=== PATIENT | male | born 1950 | race Caucasian/White ===

== ENCOUNTER 2019-09-24 21:35 | Inpatient (IN) | payer MEDICARE, MEDICAID, SELFPAY | END 2019-09-27 17:32 | disposition home or self-care (01) | DRG 309 | PROVIDERS: Admitting Provider Internal Medicine; Family Provider Family Medicine; Visit Provider Family Medicine | DX: I48.91 Unspecified atrial fibrillation (principal); J44.1 Chronic obstructive pulmonary disease with (acute) exacerbation; G89.29 Other chronic pain; M25.552 Pain in left hip; Z86.711 Personal history of pulmonary embolism; Z79.01 Long term (current) use of anticoagulants; Z99.81 Dependence on supplemental oxygen; N40.0 Benign prostatic hyperplasia without lower urinary tract symptoms; Z91.81 History of falling; Z87.820 Personal history of traumatic brain injury; F17.210 Nicotine dependence, cigarettes, uncomplicated ==

== ENCOUNTER 2019-10-05 02:23 | Inpatient (IN) | payer MEDICARE, MEDICAID, SELFPAY ==
[2019-10-05] VITALS (9 sets, daily range): BP systolic 108–121; BP diastolic 72–79; PULSE 59–96; RESP 15–20; TEMP 36.3–36.4; O2SAT 95–98; BMI 25.5
--- NOTE | 2019-10-05 02:46 | W.ED.NAVMDI ---
HPI - Nausea/Vomiting/Diarrhea General: Chief complaint: Nausea/Vomiting/Diarrhea Stated complaint: Diarrhea Time Seen by Provider: 10/05/19 02:31 Source: patient Mode of arrival: ambulatory Limitations: no limitations History of Present Illness: HPI Narrative: 69-year-old male who was recently diagnosed with C. difficile and just discharged this morning after a 2-day stay. He states his beats being home he has had increased diarrhea and weakness and states that he is not able to care for himself. He denies any pain. He denies any fever. Has had no vomiting. Patient has been on vancomycin at home. MD elicited complaint: diarrhea and abdominal pain Onset (ago): day(s) Description of diarrhea: watery and lose Associated nausea: No Associated abdominal pain: No Location of pain: None Associated symtoms: Denies change in vision, chest pain, headache(s) or nausea Review of Systems Const: Denies: fever or chills Eyes: Denies: change in vision ENMT: Denies: throat pain or mouth pain Card: Denies: chest pain Resp: Denies: shortness of breath GI: Reports: diarrhea; Denies: abdominal pain, nausea or vomiting : Denies: difficulty urinating Musc: Denies: back pain or joint pain Skin/Breast: Denies: rash Neuro: Denies: headache or behavioral changes Psych: Denies: depression Endo: Denies: excessive urination Cachorro/Lymph: Denies: easy bruising All/Imm: Denies: hives PFSH ED PFSH: Statuses (acute, chronic, etc) shown below reflect problem list status as previously entered and may not be historically accurate Social History Smoking and tobacco status: current every day smoker Physical Exam Const: COMMON NORMALS: no apparent distress, oriented x3 and healthy appearing HENMT: COMMON NORMALS: normocephalic and external nose normal HEAD & SCALP: normocephalic NOSE: external nose normal Eye: COMMON NORMALS: PERRL PUPIL: Yes PERRL Neck/C-Spine: COMMON NORMALS: full ROM and no lymphadenopathy Chest: COMMONS NORMALS: inspection of chest normal Resp: COMMON NORMALS: normal respiratory effort, no use of accessory muscles and clear to auscultation bilaterally AUSCULTATION: clear to auscultation bilaterally Cardio: COMMON NORMALS: regular rate and regular rhythm RATE: regular rate RHYTHM: regular rhythm GI: COMMON NORMALS: normal to inspection, nondistended, normoactive bowel sounds, soft to palpation, non-tender and no masses PALPATION: Yes soft Back/Pelvis: THORACIC SPINE/UPPER BACK: Yes normal to inspection Extremity: COMMON NORMALS: normal to inspection, full ROM and normal capillary refill Neuro: COMMON NORMALS: oriented x3 Psych: COMMON NORMALS: mental status grossly normal and cooperative Skin: COMMON NORMALS: no rashes or lesions noted GENERAL SKIN EXAM: no rashes or lesions noted Course Vital Signs: Vital signs: Vital Signs Temperature 97.6 F 10/05/19 02:34 Pulse Rate 78 10/05/19 02:34 Respiratory Rate 16 10/05/19 02:34 Blood Pressure 117/72 10/05/19 02:34 Pulse Oximetry 97 10/05/19 02:34 MDM - Nausea/Vomiting/Diarrhea MDM Narrative: Medical decision making narrative: Patient presents here with diarrhea and has history of C. difficile recently been admitted and treated. Patient has had weakness spoke to hospitalist who saw patient will admit for observation. Lab Data: Labs: Lab Results 10/05/19 10/05/19 Range/Units 02:48 02:48 WBC 10.5 H (4.0-10.0) 10^3/ uL RBC 5.36 H (4.1-5.3) 10^6/u L Hgb 16.5 (11.7-16.6) g/dL Hct 50.3 (42.0-52.0) % MCV 93.8 (80-94) fL MCH 30.8 (28.0-34.0) pg MCHC 32.8 (30.0-36.0) g/dL RDW 12.4 (12.1-15.1) % Plt Count 240 (130-400) 10^3/c mm MPV 10.3 (7.4-10.4) fL Neut % (Auto) 74.5 % Lymph % (Auto) 16.5 % [place] % (Auto) 7.8 % Eos % (Auto) 0.0 % Baso % (Auto) 0.3 % Neut # (Auto) 7.8 H (1.8-7.7) 10^3/u L Lymph # (Auto) 1.7 (0.8-4.8) 10^3/u L [place] # (Auto) 0.8 (0.2-0.9) 10^3/u L Eos # (Auto) 0.1 (0.0-0.8) 10^3/u L Baso # (Auto) 0.0 (0.0-0.1) 10^3/u L Nucleated RBC % (a uto) 0 % Nucleated RBCs # 0.0 /100WBC Sodium 137 (136-145) mmol/L Potassium 3.9 (3.5-5.1) mmol/L Chloride 102 (98-107) mmol/L Carbon Dioxide 22 (22-29) mmol/L Anion Gap 16.9 (5-19) BUN 12 (8-23) mg/dL Creatinine 1.2 (0.7-1.2) mg/dL GFR Calculation 60.4 L (90-130) mL/min Glucose 93 (74-106) mg/dL Calcium 9.0 (8.8-10.2) mg/Dl Total Bilirubin 0.8 (0.15-1.2) mg/dL AST 34 (0-40) U/L ALT 72 H (0-41) U/L Alkaline Phosphata se 105 (40-130) IU/L Total Protein 6.2 L (6.6-8.7) g/dL Albumin 4.1 (3.5-5.2) g/dL Globulin 2.1 (1.3-4.6) g/dL Discharge Plan Discharge Patient Disposition: Admitted As Inpatient Clinical Impression: Clostridium difficile colitis Condition: Stable Referrals: Kristi Singh DO [Primary Care Provider] - Coding Level of Care Code 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
[2019-10-05 02:51] LABS: Add RBC Morph No
[2019-10-05 03:07] LABS: Alanine Aminotransferase 72 U/L (0-41); Albumin Level 4.1 g/dL (3.5-5.2); Alkaline Phosphatase 105 IU/L (40-130); Anion Gap 16.9 (5-19); Aspartate Amino Transferase 34 U/L (0-40); Blood Urea Nitrogen 12 mg/dL (8-23); Carbon Dioxide 22 mmol/L (22-29); Chloride 102 mmol/L (98-107); Globulin 2.1 g/dL (1.3-4.6); Glomerular Filtration Rate 60.4 mL/min (90-130); Glucose 93 mg/dL (74-106); Potassium 3.9 mmol/L (3.5-5.1); Sodium 137 mmol/L (136-145); Total Bilirubin 0.8 mg/dL (0.15-1.2); Total Protein 6.2 g/dL (6.6-8.7)
[2019-10-05 03:19] LABS: Basophils % 0.3 %; Eosinophils # 0.1 10^3/uL (0.0-0.8); Hematocrit 50.3 % (42.0-52.0); Hemoglobin 16.5 g/dL (11.7-16.6); Lymphocytes # 1.7 10^3/uL (0.8-4.8); Lymphocytes % 16.5 %; Mean Corpuscular HGB Conc 32.8 g/dL (30.0-36.0); Mean Corpuscular Hemoglobin 30.8 pg (28.0-34.0); Mean Corpuscular Volume 93.8 fL (80-94); Mean Platelet Volume 10.3 fL (7.4-10.4); Monocytes # 0.8 10^3/uL (0.2-0.9); Monocytes % 7.8 %; Neutrophils # 7.8 10^3/uL (1.8-7.7); Neutrophils % 74.5 %; Nucleated Red Blood Cells % 0 %; Platelet Count 240 10^3/cmm (130-400); Red Blood Count 5.36 10^6/uL (4.1-5.3); Red Cell Distribution Width 12.4 % (12.1-15.1); White Blood Count 10.5 10^3/uL (4.0-10.0)
[2019-10-05] MEDS: sodium chloride 0.9% 1,000 ML 999 ML IV (03:21)
--- NOTE | 2019-10-05 04:05 | PC.NURSE ---
pt asked for blanket because he was cold
--- NOTE | 2019-10-05 05:13 | P.HP_ITS ---
Providers/Chief Complaint Primary Care Provider: Kristi Singh Chief Complaint: diareah History of Present Illness Cornelio Puckett is a 69 year old male who was recently discharged from the hospital for management of C. difficile diarrhea came back because he was very weak and was not able to take care of himself. Patient is stating that he does not have optimal home conditions to stay there and because of his diarrhea he is not been able to take care of himself at all. He could not sleep well because of this diarrhea, he has not noticed any fever, chills, nausea or vomiting he has been compliant with his medications. Denies melena hematemesis, hemoptysis. Diagnostics in ER showed mildly high white count, normal creatinine, normal hemodynamics, patient was asymptomatic when I saw him, blood pressure 110/70. Patient recently had a cardioversion secondary to A. fib RVR few days back. He has been on digoxin, amiodarone, long-term anticoagulation with Eliquis, I would check digoxin level Review of Systems Narrative: Patient was sitting at the bedside without any active distress Card: Denies: chest pain or palpitations Resp: Denies: shortness of breath GI: Reports: abdominal pain, diarrhea and change in bowel habits; Denies: nausea, vomiting or vomiting blood Musc: Denies: neck pain or back pain Neuro: Denies: headache or numbness in extremities Psych: Reports: depression; Denies: anxiety or mood swings Endo: Denies: excessive urination Cachorro/Lymph: Denies: easy bruising All/Imm: Denies: hives Medications/Allergies Allergies Allergy/AdvReac Type Severity Reaction Status Date / Time No Known Allergies Allergy Verified 10/05/19 02:30 PFSH Acute PFSH: Statuses (acute, chronic, etc) shown below reflect problem list status as previously entered and may not be historically accurate Medical History (Updated 10/05/19 @ 05:24 by Lelo Jameson MD) Afib (Acute) BPH (benign prostatic hyperplasia) (Acute) COPD (chronic obstructive pulmonary disease) (Acute) History of cardioversion (Acute) Pulmonary embolism (Acute) Smoker (Acute) Traumatic brain injury (Acute) Surgical History (Updated 10/05/19 @ 05:24 by Lelo Jameson MD) History of hip replacement (Acute) History of knee replacement (Acute) History of laparoscopic appendectomy (Acute) Hx of tonsillectomy (Acute) Family History (Updated 10/05/19 @ 05:25 by Lelo Jameson MD) Other Diabetes Hypertension Denies family history of CAD (coronary artery disease) Chronic kidney disease (CKD) Social History (Updated 10/05/19 @ 05:25 by Lelo Jameson MD) Smoking and tobacco status: current every day smoker Alcohol intake: never Substance/Drug Use: never Adopted: No Marital status: Single Vitals/I&O/Wt Last Vital Signs Temp 97.6 F 10/05/19 02:34 Pulse 78 10/05/19 02:34 Resp 16 10/05/19 02:34 BP 117/72 10/05/19 02:34 Pulse Ox 97 10/05/19 02:34 Weight last 48 hrs Weight 90.265 kg Physical Exam HENMT: COMMON NORMALS: normocephalic and head/scalp atraumatic Eye: COMMON NORMALS: PERRL and EOMs intact bilaterally Chest: COMMONS NORMALS: inspection of chest normal CHEST: Yes symmetrical chest wall rise Resp: COMMON NORMALS: normal respiratory effort and no retractions Cardio: COMMON NORMALS: no JVD, regular rate, regular rhythm, S1 normal heart sound and S2 normal heart sound GI: COMMON NORMALS: normal to inspection, nondistended, normoactive bowel sounds, soft to palpation, non-tender and no masses Extremity: COMMON NORMALS: normal to inspection, full ROM and normal capillary refill Psych: COMMON NORMALS: mental status grossly normal SPEECH: Yes normal speech and No incoherent Data Labs: Other Labs: All Labs last 24 hrs except CBC/BMP 10/05/19 10/05/19 02:48 02:48 RBC 5.36 H MCV 93.8 MCH 30.8 MCHC 32.8 RDW 12.4 MPV 10.3 Neut % (Auto) 74.5 Lymph % (Auto) 16.5 [place] % (Auto) 7.8 Eos % (Auto) 0.0 Baso % (Auto) 0.3 Neut # (Auto) 7.8 H Lymph # (Auto) 1.7 [place] # (Auto) 0.8 Eos # (Auto) 0.1 Baso # (Auto) 0.0 Nucleated RBC % (a uto) 0 Nucleated RBCs # 0.0 GFR Calculation 60.4 L Calcium 9.0 Total Bilirubin 0.8 AST 34 ALT 72 H Alkaline Phosphata se 105 Total Protein 6.2 L Albumin 4.1 Globulin 2.1 A&P Assessment and plan (1) Clostridium difficile colitis: Status: Acute Code(s): A04.72 - Enterocolitis due to Clostridium difficile, not specified as recurrent C. difficile diarrhea Patient was discharged yesterday came in because he was feeling weak and was not able to take care of himself, Hemodynamically stable, leukocytosis improving, creatinine is normal I will resume his home regimen without any change will check digoxin level For his low blood sugar I will give him 1 amp of D50 Does not look dehydrated, would not use IV fluids for now Continue anticoagulation for his atrial fibrillation: Currently heart rate is in 70s COPD no active exacerbation: We will use DuoNeb 4 PRN basis BPH: Continue tamsulosin Anticipating discharge in less than 48 hours Attestations Medical Necessity Statement*: Anticipating discharge in less than 48 hours, patient is not able to take care of himself because he lives alone and has recurrent loose stools because of C. difficile diarrhea Time Spent in Patient Care: Greater than 35 minutes 40 Coding Level of Care Code Acute Pharmacognosy Teacher for Daina Hoskins Diagnoses Clostridium difficile colitis A04.72
[2019-10-05 05:45] LABS: Digoxin 0.3 ng/mL (0.6-1.2)
[2019-10-05] MEDS: HYDROcodone-acetaminophen 5-325 mg Tablet 1 TAB PO ×2 (06:16→13:24)
[2019-10-05] MEDS: atorvastatin 40 mg Tablet PO (09:32)
[2019-10-05] MEDS: digoxin 250 mcg Tablet PO (09:32)
[2019-10-05] MEDS: aspirin 81 mg EC Tablet PO (09:33)
[2019-10-05] MEDS: apixaban 5 mg Tablet PO ×2 (09:33→18:04)
[2019-10-05] MEDS: tamsulosin 0.4 mg Capsule PO (09:33)
[2019-10-05] MEDS: amiodarone 200 mg Tablet PO ×2 (09:33→18:04)
--- NOTE | 2019-10-05 13:35 | PC.CHAP ---
Pastoral Care Encounter/Spiritual Assessment Type of Contact [] Declined metals sales representative visit [] Patient/Family/Request visit [] Outpatient visit [] Follow-up visit [] Physician referral [] Code/Alert [x] Routine visit [] Staff referral [] Actively dying [] Patient sleeping [] Family support [] [] Out of room [] Palliative care [] [] Receiving care in room [] Pre-surgical visit [] Trauma [] Long length of stay [] ICU visit [] Other:isolation Relational/Emotional Strength [] Patient feels connected with others/family/visitors/staff [] Distress [] Loneliness/isolation [] Abandonment Spirituality of Patient [] Person of Meg [] Attends Denominational of their Meg [] Believes in Prayer [] Reads Bible or Hoahaoism materials [] There are Spiritual issues to be addressed 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[employer] Interventions [] Prayer [] Active listening [] Non-anxious presence [] Spiritual/emotional support [] Crisis/trauma care [] Spiritual counseling [] Bereavement support [] Provided bereavement packet [] Provided Bible/devotional materials [] Provided toy/stuffed animal, coloring book to patient or family member [] Completed spiritual assessment [] Provided Communion [] Anointing/[place] [] Salvation [] Other: Impact on Illness or Injury [] Angry [] Fearful [] Anxious [] Often cries [] Exhaustion [] Unable to work [] Unable to attend yazdanism [] Unable to walk/stand [] Unable to read [] Unable to drive [] Unable to eat/drink [] Unable to sleep [] Unable to be with family [] Other: Summary isolation Time spent with patient
--- NOTE | 2019-10-05 19:47 | PM.PN ---
Subjective Subjective: Interval history: Still continues to have 7-8 episodes of diarrhea per day. Which are large-volume. No complaints of abdominal pain. Was able to get out of bed however he continues to feel weak. Vitals/I&O/Wt Last Vital Signs Temp 97.4 F L 10/05/19 15:34 Pulse 59 L 10/05/19 15:34 Resp 20 H 10/05/19 15:34 BP 121/76 10/05/19 15:34 Pulse Ox 97 10/05/19 15:34 10/05/19 10/05/19 10/05/19 06:59 14:59 22:59 Intake Total 240 / 240 240 / 480 Output Total 300 / 300 Balance -60 / -60 240 / 180 Weight last 48 hrs Weight 90.265 kg Physical Exam Narrative: EXAM NARRATIVE: General awake alert oriented x3 no acute distress CVS S1-S2 normal Respiratory system clear to auscultation bilaterally Abdomen is soft nondistended nontender bowel sounds are positive Neuro no acute deficits. Data Labs: Other Labs: All Labs last 24 hrs except CBC/BMP 10/05/19 10/05/19 10/05/19 02:48 02:48 02:48 RBC 5.36 H MCV 93.8 MCH 30.8 MCHC 32.8 RDW 12.4 MPV 10.3 Neut % (Auto) 74.5 Lymph % (Auto) 16.5 [place] % (Auto) 7.8 Eos % (Auto) 0.0 Baso % (Auto) 0.3 Neut # (Auto) 7.8 H Lymph # (Auto) 1.7 [place] # (Auto) 0.8 Eos # (Auto) 0.1 Baso # (Auto) 0.0 Nucleated RBC % (a uto) 0 Nucleated RBCs # 0.0 GFR Calculation 60.4 L Calcium 9.0 Total Bilirubin 0.8 AST 34 ALT 72 H Alkaline Phosphata se 105 Total Protein 6.2 L Albumin 4.1 Globulin 2.1 Digoxin 0.3 L A&P Assessment and plan (1) Clostridium difficile colitis: Status: Acute Code(s): A04.72 - Enterocolitis due to Clostridium difficile, not specified as recurrent C. difficile diarrhea with multiple bowel movements per day making patient dehydration and feel weak and unsteady. Diarrhea frequency is improving today however continues to have large-volume 6-7 stools per day. Continue p.o. vancomycin 125 mg every 6 hours. Continue anticoagulation for his atrial fibrillation: Also continue digoxin. Currently heart rate is in 70s COPD no active exacerbation: We will use DuoNeb 4 PRN basis BPH: Continue tamsulosin Attestations Medical Necessity Statement*: Admitted for management of C. difficile colitis resulting diarrhea and dehydration and weakness. 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
[2019-10-06] VITALS (8 sets, daily range): BP systolic 102–125; BP diastolic 66–77; PULSE 60–85; RESP 16–22; TEMP 36.3–37.2; O2SAT 93–95
[2019-10-06 07:04] LABS: Basophils % 0.3 %; Eosinophils # 0.1 10^3/uL (0.0-0.8); Eosinophils % 1.3 %; Hematocrit 47.7 % (42.0-52.0); Hemoglobin 15.2 g/dL (11.7-16.6); Lymphocytes # 1.4 10^3/uL (0.8-4.8); Lymphocytes % 15.5 %; Mean Corpuscular HGB Conc 31.9 g/dL (30.0-36.0); Mean Corpuscular Hemoglobin 31.3 pg (28.0-34.0); Mean Corpuscular Volume 98.4 fL (80-94); Monocytes # 0.6 10^3/uL (0.2-0.9); Monocytes % 6.7 %; Neutrophils # 6.9 10^3/uL (1.8-7.7); Nucleated Red Blood Cells % 0 %; Platelet Count 239 10^3/cmm (130-400); Red Blood Count 4.85 10^6/uL (4.1-5.3); Red Cell Distribution Width 12.6 % (12.1-15.1)
[2019-10-06 07:14] LABS: Add RBC Morph No; Blood Urea Nitrogen 11 mg/dL (8-23); Calcium 8.8 mg/Dl (8.8-10.2); Carbon Dioxide 23 mmol/L (22-29); Glomerular Filtration Rate 74.5 mL/min (90-130); Glucose 101 mg/dL (74-106)
[2019-10-06 07:38] LABS: Sodium 139 mmol/L (136-145)
[2019-10-06 07:39] LABS: Chloride 104 mmol/L (98-107)
[2019-10-06] MEDS: amiodarone 200 mg Tablet PO ×2 (08:46→18:12)
[2019-10-06] MEDS: apixaban 5 mg Tablet PO ×2 (08:46→18:12)
[2019-10-06] MEDS: aspirin 81 mg EC Tablet PO (08:46)
[2019-10-06] MEDS: HYDROcodone-acetaminophen 5-325 mg Tablet 1 TAB PO ×2 (08:50→18:14)
--- NOTE | 2019-10-06 13:52 | PC.NURSE ---
Patient complaining of stomach pain and requesting tums. Patient did not eat or drink anything for lunch because he stated he had a stomach ache. Nurse notified.
--- NOTE | 2019-10-06 17:17 | P.PN_ITS ---
Subjective Subjective: Interval history: Diarrhea frequency is improving. He still continues to have 6-7 episodes of explosive diarrhea however amount of stool is now less. He feels a little bit stronger today. He is able to ambulate within the room. No leukocytosis. No dizziness no falls. Vitals/I&O/Wt Last Vital Signs Temp 97.4 F L 10/06/19 15:46 Pulse 60 10/06/19 15:46 Resp 16 10/06/19 15:46 BP 125/74 10/06/19 15:46 Pulse Ox 94 10/06/19 15:46 Weight last 48 hrs Weight 84.776 kg Weight 84.822 kg Weight 90.265 kg Physical Exam Const: COMMON NORMALS: no apparent distress, oriented x3 and alert GENERAL APPEARANCE: cooperative Neck/C-Spine: COMMON NORMALS: no JVD Resp: COMMON NORMALS: normal respiratory effort, no retractions, no use of accessory muscles, clear to auscultation bilaterally and percussion normal AUSCULTATION: clear to auscultation bilaterally PERCUSSION: percussion normal Cardio: COMMON NORMALS: no JVD, regular rate, regular rhythm, S1 normal heart sound, S2 normal heart sound, no gallops, no clicks, no murmurs, no rub and peripheral pulses 2+ throughout RATE: regular rate RHYTHM: regular rhythm HEART SOUNDS: S1 normal and S2 normal PERIPHERAL PULSES: pulses 2+ throughout GI: COMMON NORMALS: normal to inspection, nondistended, normoactive bowel sounds, soft to palpation, non-tender, no hepatosplenomegaly, no masses and no bruits PALPATION: Yes soft and Yes no hepatosplenomegaly Neuro: COMMON NORMALS: oriented x3, CN's II-XII intact bilaterally, moves all extremities, no focal motor deficits, no sensory deficits noted, deep tendon reflexes 2+ bilaterally and gait normal SENSORIUM/ORIENTATION: Yes alert A&P Assessment and plan (1) Clostridium difficile colitis: Status: Acute Code(s): A04.72 - Enterocolitis due to Clostridium difficile, not specified as recurrent C. difficile diarrhea with multiple bowel movements per day now appears to be improving. Patient was able to get out of bed ambulate within the room. Hydration is much improved. Diarrhea frequency is improving today with reduced volume for stool Continue p.o. vancomycin 125 mg every 6 hours. Continue anticoagulation for his atrial fibrillation: Also continue digoxin. Currently heart rate is in 70s COPD no active exacerbation: We will use DuoNeb 4 PRN basis BPH: Continue tamsulosin Attestations Medical Necessity Statement*: Admitted for the management of C. difficile diarrhea. Hydration much improved today. Likely discharge in the upcoming day. 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
[2019-10-07] VITALS (7 sets, daily range): BP systolic 110–126; BP diastolic 68–77; PULSE 61–83; RESP 17–18; TEMP 36.5–36.7; O2SAT 93–96; BMI 23.8
[2019-10-07] MEDS: tamsulosin 0.4 mg Capsule PO (09:19)
[2019-10-07] MEDS: digoxin 250 mcg Tablet PO (09:19)
[2019-10-07] MEDS: amiodarone 200 mg Tablet PO (09:19)
[2019-10-07] MEDS: aspirin 81 mg EC Tablet PO (09:19)
[2019-10-07] MEDS: apixaban 5 mg Tablet PO (09:19)
--- NOTE | 2019-10-07 11:04 | PC.NURSE ---
PAOLO SINGH PATIENT CARE NURSE WENT TO GIVE PATIENT HIS DISCHARGE INSTRUCTIONS, PATIENT WAS NOT IN ROOM. NURSE HAD ALREADY DISCONTINUED PATIENTS IV. THIS NURSE CALLED PATIENT WHO STATED HE HAD TO LEAVE AND THAT HE WOULD BE BACK IN 20 MINUTES TO GET HIS DISCHARGE PAPERS
--- NOTE | 2019-10-07 11:08 | PC.NURSE ---
PT WAS IN THE [facility] WAITING TO LEAVE INSTEAD OF ROOM, WEIGHT WAS NOT TAKEN BY THIS NURSE TO PT NOT BEING IN ROOM FOR THIS NURSE TO DO SO.
--- NOTE | 2019-10-09 22:43 | P.DS_ITS ---
Discharge Providers Date of Admission: 10/06/19 16:10 Date of Discharge: 10/07/19 Attending Provider at Admission: Lelo Jameson MD Attending Provider at Discharge: Roro Pelaez MD Primary Care Provider: Kristi Singh Diagnoses at Discharge Discharge Diagnosis (1) Clostridium difficile colitis: Status: Acute Reason for Visit Reason for Visit: Reason For Visit: clostridioldes, difficile diarrhea Hospital Course Discharge Summary: 69 year old male with recent cardioversion secondary to A fib with RVR who developed C.diff prior to discharge. He returned because he was very weak and was not able to take care of himself. He was having multiple episodes of large volume diarrhea with incontinence, which was dehydrating him. He was admitted for the same, continued on PO vancomycin and receievd IV hydration. By the time of discharge his diarrhea had imrproved, low volume. Physical Exam Narrative: EXAM NARRATIVE: Gen; Awake, alert CVS: s1s2N RS: clear to auscultation B/L Abd: soft, NT/ND, BS+ Discharge Data Vitals: Last Vital Signs Temp 98.1 F 10/07/19 10:28 Pulse 83 10/07/19 10:28 Resp 17 10/07/19 10:28 BP 110/68 10/07/19 08:00 Pulse Ox 96 10/07/19 10:28 Discharge Plan Discharge Patient Disposition: Home, Self-Care Condition: Stable Prescriptions: New ipratropium-albuterol 0.5 mg-3 mg(2.5 mg base)/3 mL Solution For Nebulization 3 ml inhalation Q6H PRN (Reason: Shortness Of Breath) 30 Days RF: 0 amiodarone 200 mg Tablet 200 mg PO BID 30 Days RF: 0 hydrocodone-acetaminophen 5-325 mg Tablet 1 tab PO Q6H PRN (Reason: pain) 10 Days RF: 0 digoxin 250 mcg (0.25 mg) Tablet 250 mcg PO DAILY 30 Days RF: 0 aspirin 81 mg Tablet,Delayed Release (Dr/Ec) 81 mg PO DAILY 30 Days RF: 0 tamsulosin 0.4 mg Capsule 0.4 mg PO DAILY 30 Days RF: 0 calcium carbonate 200 mg calcium (500 mg) Tablet,Chewable 500 mg PO Q4H PRN (Reason: Indigestion) 30 Days RF: 0 Eliquis 5 mg Tablet 5 mg PO BID 30 Days RF: 0 vancomycin 125 mg capsule 125 mg PO Q6H Qty: 60 RF: 0 Discharge Orders: Discharge Order (Routine); Ordered 10/07/19 Ordered By: Roro Pelaez Referrals: Kristi Singh DO [Primary Care Provider] - (Dr. Singh is out on medical leave and your appointment will be with Nona DICKEY on October 12 at 2:00 PM) Discharge Diet: Usual diet Discharge Activity: Resume usual activity Patient Instructions: Clostridium Difficile, Digoxin (By mouth), Amiodarone (By mouth), Vancomycin (By mouth), How to Stop Smoking (GEN) Discharge Date/Time: 10/07/19 11:51 Discharge Attestations Time Spent in Discharge Care*: less than 30 min Quality Metrics Clinical Quality Measures During this hospital stay, did patient experience: None Coding Level of Care Code Acute Greeting Card Editor for Daina Hoskins Diagnoses Clostridium difficile colitis A04.72
== END 2019-10-07 11:51 | disposition home or self-care (01) | DRG 373 ==
LOC: ER 04:56 → MEDSURG 05:38
PROVIDERS: Admitting Provider Student in an Organized Health Care Education/Training Program; Emergency Provider Emergency Medicine; Family Provider Family Medicine; PCP Family Medicine; Visit Provider Internal Medicine
DX: A04.72 Enterocolitis due to Clostridium difficile, not specified as recurrent (principal); I48.91 Unspecified atrial fibrillation; N40.0 Benign prostatic hyperplasia without lower urinary tract symptoms; J44.9 Chronic obstructive pulmonary disease, unspecified; Z86.711 Personal history of pulmonary embolism; F17.210 Nicotine dependence, cigarettes, uncomplicated; Z87.820 Personal history of traumatic brain injury; Z96.649 Presence of unspecified artificial hip joint
CPT/HCPCS: 36415; 71045; 80048; 80053; 80162; 81003; 83605; 83735; 84484; 85025; 87493; 93005; 96361; 96365; 99221; 99281; 99285; G0378; J3370; J7030; S0030

== ENCOUNTER 2019-11-01 11:53 | Emergency (ER) | payer MEDICARE, MEDICAID, SELFPAY ==
[2019-11-01 11:58] VITALS: BP 105/63; PULSE 76; RESP 16; TEMP 36.3; O2SAT 98; BMI 25.2
--- NOTE | 2019-11-01 12:04 | XR_ITS ---
WS: [id number] Left hip, AP and frog leg views, AP pelvis, 11/01/2019 Clinical Data: fall Comparison: AP pelvis, AP and frog leg views left hip, 09/22/2019. Findings: There is a left hip nail reducing an old left intertrochanteric hip fracture. No new left hip fractur es are seen. The right hip is intact. The pubic symphysis and SI joints are normal. There is a vena c aval filter overlying the L4 vertebral body. No pelvic fractures are seen. XR/XR hip LT 2-3V wo/w pel* [id number] Impression: 1. No change in left hip nail and no new left hip fracture. 2. Negative for pelvic or right hip fracture.
--- NOTE | 2019-11-01 12:04 | XR_ITS ---
WS: [id number] Sacrum and coccyx, 3 views, 11/01/2019 Clinical Data: fall Comparison: None. Findings: The sacrum and coccyx are intact. The SI joints and pubic symphysis are normal. There is a left hip n ail reducing an old left intertrochanteric fracture. There is aneurysmal dilatation of 3.94 cm of the distal abdominal aorta. XR/XR coccyx 2V [id number] Impression: Negative sacrum and coccyx. 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
--- NOTE | 2019-11-01 12:15 | W.ED.FALL ---
HPI - Fall General: Chief Complaint: Fall Stated Complaint: Fall, Tailbone pain Time Seen by Provider: 11/01/19 12:12 Source: patient Mode of arrival: ambulatory Limitations: no limitations History of Present Illness: HPI Narrative: Patient comes in today for complaints of left hip pain and coccyx pain after falling. Patient has a history of a left hip replacement. Patient does take routine hydrocodone twice a day for his hip pain. Patient appears well. No obvious deformities noted. complaint: fall Review of Systems General: Reports: 10 or more systems reviewed and unremarkable except in HPI and below Musc: Reports: joint pain (left hip and tailbone) PFSH ED PFSH: Statuses (acute, chronic, etc) shown below reflect problem list status as previously entered and may not be historically accurate Medical History (Updated 11/01/19 @ 13:12 by KELI Arguello) Afib (Acute) BPH (benign prostatic hyperplasia) (Acute) COPD (chronic obstructive pulmonary disease) (Acute) History of cardioversion (Acute) Hypertension (Acute) Smoker (Acute) Traumatic brain injury (Acute) Surgical History History of hip replacement (Acute) History of knee replacement (Acute) History of laparoscopic appendectomy (Acute) Hx of tonsillectomy (Acute) Social History Smoking and tobacco status: never smoked Quit status (tobacco): considering quitting Second hand smoke exposure: No Smoking risk assessment/counseling performed?: No Alcohol intake: never Adopted: No Caregiver/support person: Yes Lives independently: Yes Housing: Apartment Marital status: Single Number of children: 0 Highest education level completed: Bachelor's Degree service: Yes Current occupational status: retired Pets and animals: No History of recent travel: No Sexually active: No Current gender identity: Male Special reece needs: No Agree to transfusion: Yes Physical Exam Const: COMMON NORMALS: no apparent distress and oriented x3 GENERAL APPEARANCE: cooperative HENMT: COMMON NORMALS: normocephalic, external ears normal, EAC's normal, TM's normal bilaterally and external nose normal HEAD & SCALP: normal to inspection and normocephalic FACE & SINUS: normal facial exam NOSE: external nose normal GENERAL EAR: hearing not grossly impaired EXTERNAL EAR: Yes external ears normal EXTERNAL AUDITORY CANAL: EAC's normal TYMPANIC MEMBRANE: TM's normal bilaterally MOUTH: oral and palatal mucosa normal THROAT: posterior oropharynx normal Eye: COMMON NORMALS: PERRL and EOMs intact bilaterally PUPIL: Yes PERRL Neck/C-Spine: COMMON NORMALS: full ROM and no lymphadenopathy Lymph: LYMPHATIC: no lymphedema noted Chest: COMMONS NORMALS: inspection of chest normal and palpation of chest normal Resp: COMMON NORMALS: normal respiratory effort and clear to auscultation bilaterally AUSCULTATION: clear to auscultation bilaterally Cardio: COMMON NORMALS: regular rate and regular rhythm RATE: regular rate RHYTHM: regular rhythm GI: COMMON NORMALS: normal to inspection, nondistended, normoactive bowel sounds and non-tender : COMMON NORMALS: Yes no CVA tenderness BLADDER/KIDNEY EXAM: Yes no CVA tenderness Back/Pelvis: COMMON NORMALS: no CVA tenderness and thoracic and lumbar spine normal to inspection Extremity: COMMON NORMALS: normal to inspection GENERAL: No edema Neuro: COMMON NORMALS: oriented x3, moves all extremities and no focal motor deficits Psych: COMMON NORMALS: mental status grossly normal and cooperative Skin: COMMON NORMALS: no rashes or lesions noted GENERAL SKIN EXAM: no rashes or lesions noted Course Vital Signs: Vital signs: Vital Signs Temperature 97.4 F L 11/01/19 11:58 Pulse Rate 76 11/01/19 13:28 Respiratory Rate 18 11/01/19 13:28 Blood Pressure 142/74 11/01/19 13:28 Pulse Oximetry 96 11/01/19 13:28 MDM - Fall MDM Narrative: Medical decision making narrative: Patient comes in today for complaints of injury sustained during a fall on Thursday. Patient reports lifting a trash can out of his pickup truck losing his balance and falling backwards onto his buttocks. Patient reports tailbone pain. Exam notes some tenderness in the coccygeal area without any signs of abrasion or ecchymosis. Patient is weightbearing without difficulty. Respirations are even lungs are clear to auscultation. Skin is warm and dry color is pink. Differential diagnosis includes fracture, contusion, sprain. X-ray of the coccyx and hip and pelvis noted no new fractures. Reviewed exam with patient with recommendations for treatment including ice or heat and medication for pain. Patient reports understanding and agreed to plan. Discharge Plan Discharge Patient Disposition: Home, Self-Care Clinical Impression: Left hip pain Fall Qualifiers: Encounter type: initial encounter Qualified Code(s): W19.XXXA - Unspecified fall, initial encounter Condition: Stable Prescriptions: No Action amiodarone 200 mg tablet 200 mg PO DAILY 90 Days Qty: 90 RF: 0 Eliquis 5 mg tablet 5 mg PO BID 90 Days Qty: 180 RF: 0 aspirin 81 mg tablet,delayed release (DR/EC) 81 mg PO DAILY 90 Days Qty: 90 RF: 0 digoxin 250 mcg (0.25 mg) tablet 250 mcg PO DAILY 90 Days Qty: 90 RF: 0 hydrocodone-acetaminophen [[place]] 7.5-325 mg tablet 1 tab PO Q12H PRN (Reason: pain) 30 Days Qty: 60 RF: 0 ipratropium-albuterol 0.5 mg-3 mg(2.5 mg base)/3 mL Solution For Nebulization 3 ml inhalation Q6H PRN (Reason: Shortness Of Breath) 30 Days RF: 0 tamsulosin 0.4 mg Capsule 0.4 mg PO DAILY 30 Days RF: 0 calcium carbonate 200 mg calcium (500 mg) Tablet,Chewable 500 mg PO Q4H PRN (Reason: Indigestion) 30 Days RF: 0 Discharge Orders: Discharge Order (Routine); Ordered 11/01/19 Ordered By: Jose A Bond Referrals: Kristi Singh DO [Primary Care Provider] - Discharge Diet: Usual diet Discharge Activity: Increase activity as tolerated Activity Restrictions/Additional Instructions: Home and rest Activity as tolerated Follow-up with primary care in one week Discharge Date/Time: 11/01/19 13:29 Coding Level of Care Code ED Geography Teacher for Daina Fwd Exam Problem Focused
[2019-11-01 13:28] VITALS: BP 142/74; PULSE 76; RESP 18; O2SAT 96
== END 2019-11-01 13:29 | disposition home or self-care (01) ==
PROVIDERS: Emergency Provider Nurse Practitioner Family; Family Provider Family Medicine; PCP Family Medicine
DX: M25.552 Pain in left hip (principal); Z79.01 Long term (current) use of anticoagulants; Z79.82 Long term (current) use of aspirin; I48.91 Unspecified atrial fibrillation; J44.9 Chronic obstructive pulmonary disease, unspecified; I10 Essential (primary) hypertension; Z96.649 Presence of unspecified artificial hip joint; Z96.659 Presence of unspecified artificial knee joint
CPT/HCPCS: 72220; 73502; 99281; 99282

== ENCOUNTER 2020-02-23 04:00 | Emergency (ER) | payer MEDICARE, MEDICAID, SELFPAY ==
[2020-02-23 04:01] VITALS: BP 87/69; PULSE 96; RESP 18; TEMP 36.6; O2SAT 94; BMI 25.7
--- NOTE | 2020-02-23 04:04 | CTR_ITS ---
PROCEDURE INFORMATION: Exam: CT Head Without Contrast Exam date and time: 02/23/2020 4:06 AM Age: 70 years old Clinical indication: Injury or trauma; Fall; Initial encounter; Blunt trauma (contusions or hematomas); Without loss of consciousness; Dizziness; Prior surgery; Surgery date: 6+ months; Patient HX: HX prior brain injury; Additional info: Dizzy TECHNIQUE: Imaging protocol: Computed tomography of the head without contrast. Radiation optimization: All CT scans at this facility use at least one of these dose optimization techniques: automated exposure control; mA and/or kV adjustment per patient size (includes targeted exams where dose is matched to clinical indication); or iterative reconstruction. COMPARISON: CT head wo con* [id number] 09/08/2019 5:37 PM RADIATION DOSE METRICS: Total DLP: 970.38 mGy-cm FINDINGS: Brain: There is moderate hypodensity of the periventricular white matter. This is nonspecific, but a likely cause is small vessel ischemic disease. No abnormal intra-axial or extra-axial fluid collections are identified. There is no midline shift. No intracranial hemorrhage identified. Ventricles: The ventricles and sulci are moderately and diffusely prominent, compatible with global brain volume loss. Bones/joints: Status post right parietotemporal craniotomy. Sinuses: Visualized sinuses are unremarkable. No fluid levels. Mastoid air cells: The left mastoid air cells and left middle ear cavity are filled with fluid. These findings are similar to prior study. Soft tissues: Unremarkable. CT/CT head wo con* [id number] IMPRESSION: 1. No acute intracranial process identified. Chronic findings as above. Radiation Dose CTDIVOL = (mGy): DLP = 970.38 (mGy-cm)
--- NOTE | 2020-02-23 04:04 | XR_ITS ---
WS: [id number] CHEST XRAY TECHNIQUE: Portable chest. CLINICAL INFORMATION: dizzy COMPARISON: October 02, 2019 FINDINGS: Heart: Normal cardiac silhouette. Lungs: Moderate chronic emphysematous changes. No acute pulmonary infiltrates. Tiny right pleural eff usion. No focal pneumonia. Bones: Normal visualized bony structures. XR/XR chest 1V portable [id number] IMPRESSION: 1. Chronic emphysematous changes. No focal pneumonia. 2. Trace right pleural fluid.
--- NOTE | 2020-02-23 04:06 | W.ED.DIZZY ---
HPI - Dizziness General: Chief Complaint: Fall Stated Complaint: FALL Time Seen by Provider: 02/23/20 04:04 Source: patient and EMS Mode of arrival: EMS Limitations: no limitations History of Present Illness: HPI Narrative: 70-year-old male states he got up this morning and was very dizzy and had difficulty walking. Patient states that he fell onto his buttocks and has slight left hip pain. He denies hitting his head. Patient states he feels like he is unable to walk she feels very unsteady. He denies any chest pain. MD elicited complaint: dizziness Onset (ago): hour(s) Timing: sudden onset Description: sense of movement, room spinning and difficulty walking Exacerbating factors: movement/ambulation Relieving factors: remaining still Associated symptoms: Denies chest pain, chills, nausea or vomiting Review of Systems Const: Denies: fever(s), chills, body aches or change in appetite Eyes: Denies: blurry vision or eye discomfort ENMT: Denies: throat pain or dental pain Card: Denies: chest pain Resp: Denies: dyspnea GI: Denies: abdominal pain, nausea, vomiting or diarrhea : Denies: dysuria Musc: Denies: neck pain or back pain Skin/Breast: Denies: rash Neuro: Reports: difficulty walking and dizziness Psych: Denies: depression [place]/Lymph: Denies: easy bruising All/Imm: Denies: urticaria PFSH ED PFSH: Medical History Afib BPH (benign prostatic hyperplasia) COPD (chronic obstructive pulmonary disease) History of cardioversion Hypertension Smoker Traumatic brain injury Surgical History History of hip replacement History of knee replacement History of laparoscopic appendectomy Hx of tonsillectomy Family History Other CAD (coronary artery disease) Cancer Diabetes Hypertension Lung disease Stroke Denies family history of Clotting disorder Dementia Hyperlipidemia Psychiatric illness Chronic kidney disease (CKD) Suicide Anesthesia complication Bleeding disorder Family history of premature coronary artery disease Social History Smoking and tobacco status: current every day smoker cigarettes Years cigarettes smoked: 56 Quit status (tobacco): considering quitting Second hand smoke exposure: No Smoking risk assessment/counseling performed?: No Alcohol intake: never Adopted: No Caregiver/support person: Yes Lives independently: Yes Housing: Apartment Marital status: Single Number of children: 0 Highest education level completed: Bachelor's Degree service: Yes Current occupational status: retired Pets and animals: No History of recent travel: No Sexually active: No Current gender identity: Male Special reece needs: No Agree to transfusion: Yes Physical Exam Const: COMMON NORMALS: no acute distress, patient oriented x3 and healthy appearing HENMT: COMMON NORMALS: normocephalic and atraumatic HEAD & SCALP: normocephalic and atraumatic Eye: COMMON NORMALS: Equal, round and reactive pupils present and EOMs intact bilaterally PUPIL: Yes Equal, round and reactive pupils present Neck/C-Spine: COMMON NORMALS: full ROM and supple Chest: COMMONS NORMALS: normal inspection of the chest and normal palpation of entire chest wall Resp: COMMON NORMALS: normal respiratory effort, No retractions, No use of accessory muscles and clear to auscultation bilaterally AUSCULTATION: clear to auscultation bilaterally Cardio: COMMON NORMALS: regular rate, regular rhythm and No murmurs present (Cardio) RATE: regular rate RHYTHM: regular rhythm GI: COMMON NORMALS: Normal to inspection, nondistended, normoactive bowel sounds present, Soft to palpation, non-tender and no masses PALPATION: Yes Soft to palpation Extremity: COMMON NORMALS: normal to inspection and full ROM Neuro: COMMON NORMALS: patient oriented x3 and moves all extremities GAIT: Yes Ataxic gait present and Yes Staggering gait present Psych: COMMON NORMALS: mental status grossly normal, Normal thought process present and cooperative THOUGHT PROCESS: Normal thought process present Skin: COMMON NORMALS: no rashes or lesions noted and no wounds GENERAL SKIN EXAM: no rashes or lesions noted Course Vital Signs: Vital signs: Vital Signs Temperature 97.9 F 02/23/20 04:01 Pulse Rate 71 02/23/20 05:28 Respiratory Rate 26 H 02/23/20 05:28 Blood Pressure 102/79 02/23/20 05:28 Pulse Oximetry 95 02/23/20 05:28 MDM - Dizziness MDM Narrative: Medical decision making narrative: Patient presents here with a fall along with left hip pain from his fall. Patient does have slight ataxia but from further talking to him he walks with a wide gait from his previous stroke. He typically uses a cane and states we got a bed to date and did not use his cane. Patient feels improved here he has no more weakness in his blood pressure is improved after IV fluids. He has no signs of infection and blood count and lactate are normal. Head CT shows old stroke with no signs of new CVA. I do not believe he has had his posterior CVA. Patient was able to ambulate in his room I did discuss fall prevention with him that he needs to keep his cane at his bedside and use it at all times. He is to follow-up with his primary care doctor in 3 to 5 days and return if worsening. Lab Data: Labs: Lab Results 02/23/20 02/23/20 02/23/20 Range/Units 04:25 04:25 04:25 WBC 7.2 (4.0-10.0) 10^3/ uL RBC 5.71 H (4.1-5.3) 10^6/u L Hgb 17.7 H (11.7-16.6) g/dL Hct 53.5 H (42.0-52.0) % MCV 93.7 (80-94) fL MCH 31.0 (28.0-34.0) pg MCHC 33.1 (30.0-36.0) g/dL RDW 13.0 (12.1-15.1) % Plt Count 241 (130-400) 10^3/c mm MPV 10.1 (7.4-10.4) fL Neut % (Auto) 65.3 % Lymph % (Auto) 24.8 % [place] % (Auto) 7.1 % Eos % (Auto) 2.0 % Baso % (Auto) 0.7 % Neut # (Auto) 4.7 (1.8-7.7) 10^3/u L Lymph # (Auto) 1.8 (0.8-4.8) 10^3/u L [place] # (Auto) 0.5 (0.2-0.9) 10^3/u L Eos # (Auto) 0.1 (0.0-0.8) 10^3/u L Baso # (Auto) 0.1 (0.0-0.1) 10^3/u L Nucleated RBC % (a uto) 0 % Nucleated RBCs # 0.0 /100WBC PT 15.60 H (10.5-13.3) SECO NDS INR 1.20 (0.8-1.2) Sodium 137 (136-145) mmol/L Potassium 4.0 (3.5-5.1) mmol/L Chloride 99 (98-107) mmol/L Carbon Dioxide 27 (22-29) mmol/L Anion Gap 15.0 (5-19) BUN 13 (8-23) mg/dL Creatinine 1.0 (0.7-1.2) mg/dL GFR Calculation 74.3 L (90-130) mL/min Glucose 100 (65-115) mg/dL Calculated Osmolal ity 280 L (285-295) mOsm/k g Lactic Acid (Sepsi s) (0.5-2.2) mmol/L Calcium 9.3 (8.5-10.5) mg/dL Total Bilirubin 0.9 (0.15-1.2) mg/dL AST 28 (0-40) U/L ALT 34 (0-41) U/L Alkaline Phosphata se 114 (40-130) IU/L Total Protein 7.2 (6.6-8.7) g/dL Albumin 4.3 (3.5-5.2) g/dL Globulin 2.9 (1.3-4.6) g/dL Urine Color (Yellow) Urine Appearance (CLEAR) Urine pH (5-7) Ur Specific Gravit y (1.005-1.030) Urine Protein (Negative) Urine Glucose (UA) (Normal) Urine Ketones (Negative) Urine Blood (Negative) Urine Nitrate (Negative) Urine Bilirubin (NEGATIVE) Urine Urobilinogen (Negative) mg/dL Ur Leukocyte [place] (Negative) 02/23/20 02/23/20 Range/Units 04:51 05:10 WBC (4.0-10.0) 10^3/ uL RBC (4.1-5.3) 10^6/u L Hgb (11.7-16.6) g/dL Hct (42.0-52.0) % MCV (80-94) fL MCH (28.0-34.0) pg MCHC (30.0-36.0) g/dL RDW (12.1-15.1) % Plt Count (130-400) 10^3/c mm MPV (7.4-10.4) fL Neut % (Auto) % Lymph % (Auto) % [place] % (Auto) % Eos % (Auto) % Baso % (Auto) % Neut # (Auto) (1.8-7.7) 10^3/u L Lymph # (Auto) (0.8-4.8) 10^3/u L [place] # (Auto) (0.2-0.9) 10^3/u L Eos # (Auto) (0.0-0.8) 10^3/u L Baso # (Auto) (0.0-0.1) 10^3/u L Nucleated RBC % (a uto) % Nucleated RBCs # /100WBC PT (10.5-13.3) SECO NDS INR (0.8-1.2) Sodium (136-145) mmol/L Potassium (3.5-5.1) mmol/L Chloride (98-107) mmol/L Carbon Dioxide (22-29) mmol/L Anion Gap (5-19) BUN (8-23) mg/dL Creatinine (0.7-1.2) mg/dL GFR Calculation (90-130) mL/min Glucose (65-115) mg/dL Calculated Osmolal ity (285-295) mOsm/k g Lactic Acid (Sepsi s) 1.4 (0.5-2.2) mmol/L Calcium (8.5-10.5) mg/dL Total Bilirubin (0.15-1.2) mg/dL AST (0-40) U/L ALT (0-41) U/L Alkaline Phosphata se (40-130) IU/L Total Protein (6.6-8.7) g/dL Albumin (3.5-5.2) g/dL Globulin (1.3-4.6) g/dL Urine Color Yellow (Yellow) Urine Appearance Clear (CLEAR) Urine pH 5 (5-7) Ur Specific Gravit y 1.015 (1.005-1.030) Urine Protein Neg (Negative) Urine Glucose (UA) Norm (Normal) Urine Ketones Negative (Negative) Urine Blood Neg (Negative) Urine Nitrate Negative (Negative) Urine Bilirubin 1+ H (NEGATIVE) Urine Urobilinogen 1 H (Negative) mg/dL Ur Leukocyte [place] Negative (Negative) Imaging Data^: CXR: Attestation: I personally reviewed and interpreted this imaging study as follows: My impression: no acute abnormality CT Head: Attestation: I personally reviewed and interpreted this imaging study as follows: Radiologist's impression: [address] [address] [address] Scan Report Signed Patient: Cornelio Puckett Unit #: [id number] : 1950 Age/Sex: 70 / M ADM Date: 02/23/20 Loc: ER Room/Bed: Attending Dr: Ordering Provider/Ordering MD: Rl Arcos MD Date of Service: 02/23/20 Procedure(s): CT head wo con* [id number] Accession Number(s): [id number] Report Number: [id number] PROCEDURE INFORMATION: Exam: CT Head Without Contrast Exam date and time: 02/23/2020 4:06 AM Age: 70 years old Clinical indication: Injury or trauma; Fall; Initial encounter; Blunt trauma (contusions or hematomas); Without loss of consciousness; Dizziness; Prior surgery; Surgery date: 6+ months; Patient HX: HX prior brain injury; Additional info: Dizzy TECHNIQUE: Imaging protocol: Computed tomography of the head without contrast. Radiation optimization: All CT scans at this facility use at least one of these dose optimization techniques: automated exposure control; mA and/or kV adjustment per patient size (includes targeted exams where dose is matched to clinical indication); or iterative reconstruction. COMPARISON: CT head wo con* [id number] 09/08/2019 5:37 PM RADIATION DOSE METRICS: Total DLP: 970.38 mGy-cm FINDINGS: Brain: There is moderate hypodensity of the periventricular white matter. This is nonspecific, but a likely cause is small vessel ischemic disease. No abnormal intra-axial or extra-axial fluid collections are identified. There is no midline shift. No intracranial hemorrhage identified. Ventricles: The ventricles and sulci are moderately and diffusely prominent, compatible with global brain volume loss. Bones/joints: Status post right parietotemporal craniotomy. Sinuses: Visualized sinuses are unremarkable. No fluid levels. Mastoid air cells: The left mastoid air cells and left middle ear cavity are filled with fluid. These findings are similar to prior study. EKG Data^: EKG 1: Attestation: I personally reviewed and interpreted this EKG as follows: EKG interpretation date: 02/23/20 EKG interpretation time: 05:09 Interpretation: nsr hr [address] or t wave abnormalities qrs 89 qtc 392 Discharge Plan Discharge Patient Disposition: Home, Self-Care Clinical Impression: Left hip pain Fall Qualifiers: Encounter type: initial encounter Qualified Code(s): W19.XXXA - Unspecified fall, initial encounter Condition: Stable Prescriptions: No Action amiodarone 200 mg tablet 200 mg PO DAILY 90 Days Qty: 90 RF: 0 Eliquis 5 mg tablet 5 mg PO BID 90 Days Qty: 180 RF: 0 aspirin 81 mg tablet,delayed release (DR/EC) 81 mg PO DAILY 90 Days Qty: 90 RF: 0 digoxin 250 mcg (0.25 mg) tablet 250 mcg PO DAILY 90 Days Qty: 90 RF: 0 Discharge Orders: Discharge Order (Routine); Ordered 02/23/20 Ordered By: Rl Arcos Referrals: Kristi Singh DO [Primary Care Provider] - 1-3 days Discharge Diet: Advance as tolerated Discharge Activity: Resume usual activity Patient Instructions: Fall Prevention (ED) Coding Level of Care Code ED Home Health Administrator for Chg Fwd Exam Comprehensive
--- NOTE | 2020-02-23 04:07 | XR_ITS ---
WS: [id number] HIP WITH PELVIS LEFT TECHNIQUE: 3 views of the left hip with pelvis CLINICAL INFORMATION: injury COMPARISON: None. FINDINGS: Postoperative changes intramedullary jose and screw fixation left hip. Hardware appears in good positi on. Osteopenia. XR/XR hip LT 2-3V wo/w pel* [id number] IMPRESSION: Stable appearing intramedullary jose and screw fixation left hip. No acute fract ures
[2020-02-23] MEDS: sodium chloride 0.9% 1,000 ML 999 ML IV ×2 (04:13→04:54)
[2020-02-23] MEDS: meclizine 25 mg tablet PO (04:13)
[2020-02-23 04:41] LABS: Basophils # 0.1 10^3/uL (0.0-0.1); Basophils % 0.7 %; Eosinophils # 0.1 10^3/uL (0.0-0.8); Hematocrit 53.5 % (42.0-52.0); Hemoglobin 17.7 g/dL (11.7-16.6); Lymphocytes # 1.8 10^3/uL (0.8-4.8); Lymphocytes % 24.8 %; Mean Corpuscular HGB Conc 33.1 g/dL (30.0-36.0); Mean Corpuscular Volume 93.7 fL (80-94); Mean Platelet Volume 10.1 fL (7.4-10.4); Monocytes # 0.5 10^3/uL (0.2-0.9); Monocytes % 7.1 %; Neutrophils # 4.7 10^3/uL (1.8-7.7); Neutrophils % 65.3 %; Nucleated Red Blood Cells % 0 %; Platelet Count 241 10^3/cmm (130-400); Red Blood Count 5.71 10^6/uL (4.1-5.3); White Blood Count 7.2 10^3/uL (4.0-10.0)
[2020-02-23 04:55] LABS: Alanine Aminotransferase 34 U/L (0-41); Albumin Level 4.3 g/dL (3.5-5.2); Alkaline Phosphatase 114 IU/L (40-130); Aspartate Amino Transferase 28 U/L (0-40); Blood Urea Nitrogen 13 mg/dL (8-23); Calcium 9.3 mg/dL (8.5-10.5); Carbon Dioxide 27 mmol/L (22-29); Chloride 99 mmol/L (98-107); Globulin 2.9 g/dL (1.3-4.6); Glomerular Filtration Rate 74.3 mL/min (90-130); Glucose 100 mg/dL (65-115); Osmolality Calculated 280 mOsm/kg (285-295); Sodium 137 mmol/L (136-145); Total Bilirubin 0.9 mg/dL (0.15-1.2); Total Protein 7.2 g/dL (6.6-8.7)
[2020-02-23 05:15] VITALS: PULSE 90; RESP 23; O2SAT 96
[2020-02-23 05:17] LABS: Lactic Acid level (Lactate) 1.4 mmol/L (0.5-2.2)
[2020-02-23 05:23] LABS: Add Urine Microscopic? NO
[2020-02-23 05:28] VITALS: BP 102/79; PULSE 71; RESP 26; O2SAT 95
[2020-02-23 05:31] LABS: Bilirubin Urine 1+ (NEGATIVE); Blood Urine Neg (Negative); Glucose Urine UA Norm (Normal); Ketones Urine Negative (Negative); Leukocyte Esterase Urine Negative (Negative); Nitrate Urine Negative (Negative); Protein Urine Neg (Negative); Specific Gravity, Urine 1.015 (1.005-1.030); Urine Appearance Clear (CLEAR); Urine Color Yellow (Yellow); Urobilinogen Urine 1 mg/dL (Negative); pH Urine 5 (5-7)
[2020-02-23 05:35] VITALS: BP 102/79; PULSE 93; RESP 29; O2SAT 96
== END 2020-02-23 07:09 | disposition home or self-care (01) ==
PROVIDERS: Emergency Provider Emergency Medicine; PCP Family Medicine
DX: M25.552 Pain in left hip (principal); Z79.01 Long term (current) use of anticoagulants; Z79.82 Long term (current) use of aspirin; I48.91 Unspecified atrial fibrillation; J44.9 Chronic obstructive pulmonary disease, unspecified; I10 Essential (primary) hypertension; Z96.649 Presence of unspecified artificial hip joint; F17.210 Nicotine dependence, cigarettes, uncomplicated
CPT/HCPCS: 12345; 70450; 71045; 73502; 80053; 81003; 83605; 85025; 85610; 96360; 96361; 99281; 99283; 99284; J7030; J8597

== ENCOUNTER 2020-02-26 20:00 | Emergency (ER) | payer MEDICARE, MEDICAID, SELFPAY ==
[2020-02-26 20:19] VITALS: BP 114/66; PULSE 85; RESP 18; TEMP 36.9; O2SAT 96; BMI 25.7
--- NOTE | 2020-02-26 20:21 | XR_ITS ---
WS: [id number] PORTABLE CHEST HISTORY: syncope COMPARISON: 02/23/2020 Moderate pulmonary hyperinflation with changes of emphysema. No pneumonia. Slight blunting of the RIG HT costophrenic angle. Cardiac size: Normal. Mediastinum/Aorta: Normal mediastinum. Deformity of the ribs along the lateral LEFT thorax probably from old trauma and fracture healing. XR/XR chest 1V portable [id number] IMPRESSION: Chronic emphysema and chronic pleural thickening at the RIGHT lung base. No pne umonia.
--- NOTE | 2020-02-26 20:22 | CTR_ITS ---
PROCEDURE INFORMATION: Exam: CT Head Without Contrast Exam date and time: 02/26/2020 8:26 PM Age: 70 years old Clinical indication: Syncope and collapse; Prior surgery; Surgery date: 6+ months; Surgery type: Craniotomy for blood clot; Patient HX: Syncope episode; Additional info: Symptoms of acute stroke TECHNIQUE: Imaging protocol: Computed tomography of the head without contrast. Radiation optimization: All CT scans at this facility use at least one of these dose optimization techniques: automated exposure control; mA and/or kV adjustment per patient size (includes targeted exams where dose is matched to clinical indication); or iterative reconstruction. COMPARISON: CT head wo con* [id number] 02/23/2020 4:34 AM RADIATION DOSE METRICS: Total DLP: 920.14 mGy-cm FINDINGS: Brain: Stable right frontotemporal craniectomy with encephalomalacia in the right frontal and temporal lobes. Ventricles: Normal. No ventriculomegaly. Bones/joints: Unremarkable. No acute fracture. Sinuses: Visualized sinuses are unremarkable. No fluid levels. Mastoid air cells: Visualized mastoid air cells are well aerated. Soft tissues: Unremarkable. Vasculature: Severe calcified intracranial atherosclerotic vessel disease. CT/CT head wo con* [id number] IMPRESSION: No acute intracranial findings. Radiation Dose CTDIVOL = (mGy): DLP = 920.14 (mGy-cm)
--- NOTE | 2020-02-26 20:23 | ECG_ITS ---
Measurements Intervals Reading Rate: 66 P: 79 TN: 156 QRS: -64 QRSD: 90 T: 77 QT: 382 QTc: 400 SINUS RHYTHM LEFT AXIS DEVIATION [QRS AXIS < -30] Compared to ECG 10/03/2019 04:44:08 Left-axis deviation now present Left anterior fascicular block no longer present T-wave abnormality no longer present Possible ischemia no longer present Electronically Signed On 02-27-2020 10:31:26 CDT by Tony Wakefield MD [email or web address]
[2020-02-26 20:33] VITALS: BP 100/56; PULSE 74; RESP 16; O2SAT 96
--- NOTE | 2020-02-26 20:37 | PC.NURSE ---
XRAY IN ROOM
--- NOTE | 2020-02-26 20:38 | PC.NURSE ---
PATIENT TO CT
--- NOTE | 2020-02-26 20:48 | PC.NURSE ---
PATIENT BACK FROM CT
[2020-02-26 21:07] LABS: Basophils # 0.1 10^3/uL (0.0-0.1); Basophils % 0.5 %; Eosinophils # 0.2 10^3/uL (0.0-0.8); Eosinophils % 1.9 %; Hemoglobin 15.9 g/dL (11.7-16.6); Lymphocytes # 1.3 10^3/uL (0.8-4.8); Mean Corpuscular HGB Conc 32.4 g/dL (30.0-36.0); Mean Corpuscular Hemoglobin 31.7 pg (28.0-34.0); Mean Corpuscular Volume 97.6 fL (80-94); Monocytes # 0.7 10^3/uL (0.2-0.9); Neutrophils # 7.3 10^3/uL (1.8-7.7); Neutrophils % 76.3 %; Nucleated Red Blood Cells % 0 %; Platelet Count 248 10^3/cmm (130-400); Red Blood Count 5.02 10^6/uL (4.1-5.3); Red Cell Distribution Width 13.2 % (12.1-15.1); White Blood Count 9.6 10^3/uL (4.0-10.0)
[2020-02-26 21:17] LABS: INR 0.97 (0.8-1.2)
[2020-02-26 21:19] LABS: Partial Thromboplastin Time 29.3 SECONDS (23.9-36.7)
[2020-02-26 21:32] LABS: Alanine Aminotransferase 24 U/L (0-41); Albumin Level 4.1 g/dL (3.5-5.2); Alkaline Phosphatase 110 IU/L (40-130); Anion Gap 13.3 (5-19); Aspartate Amino Transferase 24 U/L (0-40); Blood Urea Nitrogen 17 mg/dL (8-23); Calcium 8.8 mg/dL (8.5-10.5); Carbon Dioxide 31 mmol/L (22-29); Chloride 100 mmol/L (98-107); Globulin 2.7 g/dL (1.3-4.6); Glomerular Filtration Rate 50.4 mL/min (90-130); Glucose 117 mg/dL (65-115); Magnesium 2.3 mg/dL (1.7-2.3); Osmolality Calculated 287 mOsm/kg (285-295); Phosphorus 4.5 mg/dL (2.5-4.5); Potassium 4.3 mmol/L (3.5-5.1); Sodium 140 mmol/L (136-145); Total Bilirubin 0.5 mg/dL (0.15-1.2); Total Protein 6.8 g/dL (6.6-8.7)
[2020-02-26 21:33] LABS: Troponin(5th) Baseline 12 ng/mL (0-15)
[2020-02-26 21:35] LABS: Alcohol Level < 10 mg/dL (0-10)
[2020-02-26 22:05] VITALS: BP 98/78; PULSE 75; RESP 16; O2SAT 97
[2020-02-26 22:24] LABS: Amphetamines Screen Urine Negative (Negative); Barbiturates Screen Urine Negative (Negative); Benzodiazepines Screen Urine Negative (Negative); Cocaine Screen Urine Negative (Negative); Opiate Screen Urine Positive (Negative); PCP Screen Urine Negative (Negative); THC Screen Urine Negative (Negative)
[2020-02-26 22:27] LABS: Specific Gravity, Urine 1.025 (1.005-1.030); Urine Appearance SL Hazy (CLEAR); Urine Color Dark Yellow (Yellow); pH Urine 5 (5-7)
[2020-02-26 22:28] LABS: Add Urine Microscopic? YES; Bilirubin Urine 1+ (NEGATIVE); Blood Urine Neg (Negative); Glucose Urine UA Norm (Normal); Ketones Urine 1+ (Negative); Leukocyte Esterase Urine Negative (Negative); Nitrate Urine Negative (Negative); Protein Urine Neg (Negative); Urobilinogen Urine 4 mg/dL (Negative)
[2020-02-26 22:29] LABS: Bacteria Urine TRACE; Calcium Oxalate Crystals Urine 15-25 /hpf; Mucus Urine 2+; RBC Urine RARE /hpf (0-2); Squamous Epithelial Cell Urine 0-4 (0-5); WBC Urine 0-4 /hpf (0-5)
[2020-02-26 22:30] LABS: Add Urine Culture? No; Hyaline Casts Urine 0-4
--- NOTE | 2020-02-27 00:23 | ED_ITS ---
HPI - Syncope General: Chief Complaint: Syncope Stated Complaint: syncope Time Seen by Provider: 02/26/20 20:19 History of Present Illness: MD complaint: loss of consciousness Onset (ago): minute(s) Description of event: post-event confusion Prodromal symptoms: none Witnessed: No Context: at rest Associated symptoms: Reports no associated symptoms; Deny abdominal pain, chest pain, fever(s), headache(s) or nausea History: previous syncopal episode and other (Atrial fibrillation, head injury) Treatments prior to arrival: none Review of Systems Const: Denies: fever(s) or chills Eyes: Denies: change in vision or blurry vision ENMT: Denies: odynophagia, swelling of lips/tongue, bleeding gums, dental pain, change in hearing, epistaxis, post nasal drip or sinus pain Card: Reports: edema; Denies: chest pain, palpitations or irregular heart rhythm Resp: Reports: dyspnea; Denies: productive cough, non-productive cough or wheezing GI: Denies: abdominal pain, nausea, vomiting or melena : Denies: difficulty urinating or hematuria Musc: Denies: neck pain, back pain, joint redness or joint warmth Skin/Breast: Denies: rash, pruritus or erythema Neuro: Reports: dizziness and confusion; Denies: headache(s) or seizure-like activity Psych: Denies: anxiety PFSH ED PFSH: Medical History (Updated 02/26/20 @ 22:38 by Jed Cotto DO) Afib BPH (benign prostatic hyperplasia) COPD (chronic obstructive pulmonary disease) History of cardioversion Hypertension Smoker Traumatic brain injury Surgical History History of hip replacement History of knee replacement History of laparoscopic appendectomy Hx of tonsillectomy Family History Other CAD (coronary artery disease) Cancer Diabetes Hypertension Lung disease Stroke Denies family history of Clotting disorder Dementia Hyperlipidemia Psychiatric illness Chronic kidney disease (CKD) Suicide Anesthesia complication Bleeding disorder Family history of premature coronary artery disease Social History Smoking and tobacco status: current every day smoker cigarettes Years cigarettes smoked: 56 Quit status (tobacco): considering quitting Second hand smoke exposure: No Smoking risk assessment/counseling performed?: No Alcohol intake: never Adopted: No Caregiver/support person: Yes Lives independently: Yes Housing: Apartment Marital status: Single Number of children: 0 Highest education level completed: Bachelor's Degree service: Yes Current occupational status: retired Pets and animals: No History of recent travel: No Sexually active: No Current gender identity: Male Special reece needs: No Agree to transfusion: Yes Physical Exam Const: GENERAL APPEARANCE: well developed ORIENTATION/CONSCIOUSNESS: Yes oriented to person; not oriented to place and not oriented to time HENMT: COMMON NORMALS: normocephalic, external ears normal and Normal external nose present HEAD & SCALP: normocephalic; no scalp tenderness NOSE: Normal external nose present and No nasal discharge present EXTERNAL EAR: Yes external ears normal MOUTH: tongue normal THROAT: posterior oropharynx normal; no peritonsillar mass Eye: COMMON NORMALS: Equal, round and reactive pupils present, EOMs intact bilaterally and conjunctivae normal EYELID: eyelids normal CONJUNCTIVA: Yes conjunctivae normal PUPIL: Yes Equal, round and reactive pupils present Neck/C-Spine: GENERAL: No tracheal deviation CERVICAL SPINE: Yes normal cervical lordosis and No Cervical spine tenderness Chest: COMMONS NORMALS: normal inspection of the chest CHEST: No tenderness Resp: COMMON NORMALS: clear to auscultation bilaterally EFFORT & INSPECTION: No tachypneic, No respiratory distress, No retractions, No uses accessory muscles and No tracheal deviation AUSCULTATION: clear to auscultation bilaterally, no rhonchi, no wheezes and lung sounds not diminished Cardio: COMMON NORMALS: regular rate and regular rhythm RATE: regular rate RHYTHM: regular rhythm HEART SOUNDS: no murmurs PERIPHERAL PULSES: radial pulses present GI: INSPECTION: No abdominal distension AUSCULTATION: No Hyperactive bowel sounds present and No Hypoactive bowel sounds present PALPATION: No Guarding due to palpation present (GI) and No Rigid due to palpation PERCUSSION: no dullness to percussion and no tympanic to percussion Neuro: SENSORIUM/ORIENTATION: Yes oriented to person, No oriented to place and No oriented to time SPEECH: speech normal GAIT: Yes Ataxic gait present (mildly) SENSORY EXAM: Yes extremities (equal movement) MOTOR EXAM: Pronator motor function not present Psych: COMMON NORMALS: speech normal, activity/motor behavior normal and denies hallucinations APPEARANCE: Yes grossly normal ATTITUDE: Yes calm ACTIVITY/MOTOR BEHAVIOR: Yes appropriate eye contact SPEECH: Yes normal speech THOUGHT CONTENT: No Suicidality present and Yes delusions JUDGEMENT: Fair judgement present (Psych) Skin: COMMON NORMALS: no rashes or lesions noted GENERAL SKIN EXAM: no rashes or lesions noted Course Vital Signs: Vital signs: Vital Signs Temperature 98.5 F 02/26/20 20:19 Pulse Rate 75 02/26/20 22:05 Respiratory Rate 16 02/26/20 22:05 Blood Pressure 98/78 02/26/20 22:05 Pulse Oximetry 97 02/26/20 22:05 MDM - Syncope MDM Narrative: Medical decision making narrative: 70-year-old gentleman with a history of craniectomy for head injury. He also has a history of atrial fibrillation. He presents after a short period of unresponsiveness, evidently he to arouse, and awoke combative and confused. He still somewhat confused in the ER, and ask some questions repeatedly including how I got here. He slowly became a bit more orientated. He became agitated, and asked to go home. His CT was negative for any acute change. His laboratory was not terribly remarkable. His urine drug screen was positive for opiates, which is interesting as we do not see that he is prescribed them. He is not intoxicated on alcohol. His EKG shows a sinus rhythm without any acute ST changes, and his first troponin was negative. The staff spoke with his son, who agreed to come get him as he was agitated and wanting to go home. He signed an AGAINST MEDICAL ADVICE paper as he did not wait for a second troponin prior to discharge. Lab Data: Labs: Lab Results 02/26/20 02/26/20 02/26/20 Range/Units 20:40 20:40 20:40 WBC 9.6 (4.0-10.0) 10^3/ uL RBC 5.02 (4.1-5.3) 10^6/u L Hgb 15.9 (11.7-16.6) g/dL Hct 49.0 (42.0-52.0) % MCV 97.6 H (80-94) fL MCH 31.7 (28.0-34.0) pg MCHC 32.4 (30.0-36.0) g/dL RDW 13.2 (12.1-15.1) % Plt Count 248 (130-400) 10^3/c mm MPV 10.0 (7.4-10.4) fL Neut % (Auto) 76.3 % Lymph % (Auto) 14.0 % Harvey % (Auto) 7.0 % Eos % (Auto) 1.9 % Baso % (Auto) 0.5 % Neut # (Auto) 7.3 (1.8-7.7) 10^3/u L Lymph # (Auto) 1.3 (0.8-4.8) 10^3/u L Harvey # (Auto) 0.7 (0.2-0.9) 10^3/u L Eos # (Auto) 0.2 (0.0-0.8) 10^3/u L Baso # (Auto) 0.1 (0.0-0.1) 10^3/u L Nucleated RBC % (a uto) 0 % Nucleated RBCs # 0.0 /100WBC PT 13.20 (10.5-13.3) SECO NDS INR 0.97 (0.8-1.2) APTT 29.3 (23.9-36.7) SECO NDS Sodium 140 (136-145) mmol/L Potassium 4.3 (3.5-5.1) mmol/L Chloride 100 (98-107) mmol/L Carbon Dioxide 31 H (22-29) mmol/L Anion Gap 13.3 (5-19) BUN 17 (8-23) mg/dL Creatinine 1.4 H (0.7-1.2) mg/dL GFR Calculation 50.4 L (90-130) mL/min Glucose 117 H (65-115) mg/dL Calculated Osmolal ity 287 (285-295) mOsm/k g Calcium 8.8 (8.5-10.5) mg/dL Phosphorus 4.5 (2.5-4.5) mg/dL Magnesium 2.3 (1.7-2.3) mg/dL Total Bilirubin 0.5 (0.15-1.2) mg/dL AST 24 (0-40) U/L ALT 24 (0-41) U/L Alkaline Phosphata se 110 (40-130) IU/L Troponin T Baselin e (0-15) ng/mL Total Protein 6.8 (6.6-8.7) g/dL Albumin 4.1 (3.5-5.2) g/dL Globulin 2.7 (1.3-4.6) g/dL Urine Color (Yellow) Urine Appearance (CLEAR) Urine pH (5-7) Ur Specific Gravit y (1.005-1.030) Urine Protein (Negative) Urine Glucose (UA) (Normal) Urine Ketones (Negative) Urine Blood (Negative) Urine Nitrate (Negative) Urine Bilirubin (NEGATIVE) Urine Urobilinogen (Negative) mg/dL Ur Leukocyte [place] (Negative) Urine RBC (0-2) /hpf Urine WBC (0-5) /hpf Ur Squamous Epith Cells (0-5) Calcium Oxalate Cr ystal /hpf Urine Bacteria (NONE) Hyaline Casts Urine Mucus Urine Opiates Scre en (Negative) ng/mL Ur Barbiturates Sc reen (Negative) ng/mL Ur Phencyclidine S crn (Negative) ng/mL Ur Amphetamines Sc reen (Negative) ng/mL U Benzodiazepines Scrn (Negative) ng/mL Urine Cocaine Scre en (Negative) ng/mL U Marijuana (THC) Screen (Negative) ng/mL Ethyl Alcohol < 10 (0-10) mg/dL 02/26/20 02/26/20 02/26/20 Range/Units 20:40 22:05 22:05 WBC (4.0-10.0) 10^3/ uL RBC (4.1-5.3) 10^6/u L Hgb (11.7-16.6) g/dL Hct (42.0-52.0) % MCV (80-94) fL MCH (28.0-34.0) pg MCHC (30.0-36.0) g/dL RDW (12.1-15.1) % Plt Count (130-400) 10^3/c mm MPV (7.4-10.4) fL Neut % (Auto) % Lymph % (Auto) % Harvey % (Auto) % Eos % (Auto) % Baso % (Auto) % Neut # (Auto) (1.8-7.7) 10^3/u L Lymph # (Auto) (0.8-4.8) 10^3/u L Harvey # (Auto) (0.2-0.9) 10^3/u L Eos # (Auto) (0.0-0.8) 10^3/u L Baso # (Auto) (0.0-0.1) 10^3/u L Nucleated RBC % (a uto) % Nucleated RBCs # /100WBC PT (10.5-13.3) SECO NDS INR (0.8-1.2) APTT (23.9-36.7) SECO NDS Sodium (136-145) mmol/L Potassium (3.5-5.1) mmol/L Chloride (98-107) mmol/L Carbon Dioxide (22-29) mmol/L Anion Gap (5-19) BUN (8-23) mg/dL Creatinine (0.7-1.2) mg/dL GFR Calculation (90-130) mL/min Glucose (65-115) mg/dL Calculated Osmolal ity (285-295) mOsm/k g Calcium (8.5-10.5) mg/dL Phosphorus (2.5-4.5) mg/dL Magnesium (1.7-2.3) mg/dL Total Bilirubin (0.15-1.2) mg/dL AST (0-40) U/L ALT (0-41) U/L Alkaline Phosphata se (40-130) IU/L Troponin T Baselin e 12 (0-15) ng/mL Total Protein (6.6-8.7) g/dL Albumin (3.5-5.2) g/dL Globulin (1.3-4.6) g/dL Urine Color Dark yellow (Yellow) Urine Appearance Sl hazy (CLEAR) Urine pH 5 (5-7) Ur Specific Gravit y 1.025 (1.005-1.030) Urine Protein Neg (Negative) Urine Glucose (UA) Norm (Normal) Urine Ketones 1+ H (Negative) Urine Blood Neg (Negative) Urine Nitrate Negative (Negative) Urine Bilirubin 1+ H (NEGATIVE) Urine Urobilinogen 4 H (Negative) mg/dL Ur Leukocyte [place] Negative (Negative) Urine RBC Rare (0-2) /hpf Urine WBC 0-4 H (0-5) /hpf Ur Squamous Epith Cells 0-4 H (0-5) Calcium Oxalate Cr ystal 15-25 H /hpf Urine Bacteria Trace (NONE) Hyaline Casts 0-4 H Urine Mucus 2+ Urine Opiates Scre en Positive H (Negative) ng/mL Ur Barbiturates Sc reen Negative (Negative) ng/mL Ur Phencyclidine S crn Negative (Negative) ng/mL Ur Amphetamines Sc reen Negative (Negative) ng/mL U Benzodiazepines Scrn Negative (Negative) ng/mL Urine Cocaine Scre en Negative (Negative) ng/mL U Marijuana (THC) Screen Negative (Negative) ng/mL Ethyl Alcohol (0-10) mg/dL Discharge Plan Discharge Patient Disposition: Left Against Medical Advice Clinical Impression: Acute confusion Syncope Qualifiers: Syncope type: unspecified Qualified Code(s): R55 - Syncope and collapse Condition: Stable Prescriptions: No Action amiodarone 200 mg tablet 200 mg PO DAILY 90 Days Qty: 90 RF: 0 Eliquis 5 mg tablet 5 mg PO BID 90 Days Qty: 180 RF: 0 aspirin 81 mg tablet,delayed release (DR/EC) 81 mg PO DAILY 90 Days Qty: 90 RF: 0 digoxin 250 mcg (0.25 mg) tablet 250 mcg PO DAILY 90 Days Qty: 90 RF: 0 Referrals: Kristi Singh DO [Primary Care Provider] - 4-7 days Discharge Diet: Usual diet Discharge Activity: Increase activity as tolerated Patient Instructions: Syncope (ED) Activity Restrictions/Additional Instructions: Return for worsening mental status, repeated episodes of syncope or passing out, worsening weakness, other concerning symptoms. 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
== END 2020-02-26 22:51 | disposition left against medical advice (07) ==
PROVIDERS: Emergency Provider Emergency Medicine; PCP Family Medicine
DX: R55 Syncope and collapse (principal); R41.0 Disorientation, unspecified; Z53.21 Procedure and treatment not carried out due to patient leaving prior to being seen by health care provider; Z79.01 Long term (current) use of anticoagulants; Z79.82 Long term (current) use of aspirin; I48.91 Unspecified atrial fibrillation; J44.9 Chronic obstructive pulmonary disease, unspecified; I10 Essential (primary) hypertension; F17.210 Nicotine dependence, cigarettes, uncomplicated
CPT/HCPCS: 12345; 70450; 71045; 80053; 80306; 80307; 81001; 83735; 84100; 84484; 85025; 85610; 85730; 93005; 93010; 99283; 99284

== ENCOUNTER 2020-03-15 12:01 | Emergency (ER) | payer MEDICARE, MEDICAID, SELFPAY | END 2020-03-15 13:16 | disposition left against medical advice (07) | LOC: ER 04-15 05:25 | PROVIDERS: Emergency Provider Physician Assistant; PCP Family Medicine | DX: Z53.21 Procedure and treatment not carried out due to patient leaving prior to being seen by health care provider (principal) | CPT/HCPCS: 99281 ==

== ENCOUNTER 2020-05-04 06:58 | Outpatient (CLI) | payer MEDICARE, MEDICAID, SELFPAY ==
--- NOTE | 2020-05-04 07:13 | USCV_ITS ---
Cornelio Puckett Age: 70 Gender: M : 1950 Exam Date: 05/04/2020 07:40 Ordering Phys: Braulio Mckeon MD Technologist: Larry Robledo [place] [facility] [place]: CVA Risk Factors: Smoker Previous Vascular Surgery: Right Brachial BP: / Left Brachial BP: / Right Left Velocity (cm/s) Spectral Plaque Velocity (cm/s) Spectral Plaque Syst/Diast Broadening Syst/Diast Broadening 50.60/ 10.50 Prox CCA 77.70 / 13.30 46.70/ 11.80 Mid CCA 62.80 / 14.90 47.30/ 9.90 Distal CCA 62.00 / 18.00 33.70/ 11.70 Prox ICA 44.10 / 10.60 44.90/ 18.00 Mid ICA 45.70 / 14.50 52.90/ 13.50 Distal ICA 52.40 / 15.10 82.80 ECA 78.40 1.05 ICA/CCA 0.68 Antegrade Vertebral Antegrade 37.50/ 7.40 cm/s 47.40/ 9.50 cm/s Tri Subclavian Tri 33.20 63.00 FINDINGS Minimal plaques at the bifurcations bilaterally. Intimal thickening in the common carotid and internal carotid arteries bilaterally. Antegrade flow in the vertebral arteries bilaterally. Normal Doppler flow velocities. CONCLUSIONS Minimal plaques at the bifurcations bilaterally. No significant stenosis, based on the above findings Dr Tomas Jack MD [facility] (Electronically Signed) Final Date: 05 May 2020 09:22 S
--- NOTE | 2020-05-04 08:00 | USCV_ITS ---
Cornelio Puckett Age: 70 Gender: M : 1950 Exam Date: 05/04/2020 07:24 Ordering Phys: Braulio Mckeon MD Technologist: Tresa Barlow [place]am Location[place] [facility] [place]ication: CVA BP: 130 / 82 HR: 54 Rhythm: Sinus Technical Quality: Fair MEASUREMENTS (Male / Female) Normal Values 2D ECHO LV Diastolic Diameter PLAX 4.2 cm 4.2 - 5.9 / 3.9 - 5.3 cm LV Systolic Diameter PLAX 2.7 cm IVS Diastolic Thickness 1.1 cm 0.6 - 1.0 / 0.6 - 0.9 cm IVS Systolic Thickness 1.4 cm LVPW Diastolic Thickness 1.2 cm 0.6 - 1.0 / 0.6 - 0.9 cm LVPW Systolic Thickness 1.4 cm LVOT Diameter 2.1 cm LV Ejection Fraction 2D Teich 64.8 % LV Ejection Fraction MOD 2C 71.2 % LV Ejection Fraction 2C AL 72.3 % LA Diameter 3.6 cm LA Width 3.6 cm LA Height 5.2 cm RA Width 3.7 cm RA Height 4.8 cm Aorta at Sinotubular Diameter 1.1 cm M-MODE LV Diastolic Diameter MM 4.4 cm 4.2 - 5.9 / 3.9 - 5.3 cm LV Systolic Diameter MM 3.2 cm LV Ejection Fraction MM Teich 53.9 % IVS Diastolic Thickness MM 1.1 cm 0.6 - 1.0 / 0.6 - 0.9 cm IVS Systolic Thickness MM 1.4 cm LVPW Diastolic Thickness MM 0.9 cm 0.6 - 1.0 / 0.6 - 0.9 cm LVPW Systolic Thickness MM 1.4 cm RV Diastolic Diameter MM 1.4 cm Aortic Annulus Diameter 4.3 cm LA Ao Ratio MM 0.8 MV E Point Septal Separation 1.5 cm DOPPLER AV Peak Velocity 104.0 cm/s LVOT Peak Velocity 87.0 cm/s AV Area Cont Eq vti 3.1 cm squared AV Area Cont Eq pk 3.0 cm squared MV Area PHT 3.9 cm squared Mitral E to A Ratio 1.1 MV E' Velocity 7.0 cm/s Mitral E to MV E' Ratio 7.2 Mitral E to LV E' Lateral Ratio 8.3 Mitral E to LV E' Septal Ratio 6.4 TR Peak Velocity 243.0 cm/s TR Peak Gradient 23.7 mmHg TV Peak E Velocity 63.0 cm/s Right Atrial Pressure 3.0 mmHg Pulmonary Artery Systolic Pressu 26.6 mmHg PV Peak Velocity 104.0 cm/s FINDINGS Left Ventricle Normal left ventricular size and systolic function, EF 71 %. Mild left ventricular hypertrophy. Right Ventricle Normal right ventricular size and systolic function. Multiple transverse trabeculations at the RV apex Right Atrium The right atrium is normal in size. Left Atrium The left atrium is normal in size. Mitral Valve No gross abnormalities noted Aortic Valve Thickened aortic valve. Tricuspid Valve Trace tricuspid valve regurgitation. Estimated pulmonary artery peak systolic pressure 24 mmHg Pulmonic Valve Pulmonic valve not well visualized. Pericardium Normal pericardium without effusion. Aorta Normal ascending aorta dimension. CONCLUSIONS Normal left ventricular size and systolic function, EF 71 %. Mild left ventricular hypertrophy. Normal right ventricular size and systolic function. Trabeculations at the RV apex, suggestive of moderator band Thickened aortic valve. Normal PA pressure There is no pericardial effusion. There are no intracardiac masses. Compared to the previous study from 09/26/2019, there may not be significant change Dr Tomas Jack MD [facility] (Electronically Signed) Final Date: 04 May 2020 19:09 S
== END 2020-05-04 06:59 | disposition home or self-care (01) ==
PROVIDERS: PCP Family Medicine; Visit Provider Family Medicine
DX: R41.82 Altered mental status, unspecified (principal); I63.9 Cerebral infarction, unspecified; I35.8 Other nonrheumatic aortic valve disorders; W19.XXXA Unspecified fall, initial encounter; I48.91 Unspecified atrial fibrillation
CPT/HCPCS: 93306; 93880

== ENCOUNTER 2020-05-08 16:52 | Emergency (ER) | payer MEDICARE, MEDICAID, SELFPAY ==
[2020-05-08 16:54] VITALS: BP 127/81; PULSE 76; RESP 18; TEMP 36.7; O2SAT 91; BMI 25.2
[2020-05-08 17:14] VITALS: PULSE 71
--- NOTE | 2020-05-08 17:17 | ED_ITS ---
HPI - Extremity Problem General: Chief complaint: Extremity Injury, Lower Stated complaint: FALL, L HIP PAIN Time Seen by Provider: 05/08/20 17:17 History of Present Illness: HPI Narrative: Patient is a 70-year-old male that comes to the ED via ambulance after having a fall. Past medical history COPD, A. fib and hypertension. Past surgical history of a left hip replacement. He is complaining of left hip pain. Fall occurred just prior to arrival and states he was walking down some concrete stairs and slipped and then left side of hip hit the corner of concrete stairs. Patient is reporting 10 out of 10 pain in the left hip. Denies any head trauma or loss of consciousness. Patient is currently on a blood thinner apixaban. Associated symptoms: Deny chest pain, fever(s) or rash Review of Systems Const: Denies: fever(s), chills or fatigue Eyes: Denies: change in vision or eye discomfort ENMT: Denies: throat pain, odynophagia, nasal discharge or nasal congestion Card: Denies: chest pain, palpitations, edema, swelling of feet/ankles, dyspnea on exertion or orthopnea Resp: Denies: dyspnea, productive cough or non-productive cough GI: Denies: abdominal pain, nausea, vomiting, diarrhea, constipation or hematochezia : Denies: flank pain, difficulty urinating, dysuria or hematuria Musc: Reports: joint pain (left hip pain); Denies: neck pain, back pain or extremity swelling Skin/Breast: Denies: rash or new lesions Neuro: Denies: headache(s), numbness in extremities or weakness in extremities PFS ED PFSH: Medical History Afib BPH (benign prostatic hyperplasia) COPD (chronic obstructive pulmonary disease) History of cardioversion Hypertension Smoker Traumatic brain injury Surgical History History of hip replacement History of knee replacement History of laparoscopic appendectomy Hx of tonsillectomy S/P IVC filter Family History Other CAD (coronary artery disease) Cancer Diabetes Hypertension Lung disease Stroke Denies family history of Clotting disorder Dementia Hyperlipidemia Psychiatric illness Chronic kidney disease (CKD) Suicide Anesthesia complication Bleeding disorder Family history of premature coronary artery disease Social History Smoking and tobacco status: current every day smoker cigarettes Years cigarettes smoked: 56 Quit status (tobacco): considering quitting Second hand smoke exposure: No Smoking risk assessment/counseling performed?: No Alcohol intake: never Adopted: No Caregiver/support person: Yes Lives independently: Yes Housing: Apartment Marital status: Single Number of children: 0 Highest education level completed: Bachelor's Degree service: Yes Current occupational status: retired Pets and animals: No History of recent travel: No Sexually active: No Current gender identity: Male Special reece needs: No Agree to transfusion: Yes Physical Exam Const: COMMON NORMALS: no acute distress, patient oriented x3, healthy appearing and alert GENERAL APPEARANCE: cooperative HENMT: COMMON NORMALS: normocephalic HEAD & SCALP: normocephalic MOUTH: Normal oral and palatal mucosa present THROAT: posterior oropharynx normal and uvula midline Eye: COMMON NORMALS: Equal, round and reactive pupils present PUPIL: Yes Equal, round and reactive pupils present Neck/C-Spine: COMMON NORMALS: supple GENERAL: Yes normal visual inspection Resp: COMMON NORMALS: normal respiratory effort, No retractions, No use of accessory muscles and clear to auscultation bilaterally AUSCULTATION: clear to auscultation bilaterally Cardio: COMMON NORMALS: regular rate, regular rhythm, S1 normal heart sound present, S2 normal heart sound present, No gallops present (Cardio), No clicks present (Cardio), No murmurs present (Cardio) and Peripheral pulses 2+ throughout RATE: regular rate RHYTHM: regular rhythm HEART SOUNDS: S1 normal heart sound present and S2 normal heart sound present PERIPHERAL PULSES: Peripheral pulses 2+ throughout GI: COMMON NORMALS: Normal to inspection, nondistended, normoactive bowel sounds present, Soft to palpation, non-tender and no masses PALPATION: Yes Soft to palpation : COMMON NORMALS: Yes no CVA tenderness BLADDER/KIDNEY EXAM: Yes no CVA tenderness Back/Pelvis: COMMON NORMALS: no CVA tenderness Extremity: COMMON NORMALS: normal to inspection and no pedal edema NARRATIVE EXTREMITY EXAM: Patient has some localized tenderness upon palpation of the left hip. Left foot pedal pulse 2+ and sensation intact. No visible deformity seen and the leg does not appear to be shortened and externally rotated. Neuro: COMMON NORMALS: patient oriented x3 and moves all extremities SENSORIUM/ORIENTATION: Yes alert Skin: COMMON NORMALS: no rashes or lesions noted GENERAL SKIN EXAM: no rashes or lesions noted and dry skin Course Vital Signs: Vital signs: Vital Signs Temperature 98.0 F 05/08/20 16:54 Pulse Rate 71 05/08/20 18:08 Respiratory Rate 18 05/08/20 17:59 Blood Pressure 108/73 05/08/20 18:08 Pulse Oximetry 90 05/08/20 18:08 MDM - Extremity (Nontraumatic) MDM Narrative: Medical decision making narrative: Patient is a 62-year-old male who comes to the ED with left hip pain after having a fall. Past surgical history of left hip replacement. Physical exam shows some tenderness on the lateral aspect of the left hip but no visible deformity seen in left leg is not shortened and externally rotated. Pedal pulses to left foot is 2+ and sensation intact to left foot. X-ray left hip showed no acute fractures or findings and hardware intact and not damaged. Patient was discharged and told to follow-up with PCP in 7 days for reevaluation. Rest ice and take Tylenol or ibuprofen for pain. Patient understood and agreed with plan. Return to ED precautions given Imaging Data^: Xray Ortho: Attestation: I personally reviewed and interpreted this imaging study as follows: Radiologist's impression: [address] [address] XRay Report Signed Patient: Cornelio Puckett Unit #: [id number] : 1950 Age/Sex: 70 / M ADM Date: 05/08/20 Loc: ER Room/Bed: Attending Dr: Ordering Provider/Ordering MD: Yunior Magallon Date of Service: 05/08/20 Procedure(s): XR hip LT 2-3V wo/w pel* [id number] Accession Number(s): [id number] Report Number: [id number] PROCEDURE INFORMATION: Exam: XR Left Hip with Pelvis when Performed Exam date and time: 05/08/2020 5:54 PM Age: 70 years old Clinical indication: Injury or trauma; Fall; Initial encounter; Blunt trauma (contusions or hematomas); Bilateral; Hip; Additional info: Fall with pain TECHNIQUE: Imaging protocol: XR Left hip with pelvis when performed. Views: 2 or 3 views. COMPARISON: CR XR hip LT 2-3V wo/w pel* [id number] 02/23/2020 4:24 AM FINDINGS: Bones/joints: There is generalized osteopenia. No acute fracture. Metallic orthopedic hardware seen in the left hip with metallic plate and dynamic screw in place. The bones show anatomic alignment. Comparison to prior examination similar findings is seen. Soft tissues: Unremarkable. Vena cava filter is in place in good position. XR/XR hip LT 2-3V wo/w pel* [id number] IMPRESSION: 1. No acute findings. 2. Generalized osteopenia 3. ORIF left hip 4. Vena cava filter is in good position Dictated By: Elie Don Signed By: Elie Don Signed Date/Time: 05/08/201829 DD/ 29 Discharge Plan Discharge Patient Disposition: Home Clinical Impression: Hip pain, left Contusion Qualifiers: Encounter type: initial encounter Contusion area: hip Laterality: left Qualified Code(s): S70.02XA - Contusion of left hip, initial encounter Condition: Stable Prescriptions: No Action hydrocodone-acetaminophen 7.5-325 mg tablet 1 tab PO DAILY PRN (Reason: Pain) RF: 0 digoxin 125 mcg (0.125 mg) tablet 125 mcg PO DAILY RF: 0 tamsulosin [Flomax] 0.4 mg capsule 0.4 mg PO DAILY RF: 0 metoprolol tartrate 50 mg tablet 50 mg PO BID RF: 0 Eliquis 5 mg tablet 5 mg PO BID RF: 0 aspirin 81 mg Tablet,Chewable 81 mg PO DAILY RF: 0 amiodarone 100 mg Tablet 200 mg PO DAILY RF: 0 Discharge Orders: Discharge Order (Routine); Ordered 05/08/20 Ordered By: Yunior Magallon Referrals: Braulio Mckeon MD [Primary Care Provider] - Discharge Diet: Regular Discharge Activity: Increase activity as tolerated Patient Instructions: Contusion in Adults (ED) Activity Restrictions/Additional Instructions: Follow-up with medical provider as directed in 7 days. Take [id number] ibuprofen or Tylenol for pain. Rest and apply cold pack on left hip to help with symptoms. Return to the ER or your medical provider if condition worsens. Please read and understand discharge instructions. If any questions, please ask. Coding Level of Care Code ED Global Coordinator for Chg Fwd Exam Comprehensive
[2020-05-08] MEDS: ondansetron 2 mg/ML SDV 2 mL 4 MG IVP (17:24)
[2020-05-08] MEDS: morphine 4 mg/mL SDV 1 mL IVP (17:24)
[2020-05-08 17:29] VITALS: O2SAT 91
[2020-05-08 17:59] VITALS: RESP 18
[2020-05-08] MEDS: HYDROmorphone 1 mg/mL INJ 1 mL 0.5 MG IVP (17:59)
[2020-05-08 18:08] VITALS: BP 108/73; PULSE 71; O2SAT 90
[2020-05-08] MEDS: HYDROcodone-acetaminophen 7.5-325 mg Tablet 1 TAB PO (19:08)
== END 2020-05-08 19:10 | disposition home or self-care (01) ==
PROVIDERS: Emergency Provider Physician Assistant; PCP Family Medicine
DX: S70.02XA Contusion of left hip, initial encounter (principal); M25.552 Pain in left hip; Z79.01 Long term (current) use of anticoagulants; Z79.82 Long term (current) use of aspirin; J44.9 Chronic obstructive pulmonary disease, unspecified; I10 Essential (primary) hypertension; F17.210 Nicotine dependence, cigarettes, uncomplicated; Z96.642 Presence of left artificial hip joint; W01.0XXA Fall on same level from slipping, tripping and stumbling without subsequent striking against object, initial encounter
CPT/HCPCS: 12345; 73502; 96374; 96375; 99283; J1170; J2270; J2405

== ENCOUNTER 2020-11-30 16:37 | Emergency (ER) | payer MEDICARE, MEDICAID, SELFPAY ==
[2020-11-30 16:47] VITALS: BP 121/83; PULSE 115; RESP 13; TEMP 36.8; O2SAT 92; BMI 25.0
[2020-11-30 17:03] VITALS: BP 106/75; PULSE 111; RESP 23; O2SAT 94
--- NOTE | 2020-11-30 17:10 | PC.PHAR ---
pt states he takes care of his own medications-pt states he is no longer taking amiodarone,digoxin,eliquis or metoprolol tartrate-pt states he has prozac but isnt going to take due to reading what the side affects were-pt states he has narcan but hasnt had to use
--- NOTE | 2020-11-30 17:29 | ECG_ITS ---
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 Measurements Intervals Jackson Rate: 101 P: 87 MD: 151 QRS: -73 QRSD: 90 T: 84 QT: 323 QTc: 420 Interpretive Statements SINUS TACHYCARDIA LEFT AXIS DEVIATION [QRS AXIS < -30] POSSIBLE RIGHT VENTRICULAR CONDUCTION DELAY [RSR (QR) IN V1/V2] MODERATE ST DEPRESSION [0.05+ mV ST DEPRESSION] Compared to ECG 02/26/2020 20:36:46 ST (T wave) deviation now present Sinus rhythm no longer present Electronically Signed On 12-01-2020 11:05:19 ECOMMERCE PROJECT MANAGER by Gunjan Phoenix M.D. [id number] lisa
--- NOTE | 2020-11-30 17:29 | XRR_ITS ---
PROCEDURE INFORMATION: Exam: XR Chest Exam date and time: 11/30/2020 5:42 PM Age: 70 years old Clinical indication: Cough and shortness of breath; Additional info: Dyspnea/cough TECHNIQUE: Imaging protocol: XR of the chest Views: 1 view. COMPARISON: CR XR chest 1V portable [id number] 02/26/2020 8:31 PM FINDINGS: Lungs: Unchanged severe hyperinflation compatible with COPD with left basilar fibrosis/scarring. No consolidation. Pulmonary vascularity is within normal limits. Pleural spaces: Unremarkable. No pleural effusion. No pneumothorax. Heart/Mediastinum: Unremarkable. No cardiomegaly. Bones/joints: No acute abnormality. Old rib fracture deformities are noted . XR/XR chest 1V portable [id number] IMPRESSION: No acute findings.
[2020-11-30 17:31] VITALS: BP 115/68; PULSE 102; RESP 17; O2SAT 94
--- NOTE | 2020-11-30 17:36 | W.ED.URI ---
HPI - URI/Sore Throat General: Chief Complaint: Upper Respiratory Infection Stated Complaint: RESPIRATORY DISTRESS Time Seen by Provider: 11/30/20 16:41 History of Present Illness: HPI Narrative: 70-year-old male presents emergency room complaining of brief episode of shortness of breath earlier today. He had gotten his Covid shot earlier a second vaccine in a few hours later began having more shortness of breath he has severe COPD and is O2 dependent. He denies fever sweats chills shortness of breath or cough. Pertinent past history: COPD Onset (ago): minute(s) Consistency: intermittent Severity: mild Able to tolerate fluids by mouth: Yes Exacerbating factors: nothing Relieving factors: nothing Associated symptoms: Reports short of breath; Deny abdominal pain, change in voice, chills, chest pain, congestion, cough, diarrhea, epistaxis, ear or mastoid pain, fever(s), headache(s), myalgias, nasal congestion, nausea, rash, rhinorrhea, sinus pain, stiffness, sore throat or vomiting Treatments prior to arrival: none Review of Systems Const: Denies: fever(s) or chills ENMT: Denies: ear or mastoid pain, nasal congestion, epistaxis or sinus pain Card: Denies: chest pain Resp: Denies: dyspnea, productive cough or non-productive cough GI: Denies: abdominal pain, nausea, vomiting or diarrhea : Denies: flank pain, dysuria, urinary frequency or urinary urgency Skin/Breast: Denies: rash or pruritus Neuro: Denies: headache(s) [facility] [place] ED PFSH: Medical History Afib BPH (benign prostatic hyperplasia) COPD (chronic obstructive pulmonary disease) History of cardioversion Hypertension Smoker Traumatic brain injury Surgical History History of hip replacement History of knee replacement History of laparoscopic appendectomy Hx of tonsillectomy S/P IVC filter Family History Other CAD (coronary artery disease) Cancer Diabetes Hypertension Lung disease Stroke Denies family history of Clotting disorder Dementia Hyperlipidemia Psychiatric illness Chronic kidney disease (CKD) Suicide Anesthesia complication Bleeding disorder Family history of premature coronary artery disease Social History Smoking and tobacco status: current every day smoker cigarettes Years cigarettes smoked: 56 Quit status (tobacco): considering quitting Second hand smoke exposure: No Smoking risk assessment/counseling performed?: No Alcohol intake: never Adopted: No Caregiver/support person: Yes Lives independently: Yes Housing: Apartment Marital status: Single Number of children: 0 Highest education level completed: Bachelor's Degree service: Yes Current occupational status: retired Pets and animals: No History of recent travel: No Sexually active: No Current gender identity: Male Special reece needs: No Agree to transfusion: Yes Physical Exam Const: COMMON NORMALS: no acute distress GENERAL APPEARANCE: cooperative and comfortable ORIENTATION/CONSCIOUSNESS: Yes awake, Yes oriented to person, Yes oriented to place and Yes oriented to time HENMT: COMMON NORMALS: normocephalic, atraumatic, hearing grossly normal bilaterally, external ears normal, EAC's normal, TM's normal bilaterally, Normal nasal mucous membranes and turbinates present, moist oral mucous membranes and oropharynx normal HEAD & SCALP: normocephalic and atraumatic NOSE: Normal nasal mucous membranes and turbinates present EXTERNAL EAR: Yes external ears normal EXTERNAL AUDITORY CANAL: EAC's normal TYMPANIC MEMBRANE: TM's normal bilaterally Eye: COMMON NORMALS: Equal, round and reactive pupils present, EOMs intact bilaterally, conjunctivae normal and no scleral icterus CONJUNCTIVA: Yes conjunctivae normal PUPIL: Yes Equal, round and reactive pupils present Neck/C-Spine: COMMON NORMALS: full ROM, no lymphadenopathy, supple and no JVD Lymph: LYMPHATIC: no lymphadenopathy noted and no lymphedema noted Resp: COMMON NORMALS: normal respiratory effort, No retractions, No use of accessory muscles and clear to auscultation bilaterally AUSCULTATION: clear to auscultation bilaterally Cardio: COMMON NORMALS: no JVD, regular rate, regular rhythm and No murmurs present (Cardio) RATE: regular rate RHYTHM: regular rhythm GI: COMMON NORMALS: Soft to palpation and No hepatosplenomegaly present AUSCULTATION: Yes normoactive bowel sounds PALPATION: Yes Soft to palpation, No Tenderness to palpation present (GI), No Guarding due to palpation present (GI) and Yes No hepatosplenomegaly present Extremity: COMMON NORMALS: normal to inspection, capillary refill normal, no clubbing, cyanosis or edema, no calf tenderness and no pedal edema Neuro: SENSORIUM/ORIENTATION: Yes oriented to person, Yes oriented to place and Yes oriented to time Skin: COMMON NORMALS: no rashes or lesions noted GENERAL SKIN EXAM: no rashes or lesions noted Course Vital Signs: Vital signs: Vital Signs Temperature 98.3 F 11/30/20 16:47 Pulse Rate 92 11/30/20 18:18 Respiratory Rate 31 H 11/30/20 18:18 Blood Pressure 107/64 11/30/20 18:18 Pulse Oximetry 93 11/30/20 18:18 MDM - URI/Sore Throat MDM Narrative: Medical decision making narrative: Patient symptoms improved he no longer is requiring oxygen he wishes to go home discharge home encouraged him to follow-up with his primary care doctor I have albuterol as needed. Return if has problems. I do not believe this is directly related to his receiving a Covid vaccination. Lab Data: Labs: Lab Results 11/30/20 11/30/20 11/30/20 Range/Units 17:00 17:00 17:00 WBC 7.2 (4.0-10.0) 10^3/ uL RBC 5.53 H (4.1-5.3) 10^6/u L Hgb 16.6 (11.7-16.6) g/dL Hct 52.3 H (42.0-52.0) % MCV 94.6 H (80-94) fL MCH 30.0 (28.0-34.0) pg MCHC 31.7 (30.0-36.0) g/dL RDW 12.8 (12.1-15.1) % Plt Count 202 (130-400) 10^3/c mm MPV 10.6 H (7.4-10.4) fL Neut % (Auto) 58.8 % Lymph % (Auto) 30.3 % [place] % (Auto) 7.7 % Eos % (Auto) 2.7 % Baso % (Auto) 0.4 % Neut # (Auto) 4.20 (1.8-7.7) 10^3/u L Lymph # (Auto) 2.2 (0.8-4.8) 10^3/u L [place] # (Auto) 0.6 (0.2-0.9) 10^3/u L Eos # (Auto) 0.2 (0.0-0.8) 10^3/u L Baso # (Auto) 0.0 (0.0-0.1) 10^3/u L Nucleated RBC % (a uto) 0 % Nucleated RBCs # 0.0 /100WBC Sodium 138 (136-145) mmol/L Potassium 3.8 (3.5-5.1) mmol/L Chloride 99 (98-107) mmol/L Carbon Dioxide 30 H (22-29) mmol/L Anion Gap 12.8 (5-19) BUN 14 (8-23) mg/dL Creatinine 0.8 (0.7-1.2) mg/dL GFR Calculation 96.1 (90-130) mL/min Glucose 110 (65-115) mg/dL Calculated Osmolal ity 287 (285-295) mOsm/k g Calcium 9.4 (8.5-10.5) mg/dL Total Bilirubin 0.7 (0.15-1.2) mg/dL AST 36 (0-40) U/L ALT 46 H (0-41) U/L Alkaline Phosphata se 117 (40-130) IU/L Troponin T Baselin e 9 (0-15) ng/L Total Protein 6.9 (6.6-8.7) g/dL Albumin 3.9 (3.5-5.2) g/dL Globulin 3.0 (1.3-4.6) g/dL Discharge Plan Discharge Patient Disposition: Home Clinical Impression: COPD (chronic obstructive pulmonary disease) Condition: Stable Prescriptions: No Action hydrocodone-acetaminophen 7.5-325 mg tablet 1 tab PO BID@ RF: 0 tamsulosin [Flomax] 0.4 mg capsule 0.4 mg PO DAILY@18 RF: 0 aspirin 81 mg Tablet,Chewable 81 mg PO PRN RF: 0 Prozac 10 mg Capsule See Rx Instructions .ROUTE .COMPLEX RF: 0 Narcan 4 mg/actuation spray,non-aerosol See Rx Instructions .ROUTE .COMPLEX RF: 0 Discharge Orders: Discharge ED (Routine); Ordered 11/30/20 Ordered By: Raj Fish Referrals: Braulio Mckeon MD [Primary Care Provider] - Discharge Diet: Usual diet Discharge Activity: Resume usual activity Patient Instructions: Opioid Safety Coding Level of Care Code ED Erecting Engineer for Daian Hoskins
[2020-11-30 17:37] LABS: Basophils % 0.4 %; Eosinophils # 0.2 10^3/uL (0.0-0.8); Eosinophils % 2.7 %; Hematocrit 52.3 % (42.0-52.0); Hemoglobin 16.6 g/dL (11.7-16.6); Lymphocytes # 2.2 10^3/uL (0.8-4.8); Lymphocytes % 30.3 %; Mean Corpuscular HGB Conc 31.7 g/dL (30.0-36.0); Mean Corpuscular Volume 94.6 fL (80-94); Mean Platelet Volume 10.6 fL (7.4-10.4); Monocytes # 0.6 10^3/uL (0.2-0.9); Monocytes % 7.7 %; Neutrophils % 58.8 %; Nucleated Red Blood Cells % 0 %; Platelet Count 202 10^3/cmm (130-400); Red Blood Count 5.53 10^6/uL (4.1-5.3); Red Cell Distribution Width 12.8 % (12.1-15.1); White Blood Count 7.2 10^3/uL (4.0-10.0)
[2020-11-30 17:49] VITALS: BP 115/68; PULSE 105; RESP 16; O2SAT 93
[2020-11-30 18:08] LABS: Alanine Aminotransferase 46 U/L (0-41); Albumin Level 3.9 g/dL (3.5-5.2); Alkaline Phosphatase 117 IU/L (40-130); Anion Gap 12.8 (5-19); Aspartate Amino Transferase 36 U/L (0-40); Blood Urea Nitrogen 14 mg/dL (8-23); Calcium 9.4 mg/dL (8.5-10.5); Carbon Dioxide 30 mmol/L (22-29); Chloride 99 mmol/L (98-107); Glomerular Filtration Rate 96.1 mL/min (90-130); Glucose 110 mg/dL (65-115); Osmolality Calculated 287 mOsm/kg (285-295); Potassium 3.8 mmol/L (3.5-5.1); Sodium 138 mmol/L (136-145); Total Bilirubin 0.7 mg/dL (0.15-1.2); Total Protein 6.9 g/dL (6.6-8.7)
[2020-11-30 18:09] LABS: Troponin(5th) Baseline 9 ng/L (0-15)
[2020-11-30 18:18] VITALS: BP 107/64; PULSE 92; RESP 31; O2SAT 93
== END 2020-11-30 18:21 | disposition home or self-care (01) ==
PROVIDERS: Emergency Provider Family Medicine; PCP Family Medicine
DX: J44.9 Chronic obstructive pulmonary disease, unspecified (principal); Z79.82 Long term (current) use of aspirin; I48.91 Unspecified atrial fibrillation; I10 Essential (primary) hypertension; F17.210 Nicotine dependence, cigarettes, uncomplicated
CPT/HCPCS: 71045; 80053; 84484; 85025; 93005; 99283

== ENCOUNTER → 2021-01-15 09:32 | Outpatient (BNVA) | payer MEDICARE, MEDICAID, SELFPAY | PROVIDERS: PCP Family Medicine; Referring Provider Family Medicine; Visit Provider Internal Medicine | DX: E04.2 Nontoxic multinodular goiter (principal); F17.210 Nicotine dependence, cigarettes, uncomplicated | CPT/HCPCS: 99204 ==

== ENCOUNTER 2021-06-27 10:28 | Emergency (ER) | payer MEDICARE, MEDICAID, SELFPAY ==
[2021-06-27 10:55] VITALS: BP 107/73; PULSE 101; RESP 16; TEMP 36.1; O2SAT 95; BMI 24.3
--- NOTE | 2021-06-27 11:40 | ED_ITS ---
HPI - General Adult General: Chief complaint: Anxiety Stated complaint: Anxiety Time Seen by Provider: 06/27/21 11:26 History of Present Illness: HPI narrative: HPI: [71]yo patient w/ hx of depression and prior psych issues presenting to the ED requesting 1 week supply of xanax. Patient was seen earlier today at outpatient psych facility and one of the practitioner received a threat from the patient that he would go kill someone. He was told to go the the ER. On arrival, patient denies any suicidal ideation and homocidal ideation. He does not remember what happened at the outpatient psych facility. On arrival, the patient is AAOx3 and cooperative with my evaluation. He tells me his ex has cancer and is refusing chemo and radiation and he haven't be able to sleep for 3 days in a row. No focal complaints of chest pain, shortness of breath, palpitations, N/V, focal GI/ complaints. Currently denies SI/HI. No complaints of hallucinations. Onset: chronic Duration: ongoing Location: home Severity: severe Review of Systems Narrative: Constitutional: No fever, no chills. HEENT: No vision changes CV: No chest pain, no palpitations PULM: No productive cough, no dyspnea. GI: No abdominal pain, no N/V/D. : No dysuria MSKEL: No muscle pain SKIN: No new rashes, no lesions. NEURO: No headache, no focal weakness. HEME: No visible bruises PSYCH: Normal mood PENDING SALE TO [facility] ED PFSH: Medical History (Updated 06/27/21 @ 12:38 by Thomas White MD) Afib BPH (benign prostatic hyperplasia) COPD (chronic obstructive pulmonary disease) History of cardioversion Hypertension Smoker Traumatic brain injury Surgical History History of hip replacement History of knee replacement History of laparoscopic appendectomy Hx of tonsillectomy S/P IVC filter Family History Other CAD (coronary artery disease) Cancer Diabetes Hypertension Lung disease Stroke Denies family history of Clotting disorder Dementia Hyperlipidemia Psychiatric illness Chronic kidney disease (CKD) Suicide Anesthesia complication Bleeding disorder Family history of premature coronary artery disease Social History Smoking and tobacco status: current every day smoker cigarettes Years cigarettes smoked: 56 Quit status (tobacco): considering quitting Second hand smoke exposure: No Smoking risk assessment/counseling performed?: No Alcohol intake: never Adopted: No Caregiver/support person: Yes Lives independently: Yes Housing: Apartment Marital status: Single Number of children: 0 Highest education level completed: Bachelor's Degree service: Yes Current occupational status: retired Pets and animals: No History of recent travel: No Sexually active: No Current gender identity: Male Special reece needs: No Agree to transfusion: Yes Physical Exam Narrative: EXAM NARRATIVE: Head: Atraumatic Eyes: PERRL, conjunctiva without injection, eyes tracking ENT: Mucous membrane moist NECK: Supple without lymphadenopathy LUNGS: LCTAB CV: RRR ABDOMEN: Soft, nontender EXTREMITY: Normal ROM SKIN: No rash or erythema NEURO: Awake and alert. No focal weakness PSYCH: Cooperative mood and affect. Course Vital Signs: Vital signs: Vital Signs Temperature 97.0 F L 06/27/21 10:55 Pulse Rate 76 06/27/21 15:25 Respiratory Rate 18 06/27/21 15:25 Blood Pressure 133/93 06/27/21 15:25 Pulse Oximetry 96 06/27/21 15:25 MDM - General Adult MDM Narrative: Medical decision making narrative: [71]yo patient w/ hx of psych issues presenting for homocidal ideation and insomnia. HDS, exam within normal limit Thoughts are linear and organized, and the patient has no AH/VH, SI/HI currently. Clinically the patient displays no overt toxidrome; they are well appearing, with low suspicion for toxic ingestion given history and exam. Symptoms unlikely 2/2 anemia, hypothyroidism, infection, or ICH. Workup: CBC, CMP, Lipase, salicylate/tylenol Lab findings: wnl [1:37] On reassessment, labs and workup wnl. Patient is hemodynamically stable with no acute medical complaints. Case discussed with psychiatric provider Dr. Garcia at [facility] psych inpatient who evaluated patient at bedside. After extensive discussion with patient's son Kendall Puckett who tells me the patient has a history of TBI is currently on disability. And this is normal for him to throw fit and clean that he is homicidal when he is not getting the care he needs. Son does not believe that patient has active homicidal ideation despite claims. Patient on reassessment continues to further reiterate that he does not have any homicidal ideation. I have discussed the case with Dr. Garcia who evaluated patient at bedside and recommend sooner outpatient follow-up at this time. In addition, the son has confirmed this for the patient is currently taking care of his ex- and feeling anxious. Rx ativan 1mg x 3 tablets PRN insomnia Disposition: Discharge. I have given patient follow up with our vocational case manager to be seen by our outpatient psychiatry sooner. Patient aware of a call from our vocational case manager to schedule for appointment(s) and verbalizes understanding of the importance of following up. Patient is given strict return precaution for any signs of suicidal ideation, homicidal ideation, any acute psychosis, inability to care for himself or any new or concerning complaints. Discharge Plan Discharge Patient Disposition: Home Clinical Impression: Insomnia Condition: Stable Prescriptions: New Ativan 0.5 mg tablet 0.5 mg PO DAILY PRN (Reason: anxiety) 3 Days Qty: 3 RF: 0 melatonin 10 mg tablet 10 mg PO DAILY PRN (Reason: sleep) 10 Days Qty: 10 RF: 0 No Action hydrocodone-acetaminophen 7.5-325 mg tablet 1 tab PO Q8H PRN (Reason: Pain) RF: 0 tamsulosin [Flomax] 0.4 mg capsule 0.4 mg PO DAILY@18 RF: 0 Narcan 4 mg/actuation spray,non-aerosol See Rx Instructions .ROUTE .COMPLEX RF: 0 Discharge Orders: Discharge ED (Routine); Ordered 06/27/21 Ordered By: Thomas White Referrals: Braulio Mckeon MD [Primary Care Provider] - Discharge Diet: Advance as tolerated Discharge Activity: Resume usual activity Patient Instructions: Insomnia (ED), Opioid Safety Activity Restrictions/Additional Instructions: Come back to the emergency room you have any thoughts of hurting yourself, other people, or if you have any new or concerning complaints. 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
[2021-06-27] MEDS: LORazepam 1 mg Tablet PO (14:49)
[2021-06-27 15:25] VITALS: BP 133/93; PULSE 76; RESP 18; O2SAT 96
== END 2021-06-27 15:25 | disposition home or self-care (01) ==
PROVIDERS: Emergency Provider Emergency Medicine; PCP Family Medicine
DX: G47.00 Insomnia, unspecified (principal); J44.9 Chronic obstructive pulmonary disease, unspecified; I10 Essential (primary) hypertension; F17.210 Nicotine dependence, cigarettes, uncomplicated
CPT/HCPCS: 99283; 99291

== ENCOUNTER 2022-03-14 09:15 | Emergency (ER) | payer MEDICARE, MEDICAID, SELFPAY ==
--- NOTE | 2022-03-14 09:24 | XRR_ITS ---
PROCEDURE INFORMATION: Exam: XR Left Hip Exam date and time: 03/14/2022 9:37 AM Age: 72 years old Clinical indication: Injury or trauma; Fall; Blunt trauma (contusions or hematomas); Left; Hip; Injury date: 03/14/22; Prior surgery TECHNIQUE: Imaging protocol: XR Left hip. Views: 2 or 3 views hip with pelvis when performed. COMPARISON: CR (PELVIS, ) 05/08/2020 5:32 PM FINDINGS: Bones/joints: Left proximal femoral fixation hardware appears intact. The left hip joint maintains normal alignment. No significant change from prior exam. Dystrophic calcifications along the posterior margin of the acetabulum again noted. Soft tissues: Unremarkable. Vasculature: Partially visualized IVC filter again noted. XR/XR hip LT 2-3V wo/w pel* [id number] IMPRESSION: No significant change from prior exam.
[2022-03-14 09:25] VITALS: BP 104/70; PULSE 80; RESP 16; TEMP 36.7; O2SAT 96; BMI 19.2
--- NOTE | 2022-03-14 09:32 | ED_ITS ---
HPI - General Adult General: Chief complaint: Fall Stated complaint: fall with hip pain Time Seen by Provider: 03/14/22 09:16 History of Present Illness: Patient comes in by ambulance after a fall. States he was walking outside when his cane slipped and he fell landing on his left hip. States he did not hit his head. States he does not have any other injuries just some left hip pain. Associated symptoms: Deny chest pain, dyspnea, headache(s), nausea, rash, palpitations or vomiting Review of Systems Const: Denies: fever(s) or body aches Eyes: Denies: change in vision or blurry vision ENMT: Denies: throat pain or odynophagia Card: Denies: chest pain or palpitations Resp: Denies: dyspnea or productive cough GI: Denies: abdominal pain, nausea or vomiting : Denies: flank pain or dysuria Musc: Denies: neck pain or back pain Skin/Breast: Denies: rash or pruritus Neuro: Denies: headache(s) or numbness in extremities Psych: Denies: anxiety or change in appetite Endo: Denies: polyuria or excessive sweating PFSH ED PFSH: Medical History (Updated 03/14/22 @ 10:37 by Zach Espinosa MD) Afib BPH (benign prostatic hyperplasia) COPD (chronic obstructive pulmonary disease) History of cardioversion Hypertension Smoker Traumatic brain injury Surgical History History of hip replacement History of knee replacement History of laparoscopic appendectomy Hx of tonsillectomy S/P IVC filter Family History Other CAD (coronary artery disease) Cancer Diabetes Hypertension Lung disease Stroke Denies family history of Clotting disorder Dementia Hyperlipidemia Psychiatric illness Chronic kidney disease (CKD) Suicide Anesthesia complication Bleeding disorder Family history of premature coronary artery disease Social History Smoking and tobacco status: current every day smoker cigarettes Years cigarettes smoked: 56 Quit status (tobacco): considering quitting Second hand smoke exposure: No Smoking risk assessment/counseling performed?: No Alcohol intake: never Adopted: No Caregiver/support person: Yes Lives independently: Yes Housing: Apartment Marital status: Single Number of children: 0 Highest education level completed: Bachelor's Degree service: Yes Current occupational status: retired Pets and animals: No History of recent travel: No Sexually active: No Current gender identity: Male Special reece needs: No Agree to transfusion: Yes Physical Exam Const: COMMON NORMALS: no acute distress, patient oriented x3, healthy appearing and alert HENMT: COMMON NORMALS: normocephalic and atraumatic HEAD & SCALP: normocephalic and atraumatic Eye: COMMON NORMALS: Equal, round and reactive pupils present and EOMs intact bilaterally PUPIL: Yes Equal, round and reactive pupils present Neck/C-Spine: COMMON NORMALS: full ROM and supple Resp: COMMON NORMALS: normal respiratory effort, No retractions and No use of accessory muscles Cardio: COMMON NORMALS: regular rate and regular rhythm RATE: regular rate RHYTHM: regular rhythm GI: COMMON NORMALS: Normal to inspection, nondistended, normoactive bowel sounds present, Soft to palpation and non-tender PALPATION: Yes Soft to palpation Back/Pelvis: COMMON NORMALS: thoracic and lumbar spine normal to inspection and no thoracic nor lumbar tenderness Extremity: OTHER: Tenderness to palpation of the left hip, left leg is neurovascularly intact Neuro: COMMON NORMALS: patient oriented x3 SENSORIUM/ORIENTATION: Yes alert Psych: COMMON NORMALS: mental status grossly normal and cooperative Skin: COMMON NORMALS: no rashes or lesions noted and no wounds GENERAL SKIN EXAM: no rashes or lesions noted Course Vital Signs: Vital signs: Vital Signs Temperature 98.1 F 03/14/22 09:25 Pulse Rate 80 03/14/22 09:25 Respiratory Rate 16 03/14/22 09:25 Blood Pressure 104/70 03/14/22 09:25 Pulse Oximetry 96 03/14/22 09:[address] [facility] - General Adult Medical Decision Making Patient comes in by ambulance after a fall. States he was walking outside when his cane slipped and he fell landing on his left hip. States he did not hit his head. States he does not have any other injuries just some left hip pain. On physical exam he can move his left leg with some pain. Will check x-ray, and reassess. On reassessment I talked to the patient about the test results. Will discharge home at this time with precautions to return for worsening or changing symptoms. Lab Data Radiology Impressions Hip/Pelvis X-Ray 03/14/22 09:24 IMPRESSION: No significant change from prior exam. Discharge Plan Discharge Patient Disposition: Home Clinical Impression: Contusion of hip Condition: Stable Prescriptions: No Action hydrocodone-acetaminophen 7.5-325 mg tablet 1 tab PO Q8H PRN (Reason: Pain) 0RF tamsulosin [Flomax] 0.4 mg capsule 0.4 mg PO DAILY@18 0RF Narcan 4 mg/actuation spray,non-aerosol See Rx Instructions .ROUTE .COMPLEX 0RF Rx Instructions: as directed intranasally prn Discharge Orders: Discharge ED (Routine); Ordered 03/14/22 Ordered By: Zach Espinosa Referrals: Braulio Mckeon MD [Hospitalist] - Coding Level of Care Code ED Nca Certified Concierge for Chg Fwd Exam Comprehensive
== END 2022-03-14 11:45 | disposition home or self-care (01) ==
PROVIDERS: Emergency Provider Emergency Medicine; PCP Family Medicine
DX: S70.02XA Contusion of left hip, initial encounter (principal); W01.0XXA Fall on same level from slipping, tripping and stumbling without subsequent striking against object, initial encounter
CPT/HCPCS: 73502; 99283

== ENCOUNTER 2022-06-24 15:59 | Inpatient (IN) | payer MEDICARE, MEDICAID, SELFPAY ==
[2022-06-24] VITALS (27 sets, daily range): BP systolic 114–161; BP diastolic 73–96; PULSE 53–112; RESP 12–28; TEMP 36.3; O2SAT 92–97; BMI 23.5
--- NOTE | 2022-06-24 16:00 | CTR_ITS ---
PROCEDURE INFORMATION: Exam: CT Head Without Contrast Exam date and time: 06/24/2022 4:03 PM Age: 72 years old Clinical indication: Weakness, extremity; Left; Prior surgery; Surgery date: 6+ months; Surgery type: Brain; Additional info: Possible cva/tia TECHNIQUE: Imaging protocol: Computed tomography of the head without contrast. Radiation optimization: All CT scans at this facility use at least one of these dose optimization techniques: automated exposure control; mA and/or kV adjustment per patient size (includes targeted exams where dose is matched to clinical indication); or iterative reconstruction. 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 Moderate diffuse white matter disease likely reflecting chronic microvascular ischemic changes. Small to moderate left temporal chronic infarct. Cerebral ventricles: No ventriculomegaly. Paranasal sinuses: Visualized sinuses are unremarkable. No fluid levels. Mastoid air cells: Visualized mastoid air cells are well aerated. Bones/joints: Right craniotomy changes. Soft tissues: Unremarkable. CT/CT head wo con* [id number] IMPRESSION: 1. Negative for intracranial hemorrhage or mass effect. 2. 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 Small to moderate left temporal chronic infarct. 3. Moderate diffuse white matter disease likely reflecting chronic microvascular ischemic changes. 4. Right craniotomy changes.
--- NOTE | 2022-06-24 16:06 | ECG_ITS ---
[facility] Test Date: 2022-06-24 Pat Name: Cornelio Puckett Department: Room: Gender: Male Bearing Inspector: : 1950 Requested By: Raj Perea Order Number: [id number] Feliberto MD: Tomas Jack M.D. Measurements Intervals Brandt Rate: 64 P: 82 RI: 162 QRS: -61 QRSD: 95 T: 80 QT: 392 QTc: 405 Interpretive Statements SINUS RHYTHM LEFT AXIS DEVIATION [QRS AXIS < -30] POSSIBLE RIGHT VENTRICULAR CONDUCTION DELAY [RSR (QR) IN V1/V2] POSSIBLE SEPTAL MYOCARDIAL INFARCTION , OF INDETERMINATE AGE [30 ms Q WAVE IN V1/V2] Compared to ECG 11/30/2020 17:24:08 Myocardial infarct finding now present Sinus tachycardia no longer present ST (T wave) deviation no longer present Electronically Signed On 06-24-2022 20:45:44 CDT by Tomas Jack M.D. [email or web address]
--- NOTE | 2022-06-24 16:07 | W.ED.NEUROSD ---
HPI - Neuro Symptoms/Deficit General: Chief Complaint: Neuro Symptoms/Deficit Stated Complaint: STROKE ALERT Time Seen by Provider: 06/24/22 16:03 Source: patient and EMS Mode of arrival: ambulatory Limitations: no limitations History of Present Illness: 72-year-old male with a history of previous traumatic brain injury and the right side presents emergency room 15 minutes after onset of left-sided weakness that precipitated a fall. Patient is awake and answers questions. Initial brief NIH score in the CT suite came to 12 was not adequate to endorse tPA. Acute neurodeficit orders were placed CT reviewed and is negative. Patient is unable to move his left arm or left leg has decreased sensation in the left side as well as left-sided facial droop some mild dysarthria. He denies any chest pain or shortness of breath. Onset (ago): minute(s) Time: 15:57 Last Observed Normal: 16:12 Location: speech, left face, left arm and left leg History of same: No Severity: severe Quality: weak and tingling Relieving factors: none Exacerbating factors: none Context: sudden onset Associated symptoms: Reports weakness; Deny chest pain, cough, diaphoresis, fevers/chills, headache(s), anorexia, malaise, nausea, seizures, short of breath, syncope, tingling, vertigo or vomiting Treatments Prior to Arrival: none Review of Systems Const: Denies: fever(s), chills, malaise or diaphoresis Eyes: Denies: change in vision or blurry vision ENMT: Denies: throat pain, ear or mastoid pain, nasal discharge or nasal congestion Card: Denies: chest pain, palpitations, irregular heart rhythm or syncope Resp: Denies: dyspnea, productive cough or non-productive cough GI: Denies: abdominal pain, nausea or vomiting : Denies: flank pain, difficulty urinating, dysuria, urinary frequency or urinary urgency Musc: Denies: neck pain or back pain Skin/Breast: Denies: rash or pruritus Neuro: Denies: headache(s) or vertigo PFSH ED PFSH: Medical History Acute right arterial ischemic stroke, middle cerebral artery (MCA) Afib BPH (benign prostatic hyperplasia) Cerebrovascular accident COPD (chronic obstructive pulmonary disease) CVA (cerebral vascular accident) Falls Goiter History of cardioversion Hypertension Smoker Thyroid nodule Traumatic brain injury Surgical History History of hip replacement History of knee replacement History of laparoscopic appendectomy Hx of tonsillectomy S/P IVC filter Family History Other CAD (coronary artery disease) Cancer Diabetes Hypertension Lung disease Stroke Denies family history of Clotting disorder Dementia Hyperlipidemia Psychiatric illness Chronic kidney disease (CKD) Suicide Anesthesia complication Bleeding disorder Family history of premature coronary artery disease Social History Smoking and tobacco status: current every day smoker cigarettes Years cigarettes smoked: 56 Quit status (tobacco): considering quitting Second hand smoke exposure: No Smoking risk assessment/counseling performed?: No Alcohol intake: never Adopted: No Caregiver/support person: Yes Lives independently: Yes Housing: Apartment Marital status: Single Number of children: 0 Highest education level completed: Bachelor's Degree service: Yes Current occupational status: retired Pets and animals: No History of recent travel: No Sexually active: No Current gender identity: Male Special reece needs: No Agree to transfusion: Yes NIH stroke score NIHSS: Level Of Consciousness - 1a: 0 Level Of Consciousness Questions - 1b: Both Correct Level Of Consciousness Commands - 1c: Both Correct Best Gaze - 2: Normal Visual Wallace - 3: No Visual Loss Facial Palsy - 4: Minor Paralysis Motor Arm Right - 5: No Drift Motor Arm Left - 5: No Effort Against [place] Motor Leg Right - 6: No Drift Motor Leg Left - 6: No Effort Against [place] Limb Ataxia - 7: Present In Two Limbs Sensory - 8: Mild To Moderate Loss Best Language - 9: No Aphasia Dysarthia - 10: Normal Extinction And Inattention - 11: 0 Score: Total Score: 10 Physical Exam Const: GENERAL APPEARANCE: cooperative and comfortable ORIENTATION/CONSCIOUSNESS: Yes awake, Yes oriented to person, Yes oriented to place and Yes oriented to time HENMT: COMMON NORMALS: normocephalic, atraumatic and hearing grossly normal bilaterally HEAD & SCALP: normocephalic and atraumatic Eye: COMMON NORMALS: Equal, round and reactive pupils present, EOMs intact bilaterally, conjunctivae normal and no scleral icterus CONJUNCTIVA: Yes conjunctivae normal PUPIL: Yes Equal, round and reactive pupils present Neck/C-Spine: COMMON NORMALS: full ROM, no lymphadenopathy, supple and no JVD Lymph: LYMPHATIC: no lymphadenopathy noted and no lymphedema noted Resp: COMMON NORMALS: normal respiratory effort, No retractions, No use of accessory muscles and clear to auscultation bilaterally AUSCULTATION: clear to auscultation bilaterally Cardio: COMMON NORMALS: no JVD, regular rate, regular rhythm and No murmurs present (Cardio) RATE: regular rate RHYTHM: regular rhythm GI: COMMON NORMALS: Soft to palpation and No hepatosplenomegaly present AUSCULTATION: Yes normoactive bowel sounds PALPATION: Yes Soft to palpation, No Tenderness to palpation present (GI), No Guarding due to palpation present (GI) and Yes No hepatosplenomegaly present Extremity: COMMON NORMALS: normal to inspection, capillary refill normal, no clubbing, cyanosis or edema, no calf tenderness and no pedal edema Neuro: SENSORIUM/ORIENTATION: Yes oriented to person, Yes oriented to place and Yes oriented to time OTHER: See NIH score Skin: COMMON NORMALS: no rashes or lesions noted GENERAL SKIN EXAM: no rashes or lesions noted Course Vital Signs: Vital signs: Vital Signs Temperature 98.2 F 06/26/22 00:00 Pulse Rate 56 L 06/26/22 15:28 Respiratory Rate 23 H 06/26/22 15:28 Blood Pressure 124/77 06/26/22 15:28 Pulse Oximetry 98 06/26/22 15:28 Oxygen Delivery Me thod 06/26/22 14:00 MDM - Neuro Symptoms/Deficit Medical Decision Making Patient has acute CVA and after discussion with him he wishes to proceed with tPA. tPA was started Dr. Braden was also at the bedside and concurs. Patient to go back for CTA of the head and neck. Medical Records I reviewed the patient's medical records. Lab Data I reviewed the patient's lab results. : 06/26/22 03:38 06/26/22 03:38 Radiology Impressions Head/Neck CTA 06/24/22 16:40 IMPRESSION: 1. No large artery occlusion or stenosis. 2. No acute intracranial abnormality. IMPRESSION: 1. No large artery occlusion or stenosis. COMMENTS: Consistent with the [employer]'s Incidental Findings Committee white paper (J Am Estella Radiol 2015): In patients aged 35 years and older with an incidental thyroid nodule equal to or greater than 1.[address], MRI or extrathyroidal US, further evaluation with dedicated thyroid US is recommended for patients with normal life expectancy and without comorbidities. For smaller nodules without suspicious features, no further evaluation or follow up is recommended. REFERENCES: NASCET CRITERIA. The degree of stenosis in the cervical segment of the internal carotid artery is based on NASCET criteria. Normal is no stenosis. Mild is less than 50% stenosis. Moderate is 50-69% stenosis. Severe is 70% to 99% stenosis. Total occlusion is no detectable patent lumen. Head CT 06/25/22 06:00 IMPRESSION: 1. No evidence of intracranial hemorrhage or mass effect. 2. Moderate small vessel changes. Moderate parenchymal volume loss. 3. Chronic encephalomalacia in the RIGHT frontal lobe, RIGHT inferior frontal, and RIGHT anterior temporal lobes with prior RIGHT craniotomy. Encephalomalacia lateral LEFT temporal lobe. 4. Opacification LEFT mastoid air cells and LEFT middle ear unchanged from previous. 5. No significant interval changes. Laboratory Results WBC 5.9 10^3/uL (4.0-10.0) 06/24/22 16:15 RBC 5.02 10^6/uL (4.1-5.3) 06/24/22 16:15 Hgb 15.8 g/dL (11.7-16.6) 06/24/22 16:15 Hct 48.0 % (42.0-52.0) 06/24/22 16:15 MCV 95.6 fl (80-94) H 06/24/22 16:15 MCH 31.5 pg (28.0-34.0) 06/24/22 16:15 MCHC 32.9 g/dL (30.0-36.0) 06/24/22 16:15 RDW 13.1 % (12.1-15.1) 06/24/22 16:15 Plt Count 184 10^3/cmm (130-400) 06/24/22 16:15 MPV 9.8 fL (7.4-10.4) 06/24/22 16:15 Neut % (Auto) 61.6 % 06/24/22 16:15 Lymph % (Auto) 24.9 % 06/24/22 16:15 Dickens % (Auto) 10.4 % 06/24/22 16:15 Eos % (Auto) 2.2 % 06/24/22 16:15 Baso % (Auto) 0.7 % 06/24/22 16:15 Neut # (Auto) 3.66 10^3/uL (1.8-7.7) 06/24/22 16:15 Lymph # (Auto) 1.5 10^3/uL (0.8-4.8) 06/24/22 16:15 Dickens # (Auto) 0.6 10^3/uL (0.2-0.9) 06/24/22 16:15 Eos # (Auto) 0.1 10^3/uL (0.0-0.8) 06/24/22 16:15 Baso # (Auto) 0.0 10^3/uL (0.0-0.1) 06/24/22 16:15 Nucleated RBC % (auto) 0 % 06/24/22 16:15 Nucleated RBCs # 0.0 /100WBC 06/24/22 16:15 PT 13.90 SECONDS (12.1-14.9) 06/24/22 16:15 INR 1.03 (0.8-1.2) 06/24/22 16:15 APTT 28.8 SECONDS (23.9-36.7) 06/24/22 16:15 Sodium 140 mmol/L (136-145) 06/24/22 16:15 Potassium 3.7 mmol/L (3.5-5.1) 06/24/22 16:15 Chloride 102 mmol/L (98-107) 06/24/22 16:15 Carbon Dioxide 31 mmol/L (22-29) H 06/24/22 16:15 Anion Gap 10.7 (5-19) 06/24/22 16:15 BUN 16 mg/dL (8-23) 06/24/22 16:15 Creatinine 1.0 mg/dL (0.7-1.2) 06/24/22 16:15 GFR Calculation 73.9 mL/min (90-130) L 06/24/22 16:15 Glucose 124 mg/dL (65-115) H 06/24/22 16:15 POC Glucose 129 mg/dL (70-110) H 06/24/22 16:12 Estimat Average Glucose 100 06/24/22 16:15 Hemoglobin A1c 5.1 % (4.0-6.0) 06/24/22 16:15 Calculated Osmolality 293 mOsm/kg (285-295) 06/24/22 16:15 Calcium 8.9 mg/dL (8.5-10.5) 06/24/22 16:15 Total Bilirubin 0.4 mg/dL (0.15-1.2) 06/24/22 16:15 AST 29 U/L (0-40) 06/24/22 16:15 ALT 32 U/L (0-41) 06/24/22 16:15 Alkaline Phosphatase 110 U/L (40-130) 06/24/22 16:15 Total Protein 6.5 g/dL (6.6-8.7) L 06/24/22 16:15 Albumin 3.6 g/dL (3.5-5.2) 06/24/22 16:15 Globulin 2.9 g/dL (1.3-4.6) 06/24/22 16:15 Discharge Plan Discharge Patient Disposition: Admitted As Inpatient Admit Provider: Lelo Jameson Clinical Impression: Cerebrovascular accident Condition: Stable Discharge Diet: Low Salt Discharge Activity: As per PT/OT instructions Coding Level of Care Code ED Precision Lens Grinder Apprentice for Chg Fwd Exam Comprehensive
--- NOTE | 2022-06-24 16:15 | PC.NURSE ---
pt placed on continuous nibp ,spo2, and cm
[2022-06-24 16:24] LABS: Basophils % 0.7 %; Eosinophils # 0.1 10^3/uL (0.0-0.8); Eosinophils % 2.2 %; Hemoglobin 15.8 g/dL (11.7-16.6); Lymphocytes # 1.5 10^3/uL (0.8-4.8); Lymphocytes % 24.9 %; Mean Corpuscular HGB Conc 32.9 g/dL (30.0-36.0); Mean Corpuscular Hemoglobin 31.5 pg (28.0-34.0); Mean Corpuscular Volume 95.6 fl (80-94); Mean Platelet Volume 9.8 fL (7.4-10.4); Monocytes # 0.6 10^3/uL (0.2-0.9); Monocytes % 10.4 %; Neutrophils # 3.66 10^3/uL (1.8-7.7); Neutrophils % 61.6 %; Nucleated Red Blood Cells % 0 %; Platelet Count 184 10^3/cmm (130-400); Red Blood Count 5.02 10^6/uL (4.1-5.3); Red Cell Distribution Width 13.1 % (12.1-15.1); White Blood Count 5.9 10^3/uL (4.0-10.0)
[2022-06-24 16:38] LABS: INR 1.03 (0.8-1.2)
[2022-06-24 16:39] LABS: Partial Thromboplastin Time 28.8 SECONDS (23.9-36.7)
--- NOTE | 2022-06-24 16:40 | CTR_ITS ---
PROCEDURE INFORMATION: Exam: CTA Head With Contrast, Arteriography Exam date and time: 06/24/2022 4:45 PM Age: 72 years old Clinical indication: Other: CVA noted on prior CT without; Additional info: Acute CVA TECHNIQUE: Imaging protocol: Computed tomographic angiography of the head with contrast. Exam focused on the arteries. 3D rendering (Not supervised by radiologist): MIP and/or 3D reconstructed images were created by the technologist. Radiation optimization: All CT scans at this facility use at least one of these dose optimization techniques: automated exposure control; mA and/or kV adjustment per patient size (includes targeted exams where dose is matched to clinical indication); or iterative reconstruction. Contrast material: OMNIPAQUE 350; Contrast volume: 95 ml; Contrast route: INTRAVENOUS (IV); COMPARISON: CT angio headneck* [id number] 09/08/2019 5:41 PM RADIATION DOSE METRICS: Total DLP (mGy-cm): 1155.01 FINDINGS: ANTERIOR CIRCULATION: Right internal carotid artery: Calcified plaque in the cavernous right internal carotid artery without significant stenosis. Right middle cerebral artery: No occlusion or significant stenosis. No aneurysm. Right anterior cerebral artery: No occlusion or significant stenosis. No aneurysm. Left internal carotid artery: Calcified plaque in the cavernous left internal carotid artery without significant stenosis. Left middle cerebral artery: No occlusion or significant stenosis. No aneurysm. Left anterior cerebral artery: Congenitally small A1 segment of the left anterior cerebral artery with a patent anterior communicating branch. No stenosis. POSTERIOR CIRCULATION: Right vertebral artery: No occlusion or significant stenosis. No aneurysm. Left vertebral artery: No occlusion or significant stenosis. No aneurysm. Basilar artery: Congenitally small basilar artery. No stenosis. Right posterior cerebral artery: Congenitally small P1 segment of the right posterior cerebral artery with a patent posterior communicating branch. No stenosis. Left posterior cerebral artery: Congenitally absent P1 segment of the left posterior cerebral artery with a patent posterior communicating branch. No stenosis. Brain: Stable encephalomalacia in the right MCA territory. Moderate hypodensities in supratentorial periventricular and subcortical white matter, consistent with microangiopathy. No intracranial hemorrhage. Cerebral ventricles: No ventriculomegaly. Bones/joints: Old right craniotomy defect. Soft tissues: Unremarkable. PROCEDURE INFORMATION: Exam: CTA Neck With Contrast Exam date and time: 06/24/2022 4:45 PM Age: 72 years old Clinical indication: Other: CVA noted on prior CT without; Additional info: Acute CVA TECHNIQUE: Imaging protocol: Computed tomographic angiography of the neck with contrast. 3D rendering (Not supervised by radiologist): MIP and/or 3D reconstructed images were created by the technologist. Radiation optimization: All CT scans at this facility use at least one of these dose optimization techniques: automated exposure control; mA and/or kV adjustment per patient size (includes targeted exams where dose is matched to clinical indication); or iterative reconstruction. Contrast material: OMNIPAQUE 350; Contrast volume: 95 ml; Contrast route: INTRAVENOUS (IV); COMPARISON: CT angio headneck* [id number] 09/08/2019 5:41 PM RADIATION DOSE METRICS: Total DLP (mGy-cm): 1155.01 FINDINGS: Right common carotid artery: No stenosis. No dissection or occlusion. Right internal carotid artery: Mild calcified plaque in the proximal right internal carotid artery with 0% stenosis. Right external carotid artery: No occlusion or stenosis of the origin. Left common carotid artery: No stenosis. No dissection or occlusion. Left internal carotid artery: Mild calcified plaque in the proximal left internal carotid artery with 0% stenosis. Left external carotid artery: No occlusion or stenosis of the origin. Right vertebral artery: No stenosis. No dissection or occlusion. Left vertebral artery: No stenosis. No dissection or occlusion. Thyroid: Subcentimeter thyroid nodules. No ultrasound follow-up is recommended. Soft tissues: Normal. No significant soft tissue swelling. Bones/joints: Degenerative changes of the cervical spine. No fracture. Other findings: Emphysema. CT/CT angio headne* [id number] IMPRESSION: 1. No large artery occlusion or stenosis. 2. No acute intracranial abnormality. IMPRESSION: 1. No large artery occlusion or stenosis. COMMENTS: Consistent with the [employer]'s Incidental Findings Committee white paper (J Am Estella Radiol 2015): In patients aged 35 years and older with an incidental thyroid nodule equal to or greater than 1.[address], MRI or extrathyroidal US, further evaluation with dedicated thyroid US is recommended for patients with normal life expectancy and without comorbidities. For smaller nodules without suspicious features, no further evaluation or follow up is recommended. REFERENCES: NASCET CRITERIA. The degree of stenosis in the cervical segment of the internal carotid artery is based on NASCET criteria. Normal is no stenosis. Mild is less than 50% stenosis. Moderate is 50-69% stenosis. Severe is 70% to 99% stenosis. Total occlusion is no detectable patent lumen.
[2022-06-24 16:47] LABS: Alanine Aminotransferase 32 U/L (0-41); Albumin Level 3.6 g/dL (3.5-5.2); Alkaline Phosphatase 110 U/L (40-130); Anion Gap 10.7 (5-19); Aspartate Amino Transferase 29 U/L (0-40); Blood Urea Nitrogen 16 mg/dL (8-23); Calcium 8.9 mg/dL (8.5-10.5); Carbon Dioxide 31 mmol/L (22-29); Chloride 102 mmol/L (98-107); Globulin 2.9 g/dL (1.3-4.6); Glomerular Filtration Rate 73.9 mL/min (90-130); Glucose 124 mg/dL (65-115); Osmolality Calculated 293 mOsm/kg (285-295); Potassium 3.7 mmol/L (3.5-5.1); Sodium 140 mmol/L (136-145); Total Bilirubin 0.4 mg/dL (0.15-1.2); Total Protein 6.5 g/dL (6.6-8.7)
--- NOTE | 2022-06-24 16:59 | P.PNCC_ITS ---
Stroke Alert Activation ED Arrival Date: 06/24/22 ED Arrival Time: 16:12 ED Physican at Bedside: 16:12 Last Known Normal/at Baseline: < 1 hour ago Other Last Known Well Infomation: Stroke alert was activated by EMS for this 72-year-old man who had witnessed onset of sudden left hemiparesis. I called the emergency department and was told that he was 2 minutes out. I quickly attended to matters in my office and freed myself to go to the emergency department where the patient had been taken directly to CAT scan. I reviewed images of his CAT scan with Dr. Fish and completed a brief stroke exam that revealed aprosodia and dense left hemiparesis. His Tracer blood sugar was unremarkable and his blood pressure was not elevated. The patient was conscious and alert and gave informed consent for tPA. The bolus of tPA was given 22 minutes from his arrival by ambulance. This patient is well-known to me as he had a severe right hemisphere brain injury years ago. I saw him in 2014 and confirmed that he still had left-sided weakness as a result of his previous brain injury with slight flattening of the left nasolabial fold but no actual weakness. He could not do tandem gait but his gait was otherwise normal. The patient says that he suddenly developed left-sided weakness less than an hour ago, maybe 15 or 20 minutes prior to arrival. He denies headache. Stroke Alert Activated by: EMS Stroke Alert Activation Time: 15:44 Stroke MD @ Bedside Date: 06/24/22 Stroke MD @ Bedside Time: 15:55 NIH Stroke Scale Time: 16:20 NIH stroke score NIHSS: Level Of Consciousness - 1a: 0 Level Of Consciousness Questions - 1b: Both Correct Level Of Consciousness Commands - 1c: Both Correct Best Gaze - 2: Normal Visual Wallace - 3: No Visual Loss Facial Palsy - 4: Partial Paralysis Motor Arm Right - 5: No Drift Motor Arm Left - 5: Effort Against [place] Motor Leg Right - 6: No Drift Motor Leg Left - 6: Effort Against [place] Limb Ataxia - 7: Absent Sensory - 8: Mild To Moderate Loss Best Language - 9: No Aphasia Dysarthia - 10: Mild/Moderate Dysarthia Extinction And Inattention - 11: 0 Score: Total Score: 8 Stroke Alert Data/Treatment Time to CT of Head: 16:02 CT Results Time: 16:20 CT Impression: old right brain injury nothing acute. Stroke Risk Factors: smoker and substance abuse tPA Started Time: tPA Started - Time: 16:21 tPA Admin Prior to Arrival: No Standardized Stroke Orders Used: Yes Critical Care Time Critical Care Time: 30 - 74 mins A&P Assessment and plan (1) Acute right arterial ischemic stroke, middle cerebral artery (MCA): 72-year-old man with previous brain injury now presents with dense left hemiparesis. Presumably this is an ischemic stroke in the right middle cerebral artery distribution. Less likely he experienced an occult seizure with postictal paralysis. Status: Acute Plan CT angiogram was reviewed. The study does not show acute occlusion of the right middle cerebral artery based upon my review pending radiologist report Coding Level of Care Code Acute Airplane Pilot Crop Dusting for Daina Hoskins Diagnoses Acute right arterial ischemic stroke, middle cerebral artery (MCA) I63.511
--- NOTE | 2022-06-24 17:17 | PM.HP ---
Providers/Chief Complaint Primary Care Provider: Yordan Murphy Chief Complaint: STROKE ALERT History of Present Illness Cornelio Puckett is a 72 year old male who present to the hospital with chief complaint of left-sided weakness. Patient is stating that around 3 PM he went outside to collect mail and when he stepped inside his home he started experiencing extreme weakness he could not stand properly because his balance was off, he did not experience any fall or syncopal event, he experienced significant weakness of his left arm and leg with left-sided facial droop. EMS was called right away, CT head unremarkable blood pressure was at goal, NIH 12 on arrival, he received tPA within 30 minutes. After tPA administration he is able to raise left arm about 1 foot above the bed, he is able to lift left leg about 3 to 4 inches above the bed level he does have intact sensations, left-sided facial droop slightly improved as per the nursing staff. Patient has history of traumatic brain injury about 20 to 25 years ago and his medical history there is diagnosis of A. fib but patient is not able to recall if he was put on any anticoagulating agent in the past. As per the daughter he was diagnosed with a mini stroke remotely. Review of Systems Const: Denies: body aches Eyes: Denies: change in vision ENMT: Denies: throat pain Card: Denies: chest pain Resp: Denies: dyspnea GI: Denies: abdominal pain : Denies: flank pain Musc: Denies: neck pain Skin/Breast: Denies: rash Neuro: Reports: headache(s), weakness in extremities, lack of coordination and difficulty walking Psych: Denies: anxiety Endo: Denies: polyuria [place]/Lymph: Denies: easy bruising All/Imm: Denies: urticaria Medications/Allergies Home Medications Medication Instructions Recorded Confirmed Last Taken Type hydrocodone 7.5 mg-acetaminophen 1 tab PO Q8H PRN Pain 04/20/20 06/27/21 06/27/21 06:00 History 325 mg tablet tamsulosin 0.4 mg capsule (Flomax) 0.4 mg PO DAILY@18 04/20/20 06/27/21 06/26/21 History naloxone 4 mg/actuation nasal See Rx Instructions .Route .COMPLEX 11/30/20 06/27/21 Unknown History spray (Narcan) Allergies Allergy/AdvReac Type Severity Reaction Status Date / Time No Known Allergies Allergy Verified 06/27/21 11:29 PFSH Acute PFSH: Medical History (Updated 06/24/22 @ 20:27 by Lelo Jameson MD) Afib BPH (benign prostatic hyperplasia) COPD (chronic obstructive pulmonary disease) History of cardioversion Hypertension Smoker Traumatic brain injury Surgical History History of hip replacement History of knee replacement History of laparoscopic appendectomy Hx of tonsillectomy S/P IVC filter Family History Other CAD (coronary artery disease) Cancer Diabetes Hypertension Lung disease Stroke Denies family history of Clotting disorder Dementia Hyperlipidemia Psychiatric illness Chronic kidney disease (CKD) Suicide Anesthesia complication Bleeding disorder Family history of premature coronary artery disease Social History Smoking and tobacco status: current every day smoker cigarettes Years cigarettes smoked: 56 Quit status (tobacco): considering quitting Second hand smoke exposure: No Smoking risk assessment/counseling performed?: No Alcohol intake: never Adopted: No Caregiver/support person: Yes Lives independently: Yes Housing: Apartment Marital status: Single Number of children: 0 Highest education level completed: Bachelor's Degree service: Yes Current occupational status: retired Pets and animals: No History of recent travel: No Sexually active: No Current gender identity: Male Special reece needs: No Agree to transfusion: Yes Vitals/I&O/Wt Last Vital Signs Pulse 69 06/24/22 16:12 Resp 18 06/24/22 16:12 BP 126/80 06/24/22 16:12 Pulse Ox 96 06/24/22 16:12 Weight last 48 hrs Weight 83.007 kg Physical Exam Narrative: Patient has mild left-sided facial droop Is able to lift his left arm half feet above the bed level Sensation is intact in all extremities She is able to raise his left leg for about 3 to 4 inches above the bed Pupils are reactive to light No slurring of speech No cerebellar signs Patient is in good spirits S1, S2 Abdomen soft Looks euvolemic Saturating well on room air aprosodia Data : 06/24/22 16:15 06/24/22 16:15 A&P Assessment and plan (1) CVA (cerebral vascular accident): Status: Acute Plan Right MCA stroke Status post tPA Some improvement noted after getting tPA in his left-sided weakness We will repeat CT head scan tomorrow Target blood pressure less than 180/105 mmHg, keep him euthermic, will avoid blood draws, will start aspirin 24 hours after tPA Check A1c level, keep glucose between 140s to 180 g/dL in the hospital There is A. fib listed under his medical history but patient cannot recall if he was ever diagnosed he does not take any anticoagulating agent Check echo with bubble study Check JERALD cardiac diet Full code Admit to ICU DVT prophylaxis SCDs Requested nurse to prescribe pannus right arm where IV was placed there is mild hematoma Patient lives alone, will request OT/PT, I do not think he will need speech therapy, he most likely will need short-term rehab Attestations Medical Necessity Statement*: More than 2 midnights anticipated for management of stroke he might need fdc placement Time Spent in Patient Care: 45 Coding Level of Care Code Acute Dining Chair Seat Cushion Trimmer for Daina Hoskins Diagnoses CVA (cerebral vascular accident) I63.9
[2022-06-24 19:00] LABS: Glucose Point of Care 129 mg/dL (70-110)
--- NOTE | 2022-06-24 19:36 | USCV_ITS ---
Cornelio Puckett Age: 72 Gender: M : 1950 Exam Date: 06/24/2022 21:23 Ordering Phys: Lelo Jameson MD Technologist: ALEJANDRO Exam Location: [facility] [place] Indication: CVA BP: 118 / 77 HR: 59 Rhythm: Sinus Technical Quality: Adequate MEASUREMENTS (Male / Female) Normal Values 2D ECHO LV Diastolic Diameter PLAX 3.9 cm 4.2 - 5.9 / 3.9 - 5.3 cm LV Systolic Diameter PLAX 2.8 cm IVS Diastolic Thickness 1.2 cm 0.6 - 1.0 / 0.6 - 0.9 cm IVS Systolic Thickness 1.6 cm LVPW Diastolic Thickness 1.2 cm 0.6 - 1.0 / 0.6 - 0.9 cm LVPW Systolic Thickness 1.4 cm LVOT Diameter 2.0 cm LV Ejection Fraction 2D Teich 55.2 % LV Ejection Fraction MOD 2C 67.2 % LV Ejection Fraction 2C AL 68.6 % LA Diameter 2.7 cm LA Width 2.5 cm LA Height 4.4 cm RA Width 3.0 cm RA Height 4.0 cm Aorta at Sinotubular Diameter 3.9 cm IVC Diameter 2.0 cm M-MODE Aortic Annulus Diameter 2.9 cm LA Ao Ratio MM 0.9 MV E Point Septal Separation 0.5 cm DOPPLER AV Peak Velocity 90.0 cm/s LVOT Peak Velocity 91.0 cm/s AV Area Cont Eq vti 3.2 cm squared AV Area Cont Eq pk 3.1 cm squared MV Area PHT 3.1 cm squared Mitral E to A Ratio 1.1 MV E' Velocity 42.0 cm/s Mitral E to MV E' Ratio 7.8 Mitral E to LV E' Lateral Ratio 7.3 Mitral E to LV E' Septal Ratio 8.5 TR Peak Velocity 270.3 cm/s TR Peak Gradient 29.2 mmHg TV Peak E Velocity 41.0 cm/s Right Atrial Pressure 5.0 mmHg Pulmonary Artery Systolic Pressu 34.2 mmHg PV Peak Velocity 82.0 cm/s FINDINGS Left Ventricle Normal left ventricular size, systolic function and upper normal wall thickness, with no regional wall motion abnormalities. Left ventricular ejection fraction is estimated at 60 %. Normal diastolic function. Right Ventricle Normal right ventricular size and systolic function. Right ventricular systolic pressure 32 mmHg. Right Atrium Normal right atrial size. No evidence of intracardiac shunt by bubble study. Left Atrium Normal left atrial size. Mitral Valve Structurally normal mitral valve. No mitral valve stenosis. No mitral valve regurgitation. Aortic Valve Mildly thickened probably trileaflet aortic valve. No aortic valve stenosis. No aortic valve regurgitation. Tricuspid Valve Structurally normal tricuspid valve. No tricuspid valve stenosis. Trace tricuspid valve regurgitation. Pulmonic Valve Pulmonic valve not well visualized. No pulmonary valve stenosis. Trace pulmonary valve regurgitation. Pericardium No pericardial effusion. Aorta Normal-sized aortic root. IVC Normal IVC dimension with >50% respiratory change of the inferior vena cava. CONCLUSIONS 1. Normal left ventricular size, systolic function and wall thickness, with no regional wall motion abnormalities. Left ventricular ejection fraction is estimated at 60 %. Normal diastolic function. 2. Normal right ventricular size and systolic function. 3. Pulmonary artery pressure estimated at 32 mmHg. 4. No evidence of intracardiac shunt by bubble study. 5. No significant change when compared to prior study dated 05/04/2020. Gunjan Phoenix MD (Electronically Signed) Final Date: 25 June 2022 10:26 S
[2022-06-24 19:41] LABS: Vitamin B12 457 pg/mL (232-1245)
[2022-06-24 21:08] LABS: Glucose Point of Care 90 mg/dL (70-110)
[2022-06-24 21:29] LABS: Protein Urine Neg (Negative); Specific Gravity, Urine 1.015 (1.005-1.030); Urine Appearance Clear (CLEAR); Urine Color Yellow (Yellow); pH Urine 5 (5-7)
[2022-06-24 21:30] LABS: Add Urine Microscopic? YES; Bilirubin Urine 1+ (Negative); Blood Urine Neg (Negative); Glucose Urine UA Norm (Normal); Ketones Urine Negative (Negative); Leukocyte Esterase Urine Trace (Negative); Nitrate Urine Negative (Negative); Squamous Epithelial Cell Urine 0-4 /hpf (0-5); Urobilinogen Urine 1 mg/dL (Negative); WBC Urine 0-4 /hpf (0-5)
[2022-06-24 21:31] LABS: Add Urine Culture? No
[2022-06-24 21:33] LABS: Amphetamines Screen Urine Negative (Negative); Barbiturates Screen Urine Negative (Negative); Benzodiazepines Screen Urine Negative (Negative); Cocaine Screen Urine Negative (Negative); Opiate Screen Urine Positive (Negative); PCP Screen Urine Negative (Negative); THC Screen Urine Negative (Negative)
[2022-06-24] MEDS: atorvastatin 40 mg Tablet 80 MG PO (21:46)
[2022-06-25] VITALS (42 sets, daily range): BP systolic 107–143; BP diastolic 64–88; PULSE 46–86; RESP 12–27; TEMP 36.1–36.9; O2SAT 85–99
[2022-06-25 01:43] LABS: Estmated Average Glucose 100; Hemoglobin A1C 5.1 % (4.0-6.0)
[2022-06-25 04:10] LABS: Magnesium 1.1 mg/dL (1.7-2.3)
--- NOTE | 2022-06-25 06:00 | CT_ITS ---
WS: [id number] CT HEAD TECHNIQUE: Noncontrast CT of the head obtained from the skullbase to the vertex. CLINICAL INFORMATION: post tpa COMPARISON: June 24, 2022 DLP: 1222.[address] scans at [facility] use at least one of these dose optimization techniques: automated e xposure control; mA and/or kV adjustment per patient size (includes targeted exams where dose is matc hed to clinical indication); or iterative reconstruction. FINDINGS: No evidence of intracranial hemorrhage or mass effect. Ventricular system and basal cisterns are nunes nt. Moderate small vessel changes with moderate parenchymal volume loss. No extra-axial fluid collect ions. 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 Chronic encephalomalacia LEFT lateral temporal lobe. Opacification LEFT mastoid air cells and LEFT middle ear compatible with mastoiditis and otitis media . RIGHT mastoid air cells are well aerated. Paranasal sinuses are well aerated. CT/CT head wo con* [id number] IMPRESSION: 1. No evidence of intracranial hemorrhage or mass effect. 2. Moderate small vessel changes. Moderate parenchymal volume loss. 3. Chronic encephalomalacia in the RIGHT frontal lobe, RIGHT inferior frontal, and RIGHT anterior temporal lobes with prior RIGHT craniotomy. Encephalomalaci a lateral LEFT temporal lobe. 4. Opacification LEFT mastoid air cells and LEFT middle ear unchanged from pre vious. 5. No significant interval changes.
--- NOTE | 2022-06-25 07:43 | PC.OT ---
OT EVALUATION ORDERS RECEIVED. HOLD OT EVAL UNTIL AFTER 1730 DUE TO TPA ADMINISTRATION
[2022-06-25 07:44] LABS: Glucose Point of Care 106 mg/dL (70-110)
--- NOTE | 2022-06-25 08:13 | ECG_ITS ---
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 Measurements Intervals Capron Rate: 62 P: 81 ID: [id number] QRS: -64 QRSD: 88 T: 75 QT: 410 QTc: 416 Interpretive Statements SINUS RHYTHM WITH OCCASIONAL SUPRAVENTRICULAR PREMATURE COMPLEXES LEFT AXIS DEVIATION [QRS AXIS < -30] Compared to ECG 06/24/2022 16:20:28 Myocardial infarct finding no longer present Electronically Signed On 06-25-2022 20:41:47 CDT by Gunjan Phoenix M.D. [id number]
[2022-06-25] MEDS: sennosides-docusate Tablet 1 TAB PO (08:16)
[2022-06-25] MEDS: HYDROcodone-acetaminophen 7.5-325 mg Tablet 1 TAB PO (10:27)
[2022-06-25 11:45] LABS: Glucose Point of Care 112 mg/dL (70-110)
--- NOTE | 2022-06-25 11:56 | PM.PN ---
Subjective Subjective: This morning patient is feeling better His left arm strength is pretty much like yesterday however the slightest bit of improvement in left leg strength No overnight events Patient is in good spirits Hemodynamic stable Afebrile Blood sugar within range PT/OT evaluation Patient tolerating his diet very well no signs of aspiration Hypokalemia, hypomagnesemia noted Likely will go to SNF Vitals/I&O/Wt Last Vital Signs Temp 97.3 F L 06/25/22 08:00 Pulse 67 06/25/22 08:00 Resp 18 06/25/22 08:00 BP 134/78 06/25/22 08:00 Pulse Ox 95 06/25/22 08:00 O2 Del Method 06/25/22 08:00 06/24/22 06/25/22 06/25/22 22:59 06:59 14:59 Intake Total 250 / 250 200 / 450 Output Total 300 / 300 425 / 725 200 / 200 Balance -50 / -50 -225 / -275 -200 / -200 Weight last 48 hrs Weight 83.007 kg Physical Exam Narrative: Patient is awake and alert No significant improvement since yesterday however I did notice that he is able to lift his left leg slightly more as compared to yesterday Sensations intact In good spirits EOMI, PERRLA S1, S2 Hemodynamically stable Abdomen soft Was tolerating his diet very well without signs of aspiration No signs of edema of legs Data : 06/24/22 16:15 06/24/22 16:15 A&P Assessment and plan (1) CVA (cerebral vascular accident): Status: Acute (2) Acute right arterial ischemic stroke, middle cerebral artery (MCA): Status: Acute (3) Thyroid nodule: Status: Acute (4) Goiter: Status: Acute (5) Falls: Status: Acute (6) Traumatic brain injury: Status: Acute (7) COPD (chronic obstructive pulmonary disease): Status: Acute (8) Smoker: Status: Acute Plan Acute right MCA stroke CTA head and neck unremarkable Repeat CT head unremarkable Echo with bubble study unremarkable JERALD results are pending DRug screen positive for opiates Patient is in good spirits He is motivated to work with PT Willing to go to SNF short-term rehab Family is also in agreement We will repeat his blood work tomorrow Patient has remained in sinus rhythm I do not see A. 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
--- NOTE | 2022-06-25 17:22 | PC.PT ---
PT EVALUATION ORDERS RECEIVED. HOLD PT EVAL UNTIL AFTER 1730 DUE TO TPA ADMINISTRATION
[2022-06-25 17:26] LABS: Glucose Point of Care 110 mg/dL (70-110)
--- NOTE | 2022-06-25 18:42 | PC.NURSE ---
Shift Summary: Uneventful shift. patient rested in bed throughout the day. Left sided deficits are still present, but improved compared to this morning.
[2022-06-25] MEDS: nicotine 14 mg Patch 1 PATCH TRANSDERMA (19:18)
[2022-06-25] MEDS: enoxaparin 40 mg/0.4 mL Syringe SUBCUT (21:00)
[2022-06-25] MEDS: atorvastatin 40 mg Tablet 80 MG PO (21:00)
[2022-06-26] VITALS (13 sets, daily range): BP systolic 101–145; BP diastolic 71–90; PULSE 40–101; RESP 10–26; TEMP 36.8; O2SAT 97–98
[2022-06-26 04:11] LABS: Basophils % 0.7 %; Eosinophils # 0.2 10^3/uL (0.0-0.8); Hematocrit 49.8 % (42.0-52.0); Hemoglobin 16.2 g/dL (11.7-16.6); Lymphocytes # 1.6 10^3/uL (0.8-4.8); Lymphocytes % 28.2 %; Mean Corpuscular HGB Conc 32.5 g/dL (30.0-36.0); Mean Corpuscular Hemoglobin 31.1 pg (28.0-34.0); Mean Corpuscular Volume 95.6 fl (80-94); Mean Platelet Volume 10.5 fL (7.4-10.4); Monocytes # 0.5 10^3/uL (0.2-0.9); Monocytes % 7.8 %; Neutrophils # 3.46 10^3/uL (1.8-7.7); Neutrophils % 60.1 %; Nucleated Red Blood Cells % 0 %; Platelet Count 191 10^3/cmm (130-400); Red Blood Count 5.21 10^6/uL (4.1-5.3); Red Cell Distribution Width 13.1 % (12.1-15.1); White Blood Count 5.8 10^3/uL (4.0-10.0)
[2022-06-26 04:43] LABS: Blood Urea Nitrogen 12 mg/dL (8-23); Carbon Dioxide 31 mmol/L (22-29); Chloride 100 mmol/L (98-107); Glomerular Filtration Rate 83.4 mL/min (90-130); Glucose 106 mg/dL (65-115); Osmolality Calculated 286 mOsm/kg (285-295); Sodium 138 mmol/L (136-145)
[2022-06-26 04:52] LABS: Anion Gap 11.3 (5-19); Potassium 4.3 mmol/L (3.5-5.1)
[2022-06-26 07:35] LABS: Glucose Point of Care 77 mg/dL (70-110)
[2022-06-26] MEDS: aspirin 81 mg EC Tablet PO (08:47)
[2022-06-26] MEDS: sennosides-docusate Tablet 1 TAB PO (08:47)
[2022-06-26] MEDS: HYDROcodone-acetaminophen 7.5-325 mg Tablet 1 TAB PO (08:53)
--- NOTE | 2022-06-26 11:29 | P.PN_ITS ---
Subjective Subjective: Patient came in on 06/24 received tPA within 30 minutes, after getting tPA with started noticing improvement of his left-sided weakness, on 06/26 he is able to hold his left arm and leg for about more than 5 seconds in the ER and breathe is improving did very well with physical therapy initially was plan to send him to SNF for short-term rehab however with significant improvement home health services has been requested and family is in agreement. 24 hours after tPA he has been started on aspirin, statin, he is afebrile blood pressure remains well controlled. CTA head and neck unremarkable. Awake and alert Significant improvement of left-sided weakness S1, S2 Afebrile Awake and alert Patient in good spirits Working with PT able To tolerate diet Abdomen soft Doing well on room air Vitals/I&O/Wt Last Vital Signs Temp 98.2 F 06/26/22 00:00 Pulse 58 L 06/26/22 09:00 Resp 19 H 06/26/22 09:00 BP 113/82 06/26/22 09:00 Pulse Ox 97 06/26/22 09:00 O2 Del Method 06/26/22 09:00 06/25/22 06/26/22 06/26/22 22:59 06:59 14:59 Intake Total 260 / 260 200 / 460 340 / 340 Output Total 250 / 450 850 / 1300 Balance 10 / -190 -650 / -840 340 / 340 Weight last 48 hrs Weight 83.007 kg Physical Exam Narrative: Awake and alert Significant improvement of left-sided weakness S1, S2 Afebrile Awake and alert Patient in good spirits Working with PT able To tolerate diet Abdomen soft Doing well on room air Data : 06/26/22 03:38 06/26/22 03:38 A&P Assessment and plan (1) CVA (cerebral vascular accident): Status: Acute (2) Acute right arterial ischemic stroke, middle cerebral artery (MCA): Status: Acute Plan Acute CVA status post tPA Significant provement Home health services to be arranged Continue aspirin and statin Blood pressure has remained below 130s, he does not need antihypertensive regimen for now DVT prophylaxis on board Attestations Medical Necessity Statement*: Plan to discharge today versus tomorrow Time Spent in Patient Care: 40 Coding Level of Care Code Acute Dramatic Critic for Daina Hoskins Diagnoses CVA (cerebral vascular accident) I63.9 Acute right arterial ischemic stroke, middle cerebral artery (MCA) I63.511
--- NOTE | 2022-06-26 11:35 | PM.DCS ---
Discharge Providers Date of Admission: 06/24/22 19:36 Date of Discharge: June 26, 2022 Attending Provider at Admission: Lelo Jameson MD Attending Provider at Discharge: Lelo Jameson MD Primary Care Provider: Yordan Murphy Diagnoses at Discharge Discharge Diagnosis (1) CVA (cerebral vascular accident): Status: Acute (2) Acute right arterial ischemic stroke, middle cerebral artery (MCA): Status: Acute Reason for Visit Reason for Visit: STROKE ALERT Hospital Course Hospital Course Patient came in on 06/24 received tPA within 30 minutes, after getting tPA with started noticing improvement of his left-sided weakness, on 06/26 he is able to hold his left arm and leg for about more than 5 seconds in the ER and breathe is improving did very well with physical therapy initially was plan to send him to SNF for short-term rehab however with significant improvement home health services has been requested and family is in agreement. 24 hours after tPA he has been started on aspirin, statin, he is afebrile blood pressure remains well controlled. CTA head and neck unremarkable. Echo with bubble study unremarkable, I have requested JERALD profile. EKG showed sinus rhythm telemetry did not show any signs of A. fib. Physical Exam Narrative: Awake and alert Significant improvement of left-sided weakness S1, S2 Afebrile Awake and alert Patient in good spirits Working with PT able To tolerate diet Abdomen soft Doing well on room air Discharge Data Studies Completed and Pending Completed Studies During Hospitalization Category Date Time Status CT head wo con* [id number] Routine Cat Scan 06/25/22 06:[address] head wo con* [id number] Stat Cat Scan 06/24/22 16:00 Completed CTA head neck [CT angio headneck* [id number]/13317] Stat Cat Scan 06/24/22 16:40 Completed CV. echo w/w bubble cont [id number] Routine Ultrasound 06/24/22 19:36 Completed Pending at discharge Category Date Time Status [facility] JERALD Profile Routine Lab 06/24/22 20:45 Received Radiology Impressions Head/Neck CTA 06/24/22 16:40 IMPRESSION: 1. No large artery occlusion or stenosis. 2. No acute intracranial abnormality. IMPRESSION: 1. No large artery occlusion or stenosis. COMMENTS: Consistent with the [place] [employer]'s Incidental Findings Committee white paper (J Am Estella Radiol 2015): In patients aged 35 years and older with an incidental thyroid nodule equal to or greater than 1.[address], MRI or extrathyroidal US, further evaluation with dedicated thyroid US is recommended for patients with normal life expectancy and without comorbidities. For smaller nodules without suspicious features, no further evaluation or follow up is recommended. REFERENCES: NASCET CRITERIA. The degree of stenosis in the cervical segment of the internal carotid artery is based on NASCET criteria. Normal is no stenosis. Mild is less than 50% stenosis. Moderate is 50-69% stenosis. Severe is 70% to 99% stenosis. Total occlusion is no detectable patent lumen. Head CT 06/25/22 06:00 IMPRESSION: 1. No evidence of intracranial hemorrhage or mass effect. 2. Moderate small vessel changes. Moderate parenchymal volume loss. 3. Chronic encephalomalacia in the RIGHT frontal lobe, RIGHT inferior frontal, and RIGHT anterior temporal lobes with prior RIGHT craniotomy. Encephalomalacia lateral LEFT temporal lobe. 4. Opacification LEFT mastoid air cells and LEFT middle ear unchanged from previous. 5. No significant interval changes. Laboratory Results WBC 5.8 10^3/uL (4.0-10.0) 06/26/22 03:38 RBC 5.21 10^6/uL (4.1-5.3) 06/26/22 03:38 Hgb 16.2 g/dL (11.7-16.6) 06/26/22 03:38 Hct 49.8 % (42.0-52.0) 06/26/22 03:38 MCV 95.6 fl (80-94) H 06/26/22 03:38 MCH 31.1 pg (28.0-34.0) 06/26/22 03:38 MCHC 32.5 g/dL (30.0-36.0) 06/26/22 03:38 RDW 13.1 % (12.1-15.1) 06/26/22 03:38 Plt Count 191 10^3/cmm (130-400) 06/26/22 03:38 MPV 10.5 fL (7.4-10.4) H 06/26/22 03:38 Neut % (Auto) 60.1 % 06/26/22 03:38 Lymph % (Auto) 28.2 % 06/26/22 03:38 Parker % (Auto) 7.8 % 06/26/22 03:38 Eos % (Auto) 3.0 % 06/26/22 03:38 Baso % (Auto) 0.7 % 06/26/22 03:38 Neut # (Auto) 3.46 10^3/uL (1.8-7.7) 06/26/22 03:38 Lymph # (Auto) 1.6 10^3/uL (0.8-4.8) 06/26/22 03:38 Parker # (Auto) 0.5 10^3/uL (0.2-0.9) 06/26/22 03:38 Eos # (Auto) 0.2 10^3/uL (0.0-0.8) 06/26/22 03:38 Baso # (Auto) 0.0 10^3/uL (0.0-0.1) 06/26/22 03:38 Nucleated RBC % (auto) 0 % 06/26/22 03:38 Nucleated RBCs # 0.0 /100WBC 06/26/22 03:38 PT 13.90 SECONDS (12.1-14.9) 06/24/22 16:15 INR 1.03 (0.8-1.2) 06/24/22 16:15 APTT 28.8 SECONDS (23.9-36.7) 06/24/22 16:15 Sodium 138 mmol/L (136-145) 06/26/22 03:38 Potassium 4.3 mmol/L (3.5-5.1) 06/26/22 03:38 Chloride 100 mmol/L (98-107) 06/26/22 03:38 Carbon Dioxide 31 mmol/L (22-29) H 06/26/22 03:38 Anion Gap 11.3 (5-19) 06/26/22 03:38 BUN 12 mg/dL (8-23) 06/26/22 03:38 Creatinine 0.9 mg/dL (0.7-1.2) 06/26/22 03:38 GFR Calculation 83.4 mL/min (90-130) L 06/26/22 03:38 Glucose 106 mg/dL (65-115) 06/26/22 03:38 POC Glucose 77 mg/dL (70-110) 06/26/22 07:28 Estimat Average Glucose 100 06/24/22 16:15 Hemoglobin A1c 5.1 % (4.0-6.0) 06/24/22 16:15 Calculated Osmolality 286 mOsm/kg (285-295) 06/26/22 03:38 Calcium 9.0 mg/dL (8.5-10.5) 06/26/22 03:38 Magnesium 1.1 mg/dL (1.7-2.3) L 06/25/22 03:24 Total Bilirubin 0.4 mg/dL (0.15-1.2) 06/24/22 16:15 AST 29 U/L (0-40) 06/24/22 16:15 ALT 32 U/L (0-41) 06/24/22 16:15 Alkaline Phosphatase 110 U/L (40-130) 06/24/22 16:15 C-Reactive Protein 3.0 mg/L (0.0-4.9) 06/25/22 03:24 Total Protein 6.5 g/dL (6.6-8.7) L 06/24/22 16:15 Albumin 3.6 g/dL (3.5-5.2) 06/24/22 16:15 Globulin 2.9 g/dL (1.3-4.6) 06/24/22 16:15 Vitamin B12 457 pg/mL (232-1245) 06/24/22 Unknown TSH 0.60 uIU/mL (0.27-4.20) 06/24/22 Unknown Urine Color Yellow (Yellow) 06/24/22 21:17 Urine Appearance Clear (CLEAR) 06/24/22 21:17 Urine pH 5 (5-7) 06/24/22 21:17 Ur Specific Upson 1.015 (1.005-1.030) 06/24/22 21:17 Urine Protein Neg (Negative) 06/24/22 21:17 Urine Glucose (UA) Norm (Normal) 06/24/22 21:17 Urine Ketones Negative (Negative) 06/24/22 21:17 Urine Blood Neg (Negative) 06/24/22 21:17 Urine Nitrate Negative (Negative) 06/24/22 21:17 Urine Bilirubin 1+ (Negative) H 09/20/22 21:17 Urine Urobilinogen 1 mg/dL (Negative) H 06/24/22 21:17 Ur Leukocyte Esterase Trace (Negative) H 06/24/22 21:17 Urine RBC None /hpf (0-2) 06/24/22 21:17 Urine WBC 0-4 /hpf (0-5) H 06/24/22 21:17 Ur Squamous Epith Cells 0-4 /hpf (0-5) H 06/24/22 21:17 Amorphous Sediment Not Reportable 06/24/22 21:17 Urine Bacteria None /hpf (NONE) 06/24/22 21:17 Urine Opiates Screen Positive ng/mL (Negative) H 06/24/22 21:17 Ur Barbiturates Screen Negative ng/mL (Negative) 06/24/22 21:17 Ur Phencyclidine Scrn Negative ng/mL (Negative) 06/24/22 21:17 Ur Amphetamines Screen Negative ng/mL (Negative) 06/24/22 21:17 U Benzodiazepines Scrn Negative ng/mL (Negative) 06/24/22 21:17 Urine Cocaine Screen Negative ng/mL (Negative) 06/24/22 21:17 U Marijuana (THC) Screen Negative ng/mL (Negative) 06/24/22 21:17 Vitals Last Vital Signs Temp 98.2 F 06/26/22 00:00 Pulse 58 L 06/26/22 09:00 Resp 19 H 06/26/22 09:00 BP 113/82 06/26/22 09:00 Pulse Ox 97 06/26/22 09:00 O2 Del Method 06/26/22 09:00 Discharge Plan Discharge Patient Disposition: Home Condition: Stable Prescriptions: New atorvastatin 40 mg Tablet 80 mg PO BEDTIME Qty: 60 2RF aspirin 81 mg Tablet,Delayed Release (Dr/Ec) 81 mg PO DAILY Qty: 60 3RF Continued hydrocodone-acetaminophen 7.5-325 mg tablet 1 tab PO Q8H PRN (Reason: Pain) tamsulosin [Flomax] 0.4 mg capsule 0.4 mg PO DAILY@18 naloxone [Narcan] 4 mg/actuation spray,non-aerosol See Rx Instructions .ROUTE .COMPLEX Rx Instructions: as directed intranasally prn Other Ambulatory Orders: DME: [facility] (Order) Location: None Selected Ordered By: Lelo Jameson Referrals: Yordan Murphy [Primary Care Provider] - Discharge Diet: Low Salt Discharge Activity: As per PT/OT instructions Patient Instructions: Ischemic Stroke (DC), Opioid Safety Discharge Attestations Time Spent in Discharge Care*: less than 30 min Quality Metrics Clinical Quality Measures [ No reported AMI, CVA or VTE this stay] Coding Level of Care Code Acute Chg FW DC note Diagnoses CVA (cerebral vascular accident) I63.9 Acute right arterial ischemic stroke, middle cerebral artery (MCA) I63.511
[2022-06-26 12:18] LABS: Glucose Point of Care 146 mg/dL (70-110)
[2022-06-26] MEDS: insulin lispro 100 unit/1 mL SUBCUT (12:35)
[2022-06-26 12:53] LABS: Anti-Double Strand DNA AB 212 IU/mL; Jo-1 Antibody <1.0 NEG AI (<1.0 NEG); SM/RNP Antibodies <1.0 NEG AI (<1.0 NEG); SS-B/LA IGG <1.0 NEG AI (<1.0 NEG); Scleroderma Ab(Scl-70) Ab <1.0 NEG AI (<1.0 NEG); Ss-A/Ro Igg <1.0 NEG AI (<1.0 NEG)
--- NOTE | 2022-06-26 15:58 | PC.NURSE ---
Discharge instructions given to patient and son, IVs removed. prescriptions sent to [facility]. Patient and belongings wheeled to private vehicle by this nurse, accompanied by son.
== END 2022-06-26 15:45 | disposition home health service (06) | DRG 62 ==
LOC: ER 16:50 → ICU 19:36
PROVIDERS: Admitting Provider Internal Medicine; Emergency Provider Family Medicine; PCP Family Medicine; Visit Provider Internal Medicine
DX: I63.511 Cerebral infarction due to unspecified occlusion or stenosis of right middle cerebral artery (principal); G81.94 Hemiplegia, unspecified affecting left nondominant side; R29.810 Facial weakness; R29.712 NIHSS score 12; Z87.820 Personal history of traumatic brain injury; I48.91 Unspecified atrial fibrillation; Z86.73 Personal history of transient ischemic attack (TIA), and cerebral infarction without residual deficits; N40.0 Benign prostatic hyperplasia without lower urinary tract symptoms; J44.9 Chronic obstructive pulmonary disease, unspecified; I10 Essential (primary) hypertension; F17.210 Nicotine dependence, cigarettes, uncomplicated; Z96.649 Presence of unspecified artificial hip joint; Z96.659 Presence of unspecified artificial knee joint; Z95.828 Presence of other vascular implants and grafts; G93.89 Other specified disorders of brain; E87.6 Hypokalemia; E83.42 Hypomagnesemia; Z79.891 Long term (current) use of opiate analgesic; R29.6 Repeated falls; E04.9 Nontoxic goiter, unspecified
CPT/HCPCS: 36415; 36416; 70450; 70496; 70498; 80048; 80053; 80306; 81001; 82607; 82962; 83036; 83735; 84443; 85025; 85610; 85730; 86140; 86225; 86235; 93005; 93306; 96372; 96374; 97161; 97165; 97530; 99291; C8929; J1650; J1815; J2997; Q9967

== ENCOUNTER 2022-08-26 23:57 | Emergency (ER) | payer MEDICARE, MEDICAID, SELFPAY ==
[2022-08-26 23:59] VITALS: BP 98/81; PULSE 98; RESP 17; TEMP 36.8; O2SAT 97; BMI 23.7
--- NOTE | 2022-08-27 00:04 | XRR_ITS ---
PROCEDURE INFORMATION: Exam: XR Chest Exam date and time: 08/27/2022 1:07 AM Age: 72 years old Clinical indication: Shortness of breath; Patient HX: C/O SOB. Hypotensive on monitor. History of copd. TECHNIQUE: Imaging protocol: Radiologic exam of the chest. Views: 1 view. COMPARISON: CR XR chest 1V portable [id number] 11/30/2020 5:38 PM FINDINGS: Lungs: Emphysematous changes. Pleural spaces: Right costophrenic angle probable scarring. Heart/Mediastinum: Unremarkable. No cardiomegaly. Bones/joints: Unremarkable. XR/XR chest 1V portable [id number] IMPRESSION: 1. Emphysematous changes, negative for infiltrate. 2. Right costophrenic angle probable scarring.
--- NOTE | 2022-08-27 00:06 | ECG_ITS ---
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 Measurements Intervals Elton Rate: 101 P: 90 NV: 152 QRS: -86 QRSD: 82 T: 86 QT: 325 QTc: 422 Interpretive Statements SINUS TACHYCARDIA PATTERN CONSISTENT WITH PULMONARY DISEASE LEFT ANTERIOR FASCICULAR BLOCK [QRS AXIS <= -45, QR IN I, RS IN II] Compared to ECG 06/25/2022 08:13:18 Left anterior fascicular block now present ST (T wave) deviation now present Sinus rhythm no longer present Left-axis deviation no longer present Heavy Baseline artifact. Need to repeat the study Electronically Signed On 08-28-2022 12:30:31 FRONT COUNTER CLERK by Tomas Jack M.D. [email or web address]
--- NOTE | 2022-08-27 00:06 | ED_ITS ---
HPI - SOB/Dyspnea General: Chief Complaint: Shortness of Breath/Dyspnea Stated Complaint: SOB Time Seen by Provider: 08/26/22 23:59 Source: patient and EMS Mode of arrival: EMS Limitations: no limitations History of Present Illness: HPI Narrative: 72-year-old male who has a history of COPD along with a stroke in the past. He states he been having shortness of breath tonight along with a slight cough. He is currently on 2 L he is on 2 L at baseline his pulse ox is 96%. He received a breathing treatment in route states he does feel improved he states he had some left-sided weakness throughout the day. He states that he had a stroke a few months ago and has weakness from the stroke but states that his left leg and left arm feels weaker than typical no slurred speech no vision changes. Associated symptoms: Deny abdominal pain, chest pain, fever(s), nausea or vomiting Review of Systems 2 Const: Denies: fever(s), chills, body aches or change in appetite Eyes: Denies: blurry vision or eye discomfort ENMT: Denies: throat pain or dental pain Card: Denies: chest pain Resp: Reports: dyspnea and non-productive cough GI: Denies: abdominal pain, nausea, vomiting or diarrhea : Denies: dysuria Musc: Denies: neck pain or back pain Skin/Breast: Denies: rash Neuro: Reports: weakness in extremities; Denies: headache(s) Psych: Denies: depression Cachorro/Lymph: Denies: easy bruising All/Imm: Denies: urticaria PFSH ED PFSH: Medical History (Updated 08/27/22 @ 03:00 by Rl Arcos MD) Acute right arterial ischemic stroke, middle cerebral artery (MCA) Afib BPH (benign prostatic hyperplasia) Cerebrovascular accident COPD (chronic obstructive pulmonary disease) CVA (cerebral vascular accident) Falls Goiter History of cardioversion Hypertension Smoker Thyroid nodule Traumatic brain injury Surgical History History of hip replacement History of knee replacement History of laparoscopic appendectomy Hx of tonsillectomy S/P IVC filter Family History Other CAD (coronary artery disease) Cancer Diabetes Hypertension Lung disease Stroke Denies family history of Clotting disorder Dementia Hyperlipidemia Psychiatric illness Chronic kidney disease (CKD) Suicide Anesthesia complication Bleeding disorder Family history of premature coronary artery disease Social History Smoking and tobacco status: current every day smoker cigarettes Years cigarettes smoked: 56 Quit status (tobacco): considering quitting Second hand smoke exposure: No Smoking risk assessment/counseling performed?: No Alcohol intake: never Adopted: No Caregiver/support person: Yes Lives independently: Yes Housing: Apartment Marital status: Single Number of children: 0 Highest education level completed: Bachelor's Degree service: Yes Current occupational status: retired Pets and animals: No History of recent travel: No Sexually active: No Current gender identity: Male Special reece needs: No Agree to transfusion: Yes Physical Exam Const: COMMON NORMALS: patient oriented x3 HENMT: COMMON NORMALS: normocephalic and atraumatic HEAD & SCALP: normocephalic and atraumatic Eye: COMMON NORMALS: Equal, round and reactive pupils present and EOMs intact bilaterally PUPIL: Yes Equal, round and reactive pupils present Neck/C-Spine: COMMON NORMALS: full ROM and supple Chest: COMMONS NORMALS: normal inspection of the chest and normal palpation of entire chest wall Resp: COMMON NORMALS: No retractions and No use of accessory muscles Cardio: COMMON NORMALS: regular rhythm and No murmurs present (Cardio) RATE: tachycardic RHYTHM: regular rhythm GI: COMMON NORMALS: Normal to inspection, nondistended, normoactive bowel sounds present, Soft to palpation, non-tender and no masses PALPATION: Yes Soft to palpation Extremity: COMMON NORMALS: normal to inspection and full ROM Neuro: COMMON NORMALS: patient oriented x3 OTHER: L sided weakness Psych: COMMON NORMALS: mental status grossly normal, Normal thought process present and cooperative THOUGHT PROCESS: Normal thought process present Skin: COMMON NORMALS: no rashes or lesions noted and no wounds GENERAL SKIN EXAM: no rashes or lesions noted Course Vital Signs: Vital signs: Vital Signs Temperature 98.2 F 08/26/22 23:59 Pulse Rate 92 08/27/22 03:14 Respiratory Rate 15 08/27/22 03:14 Blood Pressure 130/85 08/27/22 03:14 Pulse Oximetry 98 08/27/22 03:14 Oxygen Delivery Or thod 08/27/22 03:00 Oxygen Flow Rate 2 08/27/22 03:00 MDM - SOB/Dyspnea Medical Decision Making Patient presents with shortness of breath likely from his COPD he is well- appearing here on his baseline oxygen CT chest shows no acute abnormalities had some slight left weakness likely from his previous stroke CT shows no acute abnormalities he feels much improved here he is at his baseline he is stable for discharge and return if worsening. Lab Data 08/27/22 00:22 08/27/22 00:22 Labs/Radiology: Radiology Impressions Chest X-Ray 08/27/22 00:04 IMPRESSION: 1. Emphysematous changes, negative for infiltrate. 2. Right costophrenic angle probable scarring. Chest CTA 08/27/22 01:34 IMPRESSION: 1. Stable severe COPD . 2. Stable left discoid atelectasis and/or scarring. 3. Stable moderate calcified coronary artery disease. 4. Solitary gallstone within the gallbladder. 5. No pulmonary embolus or aortic dissection. Head CT 08/27/22 01:34 IMPRESSION: 1. Stable right temporal craniectomy with prominent right temporal lobe encephalomalacia. 2. No acute intracranial findings. Laboratory Results WBC 6.0 10^3/uL (4.0-10.0) 08/27/22 00:22 RBC 5.51 10^6/uL (4.1-5.3) H 08/27/22 00:22 Hgb 16.6 g/dL (11.7-16.6) 08/27/22 00:22 Hct 52.3 % (42.0-52.0) H 08/27/22 00:22 MCV 94.9 fl (80-94) H 08/27/22 00:22 MCH 30.1 pg (28.0-34.0) 08/27/22 00:22 MCHC 31.7 g/dL (30.0-36.0) 08/27/22 00:22 RDW 13.1 % (12.1-15.1) 08/27/22 00:22 Plt Count 200 10^3/cmm (130-400) 08/27/22 00:22 MPV 10.3 fL (7.4-10.4) 08/27/22 00:22 Neut % (Auto) 63.4 % 08/27/22 00:22 Lymph % (Auto) 23.6 % 08/27/22 00:22 Forrest % (Auto) 9.0 % 08/27/22 00:22 Eos % (Auto) 3.5 % 08/27/22 00:22 Baso % (Auto) 0.3 % 08/27/22 00:22 Neut # (Auto) 3.82 10^3/uL (1.8-7.7) 08/27/22 00:22 Lymph # (Auto) 1.4 10^3/uL (0.8-4.8) 08/27/22 00:22 Forrest # (Auto) 0.5 10^3/uL (0.2-0.9) 08/27/22 00:22 Eos # (Auto) 0.2 10^3/uL (0.0-0.8) 08/27/22 00:22 Baso # (Auto) 0.0 10^3/uL (0.0-0.1) 08/27/22 00: Nucleated RBC % (auto) 0 % 08/27/22 00: Nucleated RBCs # 0.0 /100WBC 08/27/22 00: PT 13.30 SECONDS (12.1-14.9) 08/27/22 00:22 INR 0.98 (0.8-1.2) 08/27/22 00:22 D-Dimer 2.25 ug/mIFEU (0-0.59) H 08/27/22 00:22 Sodium 139 mmol/L (136-145) 08/27/22 00:22 Potassium 3.9 mmol/L (3.5-5.1) 08/27/22 00: Chloride 103 mmol/L (98-107) 08/27/22 00:22 Carbon Dioxide 26 mmol/L (22-29) 08/27/22 00:22 Anion Gap 13.9 (5-19) 08/27/22 00:22 BUN 16 mg/dL (8-23) 08/27/22 00:22 Creatinine 0.8 mg/dL (0.7-1.2) 08/27/22 00:22 GFR Calculation 95.6 mL/min (90-130) 08/27/22 00:22 Glucose 97 mg/dL (65-115) 08/27/22 00:22 POC Glucose 107 mg/dL (70-110) 08/27/22 00:22 Calculated Osmolality 289 mOsm/kg (285-295) 08/27/22 00:22 Calcium 9.2 mg/dL (8.5-10.5) 08/27/22 00:22 Total Bilirubin 0.6 mg/dL (0.15-1.2) 08/27/22 00:22 AST 42 U/L (0-40) H 08/27/22 00:22 ALT 48 U/L (0-41) H 08/27/22 00:22 Alkaline Phosphatase 117 U/L (40-130) 08/27/22 00:22 Troponin T Baseline 10 ng/L (0-15) 08/27/22 00:22 Troponin T 120 Minute 10.86 ng/L (0-15) 08/27/22 02:16 Delta Troponin T 0.86 ABS# (0-10) 08/27/22 02:16 NT-Pro-B Natriuret Pep 93 pg/mL (0-125) 08/27/22 00:22 Total Protein 6.8 g/dL (6.6-8.7) 08/27/22 00:22 Albumin 3.7 g/dL (3.5-5.2) 08/27/22 00:22 Globulin 3.1 g/dL (1.3-4.6) 08/27/22 00:22 Influenza Type A Ag negative (Negative) 08/27/22 00:38 Influenza Type B Ag negative (Negative) 08/27/22 00:38 Discharge Plan Discharge Patient Disposition: Home Clinical Impression: Acute exacerbation of chronic obstructive airways disease, Weakness Condition: Stable Prescriptions: No Action hydrocodone-acetaminophen 7.5-325 mg tablet 1 tab PO Q8H PRN (Reason: Pain) tamsulosin [Flomax] 0.4 mg capsule 0.4 mg PO DAILY@18 naloxone [Narcan] 4 mg/actuation spray,non-aerosol See Rx Instructions .ROUTE .COMPLEX Rx Instructions: as directed intranasally prn atorvastatin 40 mg Tablet 80 mg PO BEDTIME Qty: 60 2RF aspirin 81 mg Tablet,Delayed Release (Dr/Ec) 81 mg PO DAILY Qty: 60 3RF Discharge Orders: Discharge ED (Routine); Ordered 08/27/22 Ordered By: Korby Josselyn Referrals: Yordan Murphy [Primary Care Provider] - 1-3 days Discharge Diet: Advance as tolerated Discharge Activity: Resume usual activity Patient Instructions: COPD (Chronic Obstructive Pulmonary Disease) (ED) Coding Level of Care Code ED Pantograph Transferrer for Chg Fwd Exam Comprehensive
[2022-08-27 00:28] LABS: Basophils % 0.3 %; Eosinophils # 0.2 10^3/uL (0.0-0.8); Eosinophils % 3.5 %; Hematocrit 52.3 % (42.0-52.0); Hemoglobin 16.6 g/dL (11.7-16.6); Lymphocytes # 1.4 10^3/uL (0.8-4.8); Lymphocytes % 23.6 %; Mean Corpuscular HGB Conc 31.7 g/dL (30.0-36.0); Mean Corpuscular Hemoglobin 30.1 pg (28.0-34.0); Mean Corpuscular Volume 94.9 fl (80-94); Mean Platelet Volume 10.3 fL (7.4-10.4); Monocytes # 0.5 10^3/uL (0.2-0.9); Neutrophils # 3.82 10^3/uL (1.8-7.7); Neutrophils % 63.4 %; Nucleated Red Blood Cells % 0 %; Platelet Count 200 10^3/cmm (130-400); Red Blood Count 5.51 10^6/uL (4.1-5.3); Red Cell Distribution Width 13.1 % (12.1-15.1)
[2022-08-27 00:35] VITALS: BP 105/66; PULSE 103; RESP 25; O2SAT 96
[2022-08-27] MEDS: sodium chloride 0.9% 1,000 ML 999 ML IV (00:36)
[2022-08-27 00:39] LABS: INR 0.98 (0.8-1.2)
[2022-08-27 00:49] LABS: Glucose Point of Care 107 mg/dL (70-110)
[2022-08-27 00:52] LABS: Troponin(5th) Baseline 10 ng/L (0-15)
[2022-08-27 00:56] LABS: Alanine Aminotransferase 48 U/L (0-41); Albumin Level 3.7 g/dL (3.5-5.2); Alkaline Phosphatase 117 U/L (40-130); Anion Gap 13.9 (5-19); Aspartate Amino Transferase 42 U/L (0-40); Blood Urea Nitrogen 16 mg/dL (8-23); Calcium 9.2 mg/dL (8.5-10.5); Carbon Dioxide 26 mmol/L (22-29); Chloride 103 mmol/L (98-107); Globulin 3.1 g/dL (1.3-4.6); Glomerular Filtration Rate 95.6 mL/min (90-130); Glucose 97 mg/dL (65-115); NT Pro B Type Natriuretic Pept 93 pg/mL (0-125); Osmolality Calculated 289 mOsm/kg (285-295); Potassium 3.9 mmol/L (3.5-5.1); Sodium 139 mmol/L (136-145); Total Bilirubin 0.6 mg/dL (0.15-1.2); Total Protein 6.8 g/dL (6.6-8.7)
[2022-08-27 00:57] LABS: Influenza A by IFA negative (Negative); Influenza B by IFA negative (Negative)
--- NOTE | 2022-08-27 01:34 | CTR_ITS ---
PROCEDURE INFORMATION: Exam: CT Head Without Contrast Exam date and time: 08/27/2022 1:50 AM Age: 72 years old Clinical indication: Weakness, extremity; Patient HX: C/O worsening left side weakness. History of prior RT side CVA. ; Additional info: AMS TECHNIQUE: Imaging protocol: Computed tomography of the head without contrast. Radiation optimization: All CT scans at this facility use at least one of these dose optimization techniques: automated exposure control; mA and/or kV adjustment per patient size (includes targeted exams where dose is matched to clinical indication); or iterative reconstruction. COMPARISON: CT head wo con* [id number] 06/25/2022 9:55 AM RADIATION DOSE METRICS: Total DLP (mGy-cm): 1179.68 FINDINGS: Brain: Severe calcified intracranial atherosclerotic vessel disease. Mild cerebral atrophy and ischemic leukoencephalopathy. Stable right temporal craniectomy with prominent right temporal lobe encephalomalacia. Cerebral ventricles: No ventriculomegaly. Paranasal sinuses: Visualized sinuses are unremarkable. No fluid levels. Mastoid air cells: Visualized mastoid air cells are well aerated. Bones/joints: See Brain finding. Soft tissues: Unremarkable. CT/CT head wo con* [id number] IMPRESSION: 1. Stable right temporal craniectomy with prominent right temporal lobe encephalomalacia. 2. No acute intracranial findings.
--- NOTE | 2022-08-27 01:34 | CTR_ITS ---
PROCEDURE INFORMATION: Exam: CTA Chest With Contrast Exam date and time: 08/27/2022 1:54 AM Age: 72 years old Clinical indication: Abnormal findings; Abnormal diagnostic tests; Elevated d-dimer; Cough and shortness of breath; Patient HX: C/O cough with SOB. Elevated d dimer. History of copd. TECHNIQUE: Imaging protocol: Computed tomographic angiography of the chest with contrast. 3D rendering (Not supervised by radiologist): MIP and/or 3D reconstructed images were created by the technologist. Radiation optimization: All CT scans at this facility use at least one of these dose optimization techniques: automated exposure control; mA and/or kV adjustment per patient size (includes targeted exams where dose is matched to clinical indication); or iterative reconstruction. Contrast material: OMNI 350; Contrast volume: 100 ml; Contrast route: INTRAVENOUS (IV); COMPARISON: CT angio chest PE prot [id number] 02/06/2019 9:28 AM RADIATION DOSE METRICS: Total DLP (mGy-cm): 542.89 FINDINGS: Pulmonary arteries: Normal. No pulmonary emboli. Aorta: 3.9 cm ascending aorta. Lungs: Stable severe COPD . Stable left discoid atelectasis and/or scarring. Pleural spaces: Unremarkable. No pneumothorax. No pleural effusion. Heart: Stable moderate calcified coronary artery disease. Lymph nodes: Shotty mediastinal adenopathy which is upper limits of normal. Gallbladder and bile ducts: Solitary gallstone within the gallbladder. Spleen: Stable calcified splenic granulomas. Bones/joints: Levoscoliosis. Soft tissues: Unremarkable. CT/CT angio chest PE prot [id number] IMPRESSION: 1. Stable severe COPD . 2. Stable left discoid atelectasis and/or scarring. 3. Stable moderate calcified coronary artery disease. 4. Solitary gallstone within the gallbladder. 5. No pulmonary embolus or aortic dissection.
[2022-08-27 01:35] VITALS: BP 109/68; PULSE 82; O2SAT 99
[2022-08-27 01:47] LABS: D Dimer 2.25 ug/mIFEU (0-0.59)
[2022-08-27] MEDS: iohexol 350 mg/mL 500 mL Btl (per mL) IV (02:10)
--- NOTE | 2022-08-27 02:10 | ECG_ITS ---
Test Date: 2022-08-27 Pat Name: Cornelio Puckett Department: Room: Gender: Male Lath Tier: : 1950 Requested By: Rl Arcos Order Number: [id number] Feliberto MD: Tomas Jack M.D. Measurements Intervals [place] Rate: 94 P: 91 IN: 175 QRS: -79 QRSD: 85 T: 91 QT: 343 QTc: 431 Interpretive Statements SINUS RHYTHM LEFT ANTERIOR FASCICULAR BLOCK [QRS AXIS <= -45, QR IN I, RS IN II] ABNORMAL QRS-T ANGLE [QRS-T AXIS DIFFERENCE > 60] Compared to ECG 06/25/2022 08:13:18 Left anterior fascicular block now present Left-axis deviation no longer present Electronically Signed On 08-28-2022 12:43:58 HOG TENDER by Tomas Jack M.D. [id number]
[2022-08-27 02:15] VITALS: BP 130/91; PULSE 91; RESP 21; O2SAT 99
[2022-08-27 02:42] LABS: Troponin 5 2HR 10.86 ng/L (0-15)
[2022-08-27 02:44] LABS: Troponin 5 2HR Delta 0.86 ABS# (0-10)
[2022-08-27 03:00] VITALS: BP 130/85; PULSE 92; RESP 15; O2SAT 98
[2022-08-27 03:14] VITALS: BP 130/85; PULSE 92; RESP 15; O2SAT 98
== END 2022-08-27 03:15 | disposition home or self-care (01) ==
PROVIDERS: Emergency Provider Emergency Medicine; PCP Family Medicine
DX: J44.1 Chronic obstructive pulmonary disease with (acute) exacerbation (principal); R53.1 Weakness; Z79.82 Long term (current) use of aspirin; Z86.73 Personal history of transient ischemic attack (TIA), and cerebral infarction without residual deficits; I10 Essential (primary) hypertension; F17.210 Nicotine dependence, cigarettes, uncomplicated
CPT/HCPCS: 36416; 70450; 71045; 71275; 80053; 82962; 83880; 84484; 85025; 85378; 85610; 87804; 93005; 96361; 96374; 99285; J2930; J7030; Q9967

== ENCOUNTER 2023-04-20 03:11 | Emergency (ER) | payer MEDICARE, MEDICAID, SELFPAY ==
[2023-04-20 03:19] VITALS: BP 110/72; PULSE 74; RESP 18; TEMP 36.8; O2SAT 94; BMI 26.3
[2023-04-20 04:52] VITALS: PULSE 63; RESP 18; O2SAT 97
[2023-04-20] MEDS: oxyCODONE-APAP 5-325 mg Tablet 2 TAB PO (04:52)
--- NOTE | 2023-04-21 01:23 | ED_ITS ---
HPI - Back Pain/Injury General: Chief Complaint: Back Pain/Injury Stated Complaint: Tailbone Pain Time Seen by Provider: 04/20/23 04:10 Source: patient Mode of arrival: EMS History of Present Illness: 73 year old gentleman presents by ambulance around 4:00 in the morning complaining of tailbone pain. This pain has been happening for over a year as a minimum. He notes that there is some drainage into his underwear. He is keshawn rned that he has cancer. He would like blood work and a full workup for this. There is no fever, no vomiting, no change in his symptoms, he only noticed that he couldn't sleep due to the pain this morning. Onset (ago): year(s) Timing: intermittent Severity: moderate Radiation: none Exacerbating factors: none Associated symptoms: Deny arthralgias, chills, fever(s), hematuria, nausea, vomiting or weakness Treatments prior to arrival: other (none) Review of Systems Const: Denies: fever(s) or chills GI: Denies: nausea or vomiting : Denies: hematuria PFSH ED PFSH: Medical History Acute right arterial ischemic stroke, middle cerebral artery (MCA) Afib BPH (benign prostatic hyperplasia) Cerebrovascular accident COPD (chronic obstructive pulmonary disease) CVA (cerebral vascular accident) Falls Goiter History of cardioversion Hypertension Smoker Thyroid nodule Traumatic brain injury Surgical History History of hip replacement History of knee replacement History of laparoscopic appendectomy Hx of tonsillectomy S/P IVC filter Family History Other CAD (coronary artery disease) Cancer Diabetes Hypertension Lung disease Stroke Denies family history of Clotting disorder Dementia Hyperlipidemia Psychiatric illness Chronic kidney disease (CKD) Suicide Anesthesia complication Bleeding disorder Family history of premature coronary artery disease Social History Smoking and tobacco status: current every day smoker cigarettes Years cigarettes smoked: 56 Quit status (tobacco): considering quitting Second hand smoke exposure: No Smoking risk assessment/counseling performed?: No Alcohol intake: never Substance/Drug Use: never Adopted: No Caregiver/support person: Yes Lives independently: Yes Housing: Apartment Marital status: Single Number of children: 0 Highest education level completed: Bachelor's Degree service: Yes Current occupational status: retired Pets and animals: No Sexually active: No Do you think of yourself as: Straight/Heterosexual Current gender identity: Male Special reece needs: No Agree to transfusion: Yes Physical Exam Const: COMMON NORMALS: no acute distress GENERAL APPEARANCE: cooperative; not ill appearing and not frail appearing HENMT: COMMON NORMALS: normocephalic, atraumatic and Normal external nose present HEAD & SCALP: normocephalic and atraumatic FACE & SINUS: normal facial exam and face symmetric NOSE: Normal external nose present Eye: COMMON NORMALS: Equal, round and reactive pupils present and EOMs intact bilaterally PUPIL: Yes Equal, round and reactive pupils present Neck/C-Spine: GENERAL: Yes trachea midline Chest: CHEST: Yes Symmetrical chest wall rise Resp: COMMON NORMALS: normal respiratory effort, No retractions, No use of accessory muscles and clear to auscultation bilaterally AUSCULTATION: clear to auscultation bilaterally Cardio: COMMON NORMALS: regular rate and regular rhythm RATE: regular rate RHYTHM: regular rhythm GI: COMMON NORMALS: Normal to inspection, nondistended, normoactive bowel sounds present Extremity: COMMON NORMALS: no pedal edema OTHER: Small indurated area of cellullitic skin opening present at 3:00 o'clock on the buttocks relative to the anus There is minimal induration. There is no drainage. There is no fluctuance. It is tender to palpation. Neuro: ELZBIETA COMA SCALE: document GCS findings Elzbieta coma scale eye opening: Spontaneous Elzbieta coma scale verbal response: Orientated [place] coma scale motor response: Obey commands Elzbieta coma scale total score: 15 SENSORY EXAM: Yes extremities (intact) Psych: COMMON NORMALS: speech normal SPEECH: Yes normal speech Skin: COMMON NORMALS: no rashes or lesions noted GENERAL SKIN EXAM: no rashes or lesions noted Course Vital Signs: Vital signs: Vital Signs Temperature 98.2 F 04/20/23 03:19 Pulse Rate 63 04/20/23 04:52 Respiratory Rate 18 04/20/23 04:52 Blood Pressure 110/72 04/20/23 03:19 Pulse Oximetry 97 04/20/23 04:52 Oxygen Delivery Me thod Room Air 04/20/23 03:19 MDM - Back Pain/Injury Medical Decision Making Examination reveals what appears to be a pilonidal type cyst that is chronic and appearance. there is no significant induration. There is some tenderness. No drainage. No fever. He is encouraged to follow up as an outpatient for this problem. The emergency department is not appropriate venue for investigation. We will cover him with antibiotics, in case this pilonidal cyst is infected or synthetic. He will follow up with his PCP this coming week. Discharge Plan Discharge Patient Disposition: Home Clinical Impression: Pilonidal disease Condition: Stable Prescriptions: New clindamycin HCl 300 mg capsule 300 mg PO TID 10 Days Qty: 30 0RF ketorolac 10 mg tablet 10 mg PO TID PRN (Reason: pain) Qty: 10 0RF No Action hydrocodone-acetaminophen 7.5-325 mg tablet 1 tab PO Q8H PRN (Reason: Pain) tamsulosin [Flomax] 0.4 mg capsule 0.4 mg PO DAILY@18 naloxone [Narcan] 4 mg/actuation spray,non-aerosol See Rx Instructions .ROUTE .COMPLEX Rx Instructions: as directed intranasally prn atorvastatin 40 mg Tablet 80 mg PO BEDTIME Qty: 60 2RF aspirin 81 mg Tablet,Delayed Release (Dr/Ec) 81 mg PO DAILY Qty: 60 3RF Discharge Orders: Discharge ED (Routine); Ordered 04/20/23 Ordered By: Jed Cotto Referrals: Yordan Murphy [Primary Care Provider] - 1-3 days Patient Instructions: Opioid Safety, Pain Management, Pilonidal Disease Activity Restrictions/Additional Instructions: Follow-up with your family doctor this week regarding your diagnosis. For continued problems, further outpatient tests or specialty referral may be needed. Return for fever greater than 100, vomiting, other concerning symptoms. Coding Level of Care Code ED Sales Enablement Analyst for Daina Hoskins
== END 2023-04-20 04:53 | disposition home or self-care (01) ==
PROVIDERS: Emergency Provider Emergency Medicine; PCP Family Medicine
DX: L05.91 Pilonidal cyst without abscess (principal); Z79.82 Long term (current) use of aspirin; F17.210 Nicotine dependence, cigarettes, uncomplicated; J44.9 Chronic obstructive pulmonary disease, unspecified; Z86.73 Personal history of transient ischemic attack (TIA), and cerebral infarction without residual deficits; I10 Essential (primary) hypertension
CPT/HCPCS: 99283

== ENCOUNTER 2023-04-25 18:06 | Emergency (ER) | payer MEDICARE, MEDICAID, SELFPAY ==
[2023-04-25 18:16] VITALS: BP 97/65; PULSE 76; RESP 20; O2SAT 96
--- NOTE | 2023-04-25 18:26 | CTR_ITS ---
PROCEDURE INFORMATION: Exam: CT Head Without Contrast Exam date and time: 04/25/2023 6:52 PM Age: 73 years old Clinical indication: Injury or trauma; Blunt trauma (contusions or hematomas); Syncope and collapse; Patient HX: Syncope with fall onto floor at home. History of RT side CVA. TECHNIQUE: Imaging protocol: Computed tomography of the head without contrast. Radiation optimization: All CT scans at this facility use at least one of these dose optimization techniques: automated exposure control; mA and/or kV adjustment per patient size (includes targeted exams where dose is matched to clinical indication); or iterative reconstruction. REPORTING DATA: Count of CT and Cardiac NM exams in prior 12 months: This patient has received 5 known CTs and 0 known cardiac nuclear medicine studies in the 12 months prior to the current study. COMPARISON: CT head wo con* [id number] 08/27/2022 1:50 AM RADIATION DOSE METRICS: Total DLP (mGy-cm): 960.65 FINDINGS: Brain: No hemorrhage, mass effect or midline shift. No acute, major vascular distribution infarction identified. Unchanged large patchy area of encephalomalacia in the right frontotemporal region, and patchy area of encephalomalacia in the inferior left temporal lobe sequela of previous insult. There is foci of decreased attenuation in the periventricular and subcortical white matter, likely representing chronic small vessel ischemic changes. Mild cerebral volume loss is present. No intra-axial or extra-axial fluid collection seen. Cerebral ventricles: No ventriculomegaly. Paranasal sinuses: Visualized sinuses are unremarkable. No fluid levels. Mastoid air cells: Visualized mastoid air cells are well aerated. Bones/joints: Stable craniotomy changes in the right frontotemporal region.. No acute fracture. Soft tissues: Unremarkable. CT/CT head wo con* [id number] IMPRESSION: No acute intracranial abnormality.
--- NOTE | 2023-04-25 18:26 | CTR_ITS ---
PROCEDURE INFORMATION: Exam: CT Pelvis Without Contrast; Skeletal Exam date and time: 04/25/2023 6:55 PM Age: 73 years old Clinical indication: Injury or trauma; Blunt trauma (contusions or hematomas); Bilateral; Pelvic region; Prior surgery; Surgery date: 6+ months; Surgery type: Ivc. Left hip; Patient HX: Syncope with fall onto floor at home. C/O pelvic pain. ; Additional info: Pain post fall TECHNIQUE: Imaging protocol: Computed tomography of the pelvis without contrast. Exam focused on the skeleton. Radiation optimization: All CT scans at this facility use at least one of these dose optimization techniques: automated exposure control; mA and/or kV adjustment per patient size (includes targeted exams where dose is matched to clinical indication); or iterative reconstruction. REPORTING DATA: Count of CT and Cardiac NM exams in prior 12 months: This patient has received 5 known CTs and 0 known cardiac nuclear medicine studies in the 12 months prior to the current study. COMPARISON: CR XR hip LT 2-3V wo/w pel* [id number] 03/14/2022 9:37 AM RADIATION DOSE METRICS: Total DLP (mGy-cm): 332.97 FINDINGS: Vasculature: An inferior vena cava filter lies in appropriate position. There is 4.6 x 5.4 cm aneurysm of the right common iliac artery with mural hematoma measuring about 1.8 cm in thickness. There is also 2.2 cm aneurysmal dilatation proximal left common iliac artery. No abdominal aortic aneurysm. Bones/joints: Postoperative internal fixation of healed left intertrochanteric femur fracture is identified without hardware fracture or loosening. Angular deformity of the left femur is noted with mature bridging bone. Old healed fracture of the left acetabulum with several bone fragments/heterotopic bone adjacent to the left acetabulum. No acute fracture or dislocation. Moderate to severe degenerative changes left hip joint. There is chondrocalcinosis both hips and pubic symphysis. No acute sacral fracture. Soft tissues: There is soft tissue edema lateral to the left hip compatible with probable contusion. No hematoma. CT/CT pelvis wo con [id number] IMPRESSION: 1. 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 No evidence of leak. Smaller proximal left common iliac artery aneurysm. 2. There is soft tissue edema lateral to the left hip compatible with probable contusion. No hematoma. 3. Old fracture deformities left acetabulum and femur. No acute bony abnormality. COMMENTS: For patients with an IVC filter, recommend assessment for a management plan for the patient's IVC filter. If there is no established management plan, recommend referral to an interventional clinician on a nonemergent basis for evaluation.
[2023-04-25 18:38] LABS: Basophils % 0.5 %; Eosinophils # 0.1 10^3/uL (0.0-0.8); Eosinophils % 1.1 %; Hematocrit 50.8 % (42.0-52.0); Hemoglobin 16.5 g/dL (11.7-16.6); Lymphocytes # 1.5 10^3/uL (0.8-4.8); Lymphocytes % 22.2 %; Mean Corpuscular HGB Conc 32.5 g/dL (30.0-36.0); Mean Corpuscular Hemoglobin 30.3 pg (28.0-34.0); Mean Corpuscular Volume 93.4 fl (80-94); Mean Platelet Volume 10.3 fL (7.4-10.4); Monocytes # 0.6 10^3/uL (0.2-0.9); Monocytes % 8.9 %; Neutrophils # 4.37 10^3/uL (1.8-7.7); Nucleated Red Blood Cells % 0 %; Platelet Count 196 10^3/cmm (130-400); Red Blood Count 5.44 10^6/uL (4.1-5.3); Red Cell Distribution Width 13.2 % (12.1-15.1); White Blood Count 6.5 10^3/uL (4.0-10.0)
--- NOTE | 2023-04-25 18:39 | ECG_ITS ---
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 Measurements Intervals [place] Rate: 65 P: 79 NH: 159 QRS: -68 QRSD: 90 T: 79 QT: 394 QTc: 412 Interpretive Statements SINUS RHYTHM LEFT AXIS DEVIATION [QRS AXIS < -30] POSSIBLE RIGHT VENTRICULAR CONDUCTION DELAY [RSR (QR) IN V1/V2] Compared to ECG 08/27/2022 02:10:25 Left-axis deviation now present Left anterior fascicular block no longer present Electronically Signed On 04-26-2023 11:24:27 CDT by Gunjan Phoenix M.D. [id number]
[2023-04-25 18:52] LABS: Troponin(5th) Baseline 10 ng/L (0-15)
[2023-04-25 18:55] LABS: Alanine Aminotransferase 35 U/L (0-41); Albumin Level 3.6 g/dL (3.5-5.2); Alkaline Phosphatase 108 U/L (40-130); Anion Gap 14.9 (5-19); Aspartate Amino Transferase 30 U/L (0-40); Blood Urea Nitrogen 12 mg/dL (8-23); Calcium 8.7 mg/dL (8.5-10.5); Carbon Dioxide 25 mmol/L (22-29); Chloride 99 mmol/L (98-107); Globulin 2.9 g/dL (1.3-4.6); Glucose 115 mg/dL (65-115); Magnesium 2.1 mg/dL (1.7-2.3); Osmolality Calculated 281 mOsm/kg (285-295); Potassium 3.9 mmol/L (3.5-5.1); Sodium 135 mmol/L (136-145); Total Bilirubin 0.5 mg/dL (0.15-1.2); Total Protein 6.5 g/dL (6.6-8.7)
[2023-04-25 19:20] VITALS: BP 104/68; PULSE 59; O2SAT 100
[2023-04-25 19:48] VITALS: BP 114/74; PULSE 69; O2SAT 100
--- NOTE | 2023-04-25 20:09 | ED_ITS ---
HPI - Syncope General: Chief Complaint: Syncope Stated Complaint: SYNCOPE; FALL Time Seen by Provider: 04/25/23 18:11 History of Present Illness: 73-year-old male COPD atrial fibrillation CVA hypertension and BPH brought to emergency room by EMS after syncope episode. According to EMS patient's blood pressure was said to be low and was given IV fluid. Upon present emergency room patient was awake alert x4 without any acute distress. She was complaining of right hip pain denies any neck pain, nausea, vomiting, chest pain, abdominal pain or back pain. Associated symptoms: Reports lightheadedness; Deny abdominal pain, chest pain, fever(s), headache(s), nausea or vertigo Review of Systems General: Reports: 10 or more systems reviewed and unremarkable except in HPI and below Const: Denies: fever(s), chills, body aches, change in appetite, change in weight, fatigue, malaise, diaphoresis, change in sleep pattern, daytime sleepiness, snoring or other Card: Reports: lightheadedness and syncope; Denies: chest pain, palpitations, irregular heart rhythm, edema, swelling of feet/ankles, dyspnea on exertion, orthopnea, leg pain with exertion or acrocyanosis Resp: Denies: dyspnea, productive cough, non-productive cough, wheezing, stridor, pain on inspiration, hemoptysis or chest congestion GI: Denies: abdominal pain, nausea, vomiting or hematemesis Musc: Denies: neck pain, back pain or extremity pain Neuro: Reports: other (Syncope); Denies: headache(s), numbness in extremities, weakness in extremities, sensory changes, lack of coordination, difficulty walking, frequent falls, dizziness, vertigo, confusion or behavioral changes Psych: Reports: other (Syncope); Denies: anxiety, depression, mood swings, panic attacks, sleeping less, sleeping more, hopelessness, loss of interest, change in appetite, irritability, paranoia or memory loss PFS ED PFSH: Medical History (Updated 04/25/23 @ 20:19 by Shawn Oseguera MD) Acute right arterial ischemic stroke, middle cerebral artery (MCA) Afib BPH (benign prostatic hyperplasia) Cerebrovascular accident COPD (chronic obstructive pulmonary disease) CVA (cerebral vascular accident) Falls Goiter History of cardioversion Hypertension Smoker Thyroid nodule Traumatic brain injury Surgical History History of hip replacement History of knee replacement History of laparoscopic appendectomy Hx of tonsillectomy S/P IVC filter Family History Other CAD (coronary artery disease) Cancer Diabetes Hypertension Lung disease Stroke Denies family history of Clotting disorder Dementia Hyperlipidemia Psychiatric illness Chronic kidney disease (CKD) Suicide Anesthesia complication Bleeding disorder Family history of premature coronary artery disease Social History Smoking and tobacco status: current every day smoker cigarettes Years cigarettes smoked: 56 Quit status (tobacco): considering quitting Second hand smoke exposure: No Smoking risk assessment/counseling performed?: No Alcohol intake: never Substance/Drug Use: never Adopted: No Caregiver/support person: Yes Lives independently: Yes Housing: Apartment Marital status: Single Number of children: 0 Highest education level completed: Bachelor's Degree service: Yes Current occupational status: retired Pets and animals: No Sexually active: No Do you think of yourself as: Straight/Heterosexual Current gender identity: Male Special reece needs: No Agree to transfusion: Yes Physical Exam Const: COMMON NORMALS: no acute distress, average body habitus, patient oriented x3, no limitations, healthy appearing, alert and well nourished HENMT: COMMON NORMALS: normocephalic, atraumatic, hearing grossly normal bilaterally, external ears normal, EAC's normal, TM's normal bilaterally, Normal external nose present, Normal nasal mucous membranes and turbinates present, moist oral mucous membranes, oropharynx normal, dentition normal and gingiva normal HEAD & SCALP: normocephalic and atraumatic NOSE: Normal external nose present and Normal nasal mucous membranes and turbinates present EXTERNAL EAR: Yes external ears normal EXTERNAL AUDITORY CANAL: EAC's normal TYMPANIC MEMBRANE: TM's normal bilaterally Eye: COMMON NORMALS: Equal, round and reactive pupils present, EOMs intact bilaterally, conjunctivae normal, no scleral icterus, no papilledema, normal visual araiza by confrontation and fundi normal bilaterally CONJUNCTIVA: Yes conjunctivae normal PUPIL: Yes Equal, round and reactive pupils present DIRECT OPHTHALMOSCOPY: Yes no papilledema and Yes fundi normal bilaterally Neck/C-Spine: COMMON NORMALS: full ROM, no lymphadenopathy, supple, no m eningeal signs, no JVD, Thyroid normal and No carotid bruits THYROID: Thyroid normal Chest: COMMONS NORMALS: normal inspection of the chest, normal palpation of entire chest wall, normal inspection of the breasts and normal palpation of the breasts Breast/axilla inspection: Yes normal inspection of the breasts BREAST/AXILLA PALPATION: Yes normal palpation of the breasts Resp: COMMON NORMALS: normal respiratory effort, No retractions, No use of accessory muscles, clear to auscultation bilaterally and percussion normal AUSCULTATION: clear to auscultation bilaterally PERCUSSION: percussion normal Cardio: COMMON NORMALS: no JVD GI: COMMON NORMALS: Normal to inspection, nondistended, normoactive bowel sounds present, Soft to palpation, non-tender, No hepatosplenomegaly present, no masses and no bruits PALPATION: Yes Soft to palpation and Yes No hepatosplenomegaly present Extremity: OTHER: Lower right hip pain with active and passive range of motion. No obvious deformity or diminished pulse. Neuro: COMMON NORMALS: patient oriented x3 SENSORIUM/ORIENTATION: Yes alert MENINGEAL SIGNS: Yes no meningeal signs Course ED course: Patient monitored here for few hours while emergency room patient made stable in acute distress. Reevaluation(s): Reevaluation #1: Discussed the CT finding with the radiologist. Vital Signs: Vital signs: Vital Signs Pulse Rate 69 04/25/23 19:48 Respiratory Rate 20 H 04/25/23 18:16 Blood Pressure 114/74 04/25/23 19:48 Pulse Oximetry 100 04/25/23 19:48 Oxygen Delivery Me thod Nasal Cannula 04/25/23 19:20 Oxygen Flow Rate 2 04/25/23 19:20 MDM - Syncope Medical Decision Making Patient made comfortable emergency room and had extensive work-up including EKG, cardiac enzymes, CBC, CMP CT head and pelvis. Patient was given IV fluid. Patient made stable with no acute distress. Discussed the CT finding with the patient. His presenting symptoms and CT findings my plan was to obtain CT chest and abdomen for further evaluation of other aneurysm but patient declined. And left the ER AGAINST MEDICAL ADVICE. The risk of leaving AGAINST MEDICAL ADVICE was thoroughly discussed. Patient understood the risk. Differential Diagnosis Likely syncope due to orthostatic hypotension, vasovagal syncope, complete atrioventricular block, subarachnoid hemorrhage, pulmonary embolism and dehydration Lab Data 04/25/23 17:55 04/25/23 17:[address] 04/25/23 18:26 IMPRESSION: No acute intracranial abnormality. Pelvis CT 04/25/23 18:26 IMPRESSION: 1. 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 No evidence of leak. Smaller proximal left common iliac artery aneurysm. 2. There is soft tissue edema lateral to the left hip compatible with probable contusion. No hematoma. 3. Old fracture deformities left acetabulum and femur. No acute bony abnormality. COMMENTS: For patients with an IVC filter, recommend assessment for a management plan for the patient's IVC filter. If there is no established management plan, recommend referral to an interventional clinician on a nonemergent basis for evaluation. ADDENDUM: 04/25/231946 THIS REPORT CONTAINS FINDINGS THAT MAY BE CRITICAL TO PATIENT CARE. The findings were verbally communicated via telephone conference with SHAWN OSEGUERA at 7:46 PM CDT on 04/25/2023. The findings were acknowledged and understood. Laboratory Results WBC 6.5 10^3/uL (4.0-10.0) 04/25/23 17:55 RBC 5.44 10^6/uL (4.1-5.3) H 04/25/23 17:55 Hgb 16.5 g/dL (11.7-16.6) 04/25/23 17:55 Hct 50.8 % (42.0-52.0) 04/25/23 17:55 MCV 93.4 fl (80-94) 04/25/23 17:55 MCH 30.3 pg (28.0-34.0) 04/25/23 17:55 MCHC 32.5 g/dL (30.0-36.0) 04/25/23 17:55 RDW 13.2 % (12.1-15.1) 04/25/23 17:55 Plt Count 196 10^3/cmm (130-400) 04/25/23 17:55 MPV 10.3 fL (7.4-10.4) 04/25/23 17:55 Neut % (Auto) 67.0 % 04/25/23 17:55 Lymph % (Auto) 22.2 % 04/25/23 17:55 Dent % (Auto) 8.9 % 04/25/23 17:55 Eos % (Auto) 1.1 % 04/25/23 17:55 Baso % (Auto) 0.5 % 04/25/23 17:55 Neut # (Auto) 4.37 10^3/uL (1.8-7.7) 04/25/23 17:55 Lymph # (Auto) 1.5 10^3/uL (0.8-4.8) 04/25/23 17:55 Dent # (Auto) 0.6 10^3/uL (0.2-0.9) 04/25/23 17:55 Eos # (Auto) 0.1 10^3/uL (0.0-0.8) 04/25/23 17:55 Baso # (Auto) 0.0 10^3/uL (0.0-0.1) 04/25/23 17:55 Nucleated RBC % (auto) 0 % 04/25/23 17:55 Nucleated RBCs # 0.0 /100WBC 04/25/23 17:55 Sodium 135 mmol/L (136-145) L 04/25/23 17:55 Potassium 3.9 mmol/L (3.5-5.1) 04/25/23 17:55 Chloride 99 mmol/L (98-107) 04/25/23 17:55 Carbon Dioxide 25 mmol/L (22-29) 04/25/23 17:55 Anion Gap 14.9 (5-19) 04/25/23 17:55 BUN 12 mg/dL (8-23) 04/25/23 17:55 Creatinine 1.1 mg/dL (0.7-1.2) 04/25/23 17:55 GFR Calculation Not Reportable 04/25/23 17:55 Glucose 115 mg/dL (65-115) 04/25/23 17:55 Calculated Osmolality 281 mOsm/kg (285-295) L 04/25/23 17:55 Calcium 8.7 mg/dL (8.5-10.5) 04/25/23 17:55 Magnesium 2.1 mg/dL (1.7-2.3) 04/25/23 17:55 Total Bilirubin 0.5 mg/dL (0.15-1.2) 04/25/23 17:55 AST 30 U/L (0-40) 04/25/23 17:55 ALT 35 U/L (0-41) 04/25/23 17:55 Alkaline Phosphatase 108 U/L (40-130) 04/25/23 17:55 Troponin T Baseline 10 ng/L (0-15) 04/25/23 17:55 Total Protein 6.5 g/dL (6.6-8.7) L 04/25/23 17:55 Albumin 3.6 g/dL (3.5-5.2) 04/25/23 17:55 Globulin 2.9 g/dL (1.3-4.6) 04/25/23 17:55 EKG Data EKG 1: Interpretation: Sinus rhythm rate of [address] changes. [place] interval is 159 and QT intervals is 406 Discharge Plan Discharge Patient Disposition: Left Against Medical Advice Clinical Impression: Syncope, Aneurysm artery, iliac Prescriptions: No Action hydrocodone-acetaminophen 7.5-325 mg tablet 1 tab PO Q8H PRN (Reason: Pain) tamsulosin [Flomax] 0.4 mg capsule 0.4 mg PO DAILY@18 naloxone [Narcan] 4 mg/actuation spray,non-aerosol See Rx Instructions .ROUTE .COMPLEX Rx Instructions: as directed intranasally prn atorvastatin 40 mg Tablet 80 mg PO BEDTIME Qty: 60 2RF aspirin 81 mg Tablet,Delayed Release (Dr/Ec) 81 mg PO DAILY Qty: 60 3RF clindamycin HCl 300 mg capsule 300 mg PO TID 10 Days Qty: 30 0RF ketorolac 10 mg tablet 10 mg PO TID PRN (Reason: pain) Qty: 10 0RF Referrals: Yordan Murphy [Primary Care Provider] - Discharge Diet: Advance as tolerated Discharge Activity: Resume usual activity Coding Level of Care Code ED Guest Services Attendant for Daina Hoskins
== END 2023-04-25 19:49 | disposition left against medical advice (07) ==
PROVIDERS: Emergency Provider Family Medicine; PCP Family Medicine
DX: R55 Syncope and collapse (principal); I72.3 Aneurysm of iliac artery; Z53.21 Procedure and treatment not carried out due to patient leaving prior to being seen by health care provider; Z79.82 Long term (current) use of aspirin; F17.210 Nicotine dependence, cigarettes, uncomplicated; Z86.73 Personal history of transient ischemic attack (TIA), and cerebral infarction without residual deficits; J44.9 Chronic obstructive pulmonary disease, unspecified; I10 Essential (primary) hypertension
CPT/HCPCS: 70450; 72192; 80053; 83735; 84484; 85025; 93005; 99285

== ENCOUNTER 2023-04-29 17:58 | Emergency (ER) | payer MEDICARE, MEDICAID, SELFPAY ==
[2023-04-29] VITALS (7 sets, daily range): BP systolic 92–129; BP diastolic 63–85; PULSE 61–78; RESP 16–24; TEMP 37.1; O2SAT 93–96; BMI 26.2
--- NOTE | 2023-04-29 18:58 | W.ED.FALL ---
HPI - Fall General: Chief Complaint: Fall Stated Complaint: L. rib pain Time Seen by Provider: 04/29/23 18:57 History of Present Illness: Mr. Puckett is a 73-year-old gentleman presented the emergency department for evaluation of fall with rib pain. He reports walking in a parking lot when his cane slipped and he fell landing on his left side. Denies head strike or loss of consciousness. Immediately had pain and required assistance getting up. Since that time he has had worsening left anterior chest pain associated with shortness of breath. Worse on palpation and feels like prior episodes of broken ribs. Moderate at baseline though severe with palpation. No other specific changes in health, exacerbating, or alleviating factors identified. Onset (ago): hour(s) Fall from: standing Place fall occurred: street Loss of consciousness: None Prolonged down time: no Symptoms prior to fall: none Context: tripped/slipped Location of injury: chest Review of Systems General: Reports: 10 or more systems reviewed and unremarkable except in HPI and below PFSH ED PFSH: Medical History (Updated 05/08/23 @ 16:31 by HERNANDEZ Coker) Acute right arterial ischemic stroke, middle cerebral artery (MCA) Afib BPH (benign prostatic hyperplasia) Cerebrovascular accident COPD (chronic obstructive pulmonary disease) CVA (cerebral vascular accident) Falls Goiter History of cardioversion Hypertension Smoker Thyroid nodule Traumatic brain injury Surgical History History of hip replacement History of knee replacement History of laparoscopic appendectomy Hx of tonsillectomy S/P IVC filter Family History Other CAD (coronary artery disease) Cancer Diabetes Hypertension Lung disease Stroke Denies family history of Clotting disorder Dementia Hyperlipidemia Psychiatric illness Chronic kidney disease (CKD) Suicide Anesthesia complication Bleeding disorder Family history of premature coronary artery disease Social History Smoking and tobacco status: current every day smoker cigarettes Years cigarettes smoked: 56 Quit status (tobacco): considering quitting Second hand smoke exposure: No Smoking risk assessment/counseling performed?: No Alcohol intake: never Substance/Drug Use: never Adopted: No Caregiver/support person: Yes Lives independently: Yes Housing: Apartment Marital status: Single Number of children: 0 Highest education level completed: Bachelor's Degree service: Yes Current occupational status: retired Pets and animals: No Sexually active: No Do you think of yourself as: Straight/Heterosexual Current gender identity: Male Special reece needs: No Agree to transfusion: Yes Physical Exam Const: COMMON NORMALS: alert GENERAL APPEARANCE: cooperative and well developed HENMT: COMMON NORMALS: normocephalic and atraumatic HEAD & SCALP: normocephalic and atraumatic Eye: COMMON NORMALS: conjunctivae normal CONJUNCTIVA: Yes conjunctivae normal SCLERA: sclerae normal Neck/C-Spine: COMMON NORMALS: supple GENERAL: Yes trachea midline OTHER: Inferior cervical spine tenderness to palpation. Chest: OTHER: Left anterior and lateral mid rib tenderness palpation. No subcutaneous air or flail segment appreciated on clinical exam Resp: COMMON NORMALS: clear to auscultation bilaterally EFFORT & INSPECTION: Yes able to speak in complete sentences AUSCULTATION: clear to auscultation bilaterally Cardio: COMMON NORMALS: regular rate and regular rhythm RATE: regular rate RHYTHM: regular rhythm GI: COMMON NORMALS: Soft to palpation PALPATION: Yes Soft to palpation and No Tenderness to palpation present (GI) PERCUSSION: normal to percussion Extremity: NARRATIVE EXTREMITY EXAM: Left forearm and elbow ecchymosis, possibly from prior fall, no tenderness to palpation or limitation of range of motion. CMS intact GENERAL: Yes normal exam except as noted and No edema Neuro: COMMON NORMALS: moves all extremities SENSORIUM/ORIENTATION: Yes alert and No Orientation impaired Psych: COMMON NORMALS: mental status grossly normal and Normal thought process present THOUGHT PROCESS: Normal thought process present Course Vital Signs: Vital signs: Vital Signs Temperature 98.8 F 04/29/23 18:19 Pulse Rate 76 04/29/23 20:59 Respiratory Rate 17 04/29/23 20:59 Blood Pressure 111/84 04/29/23 20:59 Pulse Oximetry 95 04/29/23 20:59 Oxygen Delivery Me thod Room Air 04/29/23 20:30 MDM - Fall Medical Decision Making 73-year-old gentleman presenting with concern over pain post fall. Head to toe exam performed. Exam as above. Given concerns and recent laboratory studies, which were reviewed, no indication for repeat. Imaging with no acute traumatic injury identified. Incidental findings discussed with the patient. Patient improved with analgesia. Provided with incentive spirometer. The results of ED evaluation were discussed with the patient including prescriptions and/or symptomatic cares (if applicable) including appropriate and responsible use, followup plan, and return precautions. The patient verbalized understanding and felt safe for discharge. Medical Records I reviewed the patient's medical records. Lab Data I reviewed the patient's lab results. Radiology Impressions Cervical Spine CT 04/29/23 19:07 IMPRESSION: 1. Negative for fracture or dislocation. 2. Chronic left mastoid air cell opacifications may reflect a chronic infectious or inflammatory process. 3. Multilevel degenerative disc space narrowing and productive degenerative endplate changes with disc calcification throughout the cervical spine. 4. Scattered carotid artery atherosclerotic calcifications. Chest CT 04/29/23 19:07 IMPRESSION: 1. Negative for acute traumatic injury to the chest. 2. Ascending thoracic aorta dilated to 4.1 cm. 3. Coronary artery atherosclerotic calcifications. 4. Cholelithiasis. 5. Lingular lobe subsegmental airspace opacities, similar to prior exam suggestive of pleuroparenchymal fibrosis. 6. Emphysematous changes. 7. Several chronic left rib fractures. 8. Inferior vena cava filter. COMMENTS: In the absence of a history or active diagnosis of lung cancer, it is recommended that this patient with emphysema be evaluated for enrollment in a low dose CT lung cancer screening program. Discharge Plan Discharge Patient Disposition: Home Clinical Impression: Fall, Contusion of ribs Condition: Stable Prescriptions: New oxycodone 5 mg tablet 5 mg PO Q4H PRN (Reason: pain) Qty: 20 0RF No Action hydrocodone-acetaminophen 7.5-325 mg tablet 1 tab PO Q8H PRN (Reason: Pain) tamsulosin [Flomax] 0.4 mg capsule 0.4 mg PO DAILY@18 naloxone [Narcan] 4 mg/actuation spray,non-aerosol See Rx Instructions .ROUTE .COMPLEX Rx Instructions: as directed intranasally prn atorvastatin 40 mg Tablet 80 mg PO BEDTIME Qty: 60 2RF aspirin 81 mg Tablet,Delayed Release (Dr/Ec) 81 mg PO DAILY Qty: 60 3RF ketorolac 10 mg tablet 10 mg PO TID PRN (Reason: pain) Qty: 10 0RF Discharge Orders: Discharge ED (Routine); Ordered 04/29/23 Ordered By: Edwar Cruz Referrals: Yordan Murphy [Primary Care Provider] - Discharge Diet: Usual diet Discharge Activity: Increase activity as tolerated Patient Instructions: How to Use an Incentive Spirometer (ED), Rib Contusion (ED), Opioid Safety Activity Restrictions/Additional Instructions: Thank you for visiting the emergency department. You were seen and evaluated for chest pain after fall. The most likely cause of your symptoms is bruising and soft tissue injury of the chest wall and ribs. The treatment for this is supportive. I will prescribe pain medication. Use this cautiously and do not combine it with other opioids or sedating substances. You may use [id number] medications such as acetaminophen and ibuprofen for pain however please do not exceed the daily recommended dosage as listed on the packaging and please keep in mind that many namebrand medications contain the same active ingredients. Please avoid these medications if previously instructed to do so by another physician due to other underlying medical condition. Follow-up with your primary care provider. Use the incentive spirometer as instructed. Return for uncontrolled pain, shortness of breath, cough, fever, or anything else that you are concerned about and feel needs emergency department evaluation. Coding Level of Care Code ED Corporate Operations Compliance Manager for Daina Hoskins
--- NOTE | 2023-04-29 19:07 | CTR_ITS ---
PROCEDURE INFORMATION: Exam: CT Chest Without Contrast; Diagnostic Exam date and time: 04/29/2023 7:23 PM Age: 73 years old Clinical indication: Injury or trauma; Fall; Blunt trauma (contusions or hematomas); Additional info: L lateral and anterior mid rib pain post fall, eval fracture TECHNIQUE: Imaging protocol: Diagnostic computed tomography of the chest without contrast. Radiation optimization: All CT scans at this facility use at least one of these dose optimization techniques: automated exposure control; mA and/or kV adjustment per patient size (includes targeted exams where dose is matched to clinical indication); or iterative reconstruction. REPORTING DATA: Count of CT and Cardiac NM exams in prior 12 months: This patient has received 7 known CTs and 0 known cardiac nuclear medicine studies in the 12 months prior to the current study. COMPARISON: CT angio chest PE protcl [id number] 08/27/2022 1:54 AM RADIATION DOSE METRICS: Total DLP (mGy-cm): 437 FINDINGS: Lungs: Lingular lobe subsegmental airspace opacities, similar to prior exam suggestive of pleuroparenchymal fibrosis. Emphysematous changes. Pleural spaces: Unremarkable. No pneumothorax. No pleural effusion. Heart: Unremarkable. No cardiomegaly. No pericardial effusion. Coronary arteries: Coronary artery atherosclerotic calcifications. Lymph nodes: Unremarkable. No enlarged lymph nodes. Vasculature: Ascending thoracic aorta dilated to 4.1 cm. Inferior vena cava filter. Gallbladder and bile ducts: Cholelithiasis. Bones/joints: Several chronic left rib fractures. Soft tissues: Unremarkable. CT/CT chest [facility] [id number] IMPRESSION: 1. Negative for acute traumatic injury to the chest. 2. Ascending thoracic aorta dilated to 4.1 cm. 3. Coronary artery atherosclerotic calcifications. 4. Cholelithiasis. 5. Lingular lobe subsegmental airspace opacities, similar to prior exam suggestive of pleuroparenchymal fibrosis. 6. Emphysematous changes. 7. Several chronic left rib fractures. 8. Inferior vena cava filter. COMMENTS: In the absence of a history or active diagnosis of lung cancer, it is recommended that this patient with emphysema be evaluated for enrollment in a low dose CT lung cancer screening program.
--- NOTE | 2023-04-29 19:07 | CTR_ITS ---
PROCEDURE INFORMATION: Exam: CT Cervical Spine Without Contrast Exam date and time: 04/29/2023 7:19 PM Age: 73 years old Clinical indication: Injury or trauma; Fall; Blunt trauma; Additional info: Fall, lower posterior neck pain TECHNIQUE: Imaging protocol: Computed tomography of the cervical spine without contrast. Radiation optimization: All CT scans at this facility use at least one of these dose optimization techniques: automated exposure control; mA and/or kV adjustment per patient size (includes targeted exams where dose is matched to clinical indication); or iterative reconstruction. REPORTING DATA: Count of CT and Cardiac NM exams in prior 12 months: This patient has received 7 known CTs and 0 known cardiac nuclear medicine studies in the 12 months prior to the current study. COMPARISON: CT angio headneck* [id number] 06/24/2022 4:45 PM RADIATION DOSE METRICS: Total DLP (mGy-cm): 177.07 FINDINGS: Bones/joints: Multilevel degenerative disc space narrowing and productive degenerative endplate changes with disc calcification throughout the cervical spine. C2-C3: No significant disc bulge or herniation. No severe spinal canal stenosis. No significant neural foraminal narrowing. C3-C4: No significant disc bulge or herniation. No severe spinal canal stenosis. No significant neural foraminal narrowing. C4-C5: No significant disc bulge or herniation. No severe spinal canal stenosis. No significant neural foraminal narrowing. C5-C6: No significant disc bulge or herniation. No severe spinal canal stenosis. No significant neural foraminal narrowing. C6-C7: No significant disc bulge or herniation. No severe spinal canal stenosis. No significant neural foraminal narrowing. C7-T1: No significant disc bulge or herniation. No severe spinal canal stenosis. No significant neural foraminal narrowing. Mastoid air cells: Chronic left mastoid air cell opacifications may reflect a chronic infectious or inflammatory process. Lungs: Lung apices are normal. Vasculature: Scattered carotid artery atherosclerotic calcifications. Soft tissues: Unremarkable. CT/CT cervical spin wo con* [id number] IMPRESSION: 1. Negative for fracture or dislocation. 2. Chronic left mastoid air cell opacifications may reflect a chronic infectious or inflammatory process. 3. Multilevel degenerative disc space narrowing and productive degenerative endplate changes with disc calcification throughout the cervical spine. 4. Scattered carotid artery atherosclerotic calcifications.
[2023-04-29] MEDS: morphine 4 mg/mL SDV 1 mL IVP (19:50)
[2023-04-29] MEDS: acetaminophen 500 mg Tablet 1000 MG PO (20:33)
== END 2023-04-29 21:02 | disposition home or self-care (01) ==
PROVIDERS: Emergency Provider Emergency Medicine; PCP Family Medicine
DX: S20.20XA Contusion of thorax, unspecified, initial encounter (principal); W01.0XXA Fall on same level from slipping, tripping and stumbling without subsequent striking against object, initial encounter; Y92.481 Parking lot as the place of occurrence of the external cause
CPT/HCPCS: 71250; 72125; 96374; 99284; J2270

== ENCOUNTER 2023-05-07 02:13 | Emergency (ER) | payer MEDICARE, MEDICAID, SELFPAY ==
[2023-05-07 02:26] VITALS: BP 99/66; PULSE 104; RESP 18; TEMP 36.7; O2SAT 96; BMI 25.7
--- NOTE | 2023-05-07 02:46 | ED_ITS ---
HPI - General Adult General: Chief complaint: General Medical Stated complaint: knot on buttocks Time Seen by Provider: 05/07/23 02:14 Source: patient Mode of arrival: ambulatory Limitations: no limitations History of Present Illness: 73-year-old male states that he is got a knot on his buttocks its been very painful when he sits. He states he has not been able to see it he is unsure what it looks like he states it is painful. He states he is also seen here little over a week ago and was told he had a iliac artery aneurysm but he left AMA then and had not followed up with anybody denies any abdominal pain denies any leg pain he had no weakness recently Associated symptoms: Deny chest pain, dyspnea, headache(s), nausea, rash or vomiting Review of Systems Const: Denies: fever(s), chills or change in appetite ENMT: Denies: throat pain or dental pain Card: Denies: chest pain Resp: Denies: dyspnea GI: Denies: abdominal pain, nausea, vomiting or diarrhea : Denies: dysuria Musc: Denies: neck pain or back pain Skin/Breast: Denies: rash Neuro: Denies: headache(s) PFSH ED PFSH: Medical History (Updated 05/07/23 @ 02:53 by Rl Arcos MD) Acute right arterial ischemic stroke, middle cerebral artery (MCA) Afib BPH (benign prostatic hyperplasia) Cerebrovascular accident COPD (chronic obstructive pulmonary disease) CVA (cerebral vascular accident) Falls Goiter History of cardioversion Hypertension Smoker Thyroid nodule Traumatic brain injury Surgical History History of hip replacement History of knee replacement History of laparoscopic appendectomy Hx of tonsillectomy S/P IVC filter Family History Other CAD (coronary artery disease) Cancer Diabetes Hypertension Lung disease Stroke Denies family history of Clotting disorder Dementia Hyperlipidemia Psychiatric illness Chronic kidney disease (CKD) Suicide Anesthesia complication Bleeding disorder Family history of premature coronary artery disease Social History Smoking and tobacco status: current every day smoker cigarettes Years cigarettes smoked: 56 Quit status (tobacco): considering quitting Second hand smoke exposure: No Smoking risk assessment/counseling performed?: No Alcohol intake: never Substance/Drug Use: never Adopted: No Caregiver/support person: Yes Lives independently: Yes Housing: Apartment Marital status: Single Number of children: 0 Highest education level completed: Bachelor's Degree service: Yes Current occupational status: retired Pets and animals: No Sexually active: No Do you think of yourself as: Straight/Heterosexual Current gender identity: Male Special reece needs: No Agree to transfusion: Yes Physical Exam Const: COMMON NORMALS: no acute distress, patient oriented x3 and healthy appearing HENMT: COMMON NORMALS: normocephalic and atraumatic HEAD & SCALP: normocephalic and atraumatic Neck/C-Spine: COMMON NORMALS: full ROM and supple Chest: COMMONS NORMALS: normal inspection of the chest and normal palpation of entire chest wall Resp: COMMON NORMALS: normal respiratory effort, No retractions, No use of accessory muscles and clear to auscultation bilaterally AUSCULTATION: clear to auscultation bilaterally Cardio: COMMON NORMALS: regular rate, regular rhythm and No murmurs present (Cardio) RATE: regular rate RHYTHM: regular rhythm GI: COMMON NORMALS: Normal to inspection, nondistended, normoactive bowel sounds present, Soft to palpation, non-tender and no masses PALPATION: Yes Soft to palpation Back/Pelvis: OTHER: Very small roughly dime size pressure ulcer to right buttocks superficial nature Extremity: COMMON NORMALS: normal to inspection and full ROM NARRATIVE EXTREMITY EXAM: Distal pulses intact Neuro: COMMON NORMALS: patient oriented x3, moves all extremities and no focal motor deficits Psych: COMMON NORMALS: mental status grossly normal, Normal thought process pr esent and cooperative THOUGHT PROCESS: Normal thought process present Skin: COMMON NORMALS: no rashes or lesions noted and no wounds GENERAL SKIN EXAM: no rashes or lesions noted Course Vital Signs: Vital signs: Vital Signs Temperature 98.0 F 05/07/23 02:26 Pulse Rate 104 H 05/07/23 02:26 Respiratory Rate 18 05/07/23 02:26 Blood Pressure 105/67 05/07/23 02:52 Pulse Oximetry 96 05/07/23 02:26 [facility] - General Adult Medical Decision Making Patient presents with a very small superficial pressure ulcer to his buttocks did give him wound care instructions he also has a iliac artery aneurysm was seen on the CT over a week ago he has no symptoms of ischemia his pulses here palpable did speak to vascular surgeon Dr. Tenorio we will get him follow-up he is return if worsening. Medical Records I reviewed the patient's medical records. Lab Data I reviewed the patient's lab results. Discharge Plan Discharge Patient Disposition: Home Clinical Impression: Pressure ulcer, buttock, Aneurysm artery, iliac Condition: Stable Prescriptions: No Action hydrocodone-acetaminophen 7.5-325 mg tablet 1 tab PO Q8H PRN (Reason: Pain) tamsulosin [Flomax] 0.4 mg capsule 0.4 mg PO DAILY@18 naloxone [Narcan] 4 mg/actuation spray,non-aerosol See Rx Instructions .ROUTE .COMPLEX Rx Instructions: as directed intranasally prn atorvastatin 40 mg Tablet 80 mg PO BEDTIME Qty: 60 2RF aspirin 81 mg Tablet,Delayed Release (Dr/Ec) 81 mg PO DAILY Qty: 60 3RF ketorolac 10 mg tablet 10 mg PO TID PRN (Reason: pain) Qty: 10 0RF oxycodone 5 mg tablet 5 mg PO Q4H PRN (Reason: pain) Qty: 20 0RF Discharge Orders: Discharge ED (Routine); Ordered 05/07/23 Ordered By: Rl Arcos Referrals: Yordan Murphy [Primary Care Provider] - Jose A Tenorio MD [Physician] - 1-3 days Discharge Diet: Advance as tolerated Discharge Activity: Resume usual activity Patient Instructions: How to Prevent Pressure Injuries (ED), Acute Wound Care (ED) Coding Level of Care Code ED Junior Technical Writer for Daina Hoskins
[2023-05-07 02:52] VITALS: BP 105/67
--- NOTE | 2023-05-07 07:26 | DCPLANNER ---
Addendum entered by Rajni Vargas 05/12/23 09:18: [employer]covery project manager received the following message from [facility] regarding follow up appointment: Dr. Tenorio would like this patient to be referred to [facility]. [employer]iscovery project manager called patient at phone number [phone] - unable to speak with patient and unable to leave a voicemail for patient. Original Note: [employer]covery project manager had message to schedule a follow up appointment for patient with cardiology. [employer]iscovery project manager sent patients information to the front office staff at [facility]. Patients information will be printed and reviewed. Clinic will call patient with appointment information.
== END 2023-05-07 03:06 | disposition home or self-care (01) ==
PROVIDERS: Emergency Provider Emergency Medicine; PCP Family Medicine
DX: L89.329 Pressure ulcer of left buttock, unspecified stage (principal); L89.319 Pressure ulcer of right buttock, unspecified stage; I72.3 Aneurysm of iliac artery; I10 Essential (primary) hypertension; J44.9 Chronic obstructive pulmonary disease, unspecified; F17.210 Nicotine dependence, cigarettes, uncomplicated; Z79.899 Other long term (current) drug therapy; Z86.73 Personal history of transient ischemic attack (TIA), and cerebral infarction without residual deficits
CPT/HCPCS: 99282

== ENCOUNTER 2023-05-08 15:36 | Emergency (ER) | payer MEDICARE, MEDICAID, SELFPAY ==
[2023-05-08 15:38] VITALS: BP 121/82; PULSE 75; RESP 17; TEMP 36.8; O2SAT 95; BMI 25.7
--- NOTE | 2023-05-08 15:58 | W.ED.SKABFB ---
HPI - Skin/Abscess/Foreign Bdy General: Chief complaint: Skin/Abscess/Foreign Body Stated complaint: sore on bottom Time Seen by Provider: 05/08/23 15:47 History of Present Illness: Patient is in today for sore on his bottom. Patient reports that he has had a chronic sore on his buttocks that will not go away. He reports that he does sit most of his day on his bottom and he alternates between the desk chair and the couch. Patient reports that he takes pain medication but it does not seem to touch the sore on his butt. Patient reports that he was here yesterday but thinks he needs the dressing changed. He is also requesting a test for cancer. He wants a test to generally tell him whether he has cancer anywhere or not. Associated symptoms: Deny chills or fever(s) Review of Systems Const: Denies: fever(s) or chills Card: Denies: chest pain or palpitations Resp: Denies: dyspnea, productive cough or non-productive cough Skin/Breast: Reports: other (Painful sore right buttock) [facility] ED PFSH: Medical History (Updated 05/08/23 @ 16:31 by HERNANDEZ Coker) Acute right arterial ischemic stroke, middle cerebral artery (MCA) Afib BPH (benign prostatic hyperplasia) Cerebrovascular accident COPD (chronic obstructive pulmonary disease) CVA (cerebral vascular accident) Falls Goiter History of cardioversion Hypertension Smoker Thyroid nodule Traumatic brain injury Surgical History History of hip replacement History of knee replacement History of laparoscopic appendectomy Hx of tonsillectomy S/P IVC filter Family History Other CAD (coronary artery disease) Cancer Diabetes Hypertension Lung disease Stroke Denies family history of Clotting disorder Dementia Hyperlipidemia Psychiatric illness Chronic kidney disease (CKD) Suicide Anesthesia complication Bleeding disorder Family history of premature coronary artery disease Social History Smoking and tobacco status: current every day smoker cigarettes Years cigarettes smoked: 56 Quit status (tobacco): considering quitting Second hand smoke exposure: No Smoking risk assessment/counseling performed?: No Alcohol intake: never Substance/Drug Use: never Adopted: No Caregiver/support person: Yes Lives independently: Yes Housing: Apartment Marital status: Single Number of children: 0 Highest education level completed: Bachelor's Degree service: Yes Current occupational status: retired Pets and animals: No Sexually active: No Do you think of yourself as: Straight/Heterosexual Current gender identity: Male Special reece needs: No Agree to transfusion: Yes Physical Exam Const: COMMON NORMALS: no acute distress, patient oriented x3 and alert Neck/C-Spine: COMMON NORMALS: no JVD Resp: COMMON NORMALS: normal respiratory effort, No use of accessory muscles and clear to auscultation bilaterally AUSCULTATION: clear to auscultation bilaterally Cardio: COMMON NORMALS: no JVD, regular rate and regular rhythm RATE: regular rate RHYTHM: regular rhythm GI: COMMON NORMALS: Soft to palpation and non-tender PALPATION: Yes Soft to palpation Neuro: COMMON NORMALS: patient oriented x3 SENSORIUM/ORIENTATION: Yes alert Skin: NARRATIVE SKIN EXAM: Right side buttocks medial aspect there is a pea-sized ulceration appreciated. Surrounding tissue is slightly erythematous. No oozing or drainage appreciated. Course Vital Signs: Vital signs: Vital Signs Temperature 98.3 F 05/08/23 15:38 Pulse Rate 61 05/08/23 16:24 Respiratory Rate 16 05/08/23 16:24 Blood Pressure 121/82 05/08/23 16:24 Pulse Oximetry 95 05/08/23 16:24 Oxygen Delivery Me thod Room Air 05/08/23 16:24 MDM - Skin/Abscess/Foreign Bdy Medicial Decision Making Reviewed patient's record as he was seen here yesterday for same complaint. Patient was also seen recently diagnosed with an iliac artery aneurysm. He is being scheduled for follow-up with vascular surgeon for this. He is asymptomatic with this currently. Today he is concerned because the dressing to his buttocks needs changed again per him. He is also requesting to be tested for any and all types of cancer. We had a lengthy discussion about age-appropriate screenings and continued follow-up with primary care as how we try and detect or prevent cancer. I advised him that I do not just have a single test to rule out all types of cancer for him in the ER. I advised him that his sore on his bottom is likely pressure related. We discussed about the importance of changing positions frequently to prevent pressure related skin injuries. Patient changing from 1 chair to another chair is not considered truly changing positions because he is still sitting the same on his bottom. He needs to prop himself with pillows or change to a different way of setting alternating weight between 1 hip to the other so that he is giving a break to that skin on his bottom. Patient verbalized understanding and agreement. Will change the dressing applied OptiForm and advised patient to follow-up with his primary care provider next week for continued monitoring and evaluation. Return to the ER if needed for new or worsening symptoms Discharge Plan Discharge Patient Disposition: Home Clinical Impression: Pressure ulcer, Aneurysm artery, iliac Condition: Stable Prescriptions: No Action hydrocodone-acetaminophen 7.5-325 mg tablet 1 tab PO Q8H PRN (Reason: Pain) tamsulosin [Flomax] 0.4 mg capsule 0.4 mg PO DAILY@18 naloxone [Narcan] 4 mg/actuation spray,non-aerosol See Rx Instructions .ROUTE .COMPLEX Rx Instructions: as directed intranasally prn atorvastatin 40 mg Tablet 80 mg PO BEDTIME Qty: 60 2RF aspirin 81 mg Tablet,Delayed Release (Dr/Ec) 81 mg PO DAILY Qty: 60 3RF ketorolac 10 mg tablet 10 mg PO TID PRN (Reason: pain) Qty: 10 0RF oxycodone 5 mg tablet 5 mg PO Q4H PRN (Reason: pain) Qty: 20 0RF Discharge Orders: Discharge ED (Routine); Ordered 05/08/23 Ordered By: Marysol Clayton Referrals: Yordan Murphy [Primary Care Provider] - Discharge Diet: Usual diet Discharge Activity: Resume usual activity Patient Instructions: How to Prevent Pressure Injuries (ED) Activity Restrictions/Additional Instructions: I recommend keeping the area clean and dry. I recommend frequent position changes so that you are not sitting in the same position all day long. Keep the wound clean and dry. Follow-up with your primary care provider next week for reevaluation. Return to the ER as needed for new or worsening symptoms Coding Level of Care Code ED Depilatory Painter for Daina Hoskins
[2023-05-08 16:24] VITALS: BP 121/82; PULSE 61; RESP 16; O2SAT 95
== END 2023-05-08 17:28 | disposition home or self-care (01) ==
PROVIDERS: Emergency Provider Nurse Practitioner Family; PCP Family Medicine
DX: L89.319 Pressure ulcer of right buttock, unspecified stage (principal); I72.3 Aneurysm of iliac artery; Z79.82 Long term (current) use of aspirin; F17.210 Nicotine dependence, cigarettes, uncomplicated; Z86.73 Personal history of transient ischemic attack (TIA), and cerebral infarction without residual deficits; J44.9 Chronic obstructive pulmonary disease, unspecified; I10 Essential (primary) hypertension; Z87.820 Personal history of traumatic brain injury
CPT/HCPCS: 99282

== ENCOUNTER → 2023-05-21 09:54 | Outpatient (BNVA) | payer MEDICARE, MEDICAID, SELFPAY | PROVIDERS: PCP Family Medicine; Visit Provider Thoracic Surgery (Cardiothoracic Vascular Surgery) | DX: I72.3 Aneurysm of iliac artery (principal) | CPT/HCPCS: 99203 ==

== ENCOUNTER 2023-10-29 07:12 | Outpatient (RCR) | payer MEDICARE, MEDICAID, SELFPAY | END 2023-11-04 23:59 | disposition home or self-care (01) | LOC: SPT 07:12 | PROVIDERS: PCP Family Medicine; Visit Provider Family Medicine | DX: I69.354 Hemiplegia and hemiparesis following cerebral infarction affecting left non-dominant side (principal); M62.81 Muscle weakness (generalized) | CPT/HCPCS: 97110; 97161 ==

== ENCOUNTER 2023-11-05 06:00 | Outpatient (RCR) | payer MEDICARE, MEDICAID, SELFPAY | END 2023-12-03 23:59 | disposition home or self-care (01) | LOC: SPT 06:00 | PROVIDERS: PCP Family Medicine; Visit Provider Family Medicine | DX: I69.354 Hemiplegia and hemiparesis following cerebral infarction affecting left non-dominant side (principal); M62.81 Muscle weakness (generalized) | CPT/HCPCS: 97110 ==

== ENCOUNTER 2024-01-27 17:11 | Inpatient (IN) | payer MEDICARE, MEDICAID, SELFPAY ==
[2024-01-27] VITALS (25 sets, daily range): BP systolic 108–150; BP diastolic 67–108; PULSE 75–104; RESP 16–34; TEMP 36.7–37; O2SAT 89–98; BMI 25.7; BMI 21.4
--- NOTE | 2024-01-27 17:18 | XRR_ITS ---
PROCEDURE INFORMATION: Exam: XR Chest Exam date and time: 01/27/2024 6:35 PM Age: 74 years old Clinical indication: Cough and dyspnea; Patient HX: PT presents with weakness. Patient called for a lift assist. Patient states left side weakness that is weaker today; Additional info: Dyspnea/cough TECHNIQUE: Imaging protocol: Radiologic exam of the chest. Views: 1 view. COMPARISON: CT chest con [id number] 04/29/2023 7:23 PM FINDINGS: Lungs: Hyperinflated lungs. Curvilinear scarring in the left lung base. No consolidation. Pleural spaces: Unremarkable. No pleural effusion. No pneumothorax. Heart/Mediastinum: Unremarkable. No cardiomegaly. Bones/joints: Unremarkable. XR/XR chest 1V portable [id number] IMPRESSION: No acute findings.
--- NOTE | 2024-01-27 17:19 | ECG_ITS ---
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 Measurements Intervals Pooler Rate: 83 P: 87 NE: 159 QRS: -87 QRSD: 83 T: 92 QT: 359 QTc: 422 Interpretive Statements SINUS RHYTHM POSSIBLE RIGHT ATRIAL ENLARGEMENT [0.25mV P-WAVE] LEFT ANTERIOR FASCICULAR BLOCK [QRS AXIS <= -45, QR IN I, RS IN II] ABNORMAL QRS-T ANGLE [QRS-T AXIS DIFFERENCE > 60] Compared to ECG 04/25/2023 18:39:09 Left anterior fascicular block now present Left-axis deviation no longer present Electronically Signed On 01-27-2024 18:35:06 CDT by Tomas Jack M.D. [id number] f
--- NOTE | 2024-01-27 17:24 | CTR_ITS ---
PROCEDURE INFORMATION: Exam: CT Head Without Contrast Exam date and time: 01/27/2024 5:28 PM Age: 74 years old Clinical indication: Stroke-like symptoms; Lt upper extremity and lt lower extremity weakness; Additional info: Symptoms of acute stroke TECHNIQUE: Imaging protocol: Computed tomography of the head without contrast. Radiation optimization: All CT scans at this facility use at least one of these dose optimization techniques: automated exposure control; mA and/or kV adjustment per patient size (includes targeted exams where dose is matched to clinical indication); or iterative reconstruction. Other technique: STROKE PROTOCOL was implemented. COMPARISON: CT head wo con* [id number] 04/25/2023 6:52 PM RADIATION DOSE METRICS: Total DLP (mGy-cm): 1198.78 FINDINGS: Brain: No hemorrhage. No edema. Broad region of encephalomalacia in the right MCA distribution corresponding to old infarct. Additional area of encephalomalacia in the left temporal lobe corresponding to old infarct. Moderate diffuse cerebral atrophy. No mass effect. Cerebral ventricles: No ventriculomegaly. Paranasal sinuses: Visualized sinuses are unremarkable. No fluid levels. Mastoid air cells: Left mastoid effusion. Bones/joints: Unremarkable. No acute fracture. Soft tissues: Unremarkable. CT/CT head thrombolytic [id number] IMPRESSION: No acute intracranial abnormality. ASSESSMENT: ASPECTS ([place] Stroke Program Early CT Score) is 10.
--- NOTE | 2024-01-27 17:25 | ED_ITS ---
HPI - Neuro Symptoms/Deficit 2 General: Chief Complaint: ER Hold Stated Complaint: weakness Time Seen by Provider: 01/27/24 17:18 Source: patient Mode of arrival: EMS History of Present Illness: 74-year-old male presents emergency room via EMS patient reports that he was walking to the bathroom around 4:20 he suddenly had left-sided weakness and collapsed. EMS was called for lift assist. On arrival when I initially evaluated him a stroke alert was called with findings of flaccid left arm, left facial droop sensation changes in the left compared to the right left leg weakness. His initial stroke score is 10. Associated symptoms: Deny chest pain Review of Systems 2 Const: Denies: fever(s) or chills Card: Denies: chest pain Resp: Denies: dyspnea GI: Denies: abdominal pain : Denies: dysuria, urinary frequency or urinary urgency Musc: Denies: neck pain or back pain Skin/Breast: Denies: rash PFSH ED 2 PFSH: Medical History (Updated 02/06/24 @ 06:23 by Raj Fish DO) Acute right arterial ischemic stroke, middle cerebral artery (MCA) CVA (cerebral vascular accident) Cerebrovascular accident Thyroid nodule [place] Hypertension Traumatic brain injury Smoker History of cardioversion COPD (chronic obstructive pulmonary disease) BPH (benign prostatic hyperplasia) Afib Surgical History S/P IVC filter History of knee replacement History of hip replacement History of laparoscopic appendectomy Hx of tonsillectomy Family History Other CAD (coronary artery disease) Cancer Diabetes Hypertension Lung disease Stroke Denies family history of Clotting disorder Dementia Hyperlipidemia Psychiatric illness Chronic kidney disease (CKD) Suicide Anesthesia complication Bleeding disorder Family history of premature coronary artery disease Social History Smoking and tobacco/nicotine status: current every day tobacco/nicotine user cigarettes Years cigarettes smoked: 56 Quit status (tobacco/nicotine): considering quitting Second hand smoke exposure: No Alcohol intake: never Substance/Drug Use: never Adopted: No Caregiver/support person: Yes Lives independently: Yes Housing: Apartment Marital status: Single Number of children: 0 Highest education level completed: Bachelor's Degree service: Yes Current occupational status: retired Pets and animals: No Sexually active: No Do you think of yourself as: Straight/Heterosexual Current gender identity: Male Special reece needs: No Agree to transfusion: Yes NIH stroke score 2 NIHSS: Level Of Consciousness - 1a: 0 Level Of Consciousness Questions - 1b: Both Correct Level Of Consciousness Commands - 1c: Both Correct Best Gaze - 2: Normal Visual Wallace - 3: No Visual Loss Facial Palsy - 4: Minor Paralysis Motor Arm Right - 5: No Drift Motor Arm Left - 5: No Effort Against Temple Motor Leg Right - 6: No Drift Motor Leg Left - 6: Effort Against [place] Limb Ataxia - 7: Present In Two Limbs Sensory - 8: Mild To Moderate Loss Best Language - 9: No Aphasia Dysarthia - 10: Mild/Moderate Dysarthia Extinction And Inattention - 11: 0 Score: Total Score: 10 Physical Exam 2 Const: GENERAL APPEARANCE: cooperative and comfortable O RIENTATION/CONSCIOUSNESS: Yes awake, Yes oriented to person, Yes oriented to place and Yes oriented to time HENMT: COMMON NORMALS: normocephalic, atraumatic and hearing grossly normal bilaterally HEAD & SCALP: normocephalic and atraumatic Resp: COMMON NORMALS: normal respiratory effort, No retractions, No use of accessory muscles and clear to auscultation bilaterally AUSCULTATION: clear to auscultation bilaterally Cardio: COMMON NORMALS: regular rate, regular rhythm and No murmurs present (Cardio) RATE: regular rate RHYTHM: regular rhythm GI: COMMON NORMALS: Soft to palpation and No hepatosplenomegaly present A USCULTATION: Yes normoactive bowel sounds PALPATION: Yes Soft to palpation, No Tenderness to palpation present (GI), No Guarding due to palpation present (GI) and Yes No hepatosplenomegaly present Extremity: COMMON NORMALS: normal to inspection, capillary refill normal, no clubbing, cyanosis or edema, no calf tenderness and no pedal edema Neuro: SENSORIUM/ORIENTATION: Yes oriented to person, Yes oriented to place and Yes oriented to time OTHER: See NIH scoring patient has left-sided deficits Skin: COMMON NORMALS: no rashes or lesions noted GENERAL SKIN EXAM: no rashes or lesions noted Course 2 Vital Signs: Vital signs: Vital Signs Temperature 97.9 F 01/28/24 07:41 Pulse Rate 65 01/28/24 09:25 Respiratory Rate 16 01/28/24 09:25 Blood Pressure 135/76 01/28/24 04:08 Pulse Oximetry 95 01/28/24 09:25 Oxygen Delivery Me thod Room Air 01/28/24 02:07 MDM - Neuro Symptoms/Deficit Medical Decision Making Reviewed case with Dr. Braden. At this point given his exam we will have to offer thrombolytics he is within the timeframe and certainly has a score. Discussed options with the patient including the risk of bleed he wishes to go forward with thrombolytics. He was given TNKase. He had some improvement after thrombolysis. Will admit for further evaluation. Patient has had significant previous stroke which was present on CT head. CTA head and neck shows no significant occlusions, patient is not a candidate for embolectomy Medical Records I reviewed the patient's medical records. Lab Data I reviewed the patient's lab results. 01/27/24 17:42 01/27/24 17:42 Radiology Impressions Chest X-Ray 01/27/24 17:18 IMPRESSION: No acute findings. Head CT 01/27/24 17:24 IMPRESSION: No acute intracranial abnormality. ASSESSMENT: ASPECTS ([place] Stroke Program Early CT Score) is 10. Head/Neck CTA 01/27/24 17:47 IMPRESSION: No large vessel stenosis or occlusion. IMPRESSION: No stenosis or occlusion. REFERENCES: NASCET CRITERIA. The degree of stenosis in the cervical segment of the internal carotid artery is based on NASCET criteria. Normal is no stenosis. Mild is less than 50% stenosis. Moderate is 50-69% stenosis. Severe is 70% to 99% stenosis. Total occlusion is no detectable patent lumen. Laboratory Results WBC 6.41 10^3/uL (3.29-11.43) 01/27/24 17:42 RBC 5.47 10^6/uL (3.85-5.65) 01/27/24 17:42 Hgb 16.90 g/dL (11.27-16.99) 01/27/24 17:42 Hct 51.6 % (37-53) 01/27/24 17:42 MCV 94.3 fl (82-101) 01/27/24 17:42 MCH 30.9 pg (27-33) 01/27/24 17:42 MCHC 32.8 g/dL (30-55) 01/27/24 17:42 RDW 13.2 % (12.1-15.1) 01/27/24 17:42 Plt Count 235 10^3/cmm (157-399) 01/27/24 17:42 MPV 10.1 fL (7.4-10.4) 01/27/24 17:42 Neut % (Auto) 65.0 % 01/27/24 17:42 Lymph % (Auto) 22.8 % 01/27/24 17:42 [place] % (Auto) 9.5 % 01/27/24 17:42 Eos % (Auto) 1.9 % 01/27/24 17:42 Baso % (Auto) 0.5 % 01/27/24 17:42 Neut # (Auto) 4.17 10^3/uL (1.8-7.7) 01/27/24 17:42 Lymph # (Auto) 1.5 10^3/uL (0.8-4.8) 01/27/24 17:42 [place] # (Auto) 0.6 10^3/uL (0.2-0.9) 01/27/24 17:42 Eos # (Auto) 0.1 10^3/uL (0.0-0.8) 01/27/24 17:42 Baso # (Auto) 0.0 10^3/uL (0.0-0.1) 01/27/24 17:42 Nucleated RBC % (auto) 0 % 01/27/24 17:42 Nucleated RBCs # 0.0 /100WBC 01/27/24 17:42 PT 13.20 SECONDS (12.1-14.9) 01/27/24 17:42 INR 0.97 (0.8-1.2) 01/27/24 17:42 APTT 29.5 SECONDS (23.9-36.7) 01/27/24 17:42 Sodium 140 mmol/L (136-145) 01/27/24 17:42 Potassium 4.8 mmol/L (3.5-5.1) 01/27/24 17:42 Chloride 102 mmol/L (98-107) 01/27/24 17:42 Carbon Dioxide 31 mmol/L (22-29) H 01/27/24 17:42 Anion Gap 11.8 (5-19) 01/27/24 17:42 BUN 13 mg/dL (8-23) 01/27/24 17:42 Creatinine 0.9 mg/dL (0.7-1.2) 01/27/24 17:42 GFR Calculation Not Reportable 01/27/24 17:42 Glucose 96 mg/dL (65-115) 01/27/24 17:42 POC Glucose 92 mg/dL (70-110) 01/27/24 17:43 Estimat Average Glucose 105 01/27/24 17:42 Hemoglobin A1c 5.3 % (4.0-6.0) 01/27/24 17:42 Calculated Osmolality 290 mOsm/kg (285-295) 01/27/24 17:42 Lactic Acid 1.0 mmol/L (0.5-2.2) 01/27/24 17:42 Calcium 8.5 mg/dL (8.5-10.5) 01/27/24 17:42 Total Bilirubin 0.6 mg/dL (0.15-1.2) 01/27/24 17:42 AST 33 U/L (0-40) 01/27/24 17:42 ALT 37 U/L (0-41) 01/27/24 17:42 Alkaline Phosphatase 141 U/L (40-130) H 01/27/24 17:42 Troponin T Baseline 12 ng/L (0-15) 01/27/24 17:42 Total Protein 6.2 g/dL (6.6-8.7) L 01/27/24 17:42 Albumin 3.6 g/dL (3.5-5.2) 01/27/24 17:42 Globulin 2.6 g/dL (1.3-4.6) 01/27/24 17:42 Vitamin B12 512 pg/mL (232-1245) 01/27/24 17:42 Homocysteine 13.46 01/27/24 17:42 TSH 0.50 uIU/mL (0.27-4.20) 01/27/24 17:42 All radiology interpretation(s) finalized by discharge Discharge Plan Discharge Patient Disposition: Admitted As Inpatient Admit Provider: Evelyn Dugan Clinical Impression: CVA (cerebral vascular accident), Smoker Condition: Stable Discharge Diet: Cardiac Discharge Activity: Use walker/crutches as instructed Coding Level of Care Code ED Social Media Coordinator for Daina Hoskins
[2024-01-27 17:46] LABS: Glucose Point of Care 92 mg/dL (70-110)
[2024-01-27] MEDS: tenecteplase 50mg Kit (STROKE) 23 MG IVP (17:46)
--- NOTE | 2024-01-27 17:47 | CTR_ITS ---
PROCEDURE INFORMATION: Exam: CTA Head With Contrast, Arteriography Exam date and time: 01/27/2024 5:58 PM Age: 74 years old Clinical indication: Weakness; Prior surgery; Surgery date: 6+ months; Surgery type: Brain bleed per patient; Additional info: Acute CVA TECHNIQUE: Imaging protocol: Computed tomographic angiography of the head with contrast. Exam focused on the arteries. 3D rendering (Not supervised by radiologist): MIP and/or 3D reconstructed images were created by the technologist. Radiation optimization: All CT scans at this facility use at least one of these dose optimization techniques: automated exposure control; mA and/or kV adjustment per patient size (includes targeted exams where dose is matched to clinical indication); or iterative reconstruction. Contrast material: OMNI 350; Contrast volume: 100 ml; Contrast route: INTRAVENOUS (IV); COMPARISON: CT angio headneck* [id number] 06/24/2022 4:45 PM RADIATION DOSE METRICS: Total DLP (mGy-cm): 488.5 FINDINGS: ANTERIOR CIRCULATION: Right internal carotid artery: Intracranial segment is patent with no significant stenosis. No aneurysm. Right middle cerebral artery: No occlusion or significant stenosis. No aneurysm. Right anterior cerebral artery: No occlusion or significant stenosis. No aneurysm. Left internal carotid artery: Intracranial segment is patent with no significant stenosis. No aneurysm. Left middle cerebral artery: No occlusion or significant stenosis. No aneurysm. Left anterior cerebral artery: No occlusion or significant stenosis. No aneurysm. POSTERIOR CIRCULATION: Right vertebral artery: No occlusion or significant stenosis. No aneurysm. Left vertebral artery: No occlusion or significant stenosis. No aneurysm. Basilar artery: No occlusion or significant stenosis. No aneurysm. Right posterior cerebral artery: No occlusion or significant stenosis. No aneurysm. Left posterior cerebral artery: No occlusion or significant stenosis. No aneurysm. Brain: No definite mass, mass effect, or midline shift. Cerebral ventricles: No ventriculomegaly. Bones/joints: Unremarkable. No acute fracture. Soft tissues: Unremarkable. PROCEDURE INFORMATION: Exam: CTA Neck With Contrast Exam date and time: 01/27/2024 5:58 PM Age: 74 years old Clinical indication: Weakness; Prior surgery; Surgery date: 6+ months; Surgery type: Brain bleed per patient; Additional info: Acute CVA TECHNIQUE: Imaging protocol: Computed tomographic angiography of the neck with contrast. Exam focused on the cervical segments of the vasculature. 3D rendering (Not supervised by radiologist): MIP and/or 3D reconstructed images were created by the technologist. Radiation optimization: All CT scans at this facility use at least one of these dose optimization techniques: automated exposure control; mA and/or kV adjustment per patient size (includes targeted exams where dose is matched to clinical indication); or iterative reconstruction. Contrast material: OMNI 350; Contrast volume: 100 ml; Contrast route: INTRAVENOUS (IV); COMPARISON: CT angio headneck* [id number] 06/24/2022 4:45 PM RADIATION DOSE METRICS: Total DLP (mGy-cm): 488.5 FINDINGS: Right common carotid artery: No stenosis. No dissection or occlusion. Right internal carotid artery: No stenosis of the extracranial segment. No dissection or occlusion. Right external carotid artery: No occlusion or stenosis of the origin. Left common carotid artery: No stenosis. No dissection or occlusion. Left internal carotid artery: No stenosis of the extracranial segment. No dissection or occlusion. Left external carotid artery: No occlusion or stenosis of the origin. Right vertebral artery: No stenosis. No dissection or occlusion. Left vertebral artery: No stenosis. No dissection or occlusion. Soft tissues: Normal. No significant soft tissue swelling. Bones/joints: No acute fracture. CT/CT angio headne* [id number] IMPRESSION: No large vessel stenosis or occlusion. IMPRESSION: No stenosis or occlusion. REFERENCES: NASCET CRITERIA. The degree of stenosis in the cervical segment of the internal carotid artery is based on NASCET criteria. Normal is no stenosis. Mild is less than 50% stenosis. Moderate is 50-69% stenosis. Severe is 70% to 99% stenosis. Total occlusion is no detectable patent lumen.
[2024-01-27] MEDS: iohexol 350 mg/mL 500 mL Btl (per mL) IV (18:09)
[2024-01-27 18:14] LABS: Basophils % 0.5 %; Eosinophils # 0.1 10^3/uL (0.0-0.8); Eosinophils % 1.9 %; Hematocrit 51.6 % (37-53); Lymphocytes # 1.5 10^3/uL (0.8-4.8); Lymphocytes % 22.8 %; Mean Corpuscular HGB Conc 32.8 g/dL (30-55); Mean Corpuscular Hemoglobin 30.9 pg (27-33); Mean Corpuscular Volume 94.3 fl (82-101); Mean Platelet Volume 10.1 fL (7.4-10.4); Monocytes # 0.6 10^3/uL (0.2-0.9); Monocytes % 9.5 %; Neutrophils # 4.17 10^3/uL (1.8-7.7); Nucleated Red Blood Cells % 0 %; Platelet Count 235 10^3/cmm (157-399); Red Blood Count 5.47 10^6/uL (3.85-5.65); Red Cell Distribution Width 13.2 % (12.1-15.1); White Blood Count 6.41 10^3/uL (3.29-11.43)
[2024-01-27 18:39] LABS: Troponin(5th) Baseline 12 ng/L (0-15)
--- NOTE | 2024-01-27 18:49 | PM.HP ---
Providers/Chief Complaint Admitting Physician: Evelyn Dugan MD Primary Care Provider: Yordan Murphy Chief Complaint: weakness History of Present Illness Cornelio Puckett is a 74 year old male previous history of stroke, couple of years ago received tPA as well for MCA stroke, presented today with chief complaint of sudden onset of left-sided weakness around 4:20 AM when he was trying go to the bathroom. He called 911, stroke alert was called he received TNKase for NIH score of 10, his left-sided weakness has not improved significantly after TNKase, he will go to ICU. Hemodynamically stable, CBC BMP unremarkable. Patient has known history of A-fib he is not on any anticoagulating agent. Patient lives in [facility] [place] [facility] senior [place]. He lives alone. He has not noticed any fever nausea vomiting chest pain or shortness of breath. Patient is stating that onset of symptoms was sudden in nature Review of Systems Const: Denies: fever(s) Eyes: Denies: change in vision ENMT: Denies: throat pain Card: Denies: chest pain Resp: Denies: dyspnea GI: Denies: abdominal pain : Denies: flank pain Musc: Denies: neck pain Skin/Breast: Denies: rash Psych: Reports: anxiety Medications/Allergies Home Medications Medication Instructions Recorded Confirmed Last Taken Type hydrocodone 7.5 mg-acetaminophen 1 tab PO Q8H PRN Pain 04/20/20 05/21/23 06/23/22 History 325 mg tablet tamsulosin 0.4 mg capsule (Flomax) 0.4 mg PO DAILY@18 04/20/20 05/21/23 06/23/22 History naloxone 4 mg/actuation nasal See Rx Instructions .Route .COMPLEX 11/30/20 05/21/23 Unknown History spray (Narcan) aspirin 81 mg tablet,delayed 81 mg PO DAILY #60 tabs 06/26/22 05/21/23 Unknown Rx release atorvastatin 40 mg tablet 80 mg (2 x 40 mg) PO BEDTIME #60 06/26/22 05/21/23 Unknown Rx tabs ketorolac 10 mg tablet 10 mg PO TID PRN pain #10 tabs 04/20/23 05/21/23 Unknown Rx Allergies Allergy/AdvReac Type Severity Reaction Status Date / Time No Known Allergies Allergy Verified 01/27/24 17:20 PFSH Acute PFSH: Medical History (Updated 01/27/24 @ 19:20 by Lelo Jameson MD) CVA (cerebral vascular accident) Acute right arterial ischemic stroke, middle cerebral artery (MCA) Cerebrovascular accident Thyroid nodule [place] Hypertension Traumatic brain injury Smoker History of cardioversion COPD (chronic obstructive pulmonary disease) BPH (benign prostatic hyperplasia) Afib Surgical History S/P IVC filter History of knee replacement History of hip replacement History of laparoscopic appendectomy Hx of tonsillectomy Family History Other CAD (coronary artery disease) Cancer Diabetes Hypertension Lung disease Stroke Denies family history of Clotting disorder Dementia Hyperlipidemia Psychiatric illness Chronic kidney disease (CKD) Suicide Anesthesia complication Bleeding disorder Family history of premature coronary artery disease Social History Smoking and tobacco/nicotine status: current every day tobacco/nicotine user cigarettes Years cigarettes smoked: 56 Quit status (tobacco/nicotine): considering quitting Second hand smoke exposure: No Alcohol intake: never Substance/Drug Use: never Adopted: No Caregiver/support person: Yes Lives independently: Yes Housing: Apartment Marital status: Single Number of children: 0 Highest education level completed: Bachelor's Degree service: Yes Current occupational status: retired Pets and animals: No Sexually active: No Do you think of yourself as: Straight/Heterosexual Current gender identity: Male Special reece needs: No Agree to transfusion: Yes Vitals/I&O/Wt Last Vital Signs Temp 98.1 F 01/27/24 17:14 Pulse 83 01/27/24 18:30 Resp 25 H 01/27/24 18:30 BP 149/82 01/27/24 18:30 Pulse Ox 98 01/27/24 18:30 O2 Del Method Room Air 01/27/24 18:10 Weight last 48 hrs Weight 90.718 kg Physical Exam Narrative: Left-sided weakness NIH score 10 Awake and alert Pleasant Hemodynamic stable S1, S2 Sinus rhythm Currently on room air Left leg not able to lift against gravity 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 as compared to right Data 01/27/24 17:42 01/27/24 17:42 A&P Assessment and plan (1) CVA (cerebral vascular accident): Plan Acute left-sided weakness Related to CVA Status post TNKase Admit to ICU Frequent neurochecks Avoid labs for next 24 hours Will start aspirin 24 hours after TNKase Patient most likely will need short-term rehab He is from [facility] He was alone He is full code Patient is denying history of diabetes Previous workup for stroke few years ago was unremarkable No history of A-fib as per the patient Currently he is in sinus rhythm Previous bubble study was unremarkable as well Will check TSH B12 and A1c level Patient is still a smoker, smokes 5 to 7 cigarettes a day I do not see any signs of dysphagia Request PT OT and ST I will allow him to eat Attestations Medical Necessity Statement*: Anticipating more than 2 midnights for management of stroke Diagnoses CVA (cerebral vascular accident) I63.9
[2024-01-27 18:51] LABS: INR 0.97 (0.8-1.2)
[2024-01-27 18:52] LABS: Partial Thromboplastin Time 29.5 SECONDS (23.9-36.7)
[2024-01-27 18:53] LABS: Alanine Aminotransferase 37 U/L (0-41); Albumin Level 3.6 g/dL (3.5-5.2); Alkaline Phosphatase 141 U/L (40-130); Anion Gap 11.8 (5-19); Aspartate Amino Transferase 33 U/L (0-40); Blood Urea Nitrogen 13 mg/dL (8-23); Calcium 8.5 mg/dL (8.5-10.5); Carbon Dioxide 31 mmol/L (22-29); Chloride 102 mmol/L (98-107); Creatinine Clr Calc Pharmacy 89.8347; Globulin 2.6 g/dL (1.3-4.6); Glucose 96 mg/dL (65-115); Osmolality Calculated 290 mOsm/kg (285-295); Potassium 4.8 mmol/L (3.5-5.1); Sodium 140 mmol/L (136-145); Total Bilirubin 0.6 mg/dL (0.15-1.2); Total Protein 6.2 g/dL (6.6-8.7)
[2024-01-27 19:12] LABS: Bilirubin Urine 1+ (Negative); Blood Urine Neg (Negative); Glucose Urine UA Norm (Normal); Ketones Urine Negative (Negative); Nitrate Urine Negative (Negative); Protein Urine Trace (Negative); Urine Appearance Clear (CLEAR); Urine Color Yellow (Yellow); pH Urine 7 (5-7)
[2024-01-27 19:13] LABS: Add Urine Microscopic? YES; Leukocyte Esterase Urine Negative (Negative); Urobilinogen Urine 4 mg/dL (Negative)
[2024-01-27 19:22] LABS: Amphetamines Screen Urine Negative (Negative); Barbiturates Screen Urine Negative (Negative); Benzodiazepines Screen Urine Negative (Negative); Cocaine Screen Urine Negative (Negative); Opiate Screen Urine Negative (Negative); PCP Screen Urine Negative (Negative); THC Screen Urine Negative (Negative)
[2024-01-27 19:32] LABS: Add Urine Culture? No; Hyaline Casts Urine 0-4 /lpf; RBC Urine RARE /hpf (0-2); Squamous Epithelial Cell Urine 0-4 /hpf (0-5); WBC Urine RARE /hpf (0-5)
[2024-01-27 20:20] LABS: Troponin 5 2HR 15.09 ng/L (0-15); Troponin 5 2HR Delta 3.09 ABS# (0-10)
--- NOTE | 2024-01-27 20:31 | USCV_ITS ---
ItaloCornelio Age: 74 Gender: M : 1950 Exam Date: 01/27/2024 21:58 Ordering Phys: Lelo Jameson MD Technologist: ALEJANDRO Exam Location: [facility] Indication: LEFT hemiparesis, LEFT facial droop CVA. No history of cardiac intervention per patient. A bubble study is ordered. BP: 110 / 70 HR: 77 Rhythm: Sinus Technical Quality: Adequate MEASUREMENTS (Male / Female) Normal Values 2D ECHO LV Diastolic Diameter PLAX 3.8 cm 4.2 - 5.9 / 3.9 - 5.3 cm IVS Diastolic Thickness 1.0 cm 0.6 - 1.0 / 0.6 - 0.9 cm IVS Systolic Thickness 1.3 cm LVPW Diastolic Thickness 1.3 cm 0.6 - 1.0 / 0.6 - 0.9 cm LVPW Systolic Thickness 1.4 cm LVOT Diameter 2.2 cm LV Ejection Fraction 2D Teich 63.3 % LV Ejection Fraction MOD 2C 51.5 % LV Ejection Fraction 2C AL 53.7 % LA Diameter 1.8 cm Aorta at Sinotubular Diameter 3.8 cm IVC Diameter 0.7 cm M-MODE LA Ao Ratio MM 0.3 AV Cusp Separation MM 1.4 cm DOPPLER AV Peak Velocity 84.0 cm/s AV Area Cont Eq vti 3.5 cm squared AV Area Cont Eq pk 3.3 cm squared MV Peak Velocity 72.0 cm/s MV Area PHT 2.7 cm squared Mitral E to A Ratio 1.1 TR Peak Velocity 171.0 cm/s TR Peak Gradient 11.7 mmHg TV Peak E Velocity 35.0 cm/s Right Atrial Pressure 3.0 mmHg Pulmonary Artery Systolic Pressu 14.7 mmHg PV Peak Velocity 97.0 cm/s FINDINGS Left Ventricle Normal left ventricular size, systolic function and wall thickness, with no regional wall motion abnormalities. Grade I/IV diastolic dysfunction (abnormal relaxation filling pattern), normal to mildly elevated filling pressures. Left ventricular ejection fraction is estimated at 65 %. Right Ventricle Normal right ventricular size and systolic function. Normal right ventricular systolic pressure. Right Atrium The right atrium is normal in size. Left Atrium The left atrium is normal in size. Mitral Valve Structurally normal mitral valve without significant stenosis or prolapse. There is no mitral regurgitation. Aortic Valve Structurally normal aortic valve without significant sclerosis or stenosis. There is no aortic regurgitation. Tricuspid Valve Structurally normal tricuspid valve without significant stenosis or regurgitation. Pulmonary artery systolic pressure is normal. Pulmonic Valve Pulmonic valve not well visualized. Pericardium Tiny hemodynamically insignificant pericardial effusion. Aorta Mildly dilated aortic root 4.2 cm IVC The inferior vena cava appears normal. CONCLUSIONS Normal left ventricular size, systolic function and wall thickness, with no regional wall motion abnormalities. Grade I/IV diastolic dysfunction (abnormal relaxation filling pattern), normal to mildly elevated filling pressures. Left ventricular ejection fraction is estimated at 65 %. Tiny hemodynamically insignificant pericardial effusion. Mildly dilated aortic root 4.2 cm. A bubble study is negative. Previous studies done in 2019 and 2021. There has been no change. Dr. Jose Pereira MD (Electronically Signed) Final Date: 28 January 2024 08:07 S
[2024-01-27 21:05] LABS: Estmated Average Glucose 105; Hemoglobin A1C 5.3 % (4.0-6.0)
--- NOTE | 2024-01-27 21:29 | PC.NURSE ---
Patient found up walking around room and agitated. Call light was beside patient and said he couldn't find it. Patient upset with having to stay and not having a room yet. Patient threatening to AMA. Patient able to be calmed. clinical safety specialist is informed of patient distress level. Patient again was able to be calmed and stated he would try to sleep.
--- NOTE | 2024-01-27 21:35 | ECG_ITS ---
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 Measurements Intervals [place] Rate: 85 P: 85 DE: 156 QRS: -83 QRSD: 90 T: 85 QT: 353 QTc: 420 Interpretive Statements SINUS RHYTHM WITH OCCASIONAL SUPRAVENTRICULAR PREMATURE COMPLEXES POSSIBLE RIGHT ATRIAL ENLARGEMENT [0.25mV P-WAVE] LEFT AXIS DEVIATION [QRS AXIS < -30] ST DEVIATION AND MODERATE T-WAVE ABNORMALITY, CONSIDER ANTERIOR ISCHEMIA [-0.1+ mV T-WAVE IN V3/V4] Compared to ECG 01/27/2024 17:19:58 Left-axis deviation now present T-wave abnormality now present Possible ischemia now present Left anterior fascicular block no longer present Electronically Signed On 01-28-2024 15:11:46 CDT by Jose Pereira M.D. [id number]
--- NOTE | 2024-01-27 23:30 | ECG_ITS ---
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 Measurements Intervals [place] Rate: 83 P: 89 GA: 161 QRS: -76 QRSD: 84 T: 85 QT: 338 QTc: 397 Interpretive Statements SINUS RHYTHM WITH MARKED SINUS ARRHYTHMIA LEFT AXIS DEVIATION [QRS AXIS < -30] POSSIBLE RIGHT VENTRICULAR CONDUCTION DELAY [RSR (QR) IN V1/V2] Compared to ECG 01/27/2024 21:35:07 T-wave abnormality no longer present Possible ischemia no longer present Electronically Signed On 01-28-2024 15:12:10 CDT by Jose Pereira M.D. [id number]
[2024-01-28] VITALS (8 sets, daily range): BP systolic 120–142; BP diastolic 76–84; PULSE 51–72; RESP 16; TEMP 36.6; O2SAT 92–96; BMI 21.9
[2024-01-28 00:07] LABS: Homocysteine 13.46; Vitamin B12 512 pg/mL (232-1245)
[2024-01-28 00:32] LABS: Troponin 5 6HR 12.12 ng/L (0-15); Troponin 5 6HR Delta 0.12 ng/L (0-12)
--- NOTE | 2024-01-28 06:41 | PM.PN ---
Vitals/I&O/Wt Last Vital Signs Temp 98.6 F 01/27/24 23:08 Pulse 61 01/28/24 06:23 Resp 16 01/28/24 04:08 BP 135/76 01/28/24 04:08 Pulse Ox 92 01/28/24 04:08 O2 Del Method Room Air 01/28/24 02:07 01/27/24 01/27/24 01/28/24 14:59 22:59 06:59 Output Total 250 / 250 Balance -250 / -250 Weight last 48 hrs Weight 77.5 kg Weight 76 kg Weight 90.718 kg Data 01/27/24 17:42 01/27/24 17:42 Coding Level of Care Code Acute Code for Chg Fwd
[2024-01-28] MEDS: sennosides-docusate Tablet 1 TAB PO (08:43)
[2024-01-28] MEDS: lisinopril 10 mg Tablet PO (08:44)
[2024-01-28] MEDS: atorvastatin 40 mg Tablet 80 MG PO (08:44)
--- NOTE | 2024-01-28 12:30 | P.DS_ITS ---
Discharge Providers Date of Admission: 01/27/24 17:57 Date of Discharge: January 28, 2024 Attending Provider at Admission: Evelyn Dugan MD Attending Provider at Discharge: Evelyn Dugan MD Primary Care Provider: Yordan Murphy Diagnoses at Discharge Discharge Diagnosis (1) CVA (cerebral vascular accident): Status: Acute Reason for Visit Reason for Visit: weakness Brief History: Left AGAINST MEDICAL ADVICE Hospital Course Hospital Course Patient presented with a left-sided stroke and stroke score was 10 on admission. He received TNKase and was currently in the ICU for monitoring post tPA care. Patient was supposed to undergo a head CT around 5 PM which was the 24-hour santa and therefore get started on aspirin Plavix. Patient was adamant that he wanted to smoke and would like to leave AMA this morning. ornamental ironworker, RN patient's son myself, medical student all tried to reason with the patient however he said that if he dies he dies and he is leaving the hospital at any cost today. Extensive discussion took place were explained to the patient that this was his second time getting TNKase and he is at risk of a bleed and therefore needs to be monitored in the hospital. Patient understood the risks versus benefits of his decision making today decided to leave AGAINST MEDICAL ADVICE. I will give patient an outpatient head CT due to as a follow-up and he is to follow-up with his primary care doctor for further management and care at this point. Physical Exam Narrative: Neuro: Able to move all 4 extremities spontaneously. Stated he walked with a walker earlier. Strength equal upper and lower extremities and symmetrical. Face symmetrical, no dysarthria no difficulty swallowing No word finding difficulty as such ? Appears back to baseline. Lungs clear to auscultation Abdomen soft nontender Discharge Data Studies Completed and Pending Completed Studies During Hospitalization Category Date Time Status CT head thrombolytic [id number] Stat Cat Scan 01/27/24 17:24 Completed CTA head neck [CT angio headneck* [id number]] Stat Cat Scan 01/27/24 17:47 Completed XR chest 1V portable [id number] Stat Exams 01/27/24 17:18 Completed CV. echo w/w bubble cont [id number] Routine Ultrasound 01/27/24 20:31 Completed Radiology Impressions Chest X-Ray 01/27/24 17:18 IMPRESSION: No acute findings. Head CT 01/27/24 17:24 IMPRESSION: No acute intracranial abnormality. ASSESSMENT: ASPECTS ([place] Stroke Program Early CT Score) is 10. Head/Neck CTA 01/27/24 17:47 IMPRESSION: No large vessel stenosis or occlusion. IMPRESSION: No stenosis or occlusion. REFERENCES: NASCET CRITERIA. The degree of stenosis in the cervical segment of the internal carotid artery is based on NASCET criteria. Normal is no stenosis. Mild is less than 50% stenosis. Moderate is 50-69% stenosis. Severe is 70% to 99% stenosis. Total occlusion is no detectable patent lumen. Laboratory Results WBC 6.41 10^3/uL (3.29-11.43) 01/27/24 17:42 RBC 5.47 10^6/uL (3.85-5.65) 01/27/24 17:42 Hgb 16.90 g/dL (11.27-16.99) 01/27/24 17:42 Hct 51.6 % (37-53) 01/27/24 17:42 MCV 94.3 fl (82-101) 01/27/24 17:42 MCH 30.9 pg (27-33) 01/27/24 17:42 MCHC 32.8 g/dL (30-55) 01/27/24 17:42 RDW 13.2 % (12.1-15.1) 01/27/24 17:42 Plt Count 235 10^3/cmm (157-399) 01/27/24 17:42 MPV 10.1 fL (7.4-10.4) 01/27/24 17:42 Neut % (Auto) 65.0 % 01/27/24 17:42 Lymph % (Auto) 22.8 % 01/27/24 17:42 [place] % (Auto) 9.5 % 01/27/24 17:42 Eos % (Auto) 1.9 % 01/27/24 17:42 Baso % (Auto) 0.5 % 01/27/24 17:42 Neut # (Auto) 4.17 10^3/uL (1.8-7.7) 01/27/24 17:42 Lymph # (Auto) 1.5 10^3/uL (0.8-4.8) 01/27/24 17:42 [place] # (Auto) 0.6 10^3/uL (0.2-0.9) 01/27/24 17:42 Eos # (Auto) 0.1 10^3/uL (0.0-0.8) 01/27/24 17:42 Baso # (Auto) 0.0 10^3/uL (0.0-0.1) 01/27/24 17:42 Nucleated RBC % (auto) 0 % 01/27/24 17:42 Nucleated RBCs # 0.0 /100WBC 01/27/24 17:42 PT 13.20 SECONDS (12.1-14.9) 01/27/24 17:42 INR 0.97 (0.8-1.2) 01/27/24 17:42 APTT 29.5 SECONDS (23.9-36.7) 01/27/24 17:42 Sodium 140 mmol/L (136-145) 01/27/24 17:42 Potassium 4.8 mmol/L (3.5-5.1) 01/27/24 17:42 Chloride 102 mmol/L (98-107) 01/27/24 17:42 Carbon Dioxide 31 mmol/L (22-29) H 01/27/24 17:42 Anion Gap 11.8 (5-19) 01/27/24 17:42 BUN 13 mg/dL (8-23) 01/27/24 17:42 Creatinine 0.9 mg/dL (0.7-1.2) 01/27/24 17:42 GFR Calculation Not Reportable 01/27/24 17:42 Glucose 96 mg/dL (65-115) 01/27/24 17:42 POC Glucose 92 mg/dL (70-110) 01/27/24 17:43 Estimat Average Glucose 105 01/27/24 17:42 Hemoglobin A1c 5.3 % (4.0-6.0) 01/27/24 17:42 Calculated Osmolality 290 mOsm/kg (285-295) 01/27/24 17:42 Lactic Acid 1.0 mmol/L (0.5-2.2) 01/27/24 17:42 Calcium 8.5 mg/dL (8.5-10.5) 01/27/24 17:42 Total Bilirubin 0.6 mg/dL (0.15-1.2) 01/27/24 17:42 AST 33 U/L (0-40) 01/27/24 17:42 ALT 37 U/L (0-41) 01/27/24 17:42 Alkaline Phosphatase 141 U/L (40-130) H 01/27/24 17:42 Troponin T Baseline 12 ng/L (0-15) 01/27/24 17:42 Troponin T 120 Minute 15.09 ng/L (0-15) H 01/27/24 19:45 Delta Troponin T 3.09 ABS# (0-10) 01/27/24 19:45 Troponin T Hi Sens 6Hr 12.12 ng/L (0-15) 01/28/24 00:00 Troponin T Hi Sens 6Hr Delta 0.12 ng/L (0-12) 01/28/24 00:00 Total Protein 6.2 g/dL (6.6-8.7) L 01/27/24 17:42 Albumin 3.6 g/dL (3.5-5.2) 01/27/24 17:42 Globulin 2.6 g/dL (1.3-4.6) 01/27/24 17:42 Vitamin B12 512 pg/mL (232-1245) 01/27/24 17:42 Homocysteine 13.46 01/27/24 17:42 TSH 0.50 uIU/mL (0.27-4.20) 01/27/24 17:42 Urine Color Yellow (Yellow) 01/27/24 18:50 Urine Appearance Clear (CLEAR) 01/27/24 18:50 Urine pH 7 (5-7) 01/27/24 18:50 Ur Specific [place] 1.010 (1.005-1.030) 01/27/24 18:50 Urine Protein Trace (Negative) 01/27/24 18:50 Urine Glucose (UA) Norm (Normal) 01/27/24 18:50 Urine Ketones Negative (Negative) 01/27/24 18:50 Urine Blood Neg (Negative) 01/27/24 18:50 Urine Nitrate Negative (Negative) 01/27/24 18:50 Urine Bilirubin 1+ (Negative) H 01/27/24 18:50 Urine Urobilinogen 4 mg/dL (Negative) H 01/27/24 18:50 Ur Leukocyte Esterase Negative (Negative) 01/27/24 18:50 Urine RBC Rare /hpf (0-2) 01/27/24 18:50 Urine WBC Rare /hpf (0-5) 01/27/24 18:50 Ur Squamous Epith Cells 0-4 /hpf (0-5) H 01/27/24 18:50 Amorphous Sediment Not Reportable 01/27/24 18:50 Urine Bacteria None /hpf (NONE) 01/27/24 18:50 Hyaline Casts 0-4 /lpf H 01/27/24 18:50 Urine Mucus None /hpf 01/27/24 18:50 Urine Opiates Screen Negative ng/mL (Negative) 01/27/24 18:50 Ur Barbiturates Screen Negative ng/mL (Negative) 01/27/24 18:50 Ur Phencyclidine Scrn Negative ng/mL (Negative) 01/27/24 18:50 Ur Amphetamines Screen Negative ng/mL (Negative) 01/27/24 18:50 U Benzodiazepines Scrn Negative ng/mL (Negative) 01/27/24 18:50 Urine Cocaine Screen Negative ng/mL (Negative) 01/27/24 18:50 U Marijuana (THC) Screen Negative ng/mL (Negative) 01/27/24 18:50 Vitals Last Vital Signs Temp 97.9 F 01/28/24 07:41 Pulse 65 01/28/24 09:25 Resp 16 01/28/24 09:25 BP 135/76 01/28/24 04:08 Pulse Ox 95 01/28/24 09:25 O2 Del Method Room Air 01/28/24 02:07 Discharge Plan Discharge Patient Disposition: Left Against Medical Advice Condition: Stable Prescriptions: No Action hydrocodone-acetaminophen 7.5-325 mg tablet 1 tab PO Q8H PRN (Reason: Pain) Other Ambulatory Orders: CT head wo con* [id number] (Routine) Timeframe: 1 Day Facility: [facility] - Location: Radiology [facility] Ordered By: Evelyn Dugan Referrals: Yordan Murphy [Primary Care Provider] - 1-3 days Discharge Diet: Cardiac Discharge Activity: Use walker/crutches as instructed Patient Instructions: Opioid Safety Discharge Attestations Time Spent in Discharge Care*: greater than 30 min Quality Metrics Clinical Quality Measures [ Cerebrovascular Accident { Contraindication to Antithrombotic: Drug declined by patient; Contraindication to Anticoagulation: Drug declined by patient; Contraindication to Statin: None; Statin prescribed; Contraindication to antithrombotic day 2: None; Antithrombotic given day 2; Onset of Symptoms Date: 01/27/24; Symptom Onset Unknown: No; Reason stroke education not provided: Stroke education refused by patient; Reason rehab assessment not done: Patient refused}] Coding Level of Care Code 36010 Total time (in minutes) for Discharge: 30 Diagnoses CVA (cerebral vascular accident) I63.9
--- NOTE | 2024-01-29 08:16 | PM.SAN ---
Stroke Alert Activation ED Arrival Date: 01/27/24 ED Arrival Time: 17:14 Last Known Normal/at Baseline: 1-2 hours ago Other Last Known Well Infomation: I was called stat for stroke alert with a 74-year-old man who is well-known to me as I have known him for many years and last treated him with tPA 2 years ago. He was wide-awake and alert at 4 PM when he fell down and could not get back up. He was weak on the left side. He had his phone with him and called 911. EMS did not activate stroke alert and said that he was having facial weakness. On arrival he was evaluated by Dr. Fish and stroke alert was called. Dr. Fish and I talked before the patient had a CAT scan and at that time the patient had diffuse flaccidity on his left side, was not on the blood thinner and his blood pressure was under control. His bedside blood sugar was normal. We agreed that the patient was a strong candidate for thrombolysis. His CAT scan showed only his old brain injury and on return from CAT scan we agreed that the patient should be treated with TNK. I came to the bedside and evaluated the patient. He had some inconsistent findings but had barely less than antigravity strength on the left arm or leg and profound left facial weakness consistent with right hemisphere dysfunction. His stroke score was not high enough to warrant embolectomy. We agreed to admit him for further workup. Stroke Alert Activated by: Dr. Fish Stroke Alert Activation Time: 17:21 Stroke MD @ Bedside Time: 17:23 NIH Stroke Scale Time: 17:21 NIH stroke score NIHSS: Level Of Consciousness - 1a: 0 Level Of Consciousness Questions - 1b: Both Correct Level Of Consciousness Commands - 1c: Both Correct Best Gaze - 2: Normal Visual Wallace - 3: No Visual Loss Facial Palsy - 4: Partial Paralysis Motor Arm Right - 5: No Drift Motor Arm Left - 5: Effort Against Freeman Motor Leg Right - 6: No Drift Motor Leg Left - 6: Effort Against Freeman Limb Ataxia - 7: Absent Sensory - 8: Mild To Moderate Loss Best Language - 9: No Aphasia Dysarthia - 10: Mild/Moderate Dysarthia (Chronic) Extinction And Inattention - 11: 0 Score: Total Score: 8 Stroke Alert Data/Treatment Time to CT of Head: 17:23 CT Impression: Brain: No hemorrhage. No edema. Broad region of encephalomalacia in the right MCA distribution corresponding to old infarct. Additional area of encephalomalacia in the left temporal lobe corresponding to old infarct. Moderate diffuse cerebral atrophy. No mass effect. Cerebral ventricles: No ventriculomegaly. Paranasal sinuses: Visualized sinuses are unremarkable. No fluid levels. Mastoid air cells: Left mastoid effusion. Bones/joints: Unremarkable. No acute fracture. Soft tissues: Unremarkable. CT/CT head thrombolytic [id number] IMPRESSION: No acute intracranial abnormality. Signed By: Jeb Kitchen DO Signed Date/Time: 01/27/24 CT/CT angio headneck* IMPRESSION: No large vessel stenosis or occlusion. IMPRESSION: No stenosis or occlusion. Stroke Risk Factors: smoker Patient & Family Educated on: Treament Plan and tPA Risks/Benefits Other Patient & Family Education: I know that this patient received TNK before I arrived at the bedside but on review of the chart I cannot find a time. Standardized Stroke Orders Used: Yes Critical Care Time Critical Care Time: 30 - 74 mins A&P Assessment and plan (1) Acute right arterial ischemic stroke, middle cerebral artery (MCA): This is a 74-year-old man who presents for his second episode of acute left hemiplegia. He received tPA 2 years ago for an identical episode and I was present as was Dr. Fish for that event. He has a risk factor of being a heavy smoker and is unmotivated to quit. I talked with him about that today. He received TNK within 2 hours of onset of his symptoms and I expect that he will resolve. There was some variability on his exam during my visit with him and I am not sure that there is not an emotional component or psychogenic component to his symptoms. I delved for stress related symptoms recently and he is doing well from that standpoint and does not seem emotionally labile. There is no sign of cortical involvement in this which seems to be a subcortical lesion. Occult seizure in the location of his previous brain injury would be a concern but he is sure that he did not lose consciousness when he fell he is sure he did not have a seizure. He did not follow-up with neurology the last time this happened and I am advising him to follow-up with me after discharge. I expect he will be able to go home if his symptoms resolve. I will not see him as an inpatient unless needed. He should have an echocardiogram. His CT angiogram does not show any vascular involvement. I would like for him to be scheduled for an EEG as an outpatient. Coding Level of Care Code Acute Code for Chg Fwd Diagnoses Acute right arterial ischemic stroke, middle cerebral artery (MCA) I63.511
== END 2024-01-28 09:25 | disposition left against medical advice (07) | DRG 62 ==
LOC: ER 17:28 → ER IP 17:59 → ICU 22:03
PROVIDERS: Internal Medicine; Admitting Provider Internal Medicine; Emergency Provider Family Medicine; PCP Family Medicine; Visit Provider Internal Medicine
DX: I63.511 Cerebral infarction due to unspecified occlusion or stenosis of right middle cerebral artery (principal); G81.94 Hemiplegia, unspecified affecting left nondominant side; R29.810 Facial weakness; I48.91 Unspecified atrial fibrillation; E04.9 Nontoxic goiter, unspecified; J44.9 Chronic obstructive pulmonary disease, unspecified; N40.0 Benign prostatic hyperplasia without lower urinary tract symptoms; F17.210 Nicotine dependence, cigarettes, uncomplicated; W18.30XA Fall on same level, unspecified, initial encounter; Z79.82 Long term (current) use of aspirin; Z86.73 Personal history of transient ischemic attack (TIA), and cerebral infarction without residual deficits; Z95.828 Presence of other vascular implants and grafts
CPT/HCPCS: 36416; 70450; 70496; 70498; 71045; 80053; 80306; 81001; 82607; 82962; 83036; 83090; 83605; 84443; 84484; 85025; 85610; 85730; 93005; 96374; 99291; C8929; J3101; Q9967

== ENCOUNTER 2024-03-13 19:39 | Emergency (ER) | payer MEDICARE, MEDICAID, SELFPAY ==
--- NOTE | 2024-03-13 19:41 | XRR_ITS ---
PROCEDURE INFORMATION: Exam: XR Lumbosacral Spine Exam date and time: 03/13/2024 8:38 PM Age: 74 years old Clinical indication: Injury or trauma; Fall; Blunt trauma (contusions or hematomas); Prior surgery; Surgery date: 6+ months; Surgery type: Ivc filter; Patient HX: Patient fell backwards against the post of his bed. C/O cough with painful inspiration and mid back pain. TECHNIQUE: Imaging protocol: Radiologic exam of the lumbosacral spine. Views: 2 or 3 views. COMPARISON: CT pelvis [facility] [id number] 04/25/2023 6:55 PM FINDINGS: Bones/joints: Vertebral body height is maintained. No subluxation. Bones are diffusely osteopenic. Multilevel degenerative changes of varying severity in the visualized spine. Soft tissues: No paravertebral soft tissue abnormality. No radiopaque foreign body. Vasculature: An IVC filter is stable in position. Atherosclerotic changes in the visualized arteries. XR/XR lumbar spine 2-3V* [id number] IMPRESSION: 1. No acute fracture of the lumbar spine. CT scan would be recommended if there is continuing clinical concern for fracture. 2. Multilevel degenerative changes of varying severity in the visualized spine. 3. Incidental/nonacute findings are listed in the report.
--- NOTE | 2024-03-13 19:41 | XRR_ITS ---
PROCEDURE INFORMATION: Exam: XR Thoracic Spine Exam date and time: 03/13/2024 8:38 PM Age: 74 years old Clinical indication: Injury or trauma; Fall; Blunt trauma (contusions or hematomas); Patient HX: Patient fell backwards against the post of his bed. C/O cough with painful inspiration and mid back pain. TECHNIQUE: Imaging protocol: Radiologic exam of the thoracic spine. Views: 3 views. COMPARISON: CR (PELVIS, ) 03/13/2024 8:38 PM FINDINGS: Bones/joints: Vertebral body height is maintained. No subluxation. Stable old, mild compression deformities in the midthoracic spine. Stable mild kyphoscoliosis in the spine. Bones are diffusely osteopenic. No acute fracture. Degenerative changes in the spine. Soft tissues: No paravertebral soft tissue abnormality. No radiopaque foreign body. Lungs: Visualized lungs are clear. Vasculature: Vascular calcifications in the aorta. XR/XR thoracic spine 3V* [id number] IMPRESSION: 1. No acute fracture of the thoracic spine. CT scan would be recommended if there is continuing clinical concern for fracture. 2. Stable old, mild compression deformities in the midthoracic spine. 3. Stable mild kyphoscoliosis in the spine. 4. Degenerative changes in the spine. 5. Incidental/nonacute findings are listed in the report.
[2024-03-13 19:47] VITALS: BP 122/78; PULSE 73; RESP 21; TEMP 36.7; O2SAT 94; BMI 25.7
--- NOTE | 2024-03-13 20:31 | ED_ITS ---
HPI - Fall General: Chief Complaint: Fall Stated Complaint: BACK PAIN Time Seen by Provider: 03/13/24 19:46 Source: patient and EMS Mode of arrival: EMS Limitations: no limitations History of Present Illness: 74-year-old male states that he had fell last night at home. He states the power was off he tripped and fell and landed on his back he has thoracic and lumbar back pain he states that the thoracic pain is worse. Rates pain a 6 out of 10 denies hitting his head denies any other injuries he is able to ambulate. Associated symptoms-after fall: Denies abdominal pain, chest pain or neck pain Review of Systems Const: Denies: fever(s), chills, body aches or change in appetite ENMT: Denies: throat pain or dental pain Card: Denies: chest pain Resp: Denies: dyspnea GI: Denies: abdominal pain, nausea, vomiting or diarrhea Musc: Reports: back pain; Denies: neck pain Skin/Breast: Denies: rash All/Imm: Denies: urticaria PFSH ED PFSH: Medical History (Updated 03/13/24 @ 21:27 by Rl Arcos MD) Acute right arterial ischemic stroke, middle cerebral artery (MCA) CVA (cerebral vascular accident) Cerebrovascular accident Thyroid nodule [place] Hypertension Traumatic brain injury Smoker History of cardioversion COPD (chronic obstructive pulmonary disease) BPH (benign prostatic hyperplasia) Afib Surgical History S/P IVC filter History of knee replacement History of hip replacement History of laparoscopic appendectomy Hx of tonsillectomy Family History Other CAD (coronary artery disease) Cancer Diabetes Hypertension Lung disease Stroke Denies family history of Clotting disorder Dementia Hyperlipidemia Psychiatric illness Chronic kidney disease (CKD) Suicide Anesthesia complication Bleeding disorder Family history of premature coronary artery disease Social History Smoking and tobacco/nicotine status: current every day tobacco/nicotine user cigarettes Years cigarettes smoked: 56 Quit status (tobacco/nicotine): considering quitting Second hand smoke exposure: No Alcohol intake: never Substance/Drug Use: never Adopted: No Caregiver/support person: Yes Lives independently: Yes Housing: Apartment Marital status: Single Number of children: 0 Highest education level completed: Bachelor's Degree service: Yes Current occupational status: retired Pets and animals: No Sexually active: No Do you think of yourself as: Straight/Heterosexual Current gender identity: Male Special reece needs: No Agree to transfusion: Yes Physical Exam Const: COMMON NORMALS: no acute distress, patient oriented x3 and healthy appearing HENMT: COMMON NORMALS: normocephalic and atraumatic HEAD & SCALP: normocephalic and atraumatic Eye: COMMON NORMALS: conjunctivae normal CONJUNCTIVA: Yes conjunctivae normal Neck/C-Spine: COMMON NORMALS: full ROM and supple Chest: COMMONS NORMALS: normal inspection of the chest Resp: COMMON NORMALS: normal respiratory effort Cardio: COMMON NORMALS: regular rate, regular rhythm and No murmurs present (Cardio) RATE: regular rate RHYTHM: regular rhythm GI: COMMON NORMALS: Soft to palpation and non-tender PALPATION: Yes Soft to palpation Back/Pelvis: OTHER: Tenderness along thoracic lumbar spine no obvious deformity Extremity: COMMON NORMALS: normal to inspection and full ROM Neuro: COMMON NORMALS: patient oriented x3, moves all extremities and no focal motor deficits Psych: COMMON NORMALS: mental status grossly normal, Normal thought process present and cooperative THOUGHT PROCESS: Normal thought process present Skin: COMMON NORMALS: no rashes or lesions noted and no wounds GENERAL SKIN EXAM: no rashes or lesions noted Course Vital Signs: Vital signs: Vital Signs Temperature 98.1 F 03/13/24 19:47 Pulse Rate 64 03/13/24 20:32 Respiratory Rate 18 03/13/24 20:32 Blood Pressure 134/73 03/13/24 20:32 Pulse Oximetry 95 03/13/24 20:32 Oxygen Delivery Me thod Room Air 03/13/24 20:32 MDM - Fall Medical Decision Making Patient presents here with back contusion from a fall he is well-appearing here able to ambulate no signs of head injury his imaging here is all normal no signs of fracture he stable for discharge will place on Naprosyn he is to ice he is follow-up with PCP and return if worsening. Medical Records I reviewed the patient's medical records. Lab Data Radiology Impressions Lumbar Spine X-Ray 03/13/24 19:41 IMPRESSION: 1. No acute fracture of the lumbar spine. CT scan would be recommended if there is continuing clinical concern for fracture. 2. Multilevel degenerative changes of varying severity in the visualized spine. 3. Incidental/nonacute findings are listed in the report. Thoracic Spine X-Ray 03/13/24 19:41 IMPRESSION: 1. No acute fracture of the thoracic spine. CT scan would be recommended if there is continuing clinical concern for fracture. 2. Stable old, mild compression deformities in the midthoracic spine. 3. Stable mild kyphoscoliosis in the spine. 4. Degenerative changes in the spine. 5. Incidental/nonacute findings are listed in the report. Chest X-Ray 03/13/24 20:34 IMPRESSION: 1. No acute cardiopulmonary process. 2. No acute fracture. 3. CT scan of the chest with contrast would be recommended if there is continuing clinical concern for thoracic injury. 4. Incidental/nonacute findings are listed in the report. All radiology interpretation(s) finalized by discharge Discharge Plan Discharge Patient Disposition: Home Clinical Impression: Back contusion, Fall Condition: Stable Prescriptions: New Naprosyn 500 mg tablet 500 mg PO BID PRN (Reason: pain) Qty: 20 0RF No Action hydrocodone-acetaminophen 7.5-325 mg tablet 1 tab PO Q8H PRN (Reason: Pain) Discharge Orders: Discharge ED (Routine); Ordered 03/13/24 Ordered By: Rl Arcos Referrals: Yordan Murphy [Primary Care Provider] - Discharge Diet: Advance as tolerated Discharge Activity: Resume usual activity Patient Instructions: Contusion, Back Pain (ED) Coding Level of Care Code ED Special Systems Technician for Daina Hoskins
[2024-03-13 20:32] VITALS: BP 134/73; PULSE 64; RESP 18; O2SAT 95
--- NOTE | 2024-03-13 20:34 | XRR_ITS ---
PROCEDURE INFORMATION: Exam: XR Chest Exam date and time: 03/13/2024 8:38 PM Age: 74 years old Clinical indication: Injury or trauma; Fall; Blunt trauma (contusions or hematomas); Patient HX: Patient fell backwards against the post of his bed. C/O cough with painful inspiration and mid back pain. TECHNIQUE: Imaging protocol: Radiologic exam of the chest. Views: 1 view. COMPARISON: CR XR chest 1V portable [id number] 01/27/2024 6:35 PM FINDINGS: Lungs: Stable linear scarring in the left lingula. Stable mild hyperinflation of the lungs. No focal consolidation. No pulmonary edema. Pleural spaces: No pleural effusion. No pneumothorax. Heart/Mediastinum: Stable mild enlargement of the cardiac silhouette. Mediastinal contours are unremarkable. Bones/joints: No acute fracture. Bones are diffusely osteopenic. Degenerative changes in the spine and shoulders. XR/XR chest 1V portable [id number] IMPRESSION: 1. No acute cardiopulmonary process. 2. No acute fracture. 3. CT scan of the chest with contrast would be recommended if there is continuing clinical concern for thoracic injury. 4. Incidental/nonacute findings are listed in the report.
[2024-03-13] MEDS: HYDROcodone-acetaminophen 5-325 mg Tablet 1 TAB PO (20:56)
[2024-03-13 22:06] VITALS: BP 140/87; PULSE 80; RESP 18; O2SAT 95
== END 2024-03-13 21:51 | disposition home or self-care (01) ==
PROVIDERS: Emergency Provider Emergency Medicine; PCP Family Medicine
DX: S30.0XXA Contusion of lower back and pelvis, initial encounter (principal); W01.0XXA Fall on same level from slipping, tripping and stumbling without subsequent striking against object, initial encounter; F17.210 Nicotine dependence, cigarettes, uncomplicated; Z86.73 Personal history of transient ischemic attack (TIA), and cerebral infarction without residual deficits; I10 Essential (primary) hypertension; J44.9 Chronic obstructive pulmonary disease, unspecified
CPT/HCPCS: 71045; 72072; 72100; 99284

== ENCOUNTER 2024-11-04 11:46 | Emergency (ER) | payer MEDICARE, MEDICAID, SELFPAY ==
--- NOTE | 2024-11-04 11:51 | XR_ITS ---
WS: [id number] Exam: XR shoulder LT min 2V* [id number] Date/Time of Exam: 11/04/2024 12:16 PM Reason For Exam: injury No fracture noted. Minimal DJD at the glenohumeral joint and AC joint. Normal soft tissues. XR/XR shoulder LT min 2V* [id number] IMPRESSION: 1. No fracture. Mild DJD.
[2024-11-04 11:55] VITALS: BP 105/67; PULSE 73; RESP 14; TEMP 36.6; O2SAT 97; BMI 25.0
--- NOTE | 2024-11-04 13:13 | W.ED.FALL ---
HPI - Fall General: Chief Complaint: Fall Stated Complaint: fall - shoulder pain Time Seen by Provider: 11/04/24 11:50 Source: patient and EMS Mode of arrival: EMS Limitations: no limitations History of Present Illness: 74-year-old male states he was walking he slipped and fell just prior to arrival. He states he had landed on his left shoulder he states he did also hit his head he denies any loss of consciousness denies any headache he denies any neck pain. He states he has pain over his left lateral shoulder mainly with movement. He has been ambulatory since event rates his pain a 3 out of 10. Associated symptoms-after fall: Denies abdominal pain, chest pain, headache(s) or neck pain Related Data Home Medications Medication Instructions Recorded Confirmed hydrocodone 7.5 mg-acetaminophen 1 tab PO Q8H PRN Pain 04/20/20 01/28/24 325 mg tablet Previous Rx's Medication Instructions Recorded naproxen 500 mg tablet (Naprosyn) 500 mg PO BID PRN pain #20 tabs 03/13/24 Allergies Allergy/AdvReac Type Severity Reaction Status Date / Time No Known Allergies Allergy Verified 11/04/24 13:06 Review of Systems Const: Denies: fever(s), chills, body aches or change in appetite ENMT: Denies: throat pain or dental pain Card: Denies: chest pain Resp: Denies: dyspnea GI: Denies: abdominal pain, nausea, vomiting or diarrhea Musc: Reports: extremity pain; Denies: neck pain or back pain Skin/Breast: Denies: rash Neuro: Denies: headache(s) PFSH ED PFSH: Medical History Acute right arterial ischemic stroke, middle cerebral artery (MCA) CVA (cerebral vascular accident) Cerebrovascular accident Thyroid nodule [place] Hypertension Traumatic brain injury Smoker History of cardioversion COPD (chronic obstructive pulmonary disease) BPH (benign prostatic hyperplasia) Afib Surgical History S/P IVC filter History of knee replacement History of hip replacement History of laparoscopic appendectomy Hx of tonsillectomy Family History Other CAD (coronary artery disease) Cancer Diabetes Hypertension Lung disease Stroke Denies family history of Clotting disorder Dementia Hyperlipidemia Psychiatric illness Chronic kidney disease (CKD) Suicide Anesthesia complication Bleeding disorder Family history of premature coronary artery disease Social History Smoking and tobacco/nicotine status: current every day tobacco/nicotine user cigarettes Years cigarettes smoked: 56 Quit status (tobacco/nicotine): considering quitting Second hand smoke exposure: No Alcohol intake: never Substance/Drug Use: never Adopted: No Caregiver/support person: Yes Lives independently: Yes Housing: Apartment Marital status: Single Number of children: 0 Highest education level completed: Bachelor's Degree service: Yes Current occupational status: retired Pets and animals: No Sexually active: No Do you think of yourself as: Straight/Heterosexual Current gender identity: Male Special reece needs: No Agree to transfusion: Yes Physical Exam Const: COMMON NORMALS: no acute distress, patient oriented x3 and healthy appearing HENMT: COMMON NORMALS: normocephalic and atraumatic HEAD & SCALP: normocephalic and atraumatic Eye: COMMON NORMALS: conjunctivae normal CONJUNCTIVA: Yes conjunctivae normal Neck/C-Spine: COMMON NORMALS: full ROM and supple CERVICAL SPINE: No cervical ROM normal and No Cervical spine tenderness Chest: COMMONS NORMALS: normal inspection of the chest Resp: COMMON NORMALS: normal respiratory effort, No retractions, No use of accessory muscles and clear to auscultation bilaterally AUSCULTATION: clear to auscultation bilaterally Cardio: COMMON NORMALS: regular rate, regular rhythm and No murmurs present (Cardio) RATE: regular rate RHYTHM: regular rhythm Extremity: COMMON NORMALS: normal to inspection and full ROM Neuro: COMMON NORMALS: patient oriented x3, moves all extremities and no focal motor deficits Psych: COMMON NORMALS: mental status grossly normal, Normal thought process present and cooperative THOUGHT PROCESS: Normal thought process present Skin: COMMON NORMALS: no rashes or lesions noted and no wounds GENERAL SKIN EXAM: no rashes or lesions noted Course Vital Signs: Vital signs: Vital Signs Temperature 97.9 F 11/04/24 11:55 Pulse Rate 73 11/04/24 11:55 Respiratory Rate 14 11/04/24 11:55 Blood Pressure 105/67 11/04/24 11:55 Pulse Oximetry 97 11/04/24 11:55 MDM - Fall Medical Decision Making Patient presents for shoulder contusion from a fall imaging here shows no fractures she does have full range of motion no signs of any head or neck injury he is stable for discharge follow-up orthopedics return if worsening. Medical Records I reviewed the patient's medical records. Lab Data I reviewed the patient's lab results. Radiology Impressions Shoulder X-Ray 11/04/24 11:51 IMPRESSION: 1. No fracture. Mild DJD. All radiology interpretation(s) finalized by discharge Discharge Plan Discharge Patient Disposition: Home Clinical Impression: Fall, Contusion of left shoulder Condition: Stable Prescriptions: No Action hydrocodone-acetaminophen 7.5-325 mg tablet 1 tab PO Q8H PRN (Reason: Pain) Naprosyn 500 mg tablet 500 mg PO BID PRN (Reason: pain) Qty: 20 0RF Discharge Orders: Discharge ED (Routine); Ordered 11/04/24 Ordered By: Rl Arcso Referrals: Yordan Murphy [Primary Care Provider] - Rudy Magallon DO [Physician] - 4-7 days Discharge Diet: Advance as tolerated Discharge Activity: Resume usual activity Patient Instructions: Shoulder Sprain (ED), Shoulder Pain (ED) Coding Level of Care Code ED Photographic Hand Developer for Daina Hoskins
[2024-11-04 13:22] VITALS: BP 108/57; PULSE 88; O2SAT 95
--- NOTE | 2024-11-07 07:19 | DCPLANNER ---
messaged ortho for er f/u
== END 2024-11-04 13:24 | disposition home or self-care (01) ==
PROVIDERS: Emergency Provider Emergency Medicine; PCP Family Medicine
DX: S40.012A Contusion of left shoulder, initial encounter (principal); W19.XXXA Unspecified fall, initial encounter; F17.210 Nicotine dependence, cigarettes, uncomplicated; Z86.73 Personal history of transient ischemic attack (TIA), and cerebral infarction without residual deficits; J44.9 Chronic obstructive pulmonary disease, unspecified; I10 Essential (primary) hypertension
CPT/HCPCS: 73030; 99283

== ENCOUNTER 2024-11-14 08:11 | Emergency (ER) | payer MEDICARE, MEDICAID, SELFPAY ==
[2024-11-14 08:15] VITALS: BP 125/77; PULSE 72; RESP 16; TEMP 36.6; O2SAT 98; BMI 25.0
--- NOTE | 2024-11-14 08:21 | XR_ITS ---
WS: [id number] XR ribs LT mn 3V w CXR1V [id number] REASON FOR EXAM: trauma FINDINGS: Old healed fractures unchanged compared to 06/10/2024 of the left second rib and fourth and fifth ribs. No definite acute rib fracture is identified. Severe underlying central lobar emphysema with no left pleural effusion, pneumothorax, or subcutaneous emphysema. XR/XR ribs LT mn 3V w CXR1V [id number] IMPRESSION: No acute rib fracture.
[2024-11-14 08:57] LABS: Basophils % 0.4 %; Eosinophils # 0.1 10^3/uL (0.0-0.8); Eosinophils % 1.6 %; Lymphocytes # 1.2 10^3/uL (0.8-4.8); Lymphocytes % 23.9 %; Mean Corpuscular HGB Conc 32.4 g/dL (30-55); Mean Corpuscular Hemoglobin 31.5 pg (27-33); Mean Corpuscular Volume 97.2 fl (82-101); Mean Platelet Volume 9.8 fL (7.4-10.4); Monocytes # 0.5 10^3/uL (0.2-0.9); Monocytes % 9.5 %; Neutrophils # 3.19 10^3/uL (1.8-7.7); Neutrophils % 64.2 %; Nucleated Red Blood Cells % 0 %; Platelet Count 151 10^3/cmm (157-399); Red Blood Count 5.04 10^6/uL (3.85-5.65); Red Cell Distribution Width 13.1 % (12.1-15.1); White Blood Count 4.97 10^3/uL (3.29-11.43)
--- NOTE | 2024-11-14 09:03 | ED_ITS ---
HPI - Fall 2 General: Chief Complaint: Fall Stated Complaint: left rib pain, falls Time Seen by Provider: 11/14/24 08:16 History of Present Illness: 74-year-old male presents emergency room complaint of left rib pain. Patient fell this morning he states he fell because his cane slipped he did not land on any objects but did pinned his arm between his left ribs and the ground as he fell he did not strike his head he did not lose consciousness. The only place he refers pain to at this time is of the left lateral chest wall. He has not had any productive cough he has not had any hemoptysis. No other injuries. He is not on any anticoagulants. Associated symptoms-after fall: Denies abdominal pain, chest pain or neck pain Related Data Home Medications ?Medication ?Instructions ?Recorded ?Confirmed hydrocodone 7.5 mg-acetaminophen 1 tab PO Q8H PRN Pain 04/20/20 11/14/24 325 mg tablet atorvastatin 40 mg tablet 40 mg PO QAM 11/14/24 Previous Rx's ?Medication ?Instructions ?Recorded diclofenac sodium 75 mg 75 mg PO Q12H PRN pain #20 t abs 11/14/24 tablet,delayed release Allergies Allergy/AdvReac Type Severity Reaction Status Date / Time No Known Allergies Allergy Verified 11/04/24 13:06 Review of Systems 2 Const: Denies: fever(s) or chills Card: Denies: chest pain Resp: Denies: dyspnea GI: Denies: abdominal pain : Denies: dysuria, urinary frequency or urinary urgency Musc: Denies: neck pain or back pain Skin/Breast: Denies: rash PFSH ED 2 PFSH: Medical History Acute right arterial ischemic stroke, middle cerebral artery (MCA) CVA (cerebral vascular accident) Cerebrovascular accident Thyroid nodule [place] Hypertension Traumatic brain injury Smoker History of cardioversion COPD (chronic obstructive pulmonary disease) BPH (benign prostatic hyperplasia) Afib Surgical History S/P IVC filter History of knee replacement History of hip replacement History of laparoscopic appendectomy Hx of tonsillectomy Family History Other CAD (coronary artery disease) Cancer Diabetes Hypertension Lung disease Stroke Denies family history of Clotting disorder Dementia Hyperlipidemia Psychiatric illness Chronic kidney disease (CKD) Suicide Anesthesia complication Bleeding disorder Family history of premature coronary artery disease Social History Smoking and tobacco/nicotine status: current every day tobacco/nicotine user cigarettes Years cigarettes smoked: 56 Quit status (tobacco/nicotine): considering quitting Second hand smoke exposure: No Alcohol intake: never Substance/Drug Use: never Adopted: No Caregiver/support person: Yes Lives independently: Yes Housing: Apartment Marital status: Single Number of children: 0 Highest education level completed: Bachelor's Degree service: Yes Current occupational status: retired Pets and animals: No Sexually active: No Do you think of yourself as: Straight/Heterosexual Current gender identity: Male Special reece needs: No Agree to transfusion: Yes Physical Exam 2 Const: GENERAL APPEARANCE: cooperative ORIENTATION/CONSCIOUSNESS: Yes awake, Yes oriented to person, Yes oriented to place and Yes oriented to time HENMT: COMMON NORMALS: normocephalic, atraumatic and hearing grossly normal bilaterally HEAD & SCALP: normocephalic and atraumatic Chest: OTHER: Left lateral chest wall tenderness no obvious deformity no ecchymosis no abscess no subcutaneous air palpated Resp: COMMON NORMALS: normal respiratory effort, No retractions, No use of accessory muscles and clear to auscultation bilaterally AUSCULTATION: clear to auscultation bilaterally Cardio: COMMON NORMALS: regular rate, regular rhythm and No murmurs present (Cardio) RATE: regular rate RHYTHM: regular rhythm GI: COMMON NORMALS: Soft to palpation and No hepatosplenomegaly present A USCULTATION: Yes normoactive bowel sounds PALPATION: Yes Soft to palpation, No Tenderness to palpation present (GI), No Guarding due to palpation present (GI) and Yes No hepatosplenomegaly present Extremity: COMMON NORMALS: normal to inspection, capillary refill normal, no clubbing, cyanosis or edema, no calf tenderness and no pedal edema Neuro: SENSORIUM/ORIENTATION: Yes oriented to person, Yes oriented to place and Yes oriented to time Skin: COMMON NORMALS: no rashes or lesions noted GENERAL SKIN EXAM: no rashes or lesions noted Course 2 Vital Signs: Vital signs: Vital Signs Temperature 97.8 F 11/14/24 08:15 Pulse Rate 72 11/14/24 08:15 Respiratory Rate 16 11/14/24 08:15 Blood Pressure 125/77 11/14/24 08:15 Pulse Oximetry 98 11/14/24 08:15 Oxygen Delivery Me thod Room Air 11/14/24 08:15 MDM - Fall Medical Decision Making X-rays not show any acute fractures no subcutaneous air patient states he is feeling better discharge home diclofenac use. Follow-up as needed Medical Records I reviewed the patient's medical records. Lab Data I reviewed the patient's lab results. 11/14/24 08:51 11/14/24 08:51 Radiology Impressions Ribs X-Ray 11/14/24 08:21 IMPRESSION: No acute rib fracture. Laboratory Results WBC 4.97 10^3/uL (3.29-11.43) 11/14/24 08:51 RBC 5.04 10^6/uL (3.85-5.65) 11/14/24 08:51 Hgb 15.90 g/dL (11.27-16.99) 11/14/24 08:51 Hct 49.0 % (37-53) 11/14/24 08:51 MCV 97.2 fl (82-101) 11/14/24 08:51 MCH 31.5 pg (27-33) 11/14/24 08:51 MCHC 32.4 g/dL (30-55) 11/14/24 08:51 RDW 13.1 % (12.1-15.1) 11/14/24 08:51 Plt Count 151 10^3/cmm (157-399) L 11/14/24 08:51 MPV 9.8 fL (7.4-10.4) 11/14/24 08:51 Neut % (Auto) 64.2 % 11/14/24 08:51 Lymph % (Auto) 23.9 % 11/14/24 08:51 [place] % (Auto) 9.5 % 11/14/24 08:51 Eos % (Auto) 1.6 % 11/14/24 08:51 Baso % (Auto) 0.4 % 11/14/24 08:51 Neut # (Auto) 3.19 10^3/uL (1.8-7.7) 11/14/24 08:51 Lymph # (Auto) 1.2 10^3/uL (0.8-4.8) 11/14/24 08:51 [place] # (Auto) 0.5 10^3/uL (0.2-0.9) 11/14/24 08:51 Eos # (Auto) 0.1 10^3/uL (0.0-0.8) 11/14/24 08:51 Baso # (Auto) 0.0 10^3/uL (0.0-0.1) 11/14/24 08:51 Nucleated RBC % (auto) 0 % 11/14/24 08:51 Nucleated RBCs # 0.0 /100WBC 11/14/24 08:51 Sodium 140 mmol/L (136-145) 11/14/24 08:51 Potassium 4.0 mmol/L (3.5-5.1) 11/14/24 08:51 Chloride 103 mmol/L (98-107) 11/14/24 08:51 Carbon Dioxide 29 mmol/L (22-29) 11/14/24 08:51 Anion Gap 12.0 (5-19) 11/14/24 08:51 BUN 12 mg/dL (8-23) 11/14/24 08:51 Creatinine 0.8 mg/dL (0.7-1.2) 11/14/24 08:51 GFR Calculation Not Reportable 11/14/24 08:51 Glucose 94 mg/dL (65-115) 11/14/24 08:51 Calculated Osmolality 290 mOsm/kg (285-295) 11/14/24 08:51 Calcium 8.8 mg/dL (8.5-10.5) 11/14/24 08:51 Total Bilirubin 0.4 mg/dL (0.15-1.2) 11/14/24 08:51 AST 34 U/L (0-40) 11/14/24 08:51 ALT 38 U/L (0-41) 11/14/24 08:51 Alkaline Phosphatase 140 U/L (40-130) H 11/14/24 08:51 Total Protein 6.2 g/dL (6.6-8.7) L 11/14/24 08:51 Albumin 3.3 g/dL (3.5-5.2) L 11/14/24 08:51 Globulin 2.9 g/dL (1.3-4.6) 11/14/24 08:51 All radiology interpretation(s) finalized by discharge Discharge Plan Discharge Patient Disposition: Home Clinical Impression: Rib pain on left side, Fall Condition: Stable Prescriptions: New diclofenac sodium 75 mg tablet,delayed release (DR/EC) 75 mg PO Q12H PRN (Reason: pain) Qty: 20 0RF No Action hydrocodone-acetaminophen 7.5-325 mg tablet 1 tab PO Q8H PRN (Reason: Pain) atorvastatin 40 mg tablet 40 mg PO QAM Discharge Orders: Discharge ED (Routine); Ordered 11/14/24 Ordered By: Raj Fish Referrals: Yordan Murphy [Primary Care Provider] - Discharge Diet: Usual diet Discharge Activity: Increase activity as tolerated Patient Instructions: Opioid Safety, Pain Management Activity Restrictions/Additional Instructions: Thank you for choosing [facility] for your healthcare needs today. It is very important that you follow up as instructed or that you return to the Emergency Department should you have concerns or if your condition changes or worsens in any way. You are seen in the emergency room for left-sided rib pain after a fall x-rays did not show any acute fractures. You can use the previously prescribed hydrocodone as well as diclofenac you are prescribed today for discomfort. Apply ice as needed to the ribs if you have any worsening or change symptoms return to the emergency room Print Language: Faroese Coding Level of Care Code ED Senior Fund Accountant for Daina Hoskins
[2024-11-14 09:21] LABS: Alanine Aminotransferase 38 U/L (0-41); Albumin Level 3.3 g/dL (3.5-5.2); Alkaline Phosphatase 140 U/L (40-130); Aspartate Amino Transferase 34 U/L (0-40); Blood Urea Nitrogen 12 mg/dL (8-23); Calcium 8.8 mg/dL (8.5-10.5); Carbon Dioxide 29 mmol/L (22-29); Chloride 103 mmol/L (98-107); Creatinine Clr Calc Pharmacy 99.9935; Globulin 2.9 g/dL (1.3-4.6); Glucose 94 mg/dL (65-115); Osmolality Calculated 290 mOsm/kg (285-295); Sodium 140 mmol/L (136-145); Total Bilirubin 0.4 mg/dL (0.15-1.2); Total Protein 6.2 g/dL (6.6-8.7)
[2024-11-14] MEDS: HYDROcodone-acetaminophen 10-325 mg Tablet 1 TAB PO (09:22)
== END 2024-11-14 10:32 | disposition home or self-care (01) ==
PROVIDERS: Emergency Provider Family Medicine; PCP Family Medicine
DX: R07.81 Pleurodynia (principal); W19.XXXA Unspecified fall, initial encounter; F17.210 Nicotine dependence, cigarettes, uncomplicated; Z86.73 Personal history of transient ischemic attack (TIA), and cerebral infarction without residual deficits; I10 Essential (primary) hypertension; J44.9 Chronic obstructive pulmonary disease, unspecified
CPT/HCPCS: 36415; 71101; 80053; 85025; 99284

== ENCOUNTER 2024-11-21 07:26 | Emergency (ER) | payer MEDICARE, MEDICAID, SELFPAY ==
[2024-11-21] VITALS (10 sets, daily range): BP systolic 94–125; BP diastolic 54–76; PULSE 57–71; RESP 16–17; TEMP 36.6; O2SAT 94–98; BMI 24.3
--- NOTE | 2024-11-21 07:28 | ECG_ITS ---
[employer] Test Date: 2024-11-21 Pat Name: Cornelio Puckett Department: Room: Gender: Male Head Of Talent Management: : 1950 Requested By: Raj Perea Order Number: [id number] Feliberto MD: Tomas Jack M.D. Measurements Intervals Etters Rate: 62 P: 86 DE: 156 QRS: -28 QRSD: 101 T: 83 QT: 430 QTc: 439 Interpretive Statements SINUS RHYTHM WITH MARKED SINUS ARRHYTHMIA INDETERMINATE AXIS INCOMPLETE RIGHT BUNDLE BRANCH BLOCK [90+ ms QRS DURATION, TERMINAL R IN V1/V2, 40+ ms S IN I/aVL/V4/V5/V6] SEPTAL MYOCARDIAL INFARCTION , OF INDETERMINATE AGE [40+ ms Q WAVE IN V1/V2] Compared to ECG 01/27/2024 23:30:37 Indeterminate axis now present Incomplete right bundle-branch block now present Myocardial infarct finding now present Left-axis deviation no longer present Electronically Signed On 11-21-2024 11:22:49 CONSOLIDATION ACCOUNTANT by Tomas Jack M.D. [id number]
--- NOTE | 2024-11-21 07:35 | XRR_ITS ---
PROCEDURE INFORMATION: Exam: XR Left Ribs with PA Chest Exam date and time: 11/21/2024 7:48 AM Age: 74 years old Clinical indication: Chest wall pain; Left TECHNIQUE: Imaging protocol: Radiologic exam of the left ribs with PA chest. Views: 3 views COMPARISON: CR XR ribs LT mn 3V w CXR1V [id number] 11/14/2024 8:34 AM FINDINGS: Lungs: The lungs are hyperinflated. No focal consolidation is appreciated. Pleural spaces: Unremarkable. No pleural effusion. No pneumothorax. Heart/Mediastinum: Heart size is normal. There is calcified plaque involving the aorta. Bones/joints: There are multiple rib fractures on the left which appear to be old. A portion of the lateral aspect of the left 8th rib appears to be absent. A definite acute rib fracture is not identified. XR/XR ribs LT mn 3V w CXR1V [id number] IMPRESSION: 1. Lung hyperinflation. 2. Old-appearing rib fractures on the left. No definite acute fractures are noted. If there is a strong clinical concern, CT may add additional information.
--- NOTE | 2024-11-21 07:38 | ED_ITS ---
HPI - SOB/Dyspnea 2 General: Chief Complaint: Shortness of Breath/Dyspnea Stated Complaint: SOB Time Seen by Provider: 11/21/24 07:29 History of Present Illness: HPI Narrative: 74-year-old male presents emergency room with shortness of breath left lower rib pain. Patient states he fell a couple days ago and hit the ribs. He was seen 1 week ago x-ray of the ribs at that time was negative for fracture. Patient denies any hemoptysis pain with deep inspiration movement and palpation. No productive cough no fever sweats or chills. Associated symptoms: Reports chest pain (Left rib); Deny abdominal pain or fever(s) Related Data Home Medications ?Medication ?Instructions ?Recorded ?Confirmed hydrocodone 7.5 mg-acetaminophen 1 tab PO Q8H PRN Pain 04/20/20 11/21/24 325 mg tablet atorvastatin 40 mg tablet 40 mg PO QAM 11/14/24 Previous Rx's ?Medication ?Instructions ?Recorded diclofenac sodium 75 mg 75 mg PO Q12H PRN pain #20 t abs 11/14/24 tablet,delayed release Allergies Allergy/AdvReac Type Severity Reaction Status Date / Time No Known Allergies Allergy Verified 11/21/24 07:57 Review of Systems 2 Const: Denies: fever(s) or chills Card: Reports: chest pain (Left rib) Resp: Denies: dyspnea GI: Denies: abdominal pain : Denies: dysuria, urinary frequency or urinary urgency Musc: Denies: neck pain or back pain Skin/Breast: Denies: rash PFSH ED 2 PFSH: Medical History Acute right arterial ischemic stroke, middle cerebral artery (MCA) CVA (cerebral vascular accident) Cerebrovascular accident Thyroid nodule [place] Hypertension Traumatic brain injury Smoker History of cardioversion COPD (chronic obstructive pulmonary disease) BPH (benign prostatic hyperplasia) Afib Surgical History S/P IVC filter History of knee replacement History of hip replacement History of laparoscopic appendectomy Hx of tonsillectomy Family History Other CAD (coronary artery disease) Cancer Diabetes Hypertension Lung disease Stroke Denies family history of Clotting disorder Dementia Hyperlipidemia Psychiatric illness Chronic kidney disease (CKD) Suicide Anesthesia complication Bleeding disorder Family history of premature coronary artery disease Social History Smoking and tobacco/nicotine status: current every day tobacco/nicotine user cigarettes Years cigarettes smoked: 56 Quit status (tobacco/nicotine): considering quitting Second hand smoke exposure: No Alcohol intake: never Substance/Drug Use: never Adopted: No Caregiver/support person: Yes Lives independently: Yes Housing: Apartment Marital status: Single Number of children: 0 Highest education level completed: Bachelor's Degree service: Yes Current occupational status: retired Pets and animals: No Sexually active: No Do you think of yourself as: Straight/Heterosexual Current gender identity: Male Special erece needs: No Agree to transfusion: Yes Physical Exam 2 Const: GENERAL APPEARANCE: cooperative ORIENTATION/CONSCIOUSNESS: Yes awake, Yes oriented to person, Yes oriented to place and Yes oriented to time HENMT: COMMON NORMALS: normocephalic, atraumatic and hearing grossly normal bilaterally HEAD & SCALP: normocephalic and atraumatic Resp: COMMON NORMALS: normal respiratory effort, No retractions, No use of accessory muscles and clear to auscultation bilaterally AUSCULTATION: clear to auscultation bilaterally Cardio: COMMON NORMALS: regular rate, regular rhythm and No murmurs present (Cardio) RATE: regular rate RHYTHM: regular rhythm GI: COMMON NORMALS: Soft to palpation and No hepatosplenomegaly present A USCULTATION: Yes normoactive bowel sounds PALPATION: Yes Soft to palpation, No Tenderness to palpation present (GI), No Guarding due to palpation present (GI) and Yes No hepatosplenomegaly present Extremity: COMMON NORMALS: normal to inspection, capillary refill normal, no clubbing, cyanosis or edema, no calf tenderness and no pedal edema Neuro: SENSORIUM/ORIENTATION: Yes oriented to person, Yes oriented to place and Yes oriented to time Skin: COMMON NORMALS: no rashes or lesions noted GENERAL SKIN EXAM: no rashes or lesions noted Course 2 Vital Signs: Vital signs: Vital Signs Temperature 97.8 F 11/21/24 07:27 Pulse Rate 64 11/21/24 11:54 Respiratory Rate 17 11/21/24 10:30 Blood Pressure 125/54 11/21/24 11:54 Pulse Oximetry 95 11/21/24 11:54 Oxygen Delivery Me thod Room Air 11/21/24 11:30 MDM - SOB/Dyspnea Medical Decision Making No acute fractures no effusions. Patient cardiac enzymes and EKG also did not show any acute findings. He is anxious to go home. Discharge home encouraged him to use pain medications previously prescribed follow-up with his primary care provider as needed Medical Records I reviewed the patient's medical records. Lab Data I reviewed the patient's lab results. 11/21/24 07:54 11/21/24 07:54 Labs/Radiology: Radiology Impressions Ribs X-Ray 11/21/24 07:35 IMPRESSION: 1. Lung hyperinflation. 2. Old-appearing rib fractures on the left. No definite acute fractures are noted. If there is a strong clinical concern, CT may add additional information. Laboratory Results WBC 4.65 10^3/uL (3.29-11.43) 11/21/24 07:54 RBC 5.20 10^6/uL (3.85-5.65) 11/21/24 07:54 Hgb 16.50 g/dL (11.27-16.99) 11/21/24 07:54 Hct 49.0 % (37-53) 11/21/24 07:54 MCV 94.2 fl (82-101) 11/21/24 07:54 MCH 31.7 pg (27-33) 11/21/24 07:54 MCHC 33.7 g/dL (30-55) 11/21/24 07:54 RDW 13.2 % (12.1-15.1) 11/21/24 07:54 Plt Count 180 10^3/cmm (157-399) 11/21/24 07:54 MPV 9.9 fL (7.4-10.4) 11/21/24 07:54 Neut % (Auto) 61.8 % 11/21/24 07:54 Lymph % (Auto) 28.2 % 11/21/24 07:54 Williamson % (Auto) 7.3 % 11/21/24 07:54 Eos % (Auto) 1.9 % 11/21/24 07:54 Baso % (Auto) 0.6 % 11/21/24 07:54 Neut # (Auto) 2.87 10^3/uL (1.8-7.7) 11/21/24 07:54 Lymph # (Auto) 1.3 10^3/uL (0.8-4.8) 11/21/24 07:54 Williamson # (Auto) 0.3 10^3/uL (0.2-0.9) 11/21/24 07:54 Eos # (Auto) 0.1 10^3/uL (0.0-0.8) 11/21/24 07:54 Baso # (Auto) 0.0 10^3/uL (0.0-0.1) 11/21/24 07:54 Nucleated RBC % (auto) 0 % 11/21/24 07:54 Nucleated RBCs # 0.0 /100WBC 11/21/24 07:54 Sodium 141 mmol/L (136-145) 11/21/24 07:54 Potassium 3.7 mmol/L (3.5-5.1) 11/21/24 07:54 Chloride 102 mmol/L (98-107) 11/21/24 07:54 Carbon Dioxide 31 mmol/L (22-29) H 11/21/24 07:54 Anion Gap 11.7 (5-19) 11/21/24 07:54 BUN 14 mg/dL (8-23) 11/21/24 07:54 Creatinine 1.0 mg/dL (0.7-1.2) 11/21/24 07:54 GFR Calculation Not Reportable 11/21/24 07:54 Glucose 113 mg/dL (65-115) 11/21/24 07:54 Calculated Osmolality 293 mOsm/kg (285-295) 11/21/24 07:54 Calcium 8.6 mg/dL (8.5-10.5) 11/21/24 07:54 Total Bilirubin 0.5 mg/dL (0.15-1.2) 11/21/24 07:54 AST 37 U/L (0-40) 11/21/24 07:54 ALT 39 U/L (0-41) 11/21/24 07:54 Alkaline Phosphatase 165 U/L (40-130) H 11/21/24 07:54 Troponin T Baseline 14 ng/L (0-15) 11/21/24 07:54 Troponin T 120 Minute 12.55 ng/L (0-15) 11/21/24 10:27 Delta Troponin T -1.45 ABS# (0-10) L 11/21/24 10:27 Total Protein 6.5 g/dL (6.6-8.7) L 11/21/24 07:54 Albumin 3.7 g/dL (3.5-5.2) 11/21/24 07:54 Globulin 2.8 g/dL (1.3-4.6) 11/21/24 07:54 Coronavirus (PCR) Negative (Negative) 11/21/24 10:11 Influenza A (PCR) Negative (Negative) 11/21/24 10:11 Influenza Type B (PCR) Negative (Negative) 11/21/24 10:11 RSV (PCR) Negative (Negative) 11/21/24 10:11 All radiology interpretation(s) finalized by discharge Discharge Plan Discharge Patient Disposition: Home Clinical Impression: Rib pain on left side, Atypical chest pain Condition: Stable Prescriptions: No Action hydrocodone-acetaminophen 7.5-325 mg tablet 1 tab PO Q8H PRN (Reason: Pain) atorvastatin 40 mg tablet 40 mg PO QAM diclofenac sodium 75 mg tablet,delayed release (DR/EC) 75 mg PO Q12H PRN (Reason: pain) Qty: 20 0RF Discharge Orders: Discharge ED (Routine); Ordered 11/21/24 Ordered By: Raj Fish Referrals: Yordan Murphy [Primary Care Provider] - Patient Instructions: Opioid Safety, Pain Management Activity Restrictions/Additional Instructions: Thank you for choosing [facility] for your healthcare needs today. It is very important that you follow up as instructed or that you return to the Emergency Department should you have concerns or if your condition changes or worsens in any way. You were seen today with complaints of left-sided rib pain. We did check for acute coronary syndrome your EKG and cardiac enzymes did not show any acute changes. Chest x-ray did not show any acute changes either. This is likely still from contused ribs there is no signs of fractures continue use pain medicines previously prescribed Print Language: Latvian Coding Level of Care Code ED Upholstery Parts Sorter for Daina Hoskins
[2024-11-21 08:11] LABS: Basophils % 0.6 %; Eosinophils # 0.1 10^3/uL (0.0-0.8); Eosinophils % 1.9 %; Lymphocytes # 1.3 10^3/uL (0.8-4.8); Lymphocytes % 28.2 %; Mean Corpuscular HGB Conc 33.7 g/dL (30-55); Mean Corpuscular Hemoglobin 31.7 pg (27-33); Mean Corpuscular Volume 94.2 fl (82-101); Mean Platelet Volume 9.9 fL (7.4-10.4); Monocytes # 0.3 10^3/uL (0.2-0.9); Monocytes % 7.3 %; Neutrophils # 2.87 10^3/uL (1.8-7.7); Neutrophils % 61.8 %; Nucleated Red Blood Cells % 0 %; Platelet Count 180 10^3/cmm (157-399); Red Cell Distribution Width 13.2 % (12.1-15.1); White Blood Count 4.65 10^3/uL (3.29-11.43)
[2024-11-21 08:20] LABS: Alanine Aminotransferase 39 U/L (0-41); Albumin Level 3.7 g/dL (3.5-5.2); Alkaline Phosphatase 165 U/L (40-130); Anion Gap 11.7 (5-19); Aspartate Amino Transferase 37 U/L (0-40); Blood Urea Nitrogen 14 mg/dL (8-23); Calcium 8.6 mg/dL (8.5-10.5); Carbon Dioxide 31 mmol/L (22-29); Chloride 102 mmol/L (98-107); Globulin 2.8 g/dL (1.3-4.6); Glucose 113 mg/dL (65-115); Osmolality Calculated 293 mOsm/kg (285-295); Potassium 3.7 mmol/L (3.5-5.1); Sodium 141 mmol/L (136-145); Total Bilirubin 0.5 mg/dL (0.15-1.2); Total Protein 6.5 g/dL (6.6-8.7)
[2024-11-21 08:22] LABS: Troponin(5th) Baseline 14 ng/L (0-15)
--- NOTE | 2024-11-21 09:30 | ECG_ITS ---
[facility] Date: 2024-11[facility]21 Pat Name: Cornelio Puckett Department: Room: Gender: Male Floor Manager: : 1950 Requested By: Raj Perea Order Number: [id number] Feliberto MD: Tomas Jack M.D. Measurements Intervals [place] Rate: 63 P: 0 MO: 0 QRS: -69 QRSD: 86 T: 76 QT: 397 QTc: 407 Interpretive Statements multifocal atrial rhythm INDETERMINATE AXIS POSSIBLE RIGHT VENTRICULAR CONDUCTION DELAY [RSR (QR) IN V1/V2] SEPTAL MYOCARDIAL INFARCTION , PROBABLY OLD [40+ ms Q WAVE IN V1/V2] Compared to ECG 11/21/2024 07:29:22 Sinus rhythm no longer present Sinus arrhythmia no longer present Incomplete right bundle-branch block no longer present Myocardial infarct finding still present Electronically Signed On 11-21-2024 11:26:48 RECRUIT INSTRUCTOR by Tomas Jack M.D. [id number]
[2024-11-21] MEDS: HYDROcodone-acetaminophen 5-325 mg Tablet 1 TAB PO (10:08)
[2024-11-21 11:08] LABS: Influenza A NEGATIVE (Negative); Influenza B NEGATIVE (Negative); Respiratory Syncytial Virus Ce NEGATIVE (Negative); SARS-CoV-2 PCR NEGATIVE (Negative)
[2024-11-21 11:13] LABS: Troponin 5 2HR 12.55 ng/L (0-15)
[2024-11-21 11:14] LABS: Troponin 5 2HR Delta -1.45 ABS# (0-10)
== END 2024-11-21 11:54 | disposition home or self-care (01) ==
PROVIDERS: Emergency Provider Family Medicine; PCP Family Medicine
DX: R07.81 Pleurodynia (principal); R07.9 Chest pain, unspecified; Z11.52 Encounter for screening for COVID-19; F17.210 Nicotine dependence, cigarettes, uncomplicated; Z86.73 Personal history of transient ischemic attack (TIA), and cerebral infarction without residual deficits; J44.9 Chronic obstructive pulmonary disease, unspecified
CPT/HCPCS: 36415; 71101; 80053; 84484; 85025; 87637; 93005; 99285

== ENCOUNTER 2024-11-30 18:13 | Emergency (ER) | payer MEDICARE, MEDICAID, SELFPAY ==
[2024-11-30 18:15] VITALS: BP 115/77; PULSE 77; RESP 17; TEMP 36.9; O2SAT 96
--- NOTE | 2024-11-30 18:25 | ECG_ITS ---
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
--- NOTE | 2024-11-30 18:29 | XRR_ITS ---
PROCEDURE INFORMATION: Exam: XR Left Hip Exam date and time: 11/30/2024 6:48 PM Age: 74 years old Clinical indication: Hip pain; Left hip; Prior surgery; Surgery date: 6+ months; Surgery type: Lt hip; Additional info: Fall/left hip pain, HX of replacement TECHNIQUE: Imaging protocol: Radiologic exam of the left hip. Views: 2 or 3 views hip with pelvis when performed. COMPARISON: CT pelvis wo con [id number] 04/25/2023 6:55 PM FINDINGS: Bones/joints: Redemonstrated proximal left femoral fixation hardware which appears intact without complication. Normal alignment of the left hip joint. Heterotopic ossification, likely related to prior trauma/surgery. No definite acute fracture. Soft tissues: Unremarkable. Vasculature: IVC filter overlies the right hemiabdomen. XR/XR hip LT 2-3V wo/w pel* [id number] IMPRESSION: No definite acute osseous findings.
--- NOTE | 2024-11-30 18:39 | W.ED.EXTPRO ---
HPI - Extremity Problem General: Chief complaint: Extremity Injury, Lower Stated complaint: Fall, L hip pain Time Seen by Provider: 11/30/24 18:14 Source: patient Mode of arrival: EMS Limitations: no limitations History of Present Illness: Patient is a 74-year-old male who presents emergency department complaining of a fall that occurred just prior to arrival. EMS was called by the patient, stating he had tripped and fallen and is having pain in his left leg and left thigh. Notes that he has a history of left hip replacement. No symptoms prior to falling, he states that this was accidental. He is worried that it is dislocated. It was reported that the patient walked down to the lobby of his apartment to meet the ambulance, there were no abnormalities noted here. No shortening or internal/external rotation noted. No distal neurovascular symptoms. No other injuries with the fall. MD Complaint: extremity pain and joint pain Onset (ago): minute(s) Pain Consistency: constant Location: left and lower extremity (Hip) Radiation: distal Relieving factors: rest Exacerbating factors: range of motion and weight bearing Associated symptoms: Deny chest pain, fever(s) or rash Related Data Home Medications ?Medication ?Instructions ?Recorded ?Confirmed hydrocodone 7.5 mg-acetaminophen 1 tab PO Q8H PRN Pain 04/20/20 11/21/24 325 mg tablet atorvastatin 40 mg tablet 40 mg PO QAM 11/14/24 11/21/24 Previous Rx's ?Medication ?Instructions ?Recorded diclofenac sodium 75 mg 75 mg PO Q12H PRN pain #20 tabs 11/14/24 tablet,delayed release Allergies Allergy/AdvReac Type Severity Reaction Status Date / Time No Known Allergies Allergy Verified 11/21/24 07:57 Review of Systems General: Reports: 10 or more systems reviewed and unremarkable except in HPI and below Const: Reports: other (Fall); Denies: fever(s) or chills Card: Denies: chest pain Resp: Denies: dyspnea or productive cough GI: Denies: abdominal pain, nausea, vomiting or diarrhea : Denies: flank pain Musc: Reports: extremity pain and joint pain; Denies: neck pain, back pain, extremity swelling, joint swelling, joint redness, joint warmth, limited range of motion or muscle weakness Skin/Breast: Denies: rash Neuro: Denies: headache(s), numbness in extremities or weakness in extremities PFSH ED PFSH: Medical History Acute right arterial ischemic stroke, middle cerebral artery (MCA) CVA (cerebral vascular accident) Cerebrovascular accident Thyroid nodule [place] Hypertension Traumatic brain injury Smoker History of cardioversion COPD (chronic obstructive pulmonary disease) BPH (benign prostatic hyperplasia) Afib Surgical History S/P IVC filter History of knee replacement History of hip replacement History of laparoscopic appendectomy Hx of tonsillectomy Family History Other CAD (coronary artery disease) Cancer Diabetes Hypertension Lung disease Stroke Denies family history of Clotting disorder Dementia Hyperlipidemia Psychiatric illness Chronic kidney disease (CKD) Suicide Anesthesia complication Bleeding disorder Family history of premature coronary artery disease Social History Smoking and tobacco/nicotine status: current every day tobacco/nicotine user cigarettes Years cigarettes smoked: 56 Quit status (tobacco/nicotine): considering quitting Second hand smoke exposure: No Alcohol intake: never Substance/Drug Use: never Adopted: No Caregiver/support person: Yes Lives independently: Yes Housing: Apartment Marital status: Single Number of children: 0 Highest education level completed: Bachelor's Degree service: Yes Current occupational status: retired Pets and animals: No Sexually active: No Do you think of yourself as: Straight/Heterosexual Current gender identity: Male Special reece needs: No Agree to transfusion: Yes Physical Exam Const: COMMON NORMALS: no acute distress, patient oriented x3, no limitations, healthy appearing, alert and well nourished HENMT: COMMON NORMALS: normocephalic and atraumatic HEAD & SCALP: normocephalic and atraumatic Neck/C-Spine: COMMON NORMALS: full ROM, supple and no meningeal signs Resp: COMMON NORMALS: normal respiratory effort, No use of accessory muscles and clear to auscultation bilaterally AUSCULTATION: clear to auscultation bilaterally Cardio: COMMON NORMALS: regular rate and regular rhythm RATE: regular rate RHYTHM: regular rhythm Extremity: COMMON NORMALS: normal to inspection, full ROM, capillary refill normal, no joint enlargement and no clubbing, cyanosis or edema NARRATIVE EXTREMITY EXAM: No shortening or internal/external rotation of the left lower extremity. Tenderness to palpation to left lateral hip. Positive logroll testing. Range of motion intact at the left hip, but flexion does cause reproduction of pain. Distal neurovascular status intact. Pulses intact. Neuro: COMMON NORMALS: patient oriented x3, moves all extremities, no focal motor deficits and no sensory deficits noted SENSORIUM/ORIENTATION: Yes alert MENINGEAL SIGNS: Yes no meningeal signs Skin: COMMON NORMALS: no rashes or lesions noted GENERAL SKIN EXAM: no rashes or lesions noted Course Vital Signs: Vital signs: Vital Signs Temperature 98.4 F 11/30/24 18:15 Pulse Rate 77 11/30/24 18:15 Respiratory Rate 16 11/30/24 20:13 Blood Pressure 116/72 11/30/24 20:13 Pulse Oximetry 96 11/30/24 18:15 Oxygen Delivery Me thod Room Air 11/30/24 18:15 MDM - Extremity (Nontraumatic) Medical Decision Making Patient had fallen prior to coming in, left hip pain reported. History of left hip replacement. X-ray was negative. No other injuries reported. Will have him discharged home follow-up routinely with primary care. Was given shot of Toradol here for his pain. Vitals were within normal limits and neurovascular status was intact on exam. Lab Data Radiology Impressions Hip/Pelvis X-Ray 11/30/24 18:29 IMPRESSION: No definite acute osseous findings. All radiology interpretation(s) finalized by discharge Discharge Plan Discharge Patient Disposition: Home Clinical Impression: Left hip pain Condition: Stable Prescriptions: No Action hydrocodone-acetaminophen 7.5-325 mg tablet 1 tab PO Q8H PRN (Reason: Pain) atorvastatin 40 mg tablet 40 mg PO QAM diclofenac sodium 75 mg tablet,delayed release (DR/EC) 75 mg PO Q12H PRN (Reason: pain) Qty: 20 0RF Discharge Orders: Discharge ED (Routine); Ordered 11/30/24 Ordered By: Ebenezer Oscar Referrals: Yordan Murphy [Primary Care Provider] - Patient Instructions: Hip Pain (ED) Activity Restrictions/Additional Instructions: Ibuprofen or Tylenol for pain. Rest and recovery. Ice and gentle range of motion exercises. Please see the attached patient instructions for further education. Print Language: Nauruan Coding Level of Care Code ED Mortgage Protection Specialist for Daina Hoskins
[2024-11-30] MEDS: ketorolac 60 mg/2 mL INJ IM (19:13)
[2024-11-30 20:13] VITALS: BP 116/72; RESP 16
== END 2024-11-30 19:57 | disposition home or self-care (01) ==
PROVIDERS: Emergency Provider Physician Assistant; PCP Family Medicine
DX: M25.552 Pain in left hip (principal); F17.210 Nicotine dependence, cigarettes, uncomplicated; J44.9 Chronic obstructive pulmonary disease, unspecified; I10 Essential (primary) hypertension; Z86.73 Personal history of transient ischemic attack (TIA), and cerebral infarction without residual deficits
CPT/HCPCS: 73502; 93005; 96372; 99284; J1885

== ENCOUNTER 2024-12-18 17:06 | Emergency (ER) | payer MEDICARE, MEDICAID, SELFPAY ==
[2024-12-18 17:07] VITALS: BP 116/77; PULSE 53; RESP 14; TEMP 37.1; O2SAT 97; BMI 25.7
--- NOTE | 2024-12-18 17:07 | XRR_ITS ---
PROCEDURE INFORMATION: Exam: XR Left Hip Exam date and time: 12/18/2024 5:31 PM Age: 74 years old Clinical indication: Hip pain and pelvic pain; Left hip; Prior surgery; Surgery date: 6+ months; Surgery type: Lt hip pain post fall; HX lt tfn x 25yr ago TECHNIQUE: Imaging protocol: Radiologic exam of the left hip. Views: 2 or 3 views hip with pelvis when performed. COMPARISON: CR (PELVIS, ) 11/30/2024 6:48 PM FINDINGS: Bones/joints: Proximal left femoral fixation hardware is again seen. Anatomic alignment of the joint. Heterotopic ossification is again noted, similar to prior. No definite acute fracture. Soft tissues: Unremarkable. Vasculature: IVC filter again seen over the right hemiabdomen. XR/XR hip LT 2-3V wo/w pel* [id number] IMPRESSION: 1. No acute osseous findings. 2. Chronic findings as above are similar to prior.
--- NOTE | 2024-12-18 17:09 | XRR_ITS ---
PROCEDURE INFORMATION: Exam: XR Chest Exam date and time: 12/18/2024 5:31 PM Age: 74 years old Clinical indication: Chest pressure; Chest pain TECHNIQUE: Imaging protocol: Radiologic exam of the chest. Views: 1 view. COMPARISON: CR XR ribs LT mn 3V w CXR1V [id number] 11/21/2024 7:48 AM FINDINGS: Lungs: The lungs remain hyperinflated. Chronic blunting of the right costophrenic angle. No focal airspace disease. Pleural spaces: No pleural effusion or pneumothorax. Heart/Mediastinum: Unremarkable. No cardiomegaly. Bones/joints: Multiple old left rib fractures again noted. XR/XR chest 1V portable [id number] IMPRESSION: 1. No acute cardiopulmonary findings. 2. Pulmonary hyperinflation.
--- NOTE | 2024-12-18 17:10 | ECG_ITS ---
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: : 1950 Requested By: Jeanine Perea Order Number: [id number] Feliberto MD: CHARISSE BAXTER Measurements Intervals [place] Rate: 54 P: 89 AR: 152 QRS: -70 QRSD: 88 T: 77 QT: 419 QTc: 398 Interpretive Statements SINUS BRADYCARDIA LEFT ANTERIOR FASCICULAR BLOCK [QRS AXIS <= -45, QR IN I, RS IN II] Compared to ECG 11/30/2024 18:24:48 Left anterior fascicular block now present Sinus rhythm no longer present Left-axis deviation no longer present Electronically Signed On 12-19-2024 18:08:13 CDT by CHARISSE BAXTER [id number]
--- NOTE | 2024-12-18 17:17 | ED_ITS ---
HPI - Fall 2 General: Chief Complaint: Fall Stated Complaint: left hip pain s/p fall Time Seen by Provider: 12/18/24 17:07 History of Present Illness: 74-year-old man who presents emergency r oom after he had a fall. He says he falls fairly regularly uses a cane for this. He has been having some left hip pain. But he says this is not much different than when he usually falls. He says the main difference is he is having some pain in his central chest today. Apparently he has a aortic aneurysm that is supposed to be repaired in the near future. He is in no distress. Heart rate is in the 50s. Medical history includes ischemic stroke, multiple falls, hypertension, traumatic brain injury in the past, COPD and BPH and A-fib. He is not on chronic anticoagulation. Related Data Home Medications ?Medication ?Instructions ?Recorded ?Confirmed hydrocodone 7.5 mg-acetaminophen 1 tab PO Q8H PRN Pain 04/20/20 11/21/24 325 mg tablet atorvastatin 40 mg tablet 40 mg PO QAM 11/14/24 Previous Rx's ?Medication ?Instructions ?Recorded diclofenac sodium 75 mg 75 mg PO Q12H PRN pain #20 t abs 11/14/24 tablet,delayed release Allergies Allergy/AdvReac Type Severity Reaction Status Date / Time No Known Allergies Allergy Verified 11/21/24 07:57 Review of Systems 2 Narrative: Constitutional symptoms: Negative except as documented in HPI. Skin symptoms: Negative except as documented in HPI. Eye symptoms: Negative except as documented in HPI. ENMT symptoms: Negative except as documented in HPI. Respiratory symptoms: Negative except as documented in HPI. Cardiovascular symptoms: Negative except as documented in HPI. Gastrointestinal symptoms: Negative except as documented in HPI. Genitourinary symptoms: Negative except as documented in HPI. Musculoskeletal symptoms: Negative except as documented in HPI. Neurologic symptoms: Negative except as documented in HPI. Psychiatric symptoms: Negative except as documented in HPI. Endocrine symptoms: Negative except as documented in HPI. PFSH ED 2 PFSH: Medical History Acute right arterial ischemic stroke, middle cerebral artery (MCA) CVA (cerebral vascular accident) Cerebrovascular accident Thyroid nodule [place] Hypertension Traumatic brain injury Smoker History of cardioversion COPD (chronic obstructive pulmonary disease) BPH (benign prostatic hyperplasia) Afib Surgical History S/P IVC filter History of knee replacement History of hip replacement History of laparoscopic appendectomy Hx of tonsillectomy Family History Other CAD (coronary artery disease) Cancer Diabetes Hypertension Lung disease Stroke Denies family history of Clotting disorder Dementia Hyperlipidemia Psychiatric illness Chronic kidney disease (CKD) Suicide Anesthesia complication Bleeding disorder Family history of premature coronary artery disease Social History Smoking and tobacco/nicotine status: current every day tobacco/nicotine user cigarettes Years cigarettes smoked: 56 Quit status (tobacco/nicotine): considering quitting Second hand smoke exposure: No Alcohol intake: never Substance/Drug Use: never Adopted: No Caregiver/support person: Yes Lives independently: Yes Housing: Apartment Marital status: Single Number of children: 0 Highest education level completed: Bachelor's Degree service: Yes Current occupational status: retired Pets and animals: No Sexually active: No Do you think of yourself as: Straight/Heterosexual Current gender identity: Male Special reece needs: No Agree to transfusion: Yes Physical Exam 2 Narrative: EXAM NARRATIVE: General: Alert, no acute distress. Skin: Warm, dry. Head: Normocephalic, atraumatic. Neck: Supple, trachea midline. Eye: Extraocular movements are intact. Ears, nose, mouth and throat: mucosa moist. Cardiovascular: Regular, Normal peripheral perfusion. Patient has some chest wall tenderness in the center chest. Respiratory: Lungs are clear to auscultation, respirations are non-labored, breath sounds are equal, Symmetrical chest wall expansion. Gastrointestinal: Soft, Nontender, Non distended Musculoskeletal: Normal ROM, no deformity. Neurological: Alert and oriented, No focal neurological deficit observed. Psychiatric: Cooperative, appropriate mood & affect. Course 2 Vital Signs: Vital signs: Vital Signs Temperature 98.8 F 12/18/24 17:07 Pulse Rate 53 L 12/18/24 17:07 Respiratory Rate 14 12/18/24 17:07 Blood Pressure 116/77 12/18/24 17:07 Pulse Oximetry 97 12/18/24 17:07 MDM - Fall Medical Decision Making Differential diagnosis for patient with chest pain includes but is not limited to and based on the above HPI, review of systems and physical exam: Pneumonia. unstable angina. angina. Acute coronary syndrome / MO. Pulmonary embolism. Costochondritis / musculoskeletal. Pleurisy. Pericarditis. Esophageal spasm. Pancreatis. Cholecystitis. Orders placed to evaluate differential diagnosis based on the above differential, HPI and physical exam Chest x-ray: No acute process. No infiltrate. No pneumothorax. This was reviewed and interpreted by myself the emergency room physician. I also reviewed the radiology report. EKG: Time 183. Rate 54. Sinus bradycardia, No ST-T changes, no ectopy, normal GA & QRS intervals, This was reviewed and interpreted by myself the ER physician at 1837 Lab Review: Laboratory results were reviewed and interpreted by myself the emergency room physician. Lab work unremarkable. No leukocytosis. No anemia. No renal failure. Troponin is negative. I reviewed the patient's medical record. Medical history includes ischemic stroke, multiple falls, hypertension, traumatic brain injury in the past, COPD and BPH and A-fib. He is not on chronic anticoagulation. Reexamination: Patient remained stable. No increased work of breathing. No altered mental status. No focal motor deficits. Assessment and plan: Chest wall contusion - Discharged home - Discussed plan with patient. Answered any questions. - Evaluation and treatment of this problem were appropriate in the emergency setting. Lab Data 12/18/24 17:31 12/18/24 17:31 Laboratory Results WBC 4.89 10^3/uL (3.29-11.43) 12/18/24 17:31 RBC 5.20 10^6/uL (3.85-5.65) 12/18/24 17:31 Hgb 16.40 g/dL (11.27-16.99) 12/18/24 17:31 Hct 50.3 % (37-53) 12/18/24 17:31 MCV 96.7 fl (82-101) 12/18/24 17:31 MCH 31.5 pg (27-33) 12/18/24 17:31 MCHC 32.6 g/dL (30-55) 12/18/24 17:31 RDW 13.3 % (12.1-15.1) 12/18/24 17:31 Plt Count 164 10^3/cmm (157-399) 12/18/24 17:31 MPV 10.0 fL (7.4-10.4) 12/18/24 17: Neut % (Auto) 61.2 % 12/18/24 17:31 Lymph % (Auto) 29.7 % 12/18/24 17:31 [place] % (Auto) 6.3 % 12/18/24 17: Eos % (Auto) 2.0 % 12/18/24 17: Baso % (Auto) 0.6 % 12/18/24 17: Neut # (Auto) 2.99 10^3/uL (1.8-7.7) 12/18/24 17: Lymph # (Auto) 1.5 10^3/uL (0.8-4.8) 12/18/24 17: [place] # (Auto) 0.3 10^3/uL (0.2-0.9) 12/18/24 17: Eos # (Auto) 0.1 10^3/uL (0.0-0.8) 12/18/24 17: Baso # (Auto) 0.0 10^3/uL (0.0-0.1) 12/18/24 17: Nucleated RBC % (auto) 0 % 12/18/24 17: Nucleated RBCs # 0.0 /100WBC 12/18/24 17: Sodium 137 mmol/L (136-145) 12/18/24 17: Potassium 4.0 mmol/L (3.5-5.1) 12/18/24 17: Chloride 100 mmol/L (98-107) 12/18/24 17: Carbon Dioxide 31 mmol/L (22-29) H 12/18/24 17: Anion Gap 10.0 (5-19) 12/18/24 17: BUN 14 mg/dL (8-23) 12/18/24 17: Creatinine 1.0 mg/dL (0.7-1.2) 12/18/24 17:31 GFR Calculation Not Reportable 12/18/24 17: Glucose 93 mg/dL (65-115) 12/18/24 17:31 Calculated Osmolality 284 mOsm/kg (285-295) L 12/18/24 17: Lactic Acid 0.7 mmol/L (0.5-2.2) 12/18/24 17:31 Calcium 9.4 mg/dL (8.5-10.5) 12/18/24 17:31 Total Bilirubin 0.7 mg/dL (0.15-1.2) 12/18/24 17:31 AST 27 U/L (0-40) 12/18/24 17:31 ALT 27 U/L (0-41) 12/18/24 17:31 Alkaline Phosphatase 145 U/L (40-130) H 12/18/24 17:31 Troponin T Baseline 13 ng/L (0-15) 12/18/24 17:31 NT-Pro-B Natriuret Pep 156 pg/mL (0-125) H 12/18/24 17:31 Total Protein 6.6 g/dL (6.6-8.7) 12/18/24 17:31 Albumin 4.1 g/dL (3.5-5.2) 12/18/24 17:31 Globulin 2.5 g/dL (1.3-4.6) 12/18/24 17:31 All radiology interpretation(s) finalized by discharge Discharge Plan Discharge Patient Disposition: Home Clinical Impression: Fall, Pain of sternum, Hip pain Condition: Stable Prescriptions: No Action hydrocodone-acetaminophen 7.5-325 mg tablet 1 tab PO Q8H PRN (Reason: Pain) atorvastatin 40 mg tablet 40 mg PO QAM diclofenac sodium 75 mg tablet,delayed release (DR/EC) 75 mg PO Q12H PRN (Reason: pain) Qty: 20 0RF Discharge Orders: Discharge ED (Routine); Ordered 12/18/24 Ordered By: Jeanine Roy Referrals: Yordan Murphy [Primary Care Provider] - Discharge Diet: Usual diet Discharge Activity: Increase activity as tolerated Patient Instructions: Opioid Safety, Pain Management Activity Restrictions/Additional Instructions: Thank you for choosing [facility] for your healthcare needs today. Please realize this is an emergency room and that we are providing you with a medical screening exam and this may not be complete and all inclusive of all the testing and or work up that you may need to determine your ailment or severity of your illness. You have been screened and evaluated and felt safe for discharge. Health conditions do change or evolve sometimes and as such it is important that you follow up with your Primary Doctor to be re checked, 3-5 days is a general good time frame for follow up. You are always welcome to return to the ED for re assessment if your symptoms are worsening or you have new concerns Print Language: Bots[place]an Coding Level of Care Code ED Brim Flexer for Daina Hoskins
[2024-12-18 17:40] LABS: Basophils % 0.6 %; Eosinophils # 0.1 10^3/uL (0.0-0.8); Hematocrit 50.3 % (37-53); Lymphocytes # 1.5 10^3/uL (0.8-4.8); Lymphocytes % 29.7 %; Mean Corpuscular HGB Conc 32.6 g/dL (30-55); Mean Corpuscular Hemoglobin 31.5 pg (27-33); Mean Corpuscular Volume 96.7 fl (82-101); Monocytes # 0.3 10^3/uL (0.2-0.9); Monocytes % 6.3 %; Neutrophils # 2.99 10^3/uL (1.8-7.7); Neutrophils % 61.2 %; Nucleated Red Blood Cells % 0 %; Platelet Count 164 10^3/cmm (157-399); Red Cell Distribution Width 13.3 % (12.1-15.1); White Blood Count 4.89 10^3/uL (3.29-11.43)
[2024-12-18 18:03] LABS: Troponin(5th) Baseline 13 ng/L (0-15)
[2024-12-18 18:05] LABS: Lactic Sepsis W/Reflex 0.7 mmol/L (0.5-2.2)
[2024-12-18 18:13] LABS: Alanine Aminotransferase 27 U/L (0-41); Albumin Level 4.1 g/dL (3.5-5.2); Alkaline Phosphatase 145 U/L (40-130); Aspartate Amino Transferase 27 U/L (0-40); Blood Urea Nitrogen 14 mg/dL (8-23); Calcium 9.4 mg/dL (8.5-10.5); Carbon Dioxide 31 mmol/L (22-29); Chloride 100 mmol/L (98-107); Creatinine Clr Calc Pharmacy 80.8512; Globulin 2.5 g/dL (1.3-4.6); Glucose 93 mg/dL (65-115); NT Pro B Type Natriuretic Pept 156 pg/mL (0-125); Osmolality Calculated 284 mOsm/kg (285-295); Sodium 137 mmol/L (136-145); Total Bilirubin 0.7 mg/dL (0.15-1.2); Total Protein 6.6 g/dL (6.6-8.7)
[2024-12-18 18:54] VITALS: BP 109/79; PULSE 64; O2SAT 97
[2024-12-18 19:14] VITALS: BP 109/79; PULSE 60; O2SAT 95
== END 2024-12-18 19:15 | disposition home or self-care (01) ==
PROVIDERS: Emergency Provider Emergency Medicine; PCP Family Medicine
DX: M25.552 Pain in left hip (principal); R07.2 Precordial pain; F17.210 Nicotine dependence, cigarettes, uncomplicated; Z86.73 Personal history of transient ischemic attack (TIA), and cerebral infarction without residual deficits; J44.9 Chronic obstructive pulmonary disease, unspecified; I10 Essential (primary) hypertension; W19.XXXA Unspecified fall, initial encounter
CPT/HCPCS: 36415; 71045; 73502; 80053; 83605; 83880; 84484; 85025; 93005; 99285

== ENCOUNTER 2024-12-21 12:16 | Emergency (ER) | payer MEDICARE, MEDICAID, SELFPAY ==
[2024-12-21 12:21] VITALS: BP 134/83; PULSE 72; RESP 18; TEMP 36.6; O2SAT 97
--- NOTE | 2024-12-21 12:36 | XR_ITS ---
WS: [id number] Portable AP upright chest, 12/21/2024 Clinical Data: syncope Comparison: Portable chest, 12/18/2024 Findings: No nodules, masses or effusions are seen. The heart is normal. The pulmonary vascularity is not increased. No pneumonia or pneumothorax is seen. The diaphragms are flattened. There are old left rib fractures. Monitor leads are on the chest wall. XR/XR chest 1V portable 81802 Impression: Hyperinflation.
--- NOTE | 2024-12-21 12:36 | XR_ITS ---
WS: [id number] Pelvis, AP view, 12/21/2024 Clinical Data: fall Comparison: Pelvis and left hip, 12/18/2024 Findings: No new fractures or dislocations are seen. The intertrochanteric left hip fracture remains reduced with an oblique nail and proximal left femoral plate. The SI joints and pubic symphysis are intact. The soft tissues are not remarkable. The right hip is intact and shows a small acetabular spur. There is a fecal impaction. There is a vena caval filter. XR/XR pelvis 1-2V* 79801 Impression: 1. Stable internal fixation of intertrochanteric fracture left hip. 2. Negative for new fracture.
--- NOTE | 2024-12-21 12:37 | ECG_ITS ---
[email or web address] Date: 2024-12-21 Pat Name: Cornelio Puckett Department: Room: Gender: Male Senior Financial: : 1950 Requested By: Mehdi Gibbons Order Number: [id number] Feliberto MD: Tomas Jack M.D. Measurements Intervals [place] Rate: 63 P: 89 MD: 165 QRS: -76 QRSD: 89 T: 77 QT: 395 QTc: 406 Interpretive Statements SINUS RHYTHM LEFT AXIS DEVIATION [QRS AXIS < -30] SEPTAL MYOCARDIAL INFARCTION , OF INDETERMINATE AGE [40+ ms Q WAVE IN V1/V2] Compared to ECG 12/18/2024 18:33:51 Left-axis deviation now present Myocardial infarct finding now present Sinus bradycardia no longer present Left anterior fascicular block no longer present Electronically Signed On 12-21-2024 22:01:00 CDT by Tomas Jack M.D. [email or web address]
--- NOTE | 2024-12-21 12:37 | W.ED.FALL ---
HPI - Fall General: Chief Complaint: Fall Stated Complaint: Rapid, Fell, Hit head, Lt Hip Pain Time Seen by Provider: 12/21/24 12:21 Source: patient Mode of arrival: ambulatory History of Present Illness: This patient had a fall episode over at the outpatient clinic. He states he was here today to try to get into the stress unit. He states he had not eaten for 3 days. He states he lives alone in an apartment and has no money he does not get his fpc check for several more days. He states that he stumbled and fell. He is unsure if he hit his head. He states there is no passing out episode associated with his fall. He complains of left hip pain but has chronic left hip pain. He denies any other symptoms at this time. He states he has drank little in the way of fluids over the past day or so. Loss of consciousness: Unsure Prolonged down time: no Symptoms prior to fall: none Context: tripped/slipped Associated symptoms-after fall: Denies abdominal pain, chest pain, headache(s) or neck pain Related Data Home Medications ?Medication ?Instructions ?Recorded ?Confirmed hydrocodone 7.5 mg-acetaminophen 1 tab PO Q8H PRN Pain 04/20/20 12/21/24 325 mg tablet atorvastatin 40 mg tablet 40 mg PO QAM 11/14/24 12/21/24 Previous Rx's ?Medication ?Instructions ?Recorded diclofenac sodium 75 mg 75 mg PO Q12H PRN pain #20 tabs 11/14/24 tablet,delayed release Allergies Allergy/AdvReac Type Severity Reaction Status Date / Time No Known Allergies Allergy Verified 11/21/24 07:57 Review of Systems Const: Denies: fever(s) or chills Eyes: Denies: change in vision ENMT: Denies: throat pain, odynophagia, nasal discharge or nasal congestion Card: Denies: chest pain, palpitations, irregular heart rhythm or syncope Resp: Denies: dyspnea, productive cough or non-productive cough GI: Denies: abdominal pain, nausea, vomiting or diarrhea Musc: Reports: extremity pain; Denies: neck pain or back pain Skin/Breast: Denies: rash Neuro: Denies: headache(s), numbness in extremities, weakness in extremities or seizure-like activity [facility] ED PFSH: Medical History Acute right arterial ischemic stroke, middle cerebral artery (MCA) CVA (cerebral vascular accident) Cerebrovascular accident Thyroid nodule [place] Hypertension Traumatic brain injury Smoker History of cardioversion COPD (chronic obstructive pulmonary disease) BPH (benign prostatic hyperplasia) Afib Surgical History S/P IVC filter History of knee replacement History of hip replacement History of laparoscopic appendectomy Hx of tonsillectomy Family History Other CAD (coronary artery disease) Cancer Diabetes Hypertension Lung disease Stroke Denies family history of Clotting disorder Dementia Hyperlipidemia Psychiatric illness Chronic kidney disease (CKD) Suicide Anesthesia complication Bleeding disorder Family history of premature coronary artery disease Social History Smoking and tobacco/nicotine status: current every day tobacco/nicotine user cigarettes Years cigarettes smoked: 56 Quit status (tobacco/nicotine): considering quitting Second hand smoke exposure: No Alcohol intake: never Substance/Drug Use: never Adopted: No Caregiver/support person: Yes Lives independently: Yes Housing: Apartment Marital status: Single Number of children: 0 Highest education level completed: Bachelor's Degree service: Yes Current occupational status: retired Pets and animals: No Sexually active: No Do you think of yourself as: Straight/Heterosexual Current gender identity: Male Special reece needs: No Agree to transfusion: Yes Physical Exam Narrative: EXAM NARRATIVE: He is alert makes good eye contact answers questions appropriately. Const: COMMON NORMALS: no acute distress, average body habitus and patient oriented x3 GENERAL APPEARANCE: cooperative and comfortable HENMT: COMMON NORMALS: atraumatic, Normal nasal mucous membranes and turbinates present, moist oral mucous membranes and oropharynx normal HEAD & SCALP: atraumatic FACE & SINUS: normal facial exam and face symmetric NOSE: Normal nasal mucous membranes and turbinates present Eye: COMMON NORMALS: Equal, round and reactive pupils present, EOMs intact bilaterally and conjunctivae normal CONJUNCTIVA: Yes conjunctivae normal PUPIL: Yes Equal, round and reactive pupils present Neck/C-Spine: CERVICAL SPINE: Yes cervical ROM normal, No Cervical spine tenderness, No step off deformity, Yes Paracervical muscle tenderness, No Paracervical spasm and No Trapezius muscle tenderness OTHER: He has no midline tenderness or step-off. He is able to range his neck 15 Briese forward bending 15 degrees extension and approximately 35 to 40 degrees rotation left and right. He does have some paracervical tenderness noted posteriorly but no midline tenderness or step-off. Chest: COMMONS NORMALS: normal inspection of the chest and normal palpation of entire chest wall Resp: COMMON NORMALS: normal respiratory effort, No use of accessory muscles and clear to auscultation bilaterally EFFORT & INSPECTION: Yes able to speak in complete sentences AUSCULTATION: clear to auscultation bilaterally Cardio: COMMON NORMALS: regular rate, regular rhythm, No murmurs present (Cardio) and Peripheral pulses 2+ throughout RATE: regular rate RHYTHM: regular rhythm PERIPHERAL PULSES: Peripheral pulses 2+ throughout GI: COMMON NORMALS: Normal to inspection, nondistended, normoactive bowel sounds present, Soft to palpation and non-tender PALPATION: Yes Soft to palpation : COMMON NORMALS: Yes no CVA tenderness BLADDER/KIDNEY EXAM: Yes no CVA tenderness Back/Pelvis: COMMON NORMALS: no CVA tenderness, thoracic and lumbar spine normal to inspection, no thoracic nor lumbar tenderness, thoraco-lumbar ROM normal and straight leg raise negative bilaterally Extremity: COMMON NORMALS: normal to inspection, capillary refill normal, no calf tenderness and no pedal edema NARRATIVE EXTREMITY EXAM: Some mild tenderness over his left lateral hip joint but range of motion does not produce any increased symptoms. Pelvis is stable without any instability to AP or lateral compression. Neuro: COMMON NORMALS: patient oriented x3, moves all extremities, no focal motor deficits and no sensory deficits noted CRANIAL NERVES: Yes CN normal except as noted Psych: COMMON NORMALS: mental status grossly normal Skin: COMMON NORMALS: no rashes or lesions noted, no wounds and turgor normal GENERAL SKIN EXAM: no rashes or lesions noted and turgor normal Course Reevaluation(s): Reevaluation #1: The patient has eaten and drank and is in good spirits. His laboratories are reassuring. His vital signs are normal as well. At this point he does not appear to have an ongoing emergency medical condition. We will attempt to determine what his goals are for today. He states that he drove here in anticipation of going to the stress unit because he had not eaten for 3 days and will try to attempt to determine if he has family locally or if we can make other inquiries regarding a potential assistance for him but he does not have a condition at this time that requires further observation or admission. He has normal mentation interacts appropriately has no other signs of trauma or other concerns at this time. Time: 13:58 Reevaluation #2: Patient stated that he does have a son but is not recall request that we contact his son as his son has stated in the past he wants nothing to do for him. We also had case assistant and protective services social worker interviewed the patient and discussed options. The patient does not want to go any long-term care and has no other desires for any other interventions and desires to be discharged from the emergency department. He is clinically stable at this time has no evidence of an ongoing emergency emergency medical condition and is not under the influence and has decision-making capacity. He is welcome to return for any ongoing concerns. Time: 14:34 Vital Signs: Vital signs: Vital Signs Temperature 97.9 F 12/21/24 12:21 Pulse Rate 72 12/21/24 12:21 Respiratory Rate 18 12/21/24 12:21 Blood Pressure 134/83 12/21/24 12:21 Pulse Oximetry 97 12/21/24 12:21 Oxygen Delivery Me thod Room Air 12/21/24 12:21 MDM - Fall Medical Decision Making This patient presented as noted in the HPI. He relates that he was at the outpatient part of the hospital attempting to go to the stress unit to discuss interventions at that facility. He states he tripped over his cane and a wheelchair. He states he did not hit his head and did not suffer any other new injury other than he did land on his left hip which has chronic pain. He had a prior ORIF of that hip. His clinical evaluation revealed him to be without signs of trauma. He had no evidence of bony injury or tenderness other than left hip tenderness. Laboratories were obtained EKG and imaging of his hip and pelvis were obtained. All his ancillary studies were reassuring without any evidence of arrhythmia on monitor, acute changes on EKG, laboratory abnormalities or imaging abnormalities. Heavy received the benefit of meal in the emergency department. We also had protective services social worker consult and they discussed options such as long-term care etc. with him which he declined. He also declined to have us contact any family members. He did not display any signs of altered mental status, impaired cognition, impaired decision-making capacity. It was his desire to be discharged at the culmination of his evaluation. He had no evidence of an ongoing emergency medical condition, had no history of head trauma, was not on any antiplatelet or anticoagulants, had no other ongoing concerns or change in his status. He is welcome to return at any time. Lab Data I reviewed the patient's lab results. 12/21/24 12:55 12/21/24 12:55 Radiology Impressions Chest X-Ray 12/21/24 12:36 Impression: Hyperinflation. Pelvis X-Ray 12/21/24 12:36 Impression: 1. Stable internal fixation of intertrochanteric fracture left hip. 2. Negative for new fracture. Laboratory Results WBC 5.33 10^3/uL (3.29-11.43) 12/21/24 12:55 RBC 5.01 10^6/uL (3.85-5.65) 12/21/24 12:55 Hgb 15.50 g/dL (11.27-16.99) 12/21/24 12:55 Hct 48.3 % (37-53) 12/21/24 12:55 MCV 96.4 fl (82-101) 12/21/24 12:55 MCH 30.9 pg (27-33) 12/21/24 12:55 MCHC 32.1 g/dL (30-55) 12/21/24 12:55 RDW 13.3 % (12.1-15.1) 12/21/24 12:55 Plt Count 146 10^3/cmm (157-399) L 12/21/24 12:55 MPV 10.0 fL (7.4-10.4) 12/21/24 12:55 Neut % (Auto) 65.4 % 12/21/24 12:55 Lymph % (Auto) 25.0 % 12/21/24 12:55 [place] % (Auto) 7.7 % 12/21/24 12:55 Eos % (Auto) 1.1 % 12/21/24 12:55 Baso % (Auto) 0.6 % 12/21/24 12:55 Neut # (Auto) 3.49 10^3/uL (1.8-7.7) 12/21/24 12:55 Lymph # (Auto) 1.3 10^3/uL (0.8-4.8) 12/21/24 12:55 [place] # (Auto) 0.4 10^3/uL (0.2-0.9) 12/21/24 12:55 Eos # (Auto) 0.1 10^3/uL (0.0-0.8) 12/21/24 12:55 Baso # (Auto) 0.0 10^3/uL (0.0-0.1) 12/21/24 12:55 Nucleated RBC % (auto) 0 % 12/21/24 12:55 Nucleated RBCs # 0.0 /100WBC 12/21/24 12:55 Sodium 140 mmol/L (136-145) 12/21/24 12:55 Potassium 4.3 mmol/L (3.5-5.1) 12/21/24 12:55 Chloride 103 mmol/L (98-107) 12/21/24 12:55 Carbon Dioxide 27 mmol/L (22-29) 12/21/24 12:55 Anion Gap 14.3 (5-19) 12/21/24 12:55 BUN 13 mg/dL (8-23) 12/21/24 12:55 Creatinine 1.0 mg/dL (0.7-1.2) 12/21/24 12:55 GFR Calculation Not Reportable 12/21/24 12:55 Glucose 86 mg/dL (65-115) 12/21/24 12:55 Calculated Osmolality 289 mOsm/kg (285-295) 12/21/24 12:55 Calcium 9.0 mg/dL (8.5-10.5) 12/21/24 12:55 Magnesium 2.1 mg/dL (1.7-2.3) 12/21/24 12:55 Total Bilirubin 0.4 mg/dL (0.15-1.2) 12/21/24 12:55 AST 23 U/L (0-40) 12/21/24 12:55 ALT 19 U/L (0-41) 12/21/24 12:55 Alkaline Phosphatase 120 U/L (40-130) 12/21/24 12:55 Total Protein 5.9 g/dL (6.6-8.7) L 12/21/24 12:55 Albumin 3.4 g/dL (3.5-5.2) L 12/21/24 12:55 Globulin 2.5 g/dL (1.3-4.6) 12/21/24 12:55 TSH 0.45 uIU/mL (0.27-4.20) 12/21/24 12:55 All radiology interpretation(s) finalized by discharge EKG Data EKG 1: I personally reviewed and interpreted this EKG as follows: Interpretation: Contemporaneous review of patient's EKG reveals a ventricular rate of 63 bpm. Normal ME interval, QRS duration, corrected QT interval. Has a leftward axis. He has decreased R wave noted in anterior precordial leads suggestive of prior septal [place]. No acute ST-T wave changes noted at this time. Discharge Plan Discharge Patient Disposition: Home Clinical Impression: Fall from ground level, Hip pain Condition: Stable Prescriptions: No Action hydrocodone-acetaminophen 7.5-325 mg tablet 1 tab PO Q8H PRN (Reason: Pain) atorvastatin 40 mg tablet 40 mg PO QAM diclofenac sodium 75 mg tablet,delayed release (DR/EC) 75 mg PO Q12H PRN (Reason: pain) Qty: 20 0RF Discharge Orders: Discharge ED (Routine); Ordered 12/21/24 Ordered By: Mehdi Gibbons Referrals: Yordan Murphy [Primary Care Provider] - Discharge Diet: Usual diet Discharge Activity: Increase activity as tolerated Patient Instructions: Opioid Safety, Pain Management Activity Restrictions/Additional Instructions: As we discussed while you are in the emergency department your evaluation from your fall did not find any evidence of acute serious or acute injury. You should continue all your usual medications ensure that you are drinking at least 2 quarts or more of water daily and eat on a regular basis. If you develop any new concerns or worsening concerns or any new symptoms you are welcome to return to the emergency department for reevaluation. Print Language: Indonesian Coding Level of Care Code ED Insole Doubler for Daina Hoskins
[2024-12-21] MEDS: lactated ringers 1,000 ML 999 ML IV (12:58)
[2024-12-21 13:00] LABS: Basophils % 0.6 %; Eosinophils # 0.1 10^3/uL (0.0-0.8); Eosinophils % 1.1 %; Hematocrit 48.3 % (37-53); Lymphocytes # 1.3 10^3/uL (0.8-4.8); Mean Corpuscular HGB Conc 32.1 g/dL (30-55); Mean Corpuscular Hemoglobin 30.9 pg (27-33); Mean Corpuscular Volume 96.4 fl (82-101); Monocytes # 0.4 10^3/uL (0.2-0.9); Monocytes % 7.7 %; Neutrophils # 3.49 10^3/uL (1.8-7.7); Neutrophils % 65.4 %; Nucleated Red Blood Cells % 0 %; Platelet Count 146 10^3/cmm (157-399); Red Blood Count 5.01 10^6/uL (3.85-5.65); Red Cell Distribution Width 13.3 % (12.1-15.1); White Blood Count 5.33 10^3/uL (3.29-11.43)
[2024-12-21 13:31] LABS: Alanine Aminotransferase 19 U/L (0-41); Albumin Level 3.4 g/dL (3.5-5.2); Alkaline Phosphatase 120 U/L (40-130); Anion Gap 14.3 (5-19); Aspartate Amino Transferase 23 U/L (0-40); Blood Urea Nitrogen 13 mg/dL (8-23); Carbon Dioxide 27 mmol/L (22-29); Chloride 103 mmol/L (98-107); Globulin 2.5 g/dL (1.3-4.6); Glucose 86 mg/dL (65-115); Magnesium 2.1 mg/dL (1.7-2.3); Osmolality Calculated 289 mOsm/kg (285-295); Potassium 4.3 mmol/L (3.5-5.1); Sodium 140 mmol/L (136-145); Thyroid Stimulating Hormone 0.45 uIU/mL (0.27-4.20); Total Bilirubin 0.4 mg/dL (0.15-1.2); Total Protein 5.9 g/dL (6.6-8.7)
--- NOTE | 2024-12-21 14:33 | PC.SOCIAL ---
CM to visit with patient and he states he wants a caregiver set up that can come clean and cook for him. Explained to patient that he could call medicaid and get it set up through them. He states that he has a $29 spend down and he dont have $29 to his name. CM voiced understanding and offered SNF placement using his medicaid. Patient states lilly [facility]rederick Explained once again if he wants [facility] he will need to follow up with medicaid.
[2024-12-21 18:33] LABS: Glucose Point of Care 86 mg/dL (70-110)
== END 2024-12-21 14:44 | disposition home or self-care (01) ==
PROVIDERS: Emergency Provider Emergency Medicine; PCP Family Medicine
DX: M25.552 Pain in left hip (principal); W19.XXXA Unspecified fall, initial encounter; F17.210 Nicotine dependence, cigarettes, uncomplicated; J44.9 Chronic obstructive pulmonary disease, unspecified; Z86.73 Personal history of transient ischemic attack (TIA), and cerebral infarction without residual deficits; I10 Essential (primary) hypertension
CPT/HCPCS: 36415; 36416; 71045; 72170; 80053; 82962; 83735; 84443; 85025; 93005; 96360; 96361; 99285; J7120

== ENCOUNTER 2024-12-24 09:53 | Emergency (ER) | payer MEDICARE, MEDICAID, SELFPAY ==
[2024-12-24 09:54] VITALS: BP 109/73; PULSE 78; RESP 18; TEMP 37.1; O2SAT 100; BMI 19.2
--- NOTE | 2024-12-24 10:24 | W.ED.GENADLT ---
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 Patient reports he did have home health care come out to his house for the last 5 years which was been taken away from the last couple of months which has had increased frequent falls and significant weakness he needs help with his groceries as well as washing the dishes or anything requiring a prolonged amount of standing. Patient currently reports no other concerns at this time. Patient was evaluated [address] Gibbons in our ER which drug abuse social worker and case management were contacted to evaluate the patient but the patient declined any inpatient options or any other options offered to him at that time. Patient does endorse increased fall risk he has been seen ER multiple times throughout the last 6 weeks as the services has been cut patient reports no other associated issues. Associated symptoms: Deny chest pain, dyspnea, headache(s), malaise, nausea, rash, palpitations or vomiting Related Data Home Medications ?Medication ?Instructions ?Recorded ?Confirmed hydrocodone 7.5 mg-acetaminophen 1 tab PO Q8H PRN Pain 04/20/20 12/24/24 325 mg tablet atorvastatin 40 mg tablet 40 mg PO QAM 11/14/24 12/24/24 Previous Rx's ?Medication ?Instructions ?Recorded diclofenac sodium 75 mg 75 mg PO Q12H PRN pain #20 tabs 11/14/24 tablet,delayed release Allergies Allergy/AdvReac Type Severity Reaction Status Date / Time No Known Allergies Allergy Verified 11/21/24 07:57 Review of Systems General: Reports: 10 or more systems reviewed and unremarkable except in HPI and below Const: Denies: fever(s), chills, fatigue or malaise Eyes: Denies: change in vision or blurry vision Card: Denies: chest pain or palpitations Resp: Denies: dyspnea or productive cough GI: Denies: abdominal pain, nausea or vomiting : Denies: flank pain Musc: Reports: back pain, extremity pain, joint pain, joint stiffness, muscle weakness and decrease in muscle mass; Denies: extremity swelling Skin/Breast: Denies: rash or pruritus Neuro: Denies: headache(s) Psych: Denies: anxiety, depression, suicidal ideation or homicidal ideation [place]/Lymph: Denies: easy bleeding All/Imm: Denies: urticaria, throat swelling or facial swelling PFSH ED PFSH: Medical History Acute right arterial ischemic stroke, middle cerebral artery (MCA) CVA (cerebral vascular accident) Cerebrovascular accident Thyroid nodule [place] Hypertension Traumatic brain injury Smoker History of cardioversion COPD (chronic obstructive pulmonary disease) BPH (benign prostatic hyperplasia) Afib Surgical History S/P IVC filter History of knee replacement History of hip replacement History of laparoscopic appendectomy Hx of tonsillectomy Family History Other CAD (coronary artery disease) Cancer Diabetes Hypertension Lung disease Stroke Denies family history of Clotting disorder Dementia Hyperlipidemia Psychiatric illness Chronic kidney disease (CKD) Suicide Anesthesia complication Bleeding disorder Family history of premature coronary artery disease Social History Smoking and tobacco/nicotine status: current every day tobacco/nicotine user cigarettes Years cigarettes smoked: 56 Quit status (tobacco/nicotine): considering quitting Second hand smoke exposure: No Alcohol intake: never Substance/Drug Use: never Adopted: No Caregiver/support person: Yes Lives independently: Yes Housing: Apartment Marital status: Single Number of children: 0 Highest education level completed: Bachelor's Degree service: Yes Current occupational status: retired Pets and animals: No Sexually active: No Do you think of yourself as: Straight/Heterosexual Current gender identity: Male Special reece needs: No Agree to transfusion: Yes Physical Exam Narrative: EXAM NARRATIVE: Upon direct questioning patient is not homicidal or suicidal alert and oriented x 3 appearing not to be under the influence of alcohol or drugs reporting no other concerns. Const: COMMON NORMALS: no acute distress, patient oriented x3 and healthy appearing HENMT: COMMON NORMALS: normocephalic and atraumatic HEAD & SCALP: normocephalic and atraumatic Eye: COMMON NORMALS: Equal, round and reactive pupils present and EOMs intact bilaterally PUPIL: Yes Equal, round and reactive pupils present Neck/C-Spine: COMMON NORMALS: full ROM, supple and no JVD Lymph: LYMPHATIC: no lymphadenopathy noted Chest: COMMONS NORMALS: normal inspection of the chest and normal palpation of entire chest wall Resp: COMMON NORMALS: normal respiratory effort, No retractions and clear to auscultation bilaterally EFFORT & INSPECTION: Yes able to speak in complete sentences and Yes symmetric chest movement AUSCULTATION: clear to auscultation bilaterally Cardio: COMMON NORMALS: no JVD, regular rate and regular rhythm RATE: regular rate RHYTHM: regular rhythm GI: COMMON NORMALS: Normal to inspection, nondistended, normoactive bowel sounds present, Soft to palpation and non-tender INSPECTION: Yes normal to inspection PALPATION: Yes Soft to palpation : COMMON NORMALS: Yes no CVA tenderness BLADDER/KIDNEY EXAM: Yes no CVA tenderness Back/Pelvis: COMMON NORMALS: no CVA tenderness Extremity: COMMON NORMALS: normal to inspection (Multiple scars appreciated with previous multiple surgeries noted to the hi); negative for full ROM Neuro: COMMON NORMALS: patient oriented x3, CN's II-XII intact bilaterally, moves all extremities and no focal motor deficits Psych: COMMON NORMALS: mental status grossly normal, Normal thought process present, cooperative and normal affect THOUGHT PROCESS: Normal thought process present Skin: COMMON NORMALS: no rashes or lesions noted GENERAL SKIN EXAM: no rashes or lesions noted Course Vital Signs: Vital signs: Vital Signs Temperature 98.7 F 12/24/24 09:54 Pulse Rate 78 12/24/24 09:54 Respiratory Rate 18 12/24/24 09:54 Blood Pressure 109/73 12/24/24 09:54 Pulse Oximetry 100 12/24/24 09:54 Oxygen Delivery Me thod Room Air 12/24/24 09:54 MDM - General Adult Medical Decision Making Due to patient's significant edition I did speak with Dr. Garcia on-call for the neuropsychiatric unit in which we will be doing a virtual visit with the patient on my examination patient does not qualify for any inpatient evaluation or stay the patient denies any recent trauma or recent injuries advised the patient our resources are quite limited on the weekend including case management as well as social service recommendations and/or management. I did advise that he possibly need to contact his primary care doctor for further help for him to get followed up with referral to home health care per my limited understanding I do not understand the reason why the patient does not currently qualify for it especially with his significant fall risk history in the last 6 weeks as as well as his motility issues will continue to follow-up. A referral for case management was placed for the patient patient did report he has not eaten today due to lack of food in his household does not qualify for inpatient care at this time due to lack of a substantial reason for admission. Patient will be discharged home after getting him a hot meal tray and advise a further follow-up with his primary care doctor as well as a case management consultation for further evaluation home health care and was to return in the interim if any of his symptoms persist or worsen. No radiology studies performed this visit Discharge Plan Discharge Patient Disposition: Home Clinical Impression: Encounter for medical screening examination, Multiple falls, Need for home health care Condition: Stable Prescriptions: No Action hydrocodone-acetaminophen 7.5-325 mg tablet 1 tab PO Q8H PRN (Reason: Pain) atorvastatin 40 mg tablet 40 mg PO QAM diclofenac sodium 75 mg tablet,delayed release (DR/EC) 75 mg PO Q12H PRN (Reason: pain) Qty: 20 0RF Discharge Orders: Discharge ED (Routine); Ordered 12/24/24 Ordered By: Albino Box Referrals: Yordan Murphy [Primary Care Provider] - 1-3 days (Contact your primary care doctor on Thursday for further help for body getting home health care set up.) Patient Instructions: Fall Prevention (ED) Activity Restrictions/Additional Instructions: You will be contacted on Thursday by case bed for further recommendations for your current condition is also celis you to contact your primary care doctor on Thursday to help you get set up for home health care. Please modify tasks you do to reduce the likelihood of your fall risk happening. Print Language: Malay Coding Level of Care Code ED Rn Residential for Daina Hoskins
== END 2024-12-24 11:29 | disposition home or self-care (01) ==
PROVIDERS: Emergency Provider Emergency Medicine; PCP Family Medicine
DX: Z00.00 Encounter for general adult medical examination without abnormal findings (principal); R29.6 Repeated falls; Z74.2 Need for assistance at home and no other household member able to render care; F17.210 Nicotine dependence, cigarettes, uncomplicated; J44.9 Chronic obstructive pulmonary disease, unspecified; Z86.73 Personal history of transient ischemic attack (TIA), and cerebral infarction without residual deficits
CPT/HCPCS: 99283

== ENCOUNTER 2024-12-30 10:10 | Emergency (ER) | payer MEDICARE, MEDICAID, SELFPAY ==
[2024-12-30 10:22] VITALS: BP 101/68; PULSE 69; RESP 16; TEMP 36.7; O2SAT 98; BMI 25.0
--- NOTE | 2024-12-30 10:35 | W.ED.GENADLT ---
HPI - General Adult General: Chief complaint: General Medical Stated complaint: mhe Time Seen by Provider: 12/30/24 10:34 Source: patient Mode of arrival: wheelchair Limitations: no limitations History of Present Illness: Patient is a 74-year-old male who presents to the ED today requesting to be admitted to the stress unit so he can get 3 hot meals a day. Patient was just seen at crisis stabilization center before coming here. He was provided (according to patient) with a bag of junk food. According to report from crisis, they also provided patient with meal vouchers. Patient states he does get Social Security and disability as well as food stamps monthly. Patient states this normally lasts him through the month however he ran out early due to spending too much money eating out. Patient lives at the [facility]. He has a vehicle that he drives. Onset (ago): day(s) Associated symptoms: Reports no associated symptoms; Deny chest pain, dyspnea or vomiting Treatments prior to arrival: none Related Data Home Medications ?Medication ?Instructions ?Recorded ?Confirmed hydrocodone 7.5 mg-acetaminophen 1 tab PO Q8H PRN Pain 04/20/20 12/24/24 325 mg tablet atorvastatin 40 mg tablet 40 mg PO QAM 11/14/24 12/24/24 Previous Rx's ?Medication ?Instructions ?Recorded diclofenac sodium 75 mg 75 mg PO Q12H PRN pain #20 tabs 11/14/24 tablet,delayed release Allergies Allergy/AdvReac Type Severity Reaction Status Date / Time No Known Allergies Allergy Verified 11/21/24 07:57 Review of Systems Const: Denies: fever(s) Card: Denies: chest pain Resp: Denies: dyspnea GI: Denies: abdominal pain, vomiting or diarrhea Psych: Denies: depression, hopelessness, visual hallucinations, auditory hallucinations, suicidal ideation or homicidal ideation [facility] ED PFSH: Medical History Acute right arterial ischemic stroke, middle cerebral artery (MCA) CVA (cerebral vascular accident) Cerebrovascular accident Thyroid nodule [place] Hypertension Traumatic brain injury Smoker History of cardioversion COPD (chronic obstructive pulmonary disease) BPH (benign prostatic hyperplasia) Afib Surgical History S/P IVC filter History of knee replacement History of hip replacement History of laparoscopic appendectomy Hx of tonsillectomy Family History Other CAD (coronary artery disease) Cancer Diabetes Hypertension Lung disease Stroke Denies family history of Clotting disorder Dementia Hyperlipidemia Psychiatric illness Chronic kidney disease (CKD) Suicide Anesthesia complication Bleeding disorder Family history of premature coronary artery disease Social History Smoking and tobacco/nicotine status: current every day tobacco/nicotine user cigarettes Years cigarettes smoked: 56 Quit status (tobacco/nicotine): considering quitting Second hand smoke exposure: No Alcohol intake: never Substance/Drug Use: never Adopted: No Caregiver/support person: Yes Lives independently: Yes Housing: Apartment Marital status: Single Number of children: 0 Highest education level completed: Bachelor's Degree service: Yes Current occupational status: retired Pets and animals: No Sexually active: No Do you think of yourself as: Straight/Heterosexual Current gender identity: Male Special reece needs: No Agree to transfusion: Yes Physical Exam Const: COMMON NORMALS: no acute distress, average body habitus, patient oriented x3, no limitations, healthy appearing, alert and well nourished GENERAL APPEARANCE: cooperative ORIENTATION/CONSCIOUSNESS: Yes awake, Yes oriented to person, Yes oriented to place and Yes oriented to time Neuro: COMMON NORMALS: patient oriented x3 SENSORIUM/ORIENTATION: Yes alert, Yes oriented to person, Yes oriented to place and Yes oriented to time Psych: COMMON NORMALS: mental status grossly normal, Normal thought process present, cooperative, normal affect, speech normal, activity/motor behavior normal, denies hallucinations, denies homicidal ideation and denies suicidal ideation APPEARANCE: Yes grossly normal ATTITUDE: Yes calm ACTIVITY/MOTOR BEHAVIOR: Yes appropriate eye contact SPEECH: Yes normal speech MOOD & AFFECT: Yes euthymic mood THOUGHT PROCESS: Normal thought process present THOUGHT CONTENT: Yes Normal thought content present ATTENTION/CONCENTRATION: Yes attention grossly intact and Yes concentration grossly intact MEMORY/COGNITION: Yes memory grossly intact and Yes cognition grossly intact INSIGHT: Good insight present (Psych) JUDGEMENT: Good judgement present (Psych) Course Vital Signs: Vital signs: Vital Signs Temperature 98.0 F 12/30/24 10:22 Pulse Rate 69 12/30/24 10:22 Respiratory Rate 16 03/28/25 10:22 Blood Pressure 101/68 03/28/25 10:22 Pulse Oximetry 98 12/30/24 10:22 Oxygen Delivery Me thod Room Air 12/30/24 10:22 MDM - General Adult Medical Decision Making I explained to patient that he does not meet emergent inpatient criteria to NPU just to receive meals. He was provided food here in the emergency department. Recommend he continue to utilize services through the crisis stabilization center as they are set up to meet the basic needs of patients. Patient will be allowed discharge from the emergency department. No radiology studies performed this visit Discharge Plan Discharge Patient Disposition: Home Clinical Impression: Food hunger Qualifiers: Encounter type: initial encounter Qualified Code(s): T73.0XXA - Starvation, initial encounter Condition: Stable Prescriptions: No Action hydrocodone-acetaminophen 7.5-325 mg tablet 1 tab PO Q8H PRN (Reason: Pain) atorvastatin 40 mg tablet 40 mg PO QAM diclofenac sodium 75 mg tablet,delayed release (DR/EC) 75 mg PO Q12H PRN (Reason: pain) Qty: 20 0RF Discharge Orders: Discharge ED (Routine); Ordered 12/30/24 Ordered By: Joanne Mcdonald Referrals: Yordan Murphy [Primary Care Provider] - Activity Restrictions/Additional Instructions: As we discussed, from the emergency department you were provided a meal here. You were provided additional food and food vouchers from our crisis stabilization center. You do not meet inpatient emergent criteria. Print Language: Bahamian Coding Level of Care Code ED Medical Dermatologist for Daina Hoskins
--- NOTE | 2024-12-30 11:18 | PC.NURSE ---
PATIENT PROVIDED WITH FOOD. PATIENT REFUSED SANDWICH.
== END 2024-12-30 11:17 | disposition home or self-care (01) ==
PROVIDERS: Emergency Provider Physician Assistant; PCP Family Medicine
DX: T73.0XXA Starvation, initial encounter (principal); Z86.73 Personal history of transient ischemic attack (TIA), and cerebral infarction without residual deficits; J44.9 Chronic obstructive pulmonary disease, unspecified; I10 Essential (primary) hypertension; X58.XXXA Exposure to other specified factors, initial encounter; F17.210 Nicotine dependence, cigarettes, uncomplicated
CPT/HCPCS: 99281

== ENCOUNTER 2025-01-15 12:06 | Emergency (ER) | payer MEDICARE, MEDICAID, SELFPAY ==
--- NOTE | 2025-01-15 12:08 | XRR_ITS ---
PROCEDURE INFORMATION: Exam: XR Chest Exam date and time: 01/15/2025 12:19 PM Age: 75 years old Clinical indication: Shortness of breath; Increased SOB; Lt lower lat rib pain TECHNIQUE: Imaging protocol: Radiologic exam of the chest. Views: 1 view. COMPARISON: CR XR chest 1V portable [id number] 12/21/2024 1:26 PM FINDINGS: Lungs: Diffuse pulmonary lucency with hyperinflation consistent with emphysema. Pleural spaces: Blunted right costophrenic sulcus could represent trace pleural effusion or thickening. Heart/Mediastinum: Unremarkable. No cardiomegaly. Vasculature: Partially visualized IVC filter in the right upper quadrant. Bones/joints: Unremarkable. XR/XR chest 1V portable [id number] IMPRESSION: Findings consistent with emphysema. Blunted right costophrenic sulcus.
[2025-01-15 12:16] VITALS: BP 104/69; PULSE 89; RESP 17; TEMP 36.8; O2SAT 96; BMI 24.3
--- NOTE | 2025-01-15 12:19 | ECG_ITS ---
[facility] Date: 2025-01-15 Pat Name: Cornelio Puckett Department: Room: Gender: Male Jigmaker: : 1950 Requested By: Rl Arcos Order Number: [id number] Feliberto MD: Tomas Jack M.D. Measurements Intervals [place] Rate: 72 P: 89 PA: 166 QRS: -79 QRSD: 85 T: 85 QT: 359 QTc: 395 Interpretive Statements SINUS RHYTHM WITH MARKED SINUS ARRHYTHMIA LEFT AXIS DEVIATION [QRS AXIS < -30] Compared to ECG 12/21/2024 13:14:16 Myocardial infarct finding no longer present Electronically Signed On 01-15-2025 21:13:04 CDT by Tomas Jack M.D. [email or web address]
--- NOTE | 2025-01-15 12:23 | ED_ITS ---
HPI - Abdominal Pain 2 General: Chief Complaint: Abdominal Pain Stated Complaint: SOB Time Seen by Provider: 01/15/25 12:08 Source: patient Mode of arrival: ambulatory Limitations: no limitations History of Present Illness: 75-year-old male states he been having l eft-sided chest pain has been going on for months states it feels like it is in his left lung some mild dyspnea he denies any vomiting or diarrhea rates the pain a 6 out of 10 currently. Associated Symptoms: Denies chills, diarrhea, fever(s), nausea and vomiting Related Data Home Medications ?Medication ?Instructions ?Recorded ?Confirmed hydrocodone 7.5 mg-acetaminophen 1 tab PO Q8H PRN Pain 04/20/20 01/15/25 325 mg tablet atorvastatin 40 mg tablet 40 mg PO QAM 11/14/24 Allergies Allergy/AdvReac Type Severity Reaction Status Date / Time No Known Allergies Allergy Verified 11/21/24 07:57 Review of Systems 2 Const: Denies: fever(s), chills, body aches or change in appetite ENMT: Denies: throat pain or dental pain Card: Reports: chest pain Resp: Denies: dyspnea GI: Denies: abdominal pain, nausea, vomiting or diarrhea Musc: Denies: neck pain or back pain Skin/Breast: Denies: rash Neuro: Denies: headache(s) PFSH ED 2 PFSH: Medical History Acute right arterial ischemic stroke, middle cerebral artery (MCA) CVA (cerebral vascular accident) Cerebrovascular accident Thyroid nodule [place] Hypertension Traumatic brain injury Smoker History of cardioversion COPD (chronic obstructive pulmonary disease) BPH (benign prostatic hyperplasia) Afib Surgical History S/P IVC filter History of knee replacement History of hip replacement History of laparoscopic appendectomy Hx of tonsillectomy Family History Other CAD (coronary artery disease) Cancer Diabetes Hypertension Lung disease Stroke Denies family history of Clotting disorder Dementia Hyperlipidemia Psychiatric illness Chronic kidney disease (CKD) Suicide Anesthesia complication Bleeding disorder Family history of premature coronary artery disease Social History Smoking and tobacco/nicotine status: current every day tobacco/nicotine user cigarettes Years cigarettes smoked: 56 Quit status (tobacco/nicotine): considering quitting Second hand smoke exposure: No Alcohol intake: never Substance/Drug Use: never Adopted: No Caregiver/support person: Yes Lives independently: Yes Housing: Apartment Marital status: Single Number of children: 0 Highest education level completed: Bachelor's Degree service: Yes Current occupational status: retired Pets and animals: No Sexually active: No Do you think of yourself as: Straight/Heterosexual Current gender identity: Male Special reece needs: No Agree to transfusion: Yes Physical Exam 2 Const: COMMON NORMALS: no acute distress, patient oriented x3 and healthy appearing HENMT: COMMON NORMALS: normocephalic and atraumatic HEAD & SCALP: n ormocephalic and atraumatic Eye: COMMON NORMALS: Equal, round and reactive pupils present and EOMs intact bilaterally PUPIL: Yes Equal, round and reactive pupils present Neck/C-Spine: COMMON NORMALS: full ROM and supple Chest: COMMONS NORMALS: normal inspection of the chest and normal palpation of entire chest wall Resp: COMMON NORMALS: normal respiratory effort, No retractions, No use of accessory muscles and clear to auscultation bilaterally AUSCULTATION: clear to auscultation bilaterally Cardio: COMMON NORMALS: regular rate, regular rhythm and No murmurs present (Cardio) RATE: regular rate RHYTHM: regular rhythm GI: COMMON NORMALS: Normal to inspection, nondistended, normoactive bowel sounds present, Soft to palpation, non-tender and no masses PALPATION: Yes Soft to palpation Extremity: COMMON NORMALS: normal to inspection and full ROM Neuro: COMMON NORMALS: patient oriented x3, moves all extremities and no focal motor deficits Psych: COMMON NORMALS: mental status grossly normal, Normal thought process present and cooperative THOUGHT PROCESS: Normal thought process present Skin: COMMON NORMALS: no rashes or lesions noted and no wounds GENERAL SKIN EXAM: no rashes or lesions noted Course 2 Vital Signs: Vital signs: Vital Signs Temperature 98.2 F 01/15/25 12:16 Pulse Rate 89 01/15/25 12:16 Respiratory Rate 17 01/15/25 12:16 Blood Pressure 104/69 01/15/25 12:16 Pulse Oximetry 96 01/15/25 12:16 Oxygen Delivery Me thod Room Air 01/15/25 12:16 MDM - Abdominal Pain Medical Decision Making Patient presents here with chest pains been going on for months he is well- appearing here blood works normal no signs of ACS or pulmonary embolism he is follow-up with PCP return if worsening. Medical Records I reviewed the patient's medical records. Lab Data I reviewed the patient's lab results. 01/15/25 12:31 01/15/25 12:31 Labs/Radiology: Radiology Impressions Chest X-Ray 01/15/25 12:08 IMPRESSION: Findings consistent with emphysema. Blunted right costophrenic sulcus. Laboratory Results WBC 5.12 10^3/uL (3.29-11.43) 01/15/25 12:31 RBC 5.05 10^6/uL (3.85-5.65) 01/15/25 12:31 Hgb 15.70 g/dL (11.27-16.99) 01/15/25 12:31 Hct 48.2 % (37-53) 01/15/25 12:31 MCV 95.4 fl (82-101) 01/15/25 12:31 MCH 31.1 pg (27-33) 01/15/25 12:31 MCHC 32.6 g/dL (30-55) 01/15/25 12:31 RDW 13.8 % (12.1-15.1) 01/15/25 12:31 Plt Count 163 10^3/cmm (157-399) 01/15/25 12:31 MPV 9.8 fL (7.4-10.4) 01/15/25 12:31 Neut % (Auto) 58.4 % 01/15/25 12:31 Lymph % (Auto) 28.3 % 01/15/25 12:31 [place] % (Auto) 10.9 % 01/15/25 12:31 Eos % (Auto) 1.4 % 01/15/25 12:31 Baso % (Auto) 0.8 % 01/15/25 12:31 Neut # (Auto) 2.99 10^3/uL (1.8-7.7) 01/15/25 12:31 Lymph # (Auto) 1.5 10^3/uL (0.8-4.8) 01/15/25 12:31 [place] # (Auto) 0.6 10^3/uL (0.2-0.9) 01/15/25 12:31 Eos # (Auto) 0.1 10^3/uL (0.0-0.8) 01/15/25 12:31 Baso # (Auto) 0.0 10^3/uL (0.0-0.1) 01/15/25 12:31 Nucleated RBC % (auto) 0 % 01/15/25 12: Nucleated RBCs # 0.0 /100WBC 01/15/25 12:31 PT 12.90 SECONDS (12.1-14.9) 01/15/25 12:31 INR 0.90 (0.8-1.2) 01/15/25 12:31 Sodium 139 mmol/L (136-145) 01/15/25 12:31 Potassium 4.2 mmol/L (3.5-5.1) 01/15/25 12:31 Chloride 102 mmol/L (98-107) 01/15/25 12:31 Carbon Dioxide 28 mmol/L (22-29) 01/15/25 12:31 Anion Gap 13.2 (5-19) 01/15/25 12:31 BUN 14 mg/dL (8-23) 01/15/25 12:31 Creatinine 1.0 mg/dL (0.7-1.2) 01/15/25 12:31 GFR Calculation Not Reportable 01/15/25 12:31 Glucose 94 mg/dL (65-115) 01/15/25 12:31 Calculated Osmolality 288 mOsm/kg (285-295) 01/15/25 12:31 Calcium 8.9 mg/dL (8.5-10.5) 01/15/25 12:31 Total Bilirubin 0.6 mg/dL (0.15-1.2) 01/15/25 12:31 AST 34 U/L (0-40) 01/15/25 12:31 ALT 32 U/L (0-41) 01/15/25 12:31 Alkaline Phosphatase 124 U/L (40-130) 01/15/25 12:31 Troponin T Baseline 12 ng/L (0-15) 01/15/25 12:31 NT-Pro-B Natriuret Pep 117 pg/mL (0-125) 01/15/25 12:31 Total Protein 6.6 g/dL (6.6-8.7) 01/15/25 12:31 Albumin 3.8 g/dL (3.5-5.2) 01/15/25 12:31 Globulin 2.8 g/dL (1.3-4.6) 01/15/25 12:31 Lipase 38 U/L (13-60) 01/15/25 12:31 All radiology interpretation(s) finalized by discharge EKG Data EKG 1: I personally reviewed and interpreted this EKG as follows: EKG interpretation date: 01/15/25 EKG interpretation time: 12:19 Interpretation: nsr hr [address] elevation qrs 85 qtc 384 Discharge Plan Discharge Patient Disposition: Home Clinical Impression: Chest pain Condition: Stable Prescriptions: No Action hydrocodone-acetaminophen 7.5-325 mg tablet 1 tab PO Q8H PRN (Reason: Pain) atorvastatin 40 mg tablet 40 mg PO QAM Discharge Orders: Discharge ED (Routine); Ordered 01/15/25 Ordered By: Rl Arcos Referrals: Yordan Murphy [Primary Care Provider] - 4-7 days Discharge Diet: Advance as tolerated Discharge Activity: Resume usual activity Patient Instructions: Chest Pain (ED) Print Language: Frisian Coding Level of Care Code ED Concrete Bucket Loader for Daina Hoskins
[2025-01-15 12:39] LABS: Basophils % 0.8 %; Eosinophils # 0.1 10^3/uL (0.0-0.8); Eosinophils % 1.4 %; Hematocrit 48.2 % (37-53); Lymphocytes # 1.5 10^3/uL (0.8-4.8); Lymphocytes % 28.3 %; Mean Corpuscular HGB Conc 32.6 g/dL (30-55); Mean Corpuscular Hemoglobin 31.1 pg (27-33); Mean Corpuscular Volume 95.4 fl (82-101); Mean Platelet Volume 9.8 fL (7.4-10.4); Monocytes # 0.6 10^3/uL (0.2-0.9); Monocytes % 10.9 %; Neutrophils # 2.99 10^3/uL (1.8-7.7); Neutrophils % 58.4 %; Nucleated Red Blood Cells % 0 %; Platelet Count 163 10^3/cmm (157-399); Red Blood Count 5.05 10^6/uL (3.85-5.65); Red Cell Distribution Width 13.8 % (12.1-15.1); White Blood Count 5.12 10^3/uL (3.29-11.43)
[2025-01-15 12:54] LABS: Troponin(5th) Baseline 12 ng/L (0-15)
[2025-01-15 13:09] LABS: Alanine Aminotransferase 32 U/L (0-41); Albumin Level 3.8 g/dL (3.5-5.2); Alkaline Phosphatase 124 U/L (40-130); Anion Gap 13.2 (5-19); Aspartate Amino Transferase 34 U/L (0-40); Blood Urea Nitrogen 14 mg/dL (8-23); Calcium 8.9 mg/dL (8.5-10.5); Carbon Dioxide 28 mmol/L (22-29); Chloride 102 mmol/L (98-107); Creatinine Clr Calc Pharmacy 77.9742; Globulin 2.8 g/dL (1.3-4.6); Glucose 94 mg/dL (65-115); Lipase 38 U/L (13-60); NT Pro B Type Natriuretic Pept 117 pg/mL (0-125); Osmolality Calculated 288 mOsm/kg (285-295); Potassium 4.2 mmol/L (3.5-5.1); Sodium 139 mmol/L (136-145); Total Bilirubin 0.6 mg/dL (0.15-1.2); Total Protein 6.6 g/dL (6.6-8.7)
[2025-01-15 13:32] VITALS: BP 116/78; PULSE 86; O2SAT 94
== END 2025-01-15 13:33 | disposition home or self-care (01) ==
PROVIDERS: Emergency Provider Emergency Medicine; PCP Family Medicine
DX: R07.9 Chest pain, unspecified (principal); F17.210 Nicotine dependence, cigarettes, uncomplicated; J44.9 Chronic obstructive pulmonary disease, unspecified; I10 Essential (primary) hypertension; Z86.73 Personal history of transient ischemic attack (TIA), and cerebral infarction without residual deficits
CPT/HCPCS: 36415; 71045; 80053; 83690; 83880; 84484; 85025; 85610; 93005; 99285

== ENCOUNTER 2025-01-21 10:35 | Emergency (ER) | payer MEDICARE, MEDICAID, SELFPAY ==
[2025-01-21 11:19] VITALS: BP 128/76; PULSE 64; RESP 18; TEMP 36.7; O2SAT 100; BMI 24.3
--- NOTE | 2025-01-21 11:40 | XRR_ITS ---
PROCEDURE INFORMATION: Exam: XR Right Ribs with PA Chest Exam date and time: 01/21/2025 12:07 PM Age: 75 years old Clinical indication: Chest wall pain; Right; Prior surgery; Surgery date: 6+ months; Surgery type: Ivc filter; Additional info: Upper/lower back, RT posterior rib pain post fall this am TECHNIQUE: Imaging protocol: Radiologic exam of the right ribs with PA chest. Views: 3 views COMPARISON: CR (CHEST, ) 01/15/2025 12:19 PM FINDINGS: Lungs: Both lungs demonstrate diffuse hyperinflation along with chronic interstitial coarsening. However, I see no evidence of mass or confluent infiltrate. Pleural spaces: Unremarkable. No pleural effusion. No pneumothorax. Heart/Mediastinum: Unremarkable. No cardiomegaly. Bones/joints: Unremarkable. XR/XR ribs RT mn 3V w CXR1V [id number] IMPRESSION: No acute findings.
--- NOTE | 2025-01-21 11:46 | XRR_ITS ---
PROCEDURE INFORMATION: Exam: XR Thoracic Spine Exam date and time: 01/21/2025 12:07 PM Age: 75 years old Clinical indication: Pain in thoracic spine; Additional info: Trauma TECHNIQUE: Imaging protocol: Radiologic exam of the thoracic spine. Views: 3 views. COMPARISON: CR (CHEST, ) 03/13/2024 8:38 PM FINDINGS: Bones/joints: Normal. No acute fracture. Normal alignment. Soft tissues: Unremarkable. XR/XR thoracic spine 3V* [id number] IMPRESSION: No acute findings.
--- NOTE | 2025-01-21 11:46 | XRR_ITS ---
PROCEDURE INFORMATION: Exam: XR Lumbosacral Spine Exam date and time: 01/21/2025 12:07 PM Age: 75 years old Clinical indication: Lumbago; Prior surgery; Surgery date: 6+ months; Surgery type: Ivc filter; Upper/lower back, RT posterior rib pain post fall this am; Additional info: Trauma TECHNIQUE: Imaging protocol: Radiologic exam of the lumbosacral spine. Views: 2 or 3 views. COMPARISON: CR XR lumbar spine 2-3V* [id number] 03/13/2024 8:38 PM FINDINGS: Bones/joints: The bony detail is difficult to evaluate due to poor technique. No obvious fracture or subluxation noted. Soft tissues: Unremarkable. Vasculature: An IVC filter is noted in good position. XR/XR lumbar spine 2-3V* [id number] IMPRESSION: Limited exam. No obvious abnormality noted
--- NOTE | 2025-01-21 11:55 | W.ED.BACK ---
HPI - Back Pain/Injury General: Chief Complaint: Back Pain/Injury Stated Complaint: fell,back pain Time Seen by Provider: 01/21/25 11:17 History of Present Illness: 75-year-old male presents ER chief complaint of falling on his cane earlier today in his driveway onto his right side he presents to the ER chief complaint of right lateral back pain. Patient does endorse it hurts to take deep breaths he reports he did not strike his head he had no loss of conscious he also complains of thoracic and lumbar back pain. Patient denies injuring his right hip or left hip reporting no other associated symptoms. Patient does endorses minimal difficulty with ambulation with walking patient presents to the ER for further assessment and management he does endorse prior history of left-sided rib fractures many years ago requiring surgical intervention. Patient denies being on any blood thinners he does report taking chronically hydrocodone he did not did not take any prior to arrival. Associated symptoms: Deny abdominal pain, chills, fatigue, fever(s), nausea or vomiting Related Data Home Medications ?Medication ?Instructions ?Recorded ?Confirmed hydrocodone 7.5 mg-acetaminophen 1 tab PO Q8H PRN Pain 04/20/20 01/21/25 325 mg tablet atorvastatin 40 mg tablet 40 mg PO QAM 11/14/24 01/21/25 Previous Rx's ?Medication ?Instructions ?Recorded lidocaine 5 % topical patch 1 patch topical DAILY #30 ea 01/21/25 (Lidoderm) methocarbamol 750 mg tablet 750 mg PO TID #30 tabs 01/21/25 Allergies Allergy/AdvReac Type Severity Reaction Status Date / Time No Known Allergies Allergy Verified 11/21/24 07:57 Review of Systems General: Reports: 10 or more systems reviewed and unremarkable except in HPI and below Const: Denies: fever(s), chills, fatigue or malaise Eyes: Denies: change in vision or blurry vision Card: Reports: chest pain (Right lateral chest wall pain); Denies: palpitations Resp: Denies: dyspnea or productive cough GI: Denies: abdominal pain, nausea or vomiting : Reports: flank pain Musc: Reports: back pain; Denies: extremity pain or extremity swelling Skin/Breast: Denies: rash or pruritus Neuro: Denies: headache(s) Psych: Denies: anxiety or depression [place]/Lymph: Denies: easy bleeding All/Imm: Denies: urticaria, throat swelling or facial swelling PFSH ED PFSH: Medical History Acute right arterial ischemic stroke, middle cerebral artery (MCA) CVA (cerebral vascular accident) Cerebrovascular accident Thyroid nodule [place] Hypertension Traumatic brain injury Smoker History of cardioversion COPD (chronic obstructive pulmonary disease) BPH (benign prostatic hyperplasia) Afib Surgical History S/P IVC filter History of knee replacement History of hip replacement History of laparoscopic appendectomy Hx of tonsillectomy Family History Other CAD (coronary artery disease) Cancer Diabetes Hypertension Lung disease Stroke Denies family history of Clotting disorder Dementia Hyperlipidemia Psychiatric illness Chronic kidney disease (CKD) Suicide Anesthesia complication Bleeding disorder Family history of premature coronary artery disease Social History Smoking and tobacco/nicotine status: current every day tobacco/nicotine user cigarettes Years cigarettes smoked: 56 Quit status (tobacco/nicotine): considering quitting Second hand smoke exposure: No Alcohol intake: never Substance/Drug Use: never Adopted: No Caregiver/support person: Yes Lives independently: Yes Housing: Apartment Marital status: Single Number of children: 0 Highest education level completed: Bachelor's Degree service: Yes Current occupational status: retired Pets and animals: No Sexually active: No Do you think of yourself as: Straight/Heterosexual Current gender identity: Male Special reece needs: No Agree to transfusion: Yes Physical Exam Const: COMMON NORMALS: no acute distress, patient oriented x3 and healthy appearing HENMT: COMMON NORMALS: normocephalic and atraumatic HEAD & SCALP: normocephalic and atraumatic Eye: COMMON NORMALS: Equal, round and reactive pupils present and EOMs intact bilaterally PUPIL: Yes Equal, round and reactive pupils present Neck/C-Spine: COMMON NORMALS: full ROM, supple and no JVD Lymph: LYMPHATIC: no lymphadenopathy noted Chest: COMMONS NORMALS: normal inspection of the chest; negative for normal palpation of entire chest wall OTHER: Moderate pain to palpation over the right lateral chest [place] area over the flank no obvious crepitus step-offs or ecchymosis noted moderate respiratory splinting with deep inspiration appreciated in addition thoracic midline back discomfort and pain appreciated. Resp: COMMON NORMALS: normal respiratory effort, No retractions and clear to auscultation bilaterally EFFORT & INSPECTION: Yes able to speak in complete sentences and No symmetric chest movement AUSCULTATION: clear to auscultation bilaterally Cardio: COMMON NORMALS: no JVD, regular rate and regular rhythm RATE: regular rate RHYTHM: regular rhythm GI: COMMON NORMALS: Normal to inspection, nondistended, normoactive bowel sounds present, Soft to palpation and non-tender INSPECTION: Yes normal to inspection PALPATION: Yes Soft to palpation Back/Pelvis: COMMON NORMALS: negative for thoracic and lumbar spine normal to inspection and negative for no thoracic nor lumbar tenderness (Moderate pain appreciated to the thoracic and upper lumbar back discomfort ) Extremity: COMMON NORMALS: normal to inspection and full ROM Neuro: COMMON NORMALS: patient oriented x3, CN's II-XII intact bilaterally, moves all extremities and no focal motor deficits Psych: COMMON NORMALS: mental status grossly normal, Normal thought process present, cooperative and normal affect THOUGHT PROCESS: Normal thought process present Skin: COMMON NORMALS: no rashes or lesions noted GENERAL SKIN EXAM: no rashes or lesions noted Course Vital Signs: Vital signs: Vital Signs Temperature 98.1 F 01/21/25 11:19 Pulse Rate 79 01/21/25 14:01 Respiratory Rate 16 01/21/25 14:01 Blood Pressure 107/79 01/21/25 14:01 Pulse Oximetry 97 01/21/25 14:01 Oxygen Delivery Me thod Room Air 01/21/25 14:01 MDM - Back Pain/Injury Medical Decision Making Due to patient's symptoms and condition x-ray imaging of the thoracic lumbar spine will be obtained as well as of the chest in the right rib series patient had an IV established basic labs and fentanyl was provided for pain control will continue to follow underlying concern of a rib injury is apparent or spinal thoracic injury is apparent due to blunt force trauma upon falling on the right side just prior to arrival. Will continue to follow. X-ray imaging came back unremarkable no underlying or fractures appreciated patient be started on a Robaxin as well as Lidoderm patches which he is to continue on his current medications for his underlying chronic pain. Patient advised to further follow-up primary care in 3 to 5 days and was to return the interim if any of his symptoms persist or worse Labs 01/21/25 11:57 01/21/25 11:57 Radiology Impressions Ribs X-Ray 01/21/25 11:40 IMPRESSION: No acute findings. Lumbar Spine X-Ray 01/21/25 11:46 IMPRESSION: Limited exam. No obvious abnormality noted Thoracic Spine X-Ray 01/21/25 11:46 IMPRESSION: No acute findings. Laboratory Results WBC 5.25 10^3/uL (3.29-11.43) 01/21/25 11:57 RBC 5.32 10^6/uL (3.85-5.65) 01/21/25 11:57 Hgb 16.50 g/dL (11.27-16.99) 01/21/25 11:57 Hct 50.7 % (37-53) 01/21/25 11:57 MCV 95.3 fl (82-101) 01/21/25 11:57 MCH 31.0 pg (27-33) 01/21/25 11:57 MCHC 32.5 g/dL (30-55) 01/21/25 11:57 RDW 13.6 % (12.1-15.1) 01/21/25 11:57 Plt Count 169 10^3/cmm (157-399) 01/21/25 11:57 MPV 9.8 fL (7.4-10.4) 01/21/25 11:57 Neut % (Auto) 68.7 % 01/21/25 11:57 Lymph % (Auto) 21.1 % 01/21/25 11:57 [place] % (Auto) 8.0 % 01/21/25 11:57 Eos % (Auto) 1.0 % 01/21/25 11:57 Baso % (Auto) 0.8 % 01/21/25 11:57 Neut # (Auto) 3.61 10^3/uL (1.8-7.7) 01/21/25 11:57 Lymph # (Auto) 1.1 10^3/uL (0.8-4.8) 01/21/25 11:57 [place] # (Auto) 0.4 10^3/uL (0.2-0.9) 01/21/25 11:57 Eos # (Auto) 0.1 10^3/uL (0.0-0.8) 01/21/25 11:57 Baso # (Auto) 0.0 10^3/uL (0.0-0.1) 01/21/25 11:57 Nucleated RBC % (auto) 0 % 01/21/25 11:57 Nucleated RBCs # 0.0 /100WBC 01/21/25 11:57 Sodium 136 mmol/L (136-145) 01/21/25 11:57 Potassium 4.4 mmol/L (3.5-5.1) 01/21/25 11:57 Chloride 99 mmol/L (98-107) 01/21/25 11:57 Carbon Dioxide 29 mmol/L (22-29) 01/21/25 11:57 Anion Gap 12.4 (5-19) 01/21/25 11:57 BUN 15 mg/dL (8-23) 01/21/25 11:57 Creatinine 1.0 mg/dL (0.7-1.2) 01/21/25 11:57 GFR Calculation Not Reportable 01/21/25 11:57 Glucose 99 mg/dL (65-115) 01/21/25 11:57 Calculated Osmolality 283 mOsm/kg (285-295) L 01/21/25 11:57 Calcium 9.4 mg/dL (8.5-10.5) 01/21/25 11:57 Total Bilirubin 0.8 mg/dL (0.15-1.2) 01/21/25 11:57 AST 33 U/L (0-40) 01/21/25 11:57 ALT 29 U/L (0-41) 01/21/25 11:57 Alkaline Phosphatase 140 U/L (40-130) H 01/21/25 11:57 Total Protein 7.2 g/dL (6.6-8.7) 01/21/25 11:57 Albumin 3.9 g/dL (3.5-5.2) 01/21/25 11:57 Globulin 3.3 g/dL (1.3-4.6) 01/21/25 11:57 All radiology interpretation(s) finalized by discharge Discharge Plan Discharge Patient Disposition: Home Clinical Impression: Rib pain Fall from standing Qualifiers: Encounter type: initial encounter Qualified Code(s): W19.XXXA - Unspecified fall, initial encounter Chest wall contusion Qualifiers: Encounter type: initial encounter Laterality: right Qualified Code(s): S20.211A - Contusion of right front wall of thorax, initial encounter Condition: Stable Prescriptions: New lidocaine [Lidoderm] 5 % adhesive patch,medicated 1 patch topical DAILY Qty: 30 0RF Rx Instructions: leave on most painful area for up to 12 hrs methocarbamol 750 mg tablet 750 mg PO TID Qty: 30 0RF No Action hydrocodone-acetaminophen 7.5-325 mg tablet 1 tab PO Q8H PRN (Reason: Pain) atorvastatin 40 mg tablet 40 mg PO QAM Discharge Orders: Discharge ED (Routine); Ordered 01/21/25 Ordered By: Albino Box Referrals: Yordan Murphy [Primary Care Provider] - 1-3 days Discharge Diet: Advance as tolerated Discharge Activity: Increase activity as tolerated Patient Instructions: Chest Pain - Chest Wall, Fall Prevention (ED), Chest Contusion (ED) Activity Restrictions/Additional Instructions: Take medication as prescribed please for the follow-up primary care in 3 to 5 days and was to return the interim if any of your symptoms persist or worse Print Language: Azeri Coding Level of Care Code ED Vice President Regulatory for Daina Hoskins
[2025-01-21 12:01] LABS: Basophils % 0.8 %; Eosinophils # 0.1 10^3/uL (0.0-0.8); Hematocrit 50.7 % (37-53); Lymphocytes # 1.1 10^3/uL (0.8-4.8); Lymphocytes % 21.1 %; Mean Corpuscular HGB Conc 32.5 g/dL (30-55); Mean Corpuscular Volume 95.3 fl (82-101); Mean Platelet Volume 9.8 fL (7.4-10.4); Monocytes # 0.4 10^3/uL (0.2-0.9); Neutrophils # 3.61 10^3/uL (1.8-7.7); Neutrophils % 68.7 %; Nucleated Red Blood Cells % 0 %; Platelet Count 169 10^3/cmm (157-399); Red Blood Count 5.32 10^6/uL (3.85-5.65); Red Cell Distribution Width 13.6 % (12.1-15.1); White Blood Count 5.25 10^3/uL (3.29-11.43)
[2025-01-21 12:19] LABS: Alanine Aminotransferase 29 U/L (0-41); Albumin Level 3.9 g/dL (3.5-5.2); Alkaline Phosphatase 140 U/L (40-130); Anion Gap 12.4 (5-19); Aspartate Amino Transferase 33 U/L (0-40); Blood Urea Nitrogen 15 mg/dL (8-23); Calcium 9.4 mg/dL (8.5-10.5); Carbon Dioxide 29 mmol/L (22-29); Chloride 99 mmol/L (98-107); Creatinine Clr Calc Pharmacy 77.9742; Globulin 3.3 g/dL (1.3-4.6); Glucose 99 mg/dL (65-115); Osmolality Calculated 283 mOsm/kg (285-295); Potassium 4.4 mmol/L (3.5-5.1); Sodium 136 mmol/L (136-145); Total Bilirubin 0.8 mg/dL (0.15-1.2); Total Protein 7.2 g/dL (6.6-8.7)
[2025-01-21 13:15] VITALS: RESP 18; O2SAT 97
[2025-01-21] MEDS: fentaNYL 50 mcg/mL INJ 2mL IVP (13:15)
[2025-01-21] MEDS: sodium chloride 0.9% 500 ML 999 ML IV (13:15)
[2025-01-21 14:01] VITALS: BP 107/79; PULSE 79; RESP 16; O2SAT 97
[2025-01-21 15:16] VITALS: BP 136/84; PULSE 58; RESP 16; O2SAT 96
== END 2025-01-21 15:16 | disposition home or self-care (01) ==
PROVIDERS: Emergency Provider Emergency Medicine; PCP Family Medicine
DX: R07.81 Pleurodynia (principal); S20.211A Contusion of right front wall of thorax, initial encounter; W19.XXXA Unspecified fall, initial encounter; J44.9 Chronic obstructive pulmonary disease, unspecified; I10 Essential (primary) hypertension; Z86.73 Personal history of transient ischemic attack (TIA), and cerebral infarction without residual deficits
CPT/HCPCS: 36415; 71101; 72072; 72100; 80053; 85025; 96361; 96374; 99284; J3010; J7040

== ENCOUNTER 2025-05-07 14:54 | Emergency (ER) | payer MEDICARE, MEDICAID, SELFPAY ==
[2025-05-07] VITALS (9 sets, daily range): BP systolic 82–103; BP diastolic 57–77; PULSE 100–132; RESP 16; TEMP 36.7; O2SAT 91–99; BMI 24.3
--- NOTE | 2025-05-07 14:58 | XRR_ITS ---
PROCEDURE INFORMATION: Exam: XR Chest Exam date and time: 05/07/2025 3:04 PM Age: 75 years old Clinical indication: Pain; Chest pressure; Additional info: Cp TECHNIQUE: Imaging protocol: Radiologic exam of the chest. Views: 1 view. COMPARISON: CR XR ribs RT mn 3V w CXR1V [id number] 01/21/2025 12:07 PM FINDINGS: Lungs: Hyperinflated lungs. Emphysematous disease. No focal consolidation or other acute appearing pulmonary opacity. Pleural spaces: Scarring of the costophrenic angles. Heart/Mediastinum: There is no cardiomegaly. Bones/joints: Unremarkable. XR/XR chest 1V portable [id number] IMPRESSION: No acute findings.
--- OUTSIDE RECORDS SUMMARY | 2025-05-07 14:58 | XMS_ITS | Clinical Summary ---
Author Organization [facility] Address [address] [place] [address] Care Team Providers Care Admitting Clerk Name Role Phone Yordan Murphy MD Primary Care Provider [phone] Allergies No known active allergies Medications aspirin (ECOTRIN EC) 81 mg Tablet, Delayed Release (E.C.) Take 81 mg by mouth daily. 05/11/20 20 Active naloxone (NARCAN) 4 mg/spray [place], Non-Aerosol Administer 1 [place] (4 mg) in alternate nostril each dose one time as needed for Other (See Comment) (Emergency use one). Emergency use only for oversedation 1 Each 0 09/25/20 20 Active oxygen home deliveryIndication s:Chronic respiratory failure with hypoxia (CMS/HCC) Home Oxygen Concentrator yes at 0 L/M Rest, 2 L/M Activity, 0 L/M Sleep, Delivery Device: Nasal CannulaPortabil ity: yes, 0 L/M Rest, 2 L/M Activity, Oxygen will be provided continuously for 10-12 hrs of daytime exertion or activity.May provide device best for patient needs(E system,home fill, conserving device)Length of Need: 99 months 1 Each 0 02/02/20 21 Active oxygen home delivery Home Oxygen Concentrator yes at 0 L/M Rest, 2 L/M Activity, 0 L/M Sleep, Delivery Device: Nasal Cannula Portability: yes, 0 L/M Rest, 2 L/M Activity, Oxygen will be provided continuously for 10-12 hrs of daytime exertion or activity. May provide device best for patient needs(E system,home fill, conserving device) Length of Need: 99 months 02/02/20 21 Active loratadine (CLARITIN) 10 mg tablet Take 10 mg by mouth daily. Active atorvastatin (LIPITOR) 40 mg tabletIndications: History of CVA in adulthood Take 1 Tablet (40 mg) by mouth daily. 100 Tablet 3 06/16/20 24 Active power wheelchairIndicati ons:Primary osteoarthritis of left knee,Primary osteoarthritis of left hip,Chronic respiratory failure with hypoxia (CMS/HCC),Hemipare sis of left nondominant 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 (CMS/HCC),Panlobul ar emphysema (CMS/HCC),History of traumatic brain injury,Chronic left hip pain,Multiple falls,History of CVA in adulthood,Muscle weakness (generalized) Face to Face completed within 6 months: yes Length of Need: 99 months PT eval pending for medical necessity 1 Each 12/17/19 25 Active HYDROcodone-acetam inophen (NORCO) 7.5-325 mg TabletIndications: Primary osteoarthritis of left knee,Primary osteoarthritis of left hip Take 1 Tablet by mouth every 8 hours as needed for Pain, Moderate. 90 Tablet 04/27/20 25 Active HYDROcodone-acetam inophen (NORCO) 7.5-325 mg TabletIndications: Primary osteoarthritis of left knee,Primary osteoarthritis of left hip Take 1 Tablet by mouth every 8 hours as needed for Pain, Moderate. 90 Tablet 03/27/20 25 025 Discontin ued(Reord er) Active Problems Problem Noted Date Diagnosed Date Aneurysm of ascending aorta without rupture 01/2024 Iliac artery aneurysm 12/07/2023 Muscle weakness (generalized) 10/08/2023 Hemiparesis of left nondomin ant 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 07/02/2022 History of CVA in adulthood 07/02/2022 Chronic respiratory failure with hypoxia 021 Polycythemia secondary to smoking 07/10/2020 PSVT (paroxysmal supraventricular tachycardia) 0 06/30/2020 Multiple falls 06/08/2020 retirement prescription opiate use 06/08/2020 Toxic multinodular goiter 06/08/2020 History of Clostridioides difficile colitis 01/2020 Primary osteoarthritis of left knee 05/11/2020 History of total left knee replacement 0 Benign prostatic hyperplasia with nocturia 05/11 History of left hip replacement 05/11/2020 Osteoarthritis of left hip 06/14/2014 Tobacco use 06/14/2014 Allergic rhinitis 06/14/2014 History of traumatic brain injury 06/08/2014 Overview (01/31/2021): 3 story fall from roof, missed swimming pool. Coma for 4 months. 02/26/1995. Chronic left hip pain 04/11/2014 COPD (chronic obstructive pulmonary disease) Resolved Problems Problem Noted Date Diagnosed Date Resolved Date KENNY (generalized anxiety disorder) 10/11/2020 05/21/2021 Paroxysmal atrial fibrillation 06/08/2020 07/10/2020 Preoperative general physical examination 06/14/2014 05/11/2020 ADHD (attention deficit hype ractivity disorder) 05/21/2021 Encounters Date Type Department Care Team Description 04/27/[address] [phone] Yordan Murphy MD Primary osteoarthritis of left knee; Primary osteoarthritis of left hip 04/19/2025 External Device Data STL ABSTRACTION Provider, Abstract 04/19/2025 External Device Data STL ABSTRACTION Provider, Abstract 03/27/2025 10:20 AM CDT Office Visit [address] [phone] Yordan Murphy MD Primary osteoarthritis of left knee (Primary Dx); Primary osteoarthritis of left hip; retirement prescription opiate use 03/21/2025 External Device Data STL ABSTRACTION Provider, Abstract 02/28/[address] [phone] Yordan Murphy MD Primary osteoarthritis of left knee; Primary osteoarthritis of left hip 02/22/2025 External Device Data STL ABSTRACTION Provider, Abstract 02/22/2025 External Device Data STL ABSTRACTION Provider, Abstract from Last 3 Months Immunizations Immunization Administration Dates Next Due (PFIZER)(12 YR UP) COVID-19 VACCINE - EMERGENCY USE AUTHORIZATION, MRNA, [id number](PF) 30 MCG/0.3 ML IM SUSP 09/04/2021 (PNEUMOVAX 23)(50 YRS UP) PN EUMOCOCCAL POLYSACCHARIDE (PPV23) 0.5 ML, IM 12/11/2005,11/25/2004 INFLUENZA VACCINE HIGH DOSE QUADRIVALENT 65 YR UP PF IM 06/29/2023,06/27/2020 Influenza Seasonal Unspecified Formulation IM ,07/10/2021 Pneumococcal 13-lauryn Conj Vacc Patient Supplied 0 06/27/2020 Family History Medical History Relation Name Comments Depression Daughter Heart Disease Father Cancer Mother Relation Name Status Comments Brother Daughter Father Mother Social History Tobacco Use Types Packs/Day Years Used Date Smoking Tobacco: Every Day Cigarettes Smokeless Tobacco: Never Tobacco Cessation:Ready to Q uit: No; Counseling Given: Yes Alcohol Use Standard Drinks/Week Comments No 0 (1 standard drink = 0.6 oz pur e alcohol) Sex and Gender Information Value Date Recorded Sex Assigned at Not on file 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 Gender Identity Not on file Sexual Orientation Not on file Last Filed Vital Signs Vital Sign Reading Time Taken Comments Blood Pressure 100/70 03/27/2025 10:02 AM CDT Pulse 100 03/27/2025 10:02 AM CDT Temperature 36 C (96.8 F) 03/27/2025 10:02 AM CDT Respiratory Rate 18 03/27/2025 10:02 AM CDT Oxygen Saturation 98% 03/27/2025 10:02 AM CDT Inhaled Oxygen Concentration - - Weight 67.1 kg (148 lb) 03/27/2025 10:02 AM CDT Height 188 cm (6' 2 ) 03/27/2025 10:02 AM CDT Body Mass Index 19 03/27/2025 10:02 AM CDT Plan of Treatment Upcoming Encounters Date Type Department Care Team (Late st Contact Info) Description 07/07/2025 8:40 AM CDT Office Visit [facility] [place] [address] [phone] Yordan Murphy MD [address] [phone] Health Maintenance Due Date Last Done Comments DTAP/TDAP/TD VACCINES (1 - Tdap) 01/06/1971 COLORECTAL SCREENING 01/06/1997 FIT-DNA Q 3 years 01/06/1997 Flex Sig/CT Colonography Q 5 years 01/06/1997 ZOSTER VACCINE (1 of 2) 01/06/2002 RSV VACCINE (60+ or ) (1 - Risk 60-74 years 1-dose series) 2012 Abdominal Aortic Aneurysm (A AA) Screening 01/06/2017 Colorectal Cancer Screening 01/11/2022 FIT/FOBT Q 1 year 01/11/2022 01/11/2021 COVID-19 Vaccine (2 - 2023-2 5 season) 2024 09/04/2021 Medicare Advantage ([place]) Preventative Visit/Annual Wellness Visit 10/05/2024 06/16/2024, 03/20/2022, 05/21/2021 INFLUENZA VACCINE (#1) 2025 , 06/29/2023, 06/14/2022, Additional history exists PNEUMOCOCCAL VACCINE 50+ YEA RS (3 of 3 - PCV20 or PCV21) 06/27/2025 06/27/2020, 12/11/2005, 11/25/2004 Procedures Procedure Name Priority Date/Time Associated Diagnosis Comments OCCULT BLOOD IMMUNOASSAY, COLORECTAL SCREEN Routine 01/11/2021 10:31 AM CDT from Last 3 Months or Most Recently Relevant to Health Maintenance Results * OCCULT BLOOD IMMUNOASSAY, COLORECTAL SCREEN (01/11/2021 10:31 AM CDT) OCCULT BLOOD, STOOL Negative Negative 01/14/2021 9:21 AM CDT [facility] Stool STOOL SPECIMEN / Unknown Collection / Unknown 01/11/2021 10:31 AM CDT 01/11/2021 7:49 PM CDT us Yordan Murphy MD BODY FLUIDS AND STOOLS Fi nal Result [facility] CLIA# [id number] [address] [place] [address] from Last 3 Months or Most Recently Relevant to Health Maintenance Insurance [id number] [place] [address] MEDICAID [facility] [address] [place] [address] Care Teams Admitting Clerk Relationship Specialty Start Date End Date Yordan Murphy MD [address] [phone] PCP - General 12/24/20
--- OUTSIDE RECORDS SUMMARY | 2025-05-07 14:58 | XMS_ITS | Encounter Summary ---
Author Organization [facility] Address [address] [place] [address] Care Team Providers Care Data Processing Control Clerk Name Role Phone Yordan Murphy MD Primary Care Provider [phone] Encounter Details Date Type Department Care Team (Latest Contact Info) Description 10/23/2006 Outpatient Historical [facility] [address] 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
--- OUTSIDE RECORDS SUMMARY | 2025-05-07 14:58 | XMS_ITS | Encounter Summary ---
Author Organization [facility] Address [address] [place] [address] Care Team Providers Care Supervisor Gas Meter Repair Name Role Phone Yordan Murphy MD Primary Care Provider [phone] Encounter Details Date Type Department Care Team (Latest Contact Info) Description 10/23/2006 Outpatient Historical [facility] [address] [place] [address] [place] [address] Deshaun Sewell MD [address] [place] [address] Subdural Hemorrhage (CMS/HCC) (Primary Dx) Social History Tobacco Use Types Packs/Day Years Used Date Smoking Tobacco: Never Assessed Sex and Gender Information Value Date Recorded Sex Assigned at Not on file 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
--- OUTSIDE RECORDS SUMMARY | 2025-05-07 14:58 | XMS_ITS | Clinical Summary ---
Author Organization [facility] Address [facility] [place] [address] Care Team Providers Care Comptroller Name Role Phone Yordan Murphy MD Primary Care Provider [phone] Allergies No known active allergies Medications loratadine (CLARITIN) 10 mg Oral tablet Take 10 mg by mouth daily. Active aspirin (ECOTRIN EC) 81 mg Tablet, Delayed Release (E.C.) Take 81 mg by mouth daily. Active naloxone (NARCAN) 4 mg/spray [place], Non-Aerosol Administer 1 [place] (4 mg) in alternate nostril each dose one time as needed for Other (See Comment) (Emergency use one). Emergency use only for oversedation 1 Each 09/25/20 20 Active tamsulosin (FLOMAX) 0.4 mg capsuleIndications :Benign prostatic hyperplasia with nocturia Take 1 Capsule (0.4 mg) by mouth daily. 90 Capsule 4 01/08/20 21 Active oxygen home deliveryIndication s:Chronic respiratory failure [...] conserving device) Length of Need: 99 months 1 Each 02/02/20 21 Active HYDROcodone-acetam inophen (NORCO) 7.5-325 mg TabletIndications: History of traumatic brain injury,Primary osteoarthritis of left hip,Primary osteoarthritis of left knee,History of total left knee replacement,Histor y of left hip replacement,Chroni c left hip pain Take 1 Tablet by mouth every 8 hours as needed for Pain, Moderate. 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 Coma for 4 months. 02/26/1995. Chronic left hip pain 04/11/2014 ADHD (attention deficit hyperactivity disorder) COPD (chronic obstructive pulmonary disease) Resolved Problems Problem Noted Date Diagnosed Date Resolved Date Paroxysmal atrial fibrillation 06/08/2020 07/10/2020 Preoperative general physical examination 06/14/2014 05/11/2020 Immunizations Immunization Administration Dates Next Due (PNEUMOVAX 23)(50 YRS UP) PN EUMOCOCCAL POLYSACCHARIDE (PPV23) 0.5 ML, IM 12/11/2005,11/25/2004 INFLUENZA VACCINE HIGH DOSE QUADRIVALENT 65 YR UP PF IM 06/27/2020 Pneumococcal 13-lauryn Conj Vacc Patient Supplied 0 06/27/2020 Family History Medical History Relation Name Comments Depression Daughter Heart Disease Father Cancer Mother Relation Name Status Comments Brother Daughter Father Mother Social History Tobacco Use Types Packs/Day Years Used Date Smoking Tobacco: Every Day Cigarettes 0.5 46 Smokeless Tobacco: Never Tobacco Cessation:Counseling Given: Yes Alcohol Use Standard Drinks/Week Comments No 0 (1 standard drink = 0.6 oz pur e alcohol) Education Answer Date Recorded What is the highest level of school you have completed or the highest degree you have received? 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 Gender Identity Not on file Sexual Orientation Not on file Occupation Industry Job Start Date Job End Date Not on file Not on file Not on file Not on file Not on file Not on file Not on file Not on file Not on file Not on file Not on file Not on file Last Filed Vital Signs Vital Sign Reading Time Taken Comments Blood Pressure 120/74 2021 8:25 AM CDT Pulse 90 2021 8:25 AM CDT Temperature 36.7 C (98.1 F) 2021 8:25 AM CDT Respiratory Rate 16 2021 8:25 AM CDT Oxygen Saturation 95% 2021 8:2 5 AM CDT 3 min of walking went to 84-86% Inhaled Oxygen Concentration - - Weight 85.7 kg (189 lb) 2021 8:25 AM CDT Height 177.8 cm (5' 10 ) 2021 8:2 5 AM CDT Body Mass Index 27.12 2021 8:25 AM CDT Plan of Treatment Health Maintenance Due Date Last Done Comments FIT/ DNA Q 3 YEARS (AUTO ORDER) 01/06/1970 FLEX SIG/CT COLONOGRAPHY Q 5 YEARS (AUTO ORDER) 01/06/1970 DTAP/TDAP/TD VACCINES (1 - Tdap) 01/06/1971 COLORECTAL CANCER SCREENING (AUTO ORDER) 01/06/1997 COLORECTAL SCREENING 01/06/1997 FIT-DNA Q 3 years 01/06/1997 Flex Sig/CT Colonography Q 5 years 01/06/1997 ZOSTER VACCINE (1 of 2) 01/06/2002 RSV VACCINE (60+ or ) (1 - Risk 60-74 years 1-dose series) 2012 Colorectal Cancer Screening (AUTO ORDER) 01/11/2022 Colorectal Cancer Screening 01/11/2022 FIT/FOBT Q 1 YEAR (AUTO ORDER) 01/11/2022 01/11/2021 FIT/FOBT Q 1 year 01/11/2022 01/11/2021 Medicare Advantage ([place]) Prev entative Visit/Annual Wellness Visit 10/05/2024 07/10/2020 INFLUENZA VACCINE (#1) 2025 06/27/2020 PNEUMOCOCCAL VACCINE 50+ YEA RS (3 of 3 - PCV20 or PCV21) 06/27/2025 06/27/2020, 12/11/2005, 11/25/2004 Procedures Procedure Name Priority Date/Time Associated Diagnosis Comments OCCULT BLOOD IMMUNOASSAY, COLORECTAL SCREEN Routine 01/11/2021 10:31 AM CDT Colon cancer screening from Last 3 Months or Most Recently Relevant to Health Maintenance Results * OCCULT BLOOD IMMUNOASSAY, COLORECTAL SCREEN (01/11/2021 10:31 AM CDT) OCCULT BLOOD, STOOL Negative Negative 01/14/2021 9:21 AM CDT [facility] Stool STOOL SPECIMEN / Unknown Collection / Unknown 01/11/2021 10:31 AM CDT 01/11/2021 7:49 PM CDT Yordan Murphy MD BODY FLUIDS AND STOOLS Fi nal Result [facility] CLIA# [id number] [address] [place] [address] from Last 3 Months or Most Recently Relevant to Health Maintenance Insurance [id number] [place] [address] MEDICAID [place] [facility] [id number] [id number] Care Teams Comptroller Relationship Specialty Start Date End Date Yordan Murphy MD [address] [address] PCP - General Family Practice 05/11/20
--- OUTSIDE RECORDS SUMMARY | 2025-05-07 14:59 | XMS_ITS | Encounter Summary ---
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
--- OUTSIDE RECORDS SUMMARY | 2025-05-07 14:59 | XMS_ITS | Encounter Summary ---
Author Organization [facility] Address [address] [place] [address] Care Team Providers Care Hebrew Professor Name Role Phone Yordan Murphy MD Primary Care Provider [phone] Encounter Details Date Type Department Care Team (Late st Contact Info) Description 04/24/2007 Outpatient Historical [facility] [address] 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
--- OUTSIDE RECORDS SUMMARY | 2025-05-07 14:59 | XMS_ITS | Encounter Summary ---
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
--- OUTSIDE RECORDS SUMMARY | 2025-05-07 14:59 | XMS_ITS | Encounter Summary ---
Author Organization [facility] Address [address] [place] [address] Care Team Providers Care Hand Spinner Name Role Phone oYrdan Murphy MD Primary Care Provider [phone] Encounter Details Date Type Department Care Team (Late st Contact Info) Description 03/12/2005 Outpatient Historical [facility]- [facility] [address] [place] [address] Juan Garnica, CHEMISTRY TECHNICIAN [address] [address] JOINT PAIN-PELVIS (Primary Dx); CONTUSION OF HIP Social History Tobacco Use Types Packs/Day Years Used Date Smoking Tobacco: Never Assessed Sex and Gender Information Value Date Recorded Sex Assigned at Not on file 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
--- OUTSIDE RECORDS SUMMARY | 2025-05-07 14:59 | XMS_ITS | Encounter Summary ---
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
--- OUTSIDE RECORDS SUMMARY | 2025-05-07 14:59 | XMS_ITS | Encounter Summary ---
Author Organization [facility] Address [address] [place] [address] Care Team Providers Care First Aid Teacher Name Role Phone Yordan Murphy MD Primary Care Provider [phone] [phone] Encounter Details Date Type Department Care Team (Late st Contact Info) Description 03/12/2005 Outpatient Historical [facility] Imaging Services-Cory Britton William [address] [place] [address] Juan Garnica, CHEMISTRY TECHNICAL OFFICER [address] [address] BACKACHE NOS (Primary Dx); JOINT PAIN-PELVIS Social History Tobacco Use Types Packs/Day Years Used Date Smoking Tobacco: Never Assessed Sex and Gender Information Value Date Recorded Sex Assigned at Not on file 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
--- OUTSIDE RECORDS SUMMARY | 2025-05-07 14:59 | XMS_ITS | Encounter Summary ---
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
--- OUTSIDE RECORDS SUMMARY | 2025-05-07 14:59 | XMS_ITS | Encounter Summary ---
Author Organization [facility] Address [address] [place] [address] Care Team Providers Care Data Collection Specialist Name Role Phone Yordan Murphy MD Primary Care Provider [phone] Encounter Details Date Type Department Care Team (Late st Contact Info) Description 02/22/2008 Emergency [facility] Emergency Department [address] [place] [address] Ed, Physician NO ADDRESS ON FILE Lillie Campbell DO NO ADDRESS ON FILE Social History Tobacco Use Types Packs/Day Years Used Date Smoking Tobacco: Never Assessed Sex and Gender Information Value Date Recorded Sex Assigned at Not on file 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 Fall. Head pain. Procedure: A routine CT scan of the head without IV contrast was obtained. Findings: 1. There has been a right lateral frontal and anterior temporal craniotomy. 2. There is no skull fracture, pneumocephalus, intracranial hemorrhage, midline shift, or abnormal ventricular enlargement. 3. There is mild to moderate cerebral atrophy. 4. There is mild small vessel ischemic disease. 5. There is encephalomalacia and possibly postsurgical changes in the lateral right temporal lobe, also present on 10/12/2006. 6. There is decreased density in the inferior posterior left temporal lobe, along the posterior margin of the left middle fossa. This area is not as well included on the previous scan. The left mastoid air cells are opacified, there is soft tissue density in the superior left middle ear, and there appear to be erosions in the bone in the superior anterior margin of the middle ear. 7. The right middle ear and mastoid air cells appear normal. The partially included paranasal sinuses are clear. Impression: Right-sided craniotomy. Cerebral atrophy. Mild small vessel ischemic disease. Encephalomalacia and possibly postsurgical changes in the lateral right temporal lobe, also present on 10/12/2006. Decreased density in the inferior posterior left temporal lobe, in the posterior margin of the left middle fossa. Opacification of adjacent left mastoid air cells and the superior left middle ear and evidence of disruption of the anterior-superior margin of the left middle ear. Infection extending into the posterior left middle fossa cannot be excluded. More likely the finding is chronic and may not be significantly changed from 10/12/2006. Because of artifacts, this area was not as well visualized on the previous scan. Dictated By: Jill Don M.D. Electronically Signed By: Jill Don M.D. Date Signed: 02/22/08 Procedure Note Jill Don R - 02/22/2008 Ct Scan Head without contrast 02/22/2008 History: Head trauma. Fall. Head pain. Procedure: A routine CT scan of the head without IV contrast wasobtained. Findings: 1. There has been a right lateral frontal and anterior temporalcraniotomy. 2. There is no skull fracture, pneumocephalus, intracranial hemorrhage,midline shift, or abnormal ventricular enlargement. 3. There is mild to moderate cerebral atrophy. 4. There is mild small vessel ischemic disease. 5. There is encephalomalacia and possibly postsurgical changes in thelateral right temporal lobe, also present on 10/12/2006. 6. There is decreased density in the inferior posterior left temporallobe, along the posterior margin of the left middle fossa. This area is not as well included on the previousscan. The left mastoid air cells are opacified, there is soft tissue density in the superior leftmiddle ear, and there appear to be erosions in the bone in the superior anterior margin of the middle ear. 7. The right middle ear and mastoid air cells appear normal. The partiallyincluded paranasal sinuses are clear. Impression: Right-sided craniotomy. Cerebral atrophy. Mild small vesselischemic disease. Encephalomalacia and possibly postsurgical changes in the lateral righttemporal lobe, also present on 10/12/2006. Decreased density in the inferior posterior left temporal lobe,in the posterior margin of the left middle fossa. Opacification of adjacent left mastoid air cells andthe superior left middle ear and evidence of disruption of the anterior-superior margin of the left middleear. Infection extending into the posterior left middle fossa cannot be excluded. More likely thefinding is chronic and may not be significantly changed from 10/12/2006. Because of artifacts, this area wasnot as well visualized on the previous scan. Dictated By: Jill Don M.D. Electronically Signed By: Jill Don M.D. Date Signed: 02/22/[address] ORDERABLES Final Result documented in this encounter Visit Diagnoses Not on filedocumented in this encounter Care Teams Data Collection Specialist Relationship Specialty Start Date End Date Yordan Murphy MD [address] [phone] PCP - General Family Practice 05/11/20 documented as of this encounter
--- OUTSIDE RECORDS SUMMARY | 2025-05-07 14:59 | XMS_ITS | Encounter Summary ---
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
--- OUTSIDE RECORDS SUMMARY | 2025-05-07 14:59 | XMS_ITS | Encounter Summary ---
Author Organization [facility] Address [address] [place] [address] Care Team Providers Care Snuff Grinder And Screener Name Role Phone Yordan Murphy MD Primary Care Provider [phone] [phone] Encounter Details Date Type Department Care Team (Latest Contact Info) Description 12/28/1998 Outpatient Historical [facility] [place] [address] [place] [address] Pain in joint, pelvic region and thigh (Primary Dx); Pain in limb Social History Tobacco Use Types Packs/Day Years Used Date Smoking Tobacco: Never Assessed Sex and Gender Information Value Date Recorded Sex Assigned at Not on file 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
--- NOTE | 2025-05-07 15:01 | ECG_ITS ---
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: : 1950 Requested By: Rl Arcos Order Number: [id number] Reading MD: CHARISSE BAXTER Measurements Intervals Carpenter Rate: 135 P: 0 ME: 0 QRS: -82 QRSD: 82 T: 87 QT: 276 QTc: 414 Interpretive Statements ATRIAL FIBRILLATION WITH RAPID VENTRICULAR RESPONSE LEFT AXIS DEVIATION [QRS AXIS < -30] POSSIBLE RIGHT VENTRICULAR CONDUCTION DELAY [RSR (QR) IN V1/V2] MODERATE ST DEPRESSION [0.05+ mV ST DEPRESSION] Compared to ECG 01/15/2025 12:19:40 ST (T wave) deviation now present Sinus rhythm no longer present Sinus arrhythmia no longer present Electronically Signed On 05-08-2025 13:56:29 CDT by CHARISSE BAXTER [email or web address]
--- NOTE | 2025-05-07 15:07 | W.ED.CHESTPA ---
HPI - Chest Pain General: Chief Complaint: Chest Pain Stated Complaint: A FIB Time Seen by Provider: 05/07/25 14:56 Source: patient and EMS Mode of arrival: EMS Limitations: no limitations History of Present Illness: 75-year-old male states has been having chest pain over the last few days got much worse last hour states worse inspirational palpations sharp pain he rates a 6 out of 10. He denies any cough or fevers had some mild shortness of breath he is in A-fib with RVR heart rates in the 140s. Associated symptoms: Reports dyspnea; Deny abdominal pain, fever(s), nausea or vomiting Related Data Home Medications ?Medication ?Instructions ?Recorded ?Confirmed hydrocodone 7.5 mg-acetaminophen 1 tab PO Q8H PRN Pain 04/20/20 05/07/25 325 mg tablet Previous Rx's ?Medication ?Instructions ?Recorded lidocaine 5 % topical patch 1 patch topical DAILY #30 ea 01/21/25 (Lidoderm) methocarbamol 750 mg tablet 750 mg PO TID #30 tabs 01/21/25 apixaban 5 mg tablet (Eliquis) 5 mg PO BID #60 tabs 05/07/25 Allergies Allergy/AdvReac Type Severity Reaction Status Date / Time No Known Allergies Allergy Verified 11/21/24 07:57 Review of Systems Const: Denies: fever(s), chills, body aches or change in appetite ENMT: Denies: throat pain or dental pain Card: Reports: chest pain Resp: Reports: dyspnea GI: Denies: abdominal pain, nausea, vomiting or diarrhea Musc: Denies: neck pain or back pain Skin/Breast: Denies: rash Neuro: Denies: headache(s) PFSH ED PFSH: Medical History Acute right arterial ischemic stroke, middle cerebral artery (MCA) CVA (cerebral vascular accident) Cerebrovascular accident Thyroid nodule [place] Hypertension Traumatic brain injury Smoker History of cardioversion COPD (chronic obstructive pulmonary disease) BPH (benign prostatic hyperplasia) Afib Surgical History S/P IVC filter History of knee replacement History of hip replacement History of laparoscopic appendectomy Hx of tonsillectomy Family History Other CAD (coronary artery disease) Cancer Diabetes Hypertension Lung disease Stroke Denies family history of Clotting disorder Dementia Hyperlipidemia Psychiatric illness Chronic kidney disease (CKD) Suicide Anesthesia complication Bleeding disorder Family history of premature coronary artery disease Social History Smoking and tobacco/nicotine status: current every day tobacco/nicotine user cigarettes Years cigarettes smoked: 56 Quit status (tobacco/nicotine): considering quitting Second hand smoke exposure: No Alcohol intake: never Substance/Drug Use: never Adopted: No Caregiver/support person: Yes Lives independently: Yes Housing: Apartment Marital status: Single Number of children: 0 Highest education level completed: Bachelor's Degree service: Yes Current occupational status: retired Pets and animals: No Sexually active: No Do you think of yourself as: Straight/Heterosexual Current gender identity: Male Special reece needs: No Agree to transfusion: Yes Physical Exam Const: COMMON NORMALS: no acute distress, patient oriented x3 and healthy appearing HENMT: COMMON NORMALS: normocephalic and atraumatic HEAD & SCALP: normocephalic and atraumatic Eye: COMMON NORMALS: conjunctivae normal CONJUNCTIVA: Yes conjunctivae normal Neck/C-Spine: COMMON NORMALS: full ROM and supple Chest: COMMONS NORMALS: normal inspection of the chest Resp: COMMON NORMALS: normal respiratory effort, No retractions, No use of accessory muscles and clear to auscultation bilaterally AUSCULTATION: clear to auscultation bilaterally Cardio: RATE: tachycardic RHYTHM: abnormal rhythm irregularly irregular GI: COMMON NORMALS: Normal to inspection, nondistended, normoactive bowel sounds present, Soft to palpation, non-tender and no masses PALPATION: Yes Soft to palpation Extremity: COMMON NORMALS: normal to inspection and full ROM Neuro: COMMON NORMALS: patient oriented x3, moves all extremities and no focal motor deficits Psych: COMMON NORMALS: mental status grossly normal, Normal thought process present and cooperative THOUGHT PROCESS: Normal thought process present Skin: COMMON NORMALS: no rashes or lesions noted and no wounds GENERAL SKIN EXAM: no rashes or lesions noted Course Vital Signs: Vital signs: Vital Signs Temperature 98.1 F 05/07/25 14:58 Pulse Rate 100 05/07/25 16:56 Respiratory Rate 16 05/07/25 14:58 Blood Pressure 82/62 05/07/25 16:56 Pulse Oximetry 99 05/07/25 16:56 Oxygen Delivery Me thod Room Air 05/07/25 15:33 MDM - Chest Pain Medical Decision Making Patient presents here chest pain he was found to be in A-fib with RVR did start him on amiodarone gave him IV fluids his heart rate did improved here CT showed a small pulmonary embolism. I highly recommended admission he was adamant that he was signed out AMA I informed him that he could get much worse and even could be critical if he did not get admitted. He understands the risks and signed AMA will prescribe him Eliquis he is follow-up with PCP and return if worsening or if he changes his mind. Medical Records I reviewed the patient's medical records. Lab Data I reviewed the patient's lab results. 05/07/25 15:09 05/07/25 15:09 Radiology Impressions Chest X-Ray 05/07/25 14:58 IMPRESSION: No acute findings. Chest CTA 05/07/25 15:43 IMPRESSION: Tiny pulmonary emboli in the posterior basal subsegmental arteries bilaterally. Evidence of right heart strain, however, this is not acute. ADDENDUM: 05/07/25 [id number] THIS REPORT CONTAINS FINDINGS THAT MAY BE CRITICAL TO PATIENT CARE. The findings were verbally communicated via telephone conference with Dr. Arcos at 4:42 PM CDT on 05/07/2025. The findings were acknowledged and understood. Laboratory Results WBC 8.80 10^3/uL (3.29-11.43) 05/07/25 15:09 RBC 5.30 10^6/uL (3.85-5.65) 05/07/25 15:09 Hgb 16.50 g/dL (11.27-16.99) 05/07/25 15:09 Hct 50.3 % (37-53) 05/07/25 15:09 MCV 94.9 fl (82-101) 05/07/25 15:09 MCH 31.1 pg (27-33) 05/07/25 15:09 MCHC 32.8 g/dL (30-55) 05/07/25 15:09 RDW 13.4 % (12.1-15.1) 05/07/25 15:09 Plt Count 176 10^3/cmm (157-399) 05/07/25 15:09 MPV 10.1 fL (7.4-10.4) 05/07/25 15:09 Neut % (Auto) 71.5 % 05/07/25 15:09 Lymph % (Auto) 17.5 % 05/07/25 15:09 [place] % (Auto) 9.8 % 05/07/25 15:09 Eos % (Auto) 0.5 % 05/07/25 15:09 Baso % (Auto) 0.5 % 05/07/25 15:09 Neut # (Auto) 6.30 10^3/uL (1.8-7.7) 05/07/25 15:09 Lymph # (Auto) 1.5 10^3/uL (0.8-4.8) 05/07/25 15:09 [place] # (Auto) 0.9 10^3/uL (0.2-0.9) 05/07/25 15:09 Eos # (Auto) 0.0 10^3/uL (0.0-0.8) 05/07/25 15:09 Baso # (Auto) 0.0 10^3/uL (0.0-0.1) 05/07/25 15:09 Nucleated RBC % (auto) 0 % 05/07/25 15:09 Nucleated RBCs # 0.0 /100WBC 05/07/25 15:09 Sodium 138 mmol/L (136-145) 05/07/25 15:09 Potassium 4.4 mmol/L (3.5-5.1) 05/07/25 15:09 Chloride 103 mmol/L (98-107) 05/07/25 15:09 Carbon Dioxide 22 mmol/L (22-29) 05/07/25 15:09 Anion Gap 17.4 (5-19) 05/07/25 15:09 BUN 19 mg/dL (8-23) 05/07/25 15:09 Creatinine 1.0 mg/dL (0.7-1.2) 05/07/25 15:09 GFR Calculation Not Reportable 05/07/25 15:09 Glucose 119 mg/dL (65-115) H 05/07/25 15:09 Calculated Osmolality 289 mOsm/kg (285-295) 05/07/25 15:09 Calcium 9.1 mg/dL (8.5-10.5) 05/07/25 15:09 Total Bilirubin 0.8 mg/dL (0.15-1.2) 05/07/25 15:09 AST 26 U/L (0-40) 05/07/25 15:09 ALT 32 U/L (0-41) 05/07/25 15:09 Alkaline Phosphatase 156 U/L (40-130) H 05/07/25 15:09 Troponin T Baseline 14 ng/L (0-15) 05/07/25 15:09 Total Protein 6.9 g/dL (6.6-8.7) 05/07/25 15:09 Albumin 3.5 g/dL (3.5-5.2) 05/07/25 15:09 Globulin 3.4 g/dL (1.3-4.6) 05/07/25 15:09 Lipase 50 U/L (13-60) 05/07/25 15:09 All radiology interpretation(s) finalized by discharge EKG Data EKG 1: I personally reviewed and interpreted this EKG as follows: EKG interpretation date: 05/07/25 EKG interpretation time: 15:01 Interpretation: afib with rvr hr [address] or t wave abnormalities qrs 82 qtc 355 Discharge Plan Discharge Patient Disposition: Left Against Medical Advice Clinical Impression: Atrial fibrillation with RVR, Pulmonary embolism Condition: Stable Prescriptions: New Eliquis 5 mg tablet 5 mg PO BID Qty: 60 0RF No Action hydrocodone-acetaminophen 7.5-325 mg tablet 1 tab PO Q8H PRN (Reason: Pain) lidocaine [Lidoderm] 5 % adhesive patch,medicated 1 patch topical DAILY Qty: 30 0RF Rx Instructions: leave on most painful area for up to 12 hrs methocarbamol 750 mg tablet 750 mg PO TID Qty: 30 0RF Referrals: Yordan Murphy [Primary Care Provider, Family Practice] Discharge Diet: Advance as tolerated Discharge Activity: Resume usual activity Patient Instructions: A-fib (Atrial Fibrillation) (ED), Pulmonary Embolism (ED) Print Language: [place] Arabian Coding Level of Care Code ED Secure Software Assessor for Chg Aidee
[2025-05-07 15:15] LABS: Hematocrit 50.3 % (37-53); Hemoglobin 16.50 g/dL (11.27-16.99); Mean Corpuscular HGB Conc 32.8 g/dL (30-55); Mean Corpuscular Hemoglobin 31.1 pg (27-33); Mean Corpuscular Volume 94.9 fl (82-101); Nucleated Red Blood Cells % 0 %; Platelet Count 176 10^3/cmm (157-399); Red Blood Count 5.30 10^6/uL (3.85-5.65); White Blood Count 8.80 10^3/uL (3.29-11.43)
[2025-05-07] MEDS: ondansetron 2 mg/ML SDV 2 mL 4 MG IVP (15:29)
[2025-05-07] MEDS: amiodarone 150 MG/100 ML PREMIX 400 MG IV (15:30)
[2025-05-07 15:33] LABS: Troponin(5th) Baseline 14 ng/L (0-15)
--- NOTE | 2025-05-07 15:43 | CTR_ITS ---
PROCEDURE INFORMATION: Exam: CTA Chest With Contrast Exam date and time: 05/07/2025 4:01 PM Age: 75 years old Clinical indication: Pain; Chest pressure; Additional info: Cp TECHNIQUE: Imaging protocol: Computed tomographic angiography of the chest with contrast. Exam focused on the arteries. 3D rendering (Not supervised by radiologist): MIP and/or 3D reconstructed images were created by the technologist. Radiation optimization: All CT scans at this facility use at least one of these dose optimization techniques: automated exposure control; mA and/or kV adjustment per patient size (includes targeted exams where dose is matched to clinical indication); or iterative reconstruction. Contrast material: OMNIPAQUE 350; Contrast volume: 100 ml; Contrast route: INTRAVENOUS (IV); COMPARISON: CT angio chest PE protcl [id number] 08/27/2022 1:54 AM RADIATION DOSE METRICS: Total DLP (mGy-cm): 359.45 FINDINGS: Pulmonary arteries: Tiny PE in the posterior basal subsegmental pulmonary arteries bilaterally. Aorta: There is no aortic dissection. There is no aortic aneurysm. Celiac trunk and mesenteric arteries: Limited evaluation of the upper abdomen demonstrates patency of the origins of the celiac, SMA, renal. There is cholelithiasis. Lungs: Scarring in the lingula. Pleural spaces: No pleural effusion or pneumothorax noted. Heart: There is no cardiomegaly. There is no pericardial effusion. Heart RV/LV ratio: The RV/LV ratio is 1.2, this was noted on the prior study. Lymph nodes: 10.1 mm enlarged node in the AP window. Bones/joints: No acute osseous abnormality. Old healed left posterior rib fracture. There is degenerative disease of the spine. Soft tissues: Unremarkable. CT/CT angio chest PE protcl [id number] IMPRESSION: Tiny pulmonary emboli in the posterior basal subsegmental arteries bilaterally. Evidence of right heart strain, however, this is not acute.
[2025-05-07 15:45] LABS: Alanine Aminotransferase 32 U/L (0-41); Albumin Level 3.5 g/dL (3.5-5.2); Alkaline Phosphatase 156 U/L (40-130); Blood Urea Nitrogen 19 mg/dL (8-23); Calcium 9.1 mg/dL (8.5-10.5); Carbon Dioxide 22 mmol/L (22-29); Chloride 103 mmol/L (98-107); Creatinine Clr Calc Pharmacy 77.9742; Globulin 3.4 g/dL (1.3-4.6); Glucose 119 mg/dL (65-115); Lipase 50 U/L (13-60); Osmolality Calculated 289 mOsm/kg (285-295); Sodium 138 mmol/L (136-145); Total Protein 6.9 g/dL (6.6-8.7)
[2025-05-07 16:04] LABS: Anion Gap 17.4 (5-19)
[2025-05-07 16:05] LABS: Aspartate Amino Transferase 26 U/L (0-40); Potassium 4.4 mmol/L (3.5-5.1)
[2025-05-07] MEDS: iohexol 350 mg/mL 500 mL Btl (per mL) IV (16:10)
== END 2025-05-07 16:57 | disposition left against medical advice (07) ==
PROVIDERS: Emergency Provider Emergency Medicine; PCP Family Medicine
DX: I48.20 Chronic atrial fibrillation, unspecified (principal); I26.99 Other pulmonary embolism without acute cor pulmonale; F17.210 Nicotine dependence, cigarettes, uncomplicated; J44.9 Chronic obstructive pulmonary disease, unspecified; I10 Essential (primary) hypertension; Z86.73 Personal history of transient ischemic attack (TIA), and cerebral infarction without residual deficits
CPT/HCPCS: 36415; 71045; 71275; 80053; 83690; 84484; 85025; 93005; 96361; 96365; 96375; 99285; A4222; J0283; J2405; J7030

== ENCOUNTER 2025-06-30 14:40 | Emergency (ER) | payer OTHER, MEDICAID, SELFPAY ==
[2025-06-30 14:25] VITALS: BP 121/74; PULSE 59; RESP 17; TEMP 36.5; O2SAT 100; BMI 25.7
--- NOTE | 2025-06-30 14:41 | XRR_ITS ---
PROCEDURE INFORMATION: Exam: XR Left Hip Exam date and time: 06/30/2025 3:19 PM Age: 75 years old Clinical indication: Hip pain; Left hip; Prior surgery; Surgery date: 6+ months; Surgery type: Lt hip orif; Additional info: Lt hip pain post fall TECHNIQUE: Imaging protocol: Radiologic exam of the left hip. Views: 2 or 3 views hip with pelvis when performed. COMPARISON: CR XR pelvis 1-2V* [id number] 12/21/2024 1:27 PM FINDINGS: Bones/joints: No fracture or other acute abnormality. There is stable intact left hip internal fixation hardware. Stable left hip fracture deformity. Mild degenerative changes are seen in the left hip joint. Pelvis and right hip are unremarkable other than osseous demineralization. Soft tissues: Unremarkable. XR/XR hip LT 2-3V wo/w pel* [id number] IMPRESSION: Stable nonacute findings.
--- NOTE | 2025-06-30 14:41 | ED_ITS ---
HPI - Fall General: Chief Complaint: Fall Stated Complaint: chest pain - increased falls History of Present Illness: 75-year-old man who presents emergency r oom after having had a fall and having some left hip pain. He says he has been falling a lot for a long time. He is familiar to the ER. He is complaining of left hip pain. He has no trouble moving and no obvious bruising or deformities. Related Data Home Medications ?Medication ?Instructions ?Recorded ?Confirmed hydrocodone 7.5 mg-acetaminophen 1 tab PO Q8H PRN Pain 04/20/20 06/30/25 325 mg tablet Previous Rx's ?Medication ?Instructions ?Recorded lidocaine 5 % topical patch 1 patch topical DAILY #30 ea 01/21/25 (Lidoderm) apixaban 5 mg tablet (Eliquis) 5 mg PO BID #60 tabs Allergies Allergy/AdvReac Type Severity Reaction Status Date / Time No Known Allergies Allergy Verified 11/21/24 07:57 Review of Systems Narrative: Constitutional symptoms: Negative except as documented in HPI. Skin symptoms: Negative except as documented in HPI. Eye symptoms: Negative except as documented in HPI. ENMT symptoms: Negative except as documented in HPI. Respiratory symptoms: Negative except as documented in HPI. Cardiovascular symptoms: Negative except as documented in HPI. Gastrointestinal symptoms: Negative except as documented in HPI. Genitourinary symptoms: Negative except as documented in HPI. Musculoskeletal symptoms: Negative except as documented in HPI. Neurologic symptoms: Negative except as documented in HPI. Psychiatric symptoms: Negative except as documented in HPI. Endocrine symptoms: Negative except as documented in HPI. [facility] ED PFSH: Medical History (Updated 06/30/25 @ 16:09 by Jeanine Roy MD) Acute right arterial ischemic stroke, middle cerebral artery (MCA) CVA (cerebral vascular accident) Cerebrovascular accident Thyroid nodule [place] Hypertension Traumatic brain injury Smoker History of cardioversion COPD (chronic obstructive pulmonary disease) BPH (benign prostatic hyperplasia) Afib Surgical History S/P IVC filter History of knee replacement History of hip replacement History of laparoscopic appendectomy Hx of tonsillectomy Family History Other CAD (coronary artery disease) Cancer Diabetes Hypertension Lung disease Stroke Denies family history of Clotting disorder Dementia Hyperlipidemia Psychiatric illness Chronic kidney disease (CKD) Suicide Anesthesia complication Bleeding disorder Family history of premature coronary artery disease Social History Smoking and tobacco/nicotine status: current every day tobacco/nicotine user cigarettes Years cigarettes smoked: 56 Quit status (tobacco/nicotine): considering quitting Second hand smoke exposure: No Alcohol intake: never Substance/Drug Use: never Adopted: No Caregiver/support person: Yes Lives independently: Yes Housing: Apartment Marital status: Single Number of children: 0 Highest education level completed: Bachelor's Degree service: Yes Current occupational status: retired Pets and animals: No Sexually active: No Do you think of yourself as: Straight/Heterosexual Current gender identity: Male Special reece needs: No Agree to transfusion: Yes Physical Exam Narrative: EXAM NARRATIVE: General: Alert, no acute distress. Skin: warm and dry Head: Normocephalic Neck: Trachea midline Eye: Extraocular movements are intact. Ears, nose, mouth and throat: Oral mucosa moist Respiratory: Respirations are non-labored Musculoskeletal: Normal ROM, no deformity Gastrointestinal: Abdomen does not appear distended Neurological: Alert and oriented, No focal neurological deficit observed. Psychiatric: Cooperative, appropriate mood & affect. Course Vital Signs: Vital signs: Vital Signs Temperature 97.7 F 06/30/25 14:25 Pulse Rate 64 06/30/25 15:30 Respiratory Rate 17 06/30/25 14:25 Blood Pressure 135/74 06/30/25 15:30 Pulse Oximetry 97 06/30/25 15:30 Oxygen Delivery Me thod Room Air 06/30/25 15:30 MDM - Fall Medical Decision Making Medical decision making: Differential diagnosis for the patient with fall and hip pain includes but not limited to and based on the above HPI, review of systems and physical exam: Hip fracture, femur fracture, pelvic fractures including pubic rami and acetabular fractures, hip strain, hip contusion X-ray of the pelvis and hip were ordered. Reexamination: Patient had a sandwich and a pain pill and decided he wanted to leave before x- ray read was back. As per his usual. No increased work of breathing. No altered mental status. No focal motor deficits. X-ray of the left hip and pelvis: No obvious deformities or fractures. Films were interpreted by myself the emergency room provider and pending final radiology review. Assessment and plan: Hip injury - Discharged home - Discussed findings and plan with patient. Answered any questions. - All imaging was reviewed and interpreted personally by myself, the ER physician. - Evaluation and treatment of this problem were appropriate in the emergency setting XR interpretation done by ED provider, pending radiology final review Discharge Plan Discharge Patient Disposition: Home Clinical Impression: Hip pain Condition: Stable Prescriptions: No Action hydrocodone-acetaminophen 7.5-325 mg tablet 1 tab PO Q8H PRN (Reason: Pain) lidocaine [Lidoderm] 5 % adhesive patch,medicated 1 patch topical DAILY Qty: 30 0RF Rx Instructions: leave on most painful area for up to 12 hrs Eliquis 5 mg tablet 5 mg PO BID Qty: 60 0RF Discharge Orders: Discharge ED (Routine); Ordered 06/30/25 Ordered By: Jeanine Roy Referrals: Yordan Murphy [Primary Care Provider, Family Practice] Discharge Diet: Usual diet Discharge Activity: Increase activity as tolerated Patient Instructions: Fall Prevention (ED), Opioid Safety, Pain Management, Patient Portal & Patrick Instructions Activity Restrictions/Additional Instructions: Thank you for choosing [facility] for your healthcare needs today. You have been screened and evaluated and felt safe for discharge. Health conditions do change or evolve sometimes and as such it is important that you follow up with your Primary Doctor to be re checked, 3-5 days is a general good time frame for follow up. You are always welcome to return to the ED for re assessment if your symptoms are worsening or you have new concerns Print Language: Greek Coding Level of Care Code ED Banjo Repair Person for Daina Hoskins
--- OUTSIDE RECORDS SUMMARY | 2025-06-30 14:50 | XMS_ITS | Encounter Summary ---
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
--- OUTSIDE RECORDS SUMMARY | 2025-06-30 14:50 | XMS_ITS | Encounter Summary ---
Author Organization [facility] Address [address] [place] [address] Care Team Providers Care Curtain Framer Name Role Phone Yordan Murphy MD Primary Care Provider [phone] [phone] Encounter Details Date Type Department Care Team (Late st Contact Info) Description 03/12/2005 Outpatient Historical [facility] Imaging Services-Cory Britton [place] [address] [place] [address] Juan Garnica, VENEER JOINTER RETURNER [address] [address] BACKACHE NOS (Primary Dx); JOINT PAIN-PELVIS Social History Tobacco Use Types Packs/Day Years Used Date Smoking Tobacco: Never Assessed Sex and Gender Information Value Date Recorded Sex Assigned at Not on file 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
--- OUTSIDE RECORDS SUMMARY | 2025-06-30 14:50 | XMS_ITS | Encounter Summary ---
Author Organization [facility] Address [address] [place] [address] Care Team Providers Care Mold Design Engineer Name Role Phone Yordan Murphy MD Primary Care Provider [phone] Encounter Details Date Type Department Care Team (Late st Contact Info) Description 03/12/2005 Outpatient Historical [facility] Urgent Care- Cory Ferrernn Johnston [address] [place] [address] Juan Garnica, DIPLOMATIC OFFICER [address] [address] JOINT PAIN-PELVIS (Primary Dx); CONTUSION OF HIP Social History Tobacco Use Types Packs/Day Years Used Date Smoking Tobacco: Never Assessed Sex and Gender Information Value Date Recorded Sex Assigned at Not on file 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
--- OUTSIDE RECORDS SUMMARY | 2025-06-30 14:50 | XMS_ITS | Encounter Summary ---
Author Organization [facility] Address [address] [place] [address] Care Team Providers Care Multiple Spindle Router Operator Name Role Phone Yordan Murphy MD Primary Care Provider [phone] [phone] Encounter Details Date Type Department Care Team (Late st Contact Info) Description 04/24/2007 Outpatient Historical [facility] [address] 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
--- OUTSIDE RECORDS SUMMARY | 2025-06-30 14:50 | XMS_ITS | Encounter Summary ---
Author Organization [facility] Address [address] [place] [address] Care Team Providers Care Coding Validator Name Role Phone Yordan Murphy MD Primary Care Provider [phone] [phone] Encounter Details Date Type Department Care Team (Late st Contact Info) Description 10/12/2006 Inpatient Historical [facility] Jorge L Schofield, DO [address] [place], [place] [id number] Closed Skull Base Fx-Coma (CMS/HCC) (Primary Dx) Social History Tobacco Use Types Packs/Day Years Used Date Smoking Tobacco: Never Assessed Sex and Gender Information Value Date Recorded Sex Assigned at Not on file Legal Sex Male 5:07 AM COMPRESSOR REPAIRER Gender Identity Not on file Sexual Orientation Not on file documented as of this encounter Plan of Treatment Not on file documented as of this encounter Procedures Procedure Name Priority Date/Time Associated Diagnosis Comments CBC WITH DIFFERENTIAL Routine 10/13/2006 4:20 AM COMPRESSOR REPAIRER BASIC METABOLIC PANEL Routine 10/13/2006 4:20 AM COMPRESSOR REPAIRER CBC WITH DIFFERENTIAL Routine 10/12/2006 10:57 PM COMPRESSOR REPAIRER PROTIME-INR Routine 10/12/2006 10:57 PM COMPRESSOR REPAIRER ETHANOL LEVEL Routine 10/12/2006 10:57 PM COMPRESSOR REPAIRER BASIC METABOLIC PANEL Routine 10/12/2006 10:[address] HEAD WO CONTRAST Routine 10/12/2006 1 0:15 PM COMPRESSOR REPAIRER XR PELVIS 1 OR 2 VW Routine 10/12/2006 1 0:15 PM COMPRESSOR REPAIRER XR CHEST PA OR AP 1 VW Routine 10/12/2006 10:15 PM COMPRESSOR REPAIRER XR CHEST PA OR AP 1 VW Routine 10/12/2006 10:15 PM COMPRESSOR REPAIRER documented in this encounter Results * (ABNORMAL) BASIC METABOLIC PANEL (10/13/2006 4:20 AM COMPRESSOR REPAIRER) [facility] GLUCOSE 122(H) 70 - 110 mg/dL [...] 10.5 mg/dL INTERFACE SYSTEM 10/13/2006 4:20 AM COMPRESSOR REPAIRER Jorge L Schofield DO CHEMISTRY ORDERABLES Edited INTERFACE SYSTEM Refer to clinic/hospital department * (ABNORMAL) CBC WITH DIFFERENTIAL (10/13/2006 4:20 AM COMPRESSOR REPAIRER) [facility] PERIPHERAL BLOOD SMEAR REVIEW Automated Diff [...] 0.2 K/ul INTERFACE SYSTEM 10/13/2006 4:20 AM COMPRESSOR REPAIRER Jorge L Schofield DO HEMATOLOGY ORDERABLES Edited Performing Organization Address City/[facility] Co de Phone Number INTERFACE SYSTEM Refer to clinic/hospital department * PROTIME-INR (10/12/2006 10:57 PM COMPRESSOR REPAIRER) PROTIME 14.3 13.0 - 15.7 Secs INTERFACE SYSTEM Comment: As of 06 note change in normal range. INR 1.0 INTERFACE SYSTEM Comment: Expected Values for INR: DVT/PE Goal INR 2.5; range 2.0 - 3.0 Valve Replacement Tissue Goal INR 2.5; range 2.0 - 3.0 Mechanical Goal INR 3.0; range 2.5 - 3.5 POST-PA Goal INR 2.5; range 2.0 - 3.0 or Goal 3.0; range 2.5 - 3.5 Atrial Fibrillation Goal INR 2.5; range 2.0 - 3.0 Ischemic Stroke Goal INR 2.5; range 2.0 - 3.0 For additional information see Guidelines for Anticoagulation available from the pharmacy [facility]. 10/12/2006 10:5 7 PM COMPRESSOR REPAIRER Cortez Martines MD HEMATOLOGY ORDERABLES Edited Performing Organization Address City/[facility] Co de Phone Number INTERFACE SYSTEM Refer to clinic/hospital department * (ABNORMAL) CBC WITH DIFFERENTIAL (10/12/2006 10:57 PM COMPRESSOR REPAIRER) WBC 15.7(H) 4.8 - 10.8 K/ul INTERFACE [...] K/ul INTERFACE SYSTEM 10/12/2006 10:5 7 PM COMPRESSOR REPAIRER us Cortez Martines MD HEMATOLOGY ORDERABLES Edited Performing Organization Address City/[facility] Co de Phone Number INTERFACE SYSTEM Refer to clinic/hospital department * ETHANOL (10/12/2006 10:57 PM COMPRESSOR REPAIRER) ETHANOL <10 <=10 mg/dL INTERFACE SYSTEM 10/12/2006 10:5 7 PM COMPRESSOR REPAIRER us Cortez Martines MD CHEMISTRY ORDERABLES Edited Performing Organization Address City/[facility] Co de Phone Number INTERFACE SYSTEM Refer to clinic/hospital department * (ABNORMAL) BASIC METABOLIC PANEL (10/12/2006 10:57 PM COMPRESSOR REPAIRER) GLUCOSE 124(H) 70 - 110 mg/dL INTERFACE [...] mg/dL INTERFACE SYSTEM 10/12/2006 10:5 7 PM COMPRESSOR REPAIRER Cortez Martines MD CHEMISTRY ORDERABLES Edited INTERFACE SYSTEM Refer to clinic/hospital department * XR CHEST PA OR AP (10/12/2006 10:15 PM COMPRESSOR REPAIRER) Anatomical Region Laterality Modality Chest Other 10/12/2006 10:1 5 PM COMPRESSOR REPAIRER Narrative 10/12/2006 10:15 PM COMPRESSOR REPAIRER PORTABLE AP SUPINE CHEST 10/13/2006 AT 0624: [...] 1 OR 2 VW (10/12/2006 10:15 PM COMPRESSOR REPAIRER) Anatomical Region Laterality Modality Pelvis Other 10/12/2006 10:1 5 PM COMPRESSOR REPAIRER Narrative 10/12/2006 10:15 PM COMPRESSOR REPAIRER INDICATION: Trauma. FINDINGS: Dynamic hip screw is [...] CHEST PA OR AP (10/12/2006 10:15 PM COMPRESSOR REPAIRER) Anatomical Region Laterality Modality Chest Other 10/12/2006 10:1 5 PM COMPRESSOR REPAIRER Narrative 10/12/2006 10:15 PM COMPRESSOR REPAIRER INDICATION: Trauma. FINDINGS: The study is limited. [...] CT HEAD WO CONTRAST (10/12/2006 10:15 PM COMPRESSOR REPAIRER) Anatomical Region Laterality Modality Head Other 10/12/2006 10:1 5 PM COMPRESSOR REPAIRER Narrative 10/12/2006 10:[address] scan head without IV contrast. CT [...] hemorrhage, loss of consciousness of unspecified duration (CMS/[facility])- Primary Closed fracture of base of skull with subarachnoid, subdural, and extradural hemorrhage, loss of consciousness of unspecified duration documented in this encounter Care Teams Coding Validator Relationship Specialty Start Date End Date Yordan Murphy MD [address] [phone] PCP - General Family Practice 05/11/20 documented as of this encounter
--- OUTSIDE RECORDS SUMMARY | 2025-06-30 14:50 | XMS_ITS | Encounter Summary ---
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
--- OUTSIDE RECORDS SUMMARY | 2025-06-30 14:50 | XMS_ITS | Encounter Summary ---
Author Organization [facility] Address [address] [place] [address] Care Team Providers Care Mobility Manager Name Role Phone Yordan Murphy MD Primary Care Provider [phone] [phone] Encounter Details Date Type Department Care Team (Latest Contact Info) Description 10/23/2006 Outpatient Historical [facility] [address] 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
--- OUTSIDE RECORDS SUMMARY | 2025-06-30 14:50 | XMS_ITS | Encounter Summary ---
Author Organization [facility] Address [address] [place] [address] Attn: [place] [address] Care Team Providers Care Sports Centre Manager Name Role Phone Yordan Murphy MD Primary Care Provider [phone] [phone] Encounter Details Date Type Department Care Team (Latest Contact Info) Description 07/24/2000 Emergency Sj Ed, Physician NO ADDRESS ON FILE Social History Tobacco Use Types Packs/Day Years Used Date Smoking Tobacco: Never Assessed Sex and Gender Information Value Date Recorded Sex Assigned at Not on file Legal Sex Male 5:07 AM DISPLAY ASSOCIATE Gender Identity Not on file Sexual Orientation Not on file documented as of this encounter Plan of Treatment Not on file documented as of this encounter Visit Diagnoses Not on filedocumented in this encounter Care Teams Sports Centre Manager Relationship Specialty Start Date End Date Yordan Murphy MD [address] [facility] [address] [place] [phone] PCP - General Family Practice 05/11/20 documented as of this encounter
--- OUTSIDE RECORDS SUMMARY | 2025-06-30 14:50 | XMS_ITS | Encounter Summary ---
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
--- OUTSIDE RECORDS SUMMARY | 2025-06-30 14:50 | XMS_ITS | Encounter Summary ---
Author Organization [facility] Address [address] [place] [address] Care Team Providers Care Genetics Teacher Name Role Phone Yordan Murphy MD Primary Care Provider +1 [phone] Encounter Details Date Type Department Care Team (Latest Contact Info) Description 12/28/1998 Outpatient Historical HIS [facility] [place] [address] [place] [address] Pain in joint, pelvic region and thigh (Primary Dx); Pain in limb Social History Tobacco Use Types Packs/Day Years Used Date Smoking Tobacco: Never Assessed Sex and Gender Information Value Date Recorded Sex Assigned at Not on file Legal Sex Male 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
--- OUTSIDE RECORDS SUMMARY | 2025-06-30 14:50 | XMS_ITS | Clinical Summary ---
Author Organization [facility] Address [facility] [place] [address] Care Team Providers Care Managed Care Coordinator Name Role Phone Yordan Murphy MD Primary Care Provider [phone] [phone] Allergies No known active allergies Medications loratadine (CLARITIN) 10 mg Oral tablet Take 10 mg by mouth daily. Active aspirin (ECOTRIN EC) 81 mg Tablet, Delayed Release (E.C.) Take 81 mg by mouth daily. Active naloxone (NARCAN) 4 mg/spray [place], Non-Aerosol Administer 1 [place] (4 mg) in alternate nostril each dose [...] drink = 0.6 oz pur e alcohol) Social Connections Answer Date Recorded In a typical week, how many times do you talk on the phone with family, friends, or neighbors? Three times a week 07/10/2020 How often do you get togethe r with friends or relatives? Three times a week 07/10/2020 How often do you attend chur ch or mormonism services? More than 4 times per year 07/10/2020 Do you belong to any clubs o r organizations such as methodist groups, unions, fraternal or athletic groups, or school groups? No 07/10/2020 How often do you attend meet ings of the clubs or organizations you belong to? Never 07/10/2020 Are you , , di vorced, , never , or living with a partner? 07/10/2020 Financial Resource Strain Answer Date R ecorded How hard is it for you to pa y for the very basics like food, housing, medical care, and heating? Not hard at all 07/10/2020 Food Insecurity Answer Date Recorded Within the past 12 months, y ou worried that your food would run out before you got the money to buy more. Never true 07/10/20 20 Within the past 12 months, t he food you bought just didn't last and you didn't have money to get more. Never true 07/10/2020 Transportation Needs Answer Date Record ed In the past 12 months, has l ack of transportation kept you from medical appointments or from getting medications? No 03/2020 In the past 12 months, has l ack of transportation kept you from meetings, work, or from getting things needed for daily living? No 07/10/2020 Education Answer Date Recorded What is the highest level of school you have completed or the highest degree you have received? 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 Gender Identity Not on file Sexual [...] Q 1 year 01/11/2022 01/11/2021 Medicare Advantage ([place]) Prev entative Visit/Annual Wellness Visit 10/05/2024 07/10/2020 [...] STOOL Negative Negative 01/14/2021 9:21 AM CDT [facility] Stool STOOL SPECIMEN / Unknown Collection / Unknown 01/11/2021 10:31 AM CDT 01/11/2021 7:49 PM CDT Yordan Murphy MD BODY FLUIDS AND STOOLS Fi nal Result [facility] CLIA# [id number] [address] [place] [address] from Last 3 Months or Most Recently Relevant to Health Maintenance Insurance [place]ICAID [place] Member Subscriber Plan / Payer (Ef fective 2008-Present) Name:Cornelio Puckett Relation to Subscriber:Self Name:Cornelio Puckett Payer ID:[id number] Group ID:Not on file Type:Medicaid Address: [address] Care Teams Managed Care Coordinator Relationship Specialty Start Date End Date Yordan Murphy MD [address] [phone] PCP - General Family Practice 05/11/20
--- OUTSIDE RECORDS SUMMARY | 2025-06-30 14:50 | XMS_ITS | Clinical Summary ---
Author Organization [facility] Address [address] [place] [address] Care Team Providers Care Endocrinology Nurse Name Role Phone Yordan Murphy MD Primary Care Provider [phone] [phone] Allergies No known active allergies Medications aspirin (ECOTRIN EC) 81 mg Tablet, Delayed Release (E.C.) Take 81 mg by mouth daily. 05/11/20 20 Active naloxone (NARCAN) 4 mg/spray N[place], Non-Aerosol Administer 1 Nunda (4 mg) in alternate nostril each dose [...] as needed for Pain, Moderate. 90 Tablet 06/06/20 25 Active HYDROcodone-acetam inophen (NORCO) 7.5-325 mg TabletIndications: Primary osteoarthritis of left knee,Primary osteoarthritis of left hip Take 1 Tablet by mouth every 8 hours as needed for Pain, Moderate. 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 06/08/2020 Toxic multinodular goiter [...] Encounters Date Type Department Care Team Description 06/06/[address] [address] Yordan Murphy MD Primary osteoarthritis of left knee; Primary osteoarthritis of left hip 05/08/2025 Orders Only [id number] [place] [address] Provider, Abstract 04/27/[address] [address] Yordan Murphy MD Primary osteoarthritis of left knee; Primary osteoarthritis of left hip 04/19/2025 External Device Data [facility] ABSTRACTION Provider, Abstract 04/19/2025 External Device Data [facility] ABSTRACTION Provider, Abstract from Last 3 Months Immunizations Immunization Administration Dates Next Due (PFIZER)(12 YR UP) COVID-19 VACCINE - EMERGENCY USE AUTHORIZATION, MRNA, [id number](PF) 30 MCG/0.3 ML IM SUSP 09/04/2021 (PNEUMOVAX [...] often do you attend chur ch or episcopal services? More than 4 times per year 07/10/2020 Do you belong to any clubs o r organizations such as rastafari groups, unions, fraternal or athletic groups, or [...] care, and heating? Not hard at all 03/20/2022 Food Insecurity Answer Date Recorded In the past 12 months, have you worried that your food would run out before you had money to buy more? Never true 03/20/2022 In the past 12 months, did y ou run out of food and didn't have money to buy more? Never true 03/20/2022 Transportation Needs Answer Date Record ed In the past 12 months, has l ack of transportation kept you from medical appointments or from getting medications? 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 Gender Identity Not on file Sexual Orientation [...] Description 07/07/2025 8:40 AM CDT Office Visit [facility] [address] [address] Yordan Murphy MD [address] [address] Health Maintenance Due Date Last Done Comments FIT/ DNA Q 3 YEARS (AUTO ORDER) 01/06/1970 DTAP/TDAP/TD VACCINES (1 [...] Q 1 YEAR (AUTO ORDER) 01/11/2022 01/11/2021 , 01/11/2021 FIT/FOBT Q 1 year 01/11/2022 01/11/2021 [place] ([place]) Preventative Visit/Annual Wellness Visit 10/05/2024 06/16/2024, 03/20/2022, 05/21/2021 INFLUENZA VACCINE (#1) 2025 3, 06/14/2022, 07/10/2021, Additional history exists COVID-19 Vaccine (2 - 2024-2 6 season) 2025 09/04/2021 PNEUMOCOCCAL VACCINE 50+ YEA RS (3 of 3 - PCV20 or PCV21) 06/27/2025 06/27/2020, 12/11/2005, 11/25/2004 Colorectal Cancer Screening (AUTO ORDER) 01/11/2026 FLEX SIG/CT COLONOGRAPHY Q 5 YEARS (AUTO ORDER) 01/11/2026 01/11/2021, 01/11/2021 Procedures Procedure Name Priority Date/Time Associated Diagnosis Comments COMPREHENSIVE METABOLIC PANEL Routine 05/07/2025 10:45 AM CDT OCCULT BLOOD IMMUNOASSAY, COLORECTAL SCREEN Routine 01/11/2021 10:31 AM CDT from Last 3 Months or Most Recently Relevant to Health Maintenance Results * COMPREHENSIVE METABOLIC PANEL (05/07/2025 10:45 AM CDT) Blood us Abstract Provider CHEMISTRY ORDERABLES Final Res ult * OCCULT BLOOD IMMUNOASSAY, COLORECTAL SCREEN (01/11/2021 10:31 AM CDT) OCCULT BLOOD, STOOL Negative Negative 01/14/2021 9:21 AM CDT [facility] Stool STOOL SPECIMEN / Unknown Collection / Unknown 01/11/2021 10:31 AM CDT 01/11/2021 7:49 PM CDT Yordan Murphy MD BODY FLUIDS AND STOOLS Fi nal Result [facility] CLIA# [id number] [address] [place] [id number] from Last 3 Months or Most Recently Relevant to Health Maintenance Insurance [address] [place] [address] MEDICAID [facility] [id number] Care Teams Endocrinology Nurse Relationship Specialty Start Date End Date Yordan Murphy MD [address] [phone] PCP - General 12/24/20
--- OUTSIDE RECORDS SUMMARY | 2025-06-30 14:50 | XMS_ITS | Encounter Summary ---
Author Organization [facility] Address [address] [place] [address] Care Team Providers Care Meat Pumper Name Role Phone Yordan Murphy MD Primary Care Provider [phone] [phone] Encounter Details Date Type Department Care Team (Late st Contact Info) Description 02/22/2008 Emergency [facility] Emergency Department [address] [place] [address] Ed, Physician NO ADDRESS ON FILE Lillie Campbell DO NO ADDRESS ON FILE Social History Tobacco Use Types Packs/Day Years Used Date Smoking Tobacco: Never Assessed Sex and Gender Information Value Date Recorded Sex Assigned at Not on file 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 Dictated By: iJll Don M.D. Electronically Signed By: Jill Don [...] on filedocumented in this encounter Care Teams Meat Pumper Relationship Specialty Start Date End Date Yordan Murphy MD [address] [phone] PCP - General Family Practice 05/11/20 documented as of this encounter
--- OUTSIDE RECORDS SUMMARY | 2025-06-30 14:50 | XMS_ITS | Encounter Summary ---
Author Organization [facility] Address [address] [place] [address] Care Team Providers Care Sales Representative Groceries Name Role Phone Yordan Murphy MD Primary Care Provider [phone] [phone] Encounter Details Date Type Department Care Team (Latest Contact Info) Description 10/23/2006 Outpatient Historical [facility] [address] [place] [address] [place] [address] Deshaun Sewell MD [address] [place] [address] Subdural Hemorrhage (CMS/HCC) (Primary Dx) Social History Tobacco Use Types Packs/Day Years Used Date Smoking Tobacco: Never Assessed Sex and Gender Information Value Date Recorded Sex Assigned at Not on file 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
--- OUTSIDE RECORDS SUMMARY | 2025-06-30 14:50 | XMS_ITS | Encounter Summary ---
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
[2025-06-30 15:30] VITALS: BP 135/74; PULSE 64; O2SAT 97
== END 2025-06-30 16:13 | disposition home or self-care (01) ==
PROVIDERS: Emergency Provider Emergency Medicine; PCP Family Medicine
DX: M25.552 Pain in left hip (principal); Z79.01 Long term (current) use of anticoagulants; F17.210 Nicotine dependence, cigarettes, uncomplicated; J44.9 Chronic obstructive pulmonary disease, unspecified; I10 Essential (primary) hypertension; Z86.73 Personal history of transient ischemic attack (TIA), and cerebral infarction without residual deficits
CPT/HCPCS: 73502; 99283; J9999

== ENCOUNTER 2025-07-31 13:39 | Outpatient (RCR) | payer OTHER, MEDICAID, SELFPAY | END 2025-08-04 23:59 | disposition home or self-care (01) | LOC: SOT 13:39 | PROVIDERS: Visit Provider Family Medicine | DX: I69.354 Hemiplegia and hemiparesis following cerebral infarction affecting left non-dominant side (principal) | CPT/HCPCS: 97167 ==

== ENCOUNTER 2025-09-20 08:59 | Emergency (ER) | payer MEDICARE, MEDICAID, SELFPAY ==
--- NOTE | 2025-09-20 09:00 | ECG_ITS ---
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 Measurements Intervals [place] Rate: 78 P: 90 NJ: 158 QRS: -88 QRSD: 80 T: 89 QT: 334 QTc: 381 Interpretive Statements SINUS RHYTHM WITH MARKED SINUS ARRHYTHMIA POSSIBLE RIGHT VENTRICULAR CONDUCTION DELAY [RSR (QR) IN V1/V2] LEFT ANTERIOR FASCICULAR BLOCK [QRS AXIS <= -45, QR IN I, RS IN II] MODERATE ST DEPRESSION [0.05+ mV ST DEPRESSION] Compared to ECG 05/07/2025 15:01:47 Left anterior fascicular block now present Atrial fibrillation no longer present Left-axis deviation no longer present ST (T wave) deviation still present Electronically Signed On 09-20-2025 21:39:30 PROFESSOR OF EXERCISE SCIENCE by Tomas Jack M.D. [email or web address]
[2025-09-20 09:01] VITALS: BP 85/61; PULSE 100; RESP 16; TEMP 36.5; O2SAT 96
--- NOTE | 2025-09-20 09:01 | ED_ITS ---
HPI - General Adult 2 General: Chief complaint: Fall Stated complaint: Fall Time Seen by Provider: 09/20/25 09:00 History of Present Illness: 75-year-old male presents to the emergen cy room after a fall. Patient previously had a traumatic brain injury and he has limited mobility he uses an electric scooter to transfer himself from the scooter to a chair and fell hit his head there is no loss consciousness do not any vomiting. He reports several fall the last few days. He has not had any neck pain he denies any other injuries to his extremities denies any abdominal or chest pain. Patient did hit his head and he is on Eliquis. Associated symptoms: Deny chest pain, dyspnea or rash Related Data Home Medications ?Medication ?Instructions ?Recorded ?Confirmed hydrocodone 7.5 mg-acetaminophen 1 tab PO Q8H PRN Pain 04/20/20 06/30/25 325 mg tablet Previous Rx's ?Medication ?Instructions ?Recorded lidocaine 5 % topical patch 1 patch topical DAILY #30 ea 01/21/25 (Lidoderm) apixaban 5 mg tablet (Eliquis) 5 mg PO BID #60 tabs Allergies Allergy/AdvReac Type Severity Reaction Status Date / Time No Known Allergies Allergy Verified 11/21/24 07:57 Review of Systems 2 Const: Denies: fever(s) or chills Card: Denies: chest pain Resp: Denies: dyspnea GI: Denies: abdominal pain : Denies: dysuria, urinary frequency or urinary urgency Musc: Denies: neck pain or back pain Skin/Breast: Denies: rash PFSH ED 2 PFSH: Medical History Acute right arterial ischemic stroke, middle cerebral artery (MCA) CVA (cerebral vascular accident) Cerebrovascular accident Thyroid nodule [place] Hypertension Traumatic brain injury Smoker History of cardioversion COPD (chronic obstructive pulmonary disease) BPH (benign prostatic hyperplasia) Afib Surgical History S/P IVC filter History of knee replacement History of hip replacement History of laparoscopic appendectomy Hx of tonsillectomy Family History Other CAD (coronary artery disease) Cancer Diabetes Hypertension Lung disease Stroke Denies family history of Clotting disorder Dementia Hyperlipidemia Psychiatric illness Chronic kidney disease (CKD) Suicide Anesthesia complication Bleeding disorder Family history of premature coronary artery disease Social History Smoking and tobacco/nicotine status: current every day tobacco/nicotine user cigarettes Years cigarettes smoked: 56 Quit status (tobacco/nicotine): considering quitting Second hand smoke exposure: No Alcohol intake: never Substance/Drug Use: never Adopted: No Caregiver/support person: Yes Lives independently: Yes Housing: Apartment Marital status: Single Number of children: 0 Highest education level completed: Bachelor's Degree service: Yes Current occupational status: retired Pets and animals: No Sexually active: No Do you think of yourself as: Straight/Heterosexual Current gender identity: Male Special reece needs: No Agree to transfusion: Yes Physical Exam 2 Const: COMMON NORMALS: no acute distress GENERAL APPEARANCE: cooperative and comfortable ORIENTATION/CONSCIOUSNESS: Yes awake, Yes oriented to person, Yes oriented to place and Yes oriented to time HENMT: COMMON NORMALS: normocephalic, atraumatic and hearing grossly normal bilaterally HEAD & SCALP: normocephalic and atraumatic Resp: COMMON NORMALS: normal respiratory effort, No retractions, No use of accessory muscles and clear to auscultation bilaterally AUSCULTATION: clear to auscultation bilaterally Cardio: COMMON NORMALS: regular rate, regular rhythm and No murmurs present (Cardio) RATE: regular rate RHYTHM: regular rhythm GI: COMMON NORMALS: Soft to palpation and No hepatosplenomegaly present A USCULTATION: Yes normoactive bowel sounds PALPATION: Yes Soft to palpation, No Tenderness to palpation present (GI), No Guarding due to palpation present (GI) and Yes No hepatosplenomegaly present Extremity: COMMON NORMALS: normal to inspection, capillary refill normal, no clubbing, cyanosis or edema, no calf tenderness and no pedal edema Neuro: SENSORIUM/ORIENTATION: Yes oriented to person, Yes oriented to place and Yes oriented to time Skin: COMMON NORMALS: no rashes or lesions noted GENERAL SKIN EXAM: no rashes or lesions noted Course 2 Vital Signs: Vital signs: Vital Signs Temperature 97.7 F 09/20/25 09:01 Pulse Rate 97 09/20/25 10:07 Respiratory Rate 25 H 09/20/25 10:07 Blood Pressure 123/87 09/20/25 09:53 Pulse Oximetry 95 09/20/25 10:07 Oxygen Delivery Me thod Room Air 09/20/25 09:01 MDM - General Adult Medical Decision Making Medical decision making Social determinants: Limited mobility lives at home alone I reviewed the patient's medical record. I reviewed the patient's current home meds. Alternate historians: None Differential diagnosis: Multiple falls, closed head injury, chronic anticoagulation Lab Review: Labs reviewed as found on the chart. CBC unremarkable chemistry panel shows elevated liver enzymes. He has had elevated liver enzymes in the past. He is not having abdominal pain now his T. bili is normal. Imaging: CT head negative for any acute findings evidence of previous brain trauma and joceline hole. See radiology notes Assessment of risk Level of risk: Moderate Hospitalization considerations: No need for hospitalization Reexamination: Unchanged patient awake alert active to his baseline Assessment and plan: No recent trauma to the abdomen is not complaining of any abdominal pain at this time. His liver enzymes are slightly elevated his T. bili is normal he can follow this up as an outpatient. Will discharge him home reviewed his CT and lab findings with him. Encouraged him to follow-up with his primary care doctor regarding the laboratory findings and to discuss safety and levels of care Lab Data 09/20/25 09:08 09/20/25 09:[address] 09/20/25 09:12 IMPRESSION: 1. No evidence of intracranial hemorrhage or mass effect. 2. LEFT maxillary sinusitis. 3. No acute intracranial findings. Laboratory Results WBC 10.33 10^3/uL (3.29-11.43) 09/20/25 09:08 RBC 5.24 10^6/uL (3.85-5.65) 09/20/25 09:08 Hgb 16.20 g/dL (11.27-16.99) 09/20/25 09:08 Hct 50.2 % (37-53) 09/20/25 09:08 MCV 95.8 fl (82-101) 09/20/25 09:08 MCH 30.9 pg (27-33) 09/20/25 09:08 MCHC 32.3 g/dL (30-55) 09/20/25 09:08 RDW 13.6 % (12.1-15.1) 09/20/25 09:08 Plt Count 294 10^3/cmm (157-399) 09/20/25 09:08 MPV 9.3 fL (7.4-10.4) 09/20/25 09:08 Neut % (Auto) 78.9 % 09/20/25 09:08 Lymph % (Auto) 11.9 % 09/20/25 09:08 [place] % (Auto) 8.1 % 09/20/25 09:08 Eos % (Auto) 0.4 % 09/20/25 09:08 Baso % (Auto) 0.3 % 09/20/25 09:08 Neut # (Auto) 8.15 10^3/uL (1.8-7.7) H 09/20/25 09:08 Lymph # (Auto) 1.2 10^3/uL (0.8-4.8) 09/20/25 09:08 [place] # (Auto) 0.8 10^3/uL (0.2-0.9) 09/20/25 09:08 Eos # (Auto) 0.0 10^3/uL (0.0-0.8) 09/20/25 09:08 Baso # (Auto) 0.0 10^3/uL (0.0-0.1) 09/20/25 09:08 Nucleated RBC % (auto) 0 % 09/20/25 09:08 Nucleated RBCs # 0.0 /100WBC 09/20/25 09:08 Sodium 141 mmol/L (136-145) 09/20/25 09:08 Potassium 4.4 mmol/L (3.5-5.1) 09/20/25 09:08 Chloride 101 mmol/L (98-107) 09/20/25 09:08 Carbon Dioxide 32 mmol/L (22-29) H 09/20/25 09:08 Anion Gap 12.4 (5-19) 09/20/25 09:08 BUN 20 mg/dL (8-23) 09/20/25 09:08 Creatinine 1.2 mg/dL (0.7-1.2) 09/20/25 09:08 GFR Calculation Not Reportable 09/20/25 09:08 Glucose 111 mg/dL (65-115) 09/20/25 09:08 Calculated Osmolality 295 mOsm/kg (285-295) 09/20/25 09:08 Calcium 8.7 mg/dL (8.5-10.5) 09/20/25 09:08 Total Bilirubin 0.6 mg/dL (0.15-1.2) 09/20/25 09:08 AST 59 U/L (0-40) H 09/20/25 09:08 ALT 60 U/L (0-41) H 09/20/25 09:08 Alkaline Phosphatase 178 U/L (40-130) H 09/20/25 09:08 Total Protein 6.7 g/dL (6.6-8.7) 09/20/25 09:08 Albumin 3.0 g/dL (3.5-5.2) L 09/20/25 09:08 Globulin 3.7 g/dL (1.3-4.6) 09/20/25 09:08 All radiology interpretation(s) finalized by discharge EKG Data EKG 1: I personally reviewed and interpreted this EKG as follows: Interpretation: EKG 09/20/2025 9:08 AM sinus arrhythmia rate of 78 PA interval 158 QTc [address] changes noted no ST elevation. Compared to EKG 05/07/2025 sinus arrhythmia has replaced atrial fibrillation, rate now controlled. Computer generated interpretation: Head CT 09/20/25 09:12 IMPRESSION: 1. No evidence of intracranial hemorrhage or mass effect. 2. LEFT maxillary sinusitis. 3. No acute intracranial findings. Discharge Plan Discharge Patient Disposition: Home Clinical Impression: Concussion without loss of consciousness, Multiple falls, Skin tear of left elbow without complication Condition: Stable Prescriptions: No Action hydrocodone-acetaminophen 7.5-325 mg tablet 1 tab PO Q8H PRN (Reason: Pain) lidocaine [Lidoderm] 5 % adhesive patch,medicated 1 patch topical DAILY Qty: 30 0RF Rx Instructions: leave on most painful area for up to 12 hrs Eliquis 5 mg tablet 5 mg PO BID Qty: 60 0RF Discharge Orders: Discharge ED (Routine); Ordered 09/20/25 Ordered By: Raj Fish Patient Instructions: Opioid Safety, Pain Management, Patient Portal & Patrick Instructions Activity Restrictions/Additional Instructions: [facility]. It is very important that you follow up as instructed or that you return to the Emergency Department should you have concerns or if your condition changes or worsens in any way. Emergency department visits are focused on emergent conditions, in some cases you may require further evaluation on an outpatient basis. You are seen emergency room after several reported falls. CT of your head shows chronic old changes but no new acute changes. Remainder of your exam was unremarkable. Your laboratory test showed some elevation of your liver enzymes. You should follow-up with your primary care doctor regarding this. Return to the emergency room for further problems. (Please note that included in your discharge packet is information concerning opioid safety and pain management. This information is given to all patients were discharged from the ER regardless of their discharge diagnosis or the medicines they usually take or are prescribed.) Print Language: Armenian Coding Level of Care Code ED Linker Up for Daina Hoskins
[2025-09-20 09:11] VITALS: BP 102/66; PULSE 87; RESP 23; O2SAT 97
--- NOTE | 2025-09-20 09:12 | CT_ITS ---
WS: [id number] CT HEAD TECHNIQUE: Noncontrast CT of the head obtained from the skullbase to the vertex. CLINICAL INFORMATION: trauma COMPARISON: 01/27/2024 DLP: 2216.[address] scans at [facility] use at least one of these dose optimization techniques: automated exposure control; mA and/or kV adjustment per patient size (includes targeted exams where dose is matched to clinical indication); or iterative reconstruction. FINDINGS: No evidence of intracranial hemorrhage or mass effect. Ventricular system and basal cisterns are patent. Moderate small vessel changes with moderate parenchymal volume loss. RIGHT frontal and temporal craniotomy with underlying encephalomalacia. Chronic encephalomalacia LEFT anterior temporal lobe. Vascular calcification. LEFT maxillary sinusitis. Chronic appearing opacification LEFT mastoid air cells and LEFT middle ear with sclerosis and bony remodeling. CT/CT head wo con* [id number] IMPRESSION: 1. No evidence of intracranial hemorrhage or mass effect. 2. LEFT maxillary sinusitis. 3. No acute intracranial findings.
[2025-09-20 09:14] LABS: Hematocrit 50.2 % (37-53); Hemoglobin 16.20 g/dL (11.27-16.99); Mean Corpuscular HGB Conc 32.3 g/dL (30-55); Mean Corpuscular Hemoglobin 30.9 pg (27-33); Mean Corpuscular Volume 95.8 fl (82-101); Nucleated Red Blood Cells % 0 %; Platelet Count 294 10^3/cmm (157-399); Red Blood Count 5.24 10^6/uL (3.85-5.65); White Blood Count 10.33 10^3/uL (3.29-11.43)
[2025-09-20 09:33] LABS: Alanine Aminotransferase 60 U/L (0-41); Albumin Level 3.0 g/dL (3.5-5.2); Alkaline Phosphatase 178 U/L (40-130); Anion Gap 12.4 (5-19); Aspartate Amino Transferase 59 U/L (0-40); Blood Urea Nitrogen 20 mg/dL (8-23); Calcium 8.7 mg/dL (8.5-10.5); Carbon Dioxide 32 mmol/L (22-29); Chloride 101 mmol/L (98-107); Globulin 3.7 g/dL (1.3-4.6); Glucose 111 mg/dL (65-115); Osmolality Calculated 295 mOsm/kg (285-295); Potassium 4.4 mmol/L (3.5-5.1); Sodium 141 mmol/L (136-145); Total Protein 6.7 g/dL (6.6-8.7)
[2025-09-20 09:36] VITALS: BP 107/70; PULSE 75; RESP 18; O2SAT 95
--- NOTE | 2025-09-20 09:49 | PC.NURSE ---
pt states wants food now or I want an AMA form . this nurse spoke with ED physician, states pt can eat now. pt given sandwich, icecream, jello, applesauce, milk.
[2025-09-20 09:53] VITALS: BP 123/87; PULSE 89; O2SAT 98
--- OUTSIDE RECORDS SUMMARY | 2025-09-20 09:56 | XMS_ITS | Clinical Summary ---
[facility] Address [address] [place] [address] Care Team Providers Care Grapple Operator Name Role Phone Yordan Murphy MD Primary Care Provider +1 [phone] Allergies No known active allergies Medications aspirin (ECOTRIN EC) 81 mg Tablet, Delayed Release (E.C.) Take 81 mg by mouth daily. 05/11/20 20 Active naloxone (NARCAN) 4 mg/spray Orlando, Non-Aerosol Administer 1 Orlando (4 mg) in alternate nostril each dose one time as needed for Other (See Comment) (Emergency use one). Emergency use only for oversedation 1 Each 0 09/25/20 20 Active Additional Information Patient not taking.Reported on 07/07/2025 oxygen home deliveryIndication s:Chronic respiratory failure with [...] months 1 Each 0 02/02/20 21 Active loratadine (CLARITIN) 10 mg [...] pending for medical necessity 1 Each 12/17/19 Active Additional Information Patient not taking.Reported on 07/07/2025 HYDROcodone-acetam inophen (NORCO) 7.5-325 mg TabletIndications: Primary osteoarthritis of left knee,Primary osteoarthritis of left hip Take 1 Tablet by mouth every 8 hours as needed for Pain, Moderate. 90 Tablet 08/30/20 25 Active HYDROcodone-acetam inophen (NORCO) 7.5-325 mg TabletIndications: Primary osteoarthritis of left knee,Primary osteoarthritis of left hip Take 1 Tablet by mouth every 8 hours as needed for Pain, Moderate. 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 06/08/2020 Toxic multinodular goiter [...] Encounters Date Type Department Care Team Description 09/19/[address] [place] [address] Yordan Murphy MD Patient Communication 08/30/[address] [address] Yordan Murphy MD Primary osteoarthritis of left knee; Primary osteoarthritis of left hip 08/22/2025 External Device Data STL ABSTRACTION Provider, Abstract 08/07/[address] [place] [address] Provider, Abstract 08/07/[address] [address] Provider, Abstract 08/01/[address] [address] Yordan Murphy MD Primary osteoarthritis of left knee; Primary osteoarthritis of left hip 07/24/[address] [place] [address] Yordan Murphy MD Needs Orders Written 07/10/[address] [place] [address] Provider, Abstract 07/07/2025 8:40 AM CDT Office Visit [address] [place] [address] Yordan Murphy MD Hemiparesis of left nondominant 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 (CMS/HCC) (Primary Dx); Primary osteoarthritis of left knee; Primary osteoarthritis of left hip; History of falling; Panlobular emphysema (CMS/HCC); Multiple falls; History of CVA in adulthood; Muscle weakness (generalized) from Last 3 Months Immunizations Immunization Administration Dates Next Due (HYLA Mobile)(12 YR UP) COVID-19 VACCINE - EMERGENCY USE AUTHORIZATION, MRNA, [id number](PF) 30 MCG/0.3 ML IM SUSP 09/04/2021 (PNEUMOVAX 23)(50 YRS UP) PN EUMOCOCCAL POLYSACCHARIDE (PPV23) 0.5 ML, IM 12/11/2005,11/25/2004 INFLUENZA VACCINE HIGH DOSE QUADRIVALENT 65 YR UP PF IM 06/29/2023,06/27/2020 Influenza Seasonal Unspecifi ed Formulation IM 07/06/2025,06/14/2022,07/10/2021 Pneumococcal 13-lauryn Conj Vac c Patient Supplied 06/27/2020 Family History Medical History Relation Name [...] 07/10/2020 How often do you attend chur or latter-day services? More than 4 times per year 07/10/2020 Do you belong to any clubs o r organizations such as jew groups, unions, fraternal or athletic groups, or [...] on file Legal Sex Male 6:01 AM AN/SYQ 13 NAV/C2 OPERATOR Gender Identity Not on file Sexual Orientation Not on file Last Filed Vital Signs Vital Sign Reading Time Taken Comments Blood Pressure 120/70 07/07/2025 8:27 AM CDT Pulse 97 07/07/2025 8:27 AM CDT Temperature 36 C (96.8 F) 07/07/2025 8:27 AM CDT Respiratory Rate 20 07/07/2025 8:27 AM CDT Oxygen Saturation 97% 07/07/2025 8:27 AM CDT Inhaled Oxygen Concentration - - Weight 66.2 kg (146 lb) 07/07/2025 8:27 AM CDT Height 188 cm (6' 2 ) 07/07/2025 8:27 AM CDT Body Mass Index 18.75 07/07/2025 8:27 AM CDT Plan of Treatment Upcoming Encounters Date Type Department Care Team (Late st Contact Info) Description 10/20/2025 8:20 AM AN/SYQ 13 NAV/C2 OPERATOR Office Visit [facility] [place] [address] [address] Yordan Murphy MD [address] [address] Health Maintenance Due Date Last Done Comments DTAP/TDAP/TD VACCINES (1 - Tdap) 01/06/1971 COLORECTAL SCREENING 01/06/1997 FIT-DNA Q 3 years 01/06/1997 Flex Sig/CT Colonography Q 5 years 01/06/1997 RSV VACCINE (60+ or ) (1 - Risk 50-74 years 1-dose series) 01/06/2002 ZOSTER VACCINE (1 of 2) 01/06/2002 Abdominal Aortic Aneurysm (A AA) Screening 01/06/2017 Colorectal Cancer Screening 01/11/2022 FIT/FOBT Q 1 year 01/11/2022 01/11/2021 COVID-19 Vaccine (2 - 2024-2 6 season) 2025 09/04/2021 PNEUMOCOCCAL VACCINE 50+ YEA RS (3 of 3 - PCV20 or PCV21) 06/27/2025 06/27/2020, 12/11/2005, 11/25/2004 INFLUENZA VACCINE Completed 07/06/2025, , 06/14/2022, Additional history exists [place] ([place]) Preventative Visit/Annual Wellness Visit Completed 07/07/2025, 06/16/2024, 03/20/2022, Additional history exists Procedures Procedure Name Priority Date/Time Associated Diagnosis Comments OCCULT BLOOD IMMUNOASSAY, COLORECTAL SCREEN Routine 01/11/2021 10:31 AM CDT from Last 3 Months or Most Recently Relevant to Health Maintenance Results * OCCULT BLOOD IMMUNOASSAY, COLORECTAL SCREEN (01/11/2021 10:31 AM CDT) OCCULT BLOOD, STOOL Negative Negative 01/14/2021 9:21 AM CDT [facility] Stool STOOL SPECIMEN / Unknown Collection / Unknown 01/11/2021 10:31 AM CDT 01/11/2021 7:49 PM CDT Yordan Murphy MD BODY FLUIDS AND STOOLS Fi nal Result [facility] CLIA# [id number] [address] [place] [address] from Last 3 Months or Most Recently Relevant to Health Maintenance Insurance [address] [place] [id number] MEDICAID [facility] [id number] Care Teams Grapple Operator Relationship Specialty Start Date End Date Yordan Murphy MD [address] [phone] PCP - General 12/24/20
--- OUTSIDE RECORDS SUMMARY | 2025-09-20 09:56 | XMS_ITS | Encounter Summary ---
Author Organization [facility] Address [address] [place] [address] Care Team Providers Care Envelope Sealing Machine Operator Name Role Phone Yordan Murphy MD Primary Care Provider +1 [phone] Encounter Details Date Type Department Care Team (Late st Contact Info) Description 04/24/2007 Outpatient Historical [facility] [address] 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
--- OUTSIDE RECORDS SUMMARY | 2025-09-20 09:56 | XMS_ITS | Encounter Summary ---
Author Organization [facility] Address [address] [place] [address] Care Team Providers Care Evp Marketing Name Role Phone Yordan Murphy MD Primary Care Provider +1 -[phone] Encounter Details Date Type Department Care Team (Latest Contact Info) Description 10/23/2006 Outpatient Historical [facility] [address] [place] [address] Deshaun Sewell MD [address] [place] [address] [address] Other Follow-Up Examination (Primary Dx) Social History Tobacco Use Types Packs/Day Years Used Date Smoking Tobacco: Never Assessed Sex and Gender Information Value Date Recorded Sex Assigned at Not on file Legal Sex Male 5:07 AM STAFFING DIRECTOR Gender Identity Not on file Sexual Orientation Not on file documented as of this encounter Plan of Treatment Not on file documented as of this encounter Visit Diagnoses Diagnosis Other follow-up examination(V67.59)- Primary Other follow-up examination documented in this encounter Care Teams Evp Marketing Relationship Specialty Start Date End Date Yordan Murphy MD [address] [facility] [address] [place] [phone] PCP - General Family Practice 05/11/20 documented as of this encounter
--- OUTSIDE RECORDS SUMMARY | 2025-09-20 09:56 | XMS_ITS | Clinical Summary ---
Author Organization [facility] Address [address] [place] [address] Care Team Providers Care Commercial Driver Name Role Phone Yordan Murphy MD Primary Care Provider +1 [phone] Allergies No known active allergies Medications loratadine (CLARITIN) 10 mg Oral tablet Take 10 mg by mouth daily. Active aspirin (ECOTRIN EC) 81 mg Tablet, Delayed Release (E.C.) Take 81 mg by mouth daily. Active naloxone (NARCAN) 4 mg/spray Warren, Non-Aerosol Administer 1 Warren (4 mg) in alternate nostril each dose [...] 07/10/2020 PSVT (paroxysmal supraventricular tachycardia) 0 06/30/2020 nursing home prescription opiate use 06/08/2020 Toxic multinodular goiter [...] often do you attend chur ch or latter-day services? More than 4 times per year 07/10/2020 Do you belong to any clubs o r organizations such as mosque groups, unions, fraternal or athletic groups, or [...] Master's degree (e.g., MA, MS, Meghan, MEd, INSURANCE POLICY ISSUE CLERK, ADRIANA) 07/10/2020 Sex and Gender Information Value Date Recorded Sex Assigned at Not on file Legal Sex Male 5:07 AM CURVE SAW OPERATOR Gender Identity Not on file Sexual [...] 01/06/2002 ZOSTER VACCINE (1 of 2) 01/06/2002 Colorectal Cancer Screening (AUTO ORDER) 01/11/2022 Colorectal Cancer Screening 01/11/2022 FIT/FOBT Q 1 YEAR (AUTO ORDER) 01/11/2022 01/11/2021 FIT/FOBT Q 1 year 01/11/2022 01/11/2021 [place] ([place]) Prev entative Visit/Annual Wellness Visit 10/05/2024 07/10/2020 [...] STOOL Negative Negative 01/14/2021 9:21 AM CDT [facility] Stool STOOL SPECIMEN / Unknown Collection / Unknown 01/11/2021 10:31 AM CDT 01/11/2021 7:49 PM CDT Yordan Murphy MD BODY FLUIDS AND STOOLS Fi nal Result [facility] CLIA# [id number] [address] [place] [address] from Last 3 Months or Most Recently Relevant to Health Maintenance Insurance [place]ICAID [place] Member Subscriber Plan / Payer (Ef fective 2008-Present) Name:Cornelio Puckett Relation to Subscriber:Self Name:Cornelio Puckett Payer ID:[id number] Group ID:Not on file Type:Medicaid Address: [address] Care Teams Commercial Driver Relationship Specialty Start Date End Date Yordan Murphy MD [address] [phone] PCP - General Family Practice 05/11/20
--- OUTSIDE RECORDS SUMMARY | 2025-09-20 09:56 | XMS_ITS | Encounter Summary ---
Author Organization [facility] Address [address] [place] [address] Care Team Providers Care Planer Stone Name Role Phone Yordan Murphy MD Primary Care Provider +1 [phone] Encounter Details Date Type Department Care Team (Late st Contact Info) Description 02/22/2008 Emergency [facility] [address] [place] [address] Ed, Physician NO ADDRESS ON FILE Lillie Campbell DO NO ADDRESS ON FILE Social History Tobacco Use Types Packs/Day Years Used Date Smoking Tobacco: Never Assessed Sex and Gender Information Value Date Recorded Sex Assigned at Not on file Legal Sex Male 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
--- OUTSIDE RECORDS SUMMARY | 2025-09-20 09:56 | XMS_ITS | Encounter Summary ---
Author Organization [facility] Address [address] [place] [address] Care Team Providers Care Supplier Quality Name Role Phone Yordan Murphy MD Primary Care Provider +1 [phone] Encounter Details Date Type Department Care Team (Latest Contact Info) Description 10/23/2006 Outpatient Historical [facility] [address] [place] [address] [place] [address] Deshaun Sewell MD [address] [place] [address] Subdural Hemorrhage (CMS/HCC) (Primary Dx) Social History Tobacco Use Types Packs/Day Years Used Date Smoking Tobacco: Never Assessed Sex and Gender Information Value Date Recorded Sex Assigned at Not on file 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
--- OUTSIDE RECORDS SUMMARY | 2025-09-20 09:56 | XMS_ITS | Encounter Summary ---
Author Organization [facility] Address [address] [place] [address] Care Team Providers Care Casino Enforcement Agent Name Role Phone Yordan Murphy MD Primary Care Provider +1 [phone] Encounter Details Date Type Department Care Team (Late st Contact Info) Description 10/12/2006 Inpatient Historical [facility] Jorge L Schofield, DO [address] [place], [place] [address] Closed Skull Base Fx-Coma (CMS/HCC) (Primary Dx) Social History Tobacco Use Types Packs/Day Years Used Date Smoking Tobacco: Never Assessed Sex and Gender Information Value Date Recorded Sex Assigned at Not on file Legal Sex Male 5:07 AM SOURCING CONSULTANT Gender Identity Not on file Sexual Orientation Not on file documented as of this encounter Plan of Treatment Not on file documented as of this encounter Procedures Procedure Name Priority Date/Time Associated Diagnosis Comments CBC WITH DIFFERENTIAL Routine 10/13/2006 4:20 AM SOURCING CONSULTANT BASIC METABOLIC PANEL Routine 10/13/2006 4:20 AM SOURCING CONSULTANT CBC WITH DIFFERENTIAL Routine 10/12/2006 10:57 PM SOURCING CONSULTANT PROTIME-INR Routine 10/12/2006 10:57 PM SOURCING CONSULTANT ETHANOL LEVEL Routine 10/12/2006 10:57 PM SOURCING CONSULTANT BASIC METABOLIC PANEL Routine 10/12/2006 10:[address] HEAD WO CONTRAST Routine 10/12/2006 1 0:15 PM SOURCING CONSULTANT XR PELVIS 1 OR 2 VW Routine 10/12/2006 1 0:15 PM SOURCING CONSULTANT XR CHEST PA OR AP 1 VW Routine 10/12/2006 10:15 PM SOURCING CONSULTANT XR CHEST PA OR AP 1 VW Routine 10/12/2006 10:15 PM SOURCING CONSULTANT documented in this encounter Results * (ABNORMAL) BASIC METABOLIC PANEL (10/13/2006 4:20 AM SOURCING CONSULTANT) [facility] GLUCOSE 122(H) 70 - 110 mg/dL INTERFACE [...] 10.5 mg/dL INTERFACE SYSTEM 10/13/2006 4:20 AM SOURCING CONSULTANT Jorge L Schofield DO CHEMISTRY ORDERABLES Edited INTERFACE SYSTEM Refer to clinic/hospital department * (ABNORMAL) CBC WITH DIFFERENTIAL (10/13/2006 4:20 AM SOURCING CONSULTANT) [facility] PERIPHERAL BLOOD SMEAR REVIEW Automated Diff Automated [...] 0.2 K/ul INTERFACE SYSTEM 10/13/2006 4:20 AM SOURCING CONSULTANT Jorge L Schofield DO HEMATOLOGY ORDERABLES Edited Performing Organization Address [facility] Co de Phone Number INTERFACE SYSTEM Refer to clinic/hospital department * PROTIME-INR (10/12/2006 10:57 PM SOURCING CONSULTANT) PROTIME 14.3 13.0 - 15.7 Secs INTERFACE SYSTEM Comment: As of 06 note change in normal range. INR 1.0 INTERFACE SYSTEM Comment: Expected Values for INR: DVT/PE Goal INR 2.5; range 2.0 - 3.0 Valve Replacement Tissue Goal INR 2.5; range 2.0 - 3.0 Mechanical Goal INR 3.0; range 2.5 - 3.5 POST-VT Goal INR 2.5; range 2.0 - 3.0 or Goal 3.0; range 2.5 - 3.5 Atrial Fibrillation Goal INR 2.5; range 2.0 - 3.0 Ischemic Stroke Goal INR 2.5; range 2.0 - 3.0 For additional information see Guidelines for Anticoagulation available from the pharmacy Jose Segundo. 10/12/2006 10:5 7 PM SOURCING CONSULTANT Cortez Martines MD HEMATOLOGY ORDERABLES Edited Performing Organization Address [facility] Co de Phone Number INTERFACE SYSTEM Refer to clinic/hospital department * (ABNORMAL) CBC WITH DIFFERENTIAL (10/12/2006 10:57 PM SOURCING CONSULTANT) WBC 15.7(H) 4.8 - 10.8 K/ul INTERFACE [...] K/ul INTERFACE SYSTEM 10/12/2006 10:5 7 PM SOURCING CONSULTANT us Cortez Martines MD HEMATOLOGY ORDERABLES Edited Performing Organization Address [facility] Co de Phone Number INTERFACE SYSTEM Refer to clinic/hospital department * ETHANOL (10/12/2006 10:57 PM SOURCING CONSULTANT) ETHANOL <10 <=10 mg/dL INTERFACE SYSTEM 10/12/2006 10:5 7 PM SOURCING CONSULTANT us Cortez Martines MD CHEMISTRY ORDERABLES Edited Performing Organization Address [facility] Co de Phone Number INTERFACE SYSTEM Refer to clinic/hospital department * (ABNORMAL) BASIC METABOLIC PANEL (10/12/2006 10:57 PM SOURCING CONSULTANT) GLUCOSE 124(H) 70 - 110 mg/dL INTERFACE [...] mg/dL INTERFACE SYSTEM 10/12/2006 10:5 7 PM SOURCING CONSULTANT Cortez Martines MD CHEMISTRY ORDERABLES Edited INTERFACE SYSTEM Refer to clinic/hospital department * XR CHEST PA OR AP (10/12/2006 10:15 PM SOURCING CONSULTANT) Anatomical Region Laterality Modality Chest Other 10/12/2006 10:1 5 PM SOURCING CONSULTANT Narrative 10/12/2006 10:15 PM SOURCING CONSULTANT PORTABLE AP SUPINE CHEST 10/13/2006 AT 0624: [...] By: Vivien Mckeon M.D. Electronically Signed By: Vivine Mckeon M.D. Date Signed: 10/14/06 Jorge L Schofield DO DIAGNOSTIC IMAGING ORDERABLES Final Result * XR PELVIS 1 OR 2 VW (10/12/2006 10:15 PM SOURCING CONSULTANT) Anatomical Region Laterality Modality Pelvis Other 10/12/2006 10:1 5 PM SOURCING CONSULTANT Narrative 10/12/2006 10:15 PM SOURCING CONSULTANT INDICATION: Trauma. FINDINGS: Dynamic hip screw is [...] CHEST PA OR AP (10/12/2006 10:15 PM SOURCING CONSULTANT) Anatomical Region Laterality Modality Chest Other 10/12/2006 10:1 5 PM SOURCING CONSULTANT Narrative 10/12/2006 10:15 PM SOURCING CONSULTANT INDICATION: Trauma. FINDINGS: The study is limited. [...] CT HEAD WO CONTRAST (10/12/2006 10:15 PM SOURCING CONSULTANT) Anatomical Region Laterality Modality Head Other 10/12/2006 10:1 5 PM SOURCING CONSULTANT Narrative 10/12/2006 10:[address] scan head without IV contrast. CT [...] extradural hemorrhage, loss of consciousness of unspecified duration- Primary documented in this encounter Care Teams Casino Enforcement Agent Relationship Specialty Start Date End Date Yordan Murphy MD [address] [address] PCP - General Family Practice 05/11/20 documented as of this encounter
--- OUTSIDE RECORDS SUMMARY | 2025-09-20 09:56 | XMS_ITS | Encounter Summary ---
Author Organization [facility] Address [address] [place] [address] Care Team Providers Care Fuller Brush Worker Name Role Phone Yordan Murphy MD Primary Care Provider +1 -[phone] Reason for Visit * Reason Comments Patient Communication Encounter Details Date Type Department Care Team (Late st Contact Info) Description 09/19/2025 Telephone [facility] [place] [address] [address] Yordan Murphy MD [address] [address] Patient Communication Social History Tobacco Use Types Packs/Day Years Used Date Smoking Tobacco: Every Day Cigarettes Smokeless Tobacco: Never Alcohol Use Standard Drinks/Week Comments No 0 [...] often do you attend chur ch or mu-ism services? More than 4 times per year 07/10/2020 Do you belong to any clubs o r organizations such as nondenominational groups, unions, fraternal or athletic groups, or [...] on file Legal Sex Male 6:01 AM MANAGER CHINESE Gender Identity Not on file Sexual Orientation Not on file documented as of this encounter Miscellaneous Notes * Telephone Encounter - Marysol Carroll - 09/19/2025 10:32 AM CST Copied from [facility] #[id number]. Topic: CPA Information Request >> Sep 19, 2025 10:30 AM Marysol Ortiz wrote: Caller is returning phone call from clinic. Caller Name: Cornelio Puckett Patient/Caregiver Callback Number: Call Notes: requesting to let Dr. Murphy know that the wheel chair is working good for him and he can stand up all the time with that. States that's the best thing that has been done for him. No callback needed. GER CHINESE documented in this encounter Plan of Treatment Upcoming Encounters Date Type Department Care Team (Late st Contact Info) Description 10/20/2025 8:20 AM MANAGER CHINESE Office Visit [facility] [place] [address] [address] Yordan Murphy MD [address] [address] documented as of this encounter Visit Diagnoses Not on filedocumented in this encounter Care Teams Fuller Brush Worker Relationship Specialty Start Date End Date Yordan Murphy MD [address] [address] PCP - General 12/24/20 documented as of this encounter
--- OUTSIDE RECORDS SUMMARY | 2025-09-20 09:57 | XMS_ITS | Encounter Summary ---
Author Organization [facility] Address [address] [place] [address] Care Team Providers Care Health Coordinator Name Role Phone Yordan Murphy MD Primary Care Provider [phone] [phone] Encounter Details Date Type Department Care Team (Late st Contact Info) Description 03/12/2005 Outpatient Historical [facility] [place] [address] [place] [address] Juan Garnica, HEALTH DIRECTOR [address] [address] BACKACHE NOS (Primary Dx); JOINT PAIN-PELVIS Social History Tobacco Use Types Packs/Day Years Used Date Smoking Tobacco: Never Assessed Sex and Gender Information Value Date Recorded Sex Assigned at Not on file Legal Sex Male 5:07 AM SALESFORCE CONSULTANT Gender Identity Not on file Sexual Orientation Not on file documented as of this encounter Plan of Treatment Not on file documented as of this encounter Visit Diagnoses Diagnosis Backache, unspecified- Primary Pain in joint, pelvic region and thigh documented in this encounter Care Teams Health Coordinator Relationship Specialty Start Date End Date Yordan Murphy MD [address] [facility] [address] [place] [address] PCP - General Family Practice 05/11/20 documented as of this encounter
--- OUTSIDE RECORDS SUMMARY | 2025-09-20 09:57 | XMS_ITS | Encounter Summary ---
Author Organization [facility] Address [address] [facility] Attn: [place] [address] Care Team Providers Care Credit Rating Checker Name Role Phone Yordan Murphy MD Primary Care Provider +1 [phone] Encounter Details Date Type Department Care Team (Late st Contact Info) Description 12/17/2000 Inpatient Historical Sj Ed, Physician NO ADDRESS ON FILE Social History Tobacco Use Types Packs/Day Years Used Date Smoking Tobacco: Never Assessed Sex and Gender Information Value Date Recorded Sex Assigned at Not on file Legal Sex Male 5:07 AM WAITSTAFF Gender Identity Not on file Sexual Orientation Not on file documented as of this encounter Plan of Treatment Not on file documented as of this encounter Visit Diagnoses Not on filedocumented in this encounter Care Teams Credit Rating Checker Relationship Specialty Start Date End Date Yordan Murphy MD [address] [facility] [address] [place] [address] PCP - General Family Practice 05/11/20 documented as of this encounter
--- OUTSIDE RECORDS SUMMARY | 2025-09-20 09:57 | XMS_ITS | Encounter Summary ---
Author Organization [facility] Address [address] [place] [address] Care Team Providers Care Crepe Laminator Operator Name Role Phone Yordan Murphy MD Primary Care Provider +1 [phone] Encounter Details Date Type Department Care Team (Late st Contact Info) Description 03/12/2005 Outpatient Historical [facility]- Cory Britton [place] [address] [place] [address] Juan Garnica, CREW ATTENDANT [address] [address] JOINT PAIN-PELVIS (Primary Dx); CONTUSION OF HIP Social History Tobacco Use Types Packs/Day Years Used Date Smoking Tobacco: Never Assessed Sex and Gender Information Value Date Recorded Sex Assigned at Not on file Legal Sex Male 5:07 AM HEAD SUGAR REPROCESS OPERATOR Gender Identity Not on file Sexual Orientation Not on file documented as of this encounter Plan of Treatment Not on file documented as of this encounter Visit Diagnoses Diagnosis Pain in joint, pelvic region and thigh- Primary Contusion of hip documented in this encounter Care Teams Crepe Laminator Operator Relationship Specialty Start Date End Date Yordan Murphy MD [address] [phone] PCP - General Family Practice 05/11/20 documented as of this encounter
--- OUTSIDE RECORDS SUMMARY | 2025-09-20 09:57 | XMS_ITS | Encounter Summary ---
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
--- OUTSIDE RECORDS SUMMARY | 2025-09-20 09:57 | XMS_ITS | Encounter Summary ---
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
--- OUTSIDE RECORDS SUMMARY | 2025-09-20 09:57 | XMS_ITS | Encounter Summary ---
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
--- OUTSIDE RECORDS SUMMARY | 2025-09-20 09:57 | XMS_ITS | Encounter Summary ---
Author Organization [facility] Address [address] [place] [address] Care Team Providers Care Party Plan Sales Agent Name Role Phone Yordan Murphy MD Primary Care Provider +1 [phone] Encounter Details Date Type Department Care Team (Latest Contact Info) Description 12/28/1998 Outpatient Historical [facility] Kal Bailey Jr., MD [address] [place] [address] Pain in joint, pelvic region and thigh (Primary Dx); Pain in limb Social History Tobacco Use Types Packs/Day Years Used Date Smoking Tobacco: Never Assessed Sex and Gender Information Value Date Recorded Sex Assigned at Not on file 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
--- OUTSIDE RECORDS SUMMARY | 2025-09-20 09:57 | XMS_ITS | Encounter Summary ---
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
--- NOTE | 2025-09-20 09:58 | PC.NURSE ---
pt reports using wheelchair all the time at home, unable to ambulate. requesting to call son or EMS/Medicaid ride home.
--- NOTE | 2025-09-20 10:03 | PC.NURSE ---
pt's Son did not answer, UC/Reg setting up Medicaid ride
[2025-09-20 10:07] VITALS: PULSE 97; RESP 25; O2SAT 95
--- NOTE | 2025-09-20 10:37 | PC.NURSE ---
pt assisted to [facility] via WC by this nurse.
== END 2025-09-20 10:37 | disposition home or self-care (01) ==
PROVIDERS: Emergency Provider Family Medicine; PCP Family Medicine
DX: S06.0X0A Concussion without loss of consciousness, initial encounter (principal); S51.012A Laceration without foreign body of left elbow, initial encounter; R29.6 Repeated falls; Z79.01 Long term (current) use of anticoagulants; F17.210 Nicotine dependence, cigarettes, uncomplicated; J44.9 Chronic obstructive pulmonary disease, unspecified; Z86.73 Personal history of transient ischemic attack (TIA), and cerebral infarction without residual deficits; I10 Essential (primary) hypertension; W19.XXXA Unspecified fall, initial encounter
CPT/HCPCS: 36415; 70450; 80053; 85025; 93005; 99284

== ENCOUNTER 2025-09-22 19:31 | Emergency (ER) | payer MEDICARE, MEDICAID, SELFPAY ==
[2025-09-22 19:30] VITALS: BP 95/78; PULSE 97; RESP 18; TEMP 36.8; O2SAT 93; BMI 25.7
--- OUTSIDE RECORDS SUMMARY | 2025-09-22 19:38 | XMS_ITS | Clinical Summary ---
Author Organization [facility] Address [address] [place] [address] Care Team Providers Care Lye Bath Operator Name Role Phone Yordan Murphy MD Primary Care Provider +1 [phone] Allergies No known active allergies Medications loratadine (CLARITIN) 10 mg Oral tablet Take 10 mg by mouth daily. Active aspirin (ECOTRIN EC) 81 mg Tablet, Delayed Release (E.C.) Take 81 mg by mouth daily. Active naloxone (NARCAN) 4 mg/spray [place], Non-Aerosol Administer 1 [place] (4 mg) in alternate nostril each dose [...] 07/10/2020 PSVT (paroxysmal supraventricular tachycardia) 0 06/30/2020 prison prescription opiate use 06/08/2020 Toxic multinodular goiter [...] often do you attend chur ch or jew services? 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 Gender Identity Not on file Sexual [...] Q 1 year 01/11/2022 01/11/2021 [place] Prev entative Visit/Annual Wellness Visit 10/05/2024 07/10/2020 [...] STOOL Negative Negative 01/14/2021 9:21 AM CDT [facility] Stool STOOL SPECIMEN / Unknown Collection / Unknown 01/11/2021 10:31 AM CDT 01/11/2021 7:49 PM CDT Yordan Murphy MD BODY FLUIDS AND STOOLS Fi nal Result [facility] CLIA# [id number] [address] [place] [address] from Last 3 Months or Most Recently Relevant to Health Maintenance Insurance [place]ID [place] Member Subscriber Plan / Payer (Ef fective 2008-Present) Name:Cornelio Puckett Relation to Subscriber:Self Name:Cornelio Puckett Payer ID:[id number] Group ID:Not on file Type:Medicaid Address: [address] Care Teams Lye Bath Operator Relationship Specialty Start Date End Date Yordan Murphy MD [address] [phone] PCP - General Family Practice 05/11/20
--- OUTSIDE RECORDS SUMMARY | 2025-09-22 19:38 | XMS_ITS | Encounter Summary ---
Author Organization [facility] Address [address] [place] [address] Care Team Providers Care Consulting Sales Manager Name Role Phone Yordan Murphy MD Primary Care Provider +1 [phone] Encounter Details Date Type Department Care Team (Latest Contact Info) Description 10/23/2006 Outpatient Historical [facility] [address] 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
--- OUTSIDE RECORDS SUMMARY | 2025-09-22 19:38 | XMS_ITS | Encounter Summary ---
Author Organization [facility] Address [address] [place] [address] Care Team Providers Care Tool Trouble Shooter Name Role Phone Yordan Murphy MD Primary Care Provider +1 [phone] Encounter Details Date Type Department Care Team (Late st Contact Info) Description 03/12/2005 Outpatient Historical [facility]- Cory Britton [place] [address] [place] [address] Juan Garnica, MUSIC TYPOGRAPHER [address] [address] JOINT PAIN-PELVIS (Primary Dx); CONTUSION OF HIP Social History Tobacco Use Types Packs/Day Years Used Date Smoking Tobacco: Never Assessed Sex and Gender Information Value Date Recorded Sex Assigned at Not on file 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
--- OUTSIDE RECORDS SUMMARY | 2025-09-22 19:38 | XMS_ITS | Clinical Summary ---
Author Organization [facility] Address [address] [place] [address] Care Team Providers Care Plater Supervisor Name Role Phone Yordan Murphy MD Primary Care Provider +1 [phone] Allergies No known active allergies Medications aspirin (ECOTRIN EC) 81 mg Tablet, Delayed Release (E.C.) Take 81 mg by mouth daily. 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 06/08/2020 Toxic multinodular [...] Encounters Date Type Department Care Team Description 09/20/2025 Orders Only [facility] Health Information Management [place] [address] [place] [address] Provider, Abstract 09/19/[address] [address] Yordan Murphy MD Patient Communication 08/30/[address] [address] Yordan Murphy MD Primary osteoarthritis of left knee; Primary osteoarthritis of left hip 08/22/2025 External Device Data [facility] ABSTRACTION Provider, Abstract 08/07/[address] [address] Provider, Abstract 08/07/[address] [address] Provider, Abstract 08/01/[address] [address] Yordan Murphy MD Primary osteoarthritis of left knee; Primary osteoarthritis of left hip 07/24/[address] [place] [address] Yordan Murphy MD Needs Orders Written 07/10/[address] [address] Provider, Abstract 07/07/2025 8:40 AM CDT Office Visit [address] [place] [address] Yordan Murphy MD 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 More than 4 times per year 07/10/2020 Do you belong to any clubs o r organizations such as christian groups, unions, fraternal or athletic groups, or [...] on file Legal Sex Male 6:01 AM COSMETIC MAKER Gender Identity Not on file Sexual Orientation [...] st Contact Info) Description 10/20/2025 8:20 AM COSMETIC MAKER Office Visit [facility] [place] [address] [address] Yordan Murphy MD [address] [address] Health Maintenance Due Date Last [...] , 06/14/2022, Additional history exists [place] ([place]) Preventative Visit/Annual Wellness Visit Completed 07/07/2025, 06/16/2024, 03/20/2022, Additional history exists Procedures Procedure Name Priority Date/Time Associated Diagnosis Comments COMPREHENSIVE METABOLIC PANEL Routine 09/20/2025 1:09 PM COSMETIC MAKER OCCULT BLOOD IMMUNOASSAY, COLORECTAL SCREEN Routine 01/11/2021 10:31 AM CDT from Last 3 Months or Most Recently Relevant to Health Maintenance Results * COMPREHENSIVE METABOLIC PANEL (09/20/2025 1:09 PM COSMETIC MAKER) Blood Abstract Provider CHEMISTRY ORDERABLES Final Res ult * OCCULT BLOOD IMMUNOASSAY, COLORECTAL SCREEN (01/11/2021 10:31 AM CDT) OCCULT BLOOD, STOOL Negative Negative 01/14/2021 9:21 AM CDT [facility] Stool STOOL SPECIMEN / Unknown Collection / Unknown 01/11/2021 10:31 AM CDT 01/11/2021 7:49 PM CDT Yoradn Murphy MD BODY FLUIDS AND STOOLS Fi nal Result [facility]# [id number] [address] [place] [address] from Last 3 Months or Most Recently Relevant to Health Maintenance Insurance [id number] [address] MEDICAID [facility] [id number] Care Teams Plater Supervisor Relationship Specialty Start Date End Date Yordan Murphy MD [address] [phone] PCP - General 12/24/20
--- OUTSIDE RECORDS SUMMARY | 2025-09-22 19:38 | XMS_ITS | Encounter Summary ---
Author Organization [facility] Address [address] [place] [address] Care Team Providers Care Channel Process Plant Operator Name Role Phone Yordan Murphy MD Primary Care Provider +1 [phone] Encounter Details Date Type Department Care Team (Late st Contact Info) Description 03/12/2005 Outpatient Historical 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
--- OUTSIDE RECORDS SUMMARY | 2025-09-22 19:38 | XMS_ITS | Encounter Summary ---
Author Organization [facility] Address [address] [place] [address] Care Team Providers Care Sales Representative Girls' Apparel Name Role Phone Yordan Murphy MD Primary Care Provider +1 [phone] Encounter Details Date Type Department Care Team (Late st Contact Info) Description 02/22/2008 Emergency [facility] [address] [place] [address] Ed, Physician NO ADDRESS ON FILE Lillie Campbell DO NO ADDRESS ON FILE Social History Tobacco Use Types Packs/Day Years Used Date Smoking Tobacco: Never Assessed Sex and Gender Information Value Date Recorded Sex Assigned at Not on file 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
--- OUTSIDE RECORDS SUMMARY | 2025-09-22 19:38 | XMS_ITS | Encounter Summary ---
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
--- OUTSIDE RECORDS SUMMARY | 2025-09-22 19:38 | XMS_ITS | Encounter Summary ---
Author Organization [facility] Address [address] [place] [address] Care Team Providers Care Assembler Hydraulic Backhoe Name Role Phone Yordan Murphy MD Primary Care Provider +1 [phone] Encounter Details Date Type Department Care Team (Latest Contact Info) Description 12/28/1998 Outpatient Historical [facility] Kal Bailey Jr., MD [address] [place] [address] Pain in joint, pelvic region and thigh (Primary Dx); Pain in limb Social History Tobacco Use Types Packs/Day Years Used Date Smoking Tobacco: Never Assessed Sex and Gender Information Value Date Recorded Sex Assigned at Not on file 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
--- OUTSIDE RECORDS SUMMARY | 2025-09-22 19:38 | XMS_ITS | Encounter Summary ---
Author Organization [facility] Address [address] [facility] Attn: [place] [address] Care Team Providers Care Petrologist Name Role Phone Yordan Murphy MD Primary Care Provider +1 -[phone] Encounter Details Date Type Department Care Team (Late st Contact Info) Description 05/03/1986 Inpatient Historical Conversion, History NO ADDRESS ON FILE Social History Tobacco Use Types Packs/Day Years Used Date Smoking Tobacco: Never Assessed Sex and Gender Information Value Date Recorded Sex Assigned at Not on file Legal Sex Male 5:07 AM FAMILY SERVICE ASSISTANT Gender Identity Not on file Sexual Orientation Not on file documented as of this encounter Plan of Treatment Not on file documented as of this encounter Visit Diagnoses Not on filedocumented in this encounter Care Teams Petrologist Relationship Specialty Start Date End Date Yordan Murphy MD [address] [facility] [address] [place] [address] PCP - General Family Practice 05/11/20 documented as of this encounter
--- OUTSIDE RECORDS SUMMARY | 2025-09-22 19:38 | XMS_ITS | Encounter Summary ---
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
--- OUTSIDE RECORDS SUMMARY | 2025-09-22 19:38 | XMS_ITS | Encounter Summary ---
Author Organization [facility] Address [address] [place] [address] Care Team Providers Care Supervisor Liquefaction Name Role Phone Yordan Murphy MD Primary Care Provider [phone] [phone] Encounter Details Date Type Department Care Team (Latest Contact Info) Description 10/23/2006 Outpatient Historical [facility] [address] [place] [address] Deshaun Sewell MD [address] [place] [address] Subdural Hemorrhage (CMS/HCC) (Primary Dx) Social History Tobacco Use Types Packs/Day Years Used Date Smoking Tobacco: Never Assessed Sex and Gender Information Value Date Recorded Sex Assigned at Not on file Legal Sex Male 5:07 AM CREATIVE SERVICES COORDINATOR Gender Identity Not on file Sexual Orientation Not on file documented as of this encounter Plan of Treatment Not on file documented as of this encounter Visit Diagnoses Diagnosis Subdural hemorrhage (CMS/HCC)- Primary Subdural hemorrhage documented in this encounter Care Teams Supervisor Liquefaction Relationship Specialty Start Date End Date Yordan Murphy MD [address] [phone] PCP - General Family Practice 05/11/20 documented as of this encounter
--- OUTSIDE RECORDS SUMMARY | 2025-09-22 19:38 | XMS_ITS | Encounter Summary ---
Author Organization [facility] Address [address] [place] [address] Care Team Providers Care Physicians Assistant Name Role Phone Yordan Murphy MD Primary Care Provider [phone] [phone] Encounter Details Date Type Department Care Team (Late st Contact Info) Description 04/24/2007 Outpatient Historical [facility] [address] 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
--- OUTSIDE RECORDS SUMMARY | 2025-09-22 19:38 | XMS_ITS | Encounter Summary ---
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
--- OUTSIDE RECORDS SUMMARY | 2025-09-22 19:38 | XMS_ITS | Encounter Summary ---
Author Organization [facility] Address [address] [place] [address] Care Team Providers Care Landscaper Helper Name Role Phone Yordan Murphy MD Primary Care Provider [phone] [phone] Encounter Details Date Type Department Care Team (Late st Contact Info) Description 09/20/2025 Orders Only [facility] [place] [address] [place] [address] Provider, Abstract NO ADDRESS ON FILE Social History Tobacco [...] often do you attend chur ch or congregation services? More than 4 times per year 07/10/2020 Do you belong to any clubs o r organizations such as anabaptist groups, unions, fraternal or athletic groups, or [...] on file Legal Sex Male 6:01 AM INTERNET MARKETING SPECIALIST Gender Identity Not on file Sexual Orientation Not on file documented as of this encounter Plan of Treatment Upcoming Encounters Date Type Department Care Team (Late st Contact Info) Description 10/20/2025 8:20 AM INTERNET MARKETING SPECIALIST Office Visit [facility] [address] [address] Yordan Murphy MD [address] [address] documented as of this encounter Procedures Procedure Name Priority Date/Time Associated Diagnosis Comments COMPREHENSIVE METABOLIC PANEL Routine 09/20/2025 1:09 PM INTERNET MARKETING SPECIALIST documented in this encounter Results * COMPREHENSIVE METABOLIC PANEL (09/20/2025 1:09 PM INTERNET MARKETING SPECIALIST) Blood us Abstract Provider CHEMISTRY ORDERABLES Final Res ult documented in this encounter Visit Diagnoses Not on filedocumented in this encounter Care Teams Landscaper Helper Relationship Specialty Start Date End Date Yordan Murphy MD [address] [address] PCP - General 12/24/20 documented as of this encounter
--- OUTSIDE RECORDS SUMMARY | 2025-09-22 19:38 | XMS_ITS | Encounter Summary ---
Author Organization [facility] Address [address] [place] [address] Care Team Providers Care Communications Superintendent Name Role Phone Yordan Murphy MD Primary Care Provider [phone] [phone] Encounter Details Date Type Department Care Team (Late st Contact Info) Description 10/12/2006 Inpatient Historical [facility] Jorge L Schofield, DO [address] [place], [place] [address] Closed Skull Base Fx-Coma (CMS/HCC) (Primary Dx) Social History Tobacco Use Types Packs/Day Years Used Date Smoking Tobacco: Never Assessed Sex and Gender Information Value Date Recorded Sex Assigned at Not on file Legal Sex Male 5:07 AM GOVERNMENT AFFAIRS RESEARCHER Gender Identity Not on file Sexual Orientation Not on file documented as of this encounter Plan of Treatment Not on file documented as of this encounter Procedures Procedure Name Priority Date/Time Associated Diagnosis Comments CBC WITH DIFFERENTIAL Routine 10/13/2006 4:20 AM GOVERNMENT AFFAIRS RESEARCHER BASIC METABOLIC PANEL Routine 10/13/2006 4:20 AM GOVERNMENT AFFAIRS RESEARCHER CBC WITH DIFFERENTIAL Routine 10/12/2006 10:57 PM GOVERNMENT AFFAIRS RESEARCHER PROTIME-INR Routine 10/12/2006 10:57 PM GOVERNMENT AFFAIRS RESEARCHER ETHANOL LEVEL Routine 10/12/2006 10:57 PM GOVERNMENT AFFAIRS RESEARCHER BASIC METABOLIC PANEL Routine 10/12/2006 10:[address]FFAIRS RESEARCHER [address] HEAD WO CONTRAST Routine 10/12/2006 1 0:15 PM GOVERNMENT AFFAIRS RESEARCHER XR PELVIS 1 OR 2 VW Routine 10/12/2006 1 0:15 PM GOVERNMENT AFFAIRS RESEARCHER XR CHEST PA OR AP 1 VW Routine 10/12/2006 10:15 PM GOVERNMENT AFFAIRS RESEARCHER XR CHEST PA OR AP 1 VW Routine 10/12/2006 10:15 PM GOVERNMENT AFFAIRS RESEARCHER documented in this encounter Results * (ABNORMAL) BASIC METABOLIC PANEL (10/13/2006 4:20 AM GOVERNMENT AFFAIRS RESEARCHER) [facility] GLUCOSE 122(H) 70 - 110 mg/dL INTERFACE [...] 10.5 mg/dL INTERFACE SYSTEM 10/13/2006 4:20 AM GOVERNMENT AFFAIRS RESEARCHER Jorge L Schofield DO CHEMISTRY ORDERABLES Edited INTERFACE SYSTEM Refer to clinic/hospital department * (ABNORMAL) CBC WITH DIFFERENTIAL (10/13/2006 4:20 AM GOVERNMENT AFFAIRS RESEARCHER) [facility] PERIPHERAL BLOOD SMEAR REVIEW Automated Diff Automated [...] 0.2 K/ul INTERFACE SYSTEM 10/13/2006 4:20 AM GOVERNMENT AFFAIRS RESEARCHER Jorge L Schofield DO HEMATOLOGY ORDERABLES Edited Performing Organization Address City/[facility] Co de Phone Number INTERFACE SYSTEM Refer to clinic/hospital department * PROTIME-INR (10/12/2006 10:57 PM GOVERNMENT AFFAIRS RESEARCHER) PROTIME 14.3 13.0 - 15.7 Secs INTERFACE SYSTEM Comment: As of 06 note change in normal range. INR 1.0 INTERFACE SYSTEM Comment: Expected Values for INR: DVT/PE Goal INR 2.5; range 2.0 - 3.0 Valve Replacement Tissue Goal INR 2.5; range 2.0 - 3.0 Mechanical Goal INR 3.0; range 2.5 - 3.5 POST-FL Goal INR 2.5; range 2.0 - 3.0 or Goal 3.0; range 2.5 - 3.5 Atrial Fibrillation Goal INR 2.5; range 2.0 - 3.0 Ischemic Stroke Goal INR 2.5; range 2.0 - 3.0 For additional information see Guidelines for Anticoagulation available from the pharmacy [facility]. 10/12/2006 10:5 7 PM GOVERNMENT AFFAIRS RESEARCHER Cortez Martines MD HEMATOLOGY ORDERABLES Edited Performing Organization Address City/[facility] Co de Phone Number INTERFACE SYSTEM Refer to clinic/hospital department * (ABNORMAL) CBC WITH DIFFERENTIAL (10/12/2006 10:57 PM GOVERNMENT AFFAIRS RESEARCHER) WBC 15.7(H) 4.8 - 10.8 K/ul INTERFACE [...] K/ul INTERFACE SYSTEM 10/12/2006 10:5 7 PM GOVERNMENT AFFAIRS RESEARCHER us Cortez Martines MD HEMATOLOGY ORDERABLES Edited Performing Organization Address City/[facility] Co de Phone Number INTERFACE SYSTEM Refer to clinic/hospital department * ETHANOL (10/12/2006 10:57 PM GOVERNMENT AFFAIRS RESEARCHER) ETHANOL <10 <=10 mg/dL INTERFACE SYSTEM 10/12/2006 10:5 7 PM GOVERNMENT AFFAIRS RESEARCHER us Cortez Martines MD CHEMISTRY ORDERABLES Edited Performing Organization Address City/[facility] Co de Phone Number INTERFACE SYSTEM Refer to clinic/hospital department * (ABNORMAL) BASIC METABOLIC PANEL (10/12/2006 10:57 PM GOVERNMENT AFFAIRS RESEARCHER) GLUCOSE 124(H) 70 - 110 mg/dL INTERFACE [...] mg/dL INTERFACE SYSTEM 10/12/2006 10:5 7 PM GOVERNMENT AFFAIRS RESEARCHER Cortez Martines MD CHEMISTRY ORDERABLES Edited INTERFACE SYSTEM Refer to clinic/hospital department * XR CHEST PA OR AP (10/12/2006 10:15 PM GOVERNMENT AFFAIRS RESEARCHER) Anatomical Region Laterality Modality Chest Other 10/12/2006 10:1 5 PM GOVERNMENT AFFAIRS RESEARCHER Narrative 10/12/2006 10:15 PM GOVERNMENT AFFAIRS RESEARCHER PORTABLE AP SUPINE CHEST 10/13/2006 AT 0624: [...] 1 OR 2 VW (10/12/2006 10:15 PM GOVERNMENT AFFAIRS RESEARCHER) Anatomical Region Laterality Modality Pelvis Other 10/12/2006 10:1 5 PM GOVERNMENT AFFAIRS RESEARCHER Narrative 10/12/2006 10:15 PM GOVERNMENT AFFAIRS RESEARCHER INDICATION: Trauma. FINDINGS: Dynamic hip screw is [...] Yunior Leyva M.D. Electronically Signed By: Yunior Lyeva M.D. Date Signed: 10/14/06 [facility] Physician Ed DIAGNOSTIC IMAGING ORDERABLES Fi nal Result * XR CHEST PA OR AP (10/12/2006 10:15 PM GOVERNMENT AFFAIRS RESEARCHER) Anatomical Region Laterality Modality Chest Other 10/12/2006 10:1 5 PM GOVERNMENT AFFAIRS RESEARCHER Narrative 10/12/2006 10:15 PM GOVERNMENT AFFAIRS RESEARCHER INDICATION: Trauma. FINDINGS: The study is limited. [...] CT HEAD WO CONTRAST (10/12/2006 10:15 PM GOVERNMENT AFFAIRS RESEARCHER) Anatomical Region Laterality Modality Head Other 10/12/2006 10:1 5 PM GOVERNMENT AFFAIRS RESEARCHER Narrative 10/12/2006 10:15 PM GOVERNMENT AFFAIRS RESEARCHER CT scan head without IV contrast. CT [...] Primary documented in this encounter Care Teams Communications Superintendent Relationship Specialty Start Date End Date Yordan Murphy MD [address] [address] PCP - General Family Practice 05/11/20 documented as of this encounter
--- OUTSIDE RECORDS SUMMARY | 2025-09-22 19:38 | XMS_ITS | Encounter Summary ---
Author Organization [facility] Address [address] [place] [address] Care Team Providers Care Project Construction Manager Name Role Phone Yordan Murphy MD Primary Care Provider [phone] [phone] Reason for Visit * Reason Comments Patient Communication Encounter Details Date Type Department Care Team (Late st Contact Info) Description 09/19/2025 Telephone [facility] [place] [address] [address] Yordan Murphy MD [address] [address] Patient Communication Social History Tobacco [...] often do you attend chur ch or episcopalian services? More than 4 times per year 07/10/2020 Do you belong to any clubs o r organizations such as yarsani groups, unions, fraternal or athletic groups, or [...] on file Legal Sex Male 6:01 AM TREATMENT COUNSELOR Gender Identity Not on file Sexual Orientation Not on file documented as of this encounter Miscellaneous Notes * Telephone Encounter - Marysol Carroll - 09/19/2025 10:32 AM CST Copied from [facility] #[id number]. Topic: CPA Information Request >> Sep 19, [...] been done for him. No callback needed. TMENT COUNSELOR documented in this encounter Plan of Treatment Upcoming Encounters Date Type Department Care Team (Late st Contact Info) Description 10/20/2025 8:20 AM TREATMENT COUNSELOR Office Visit [facility] [place] [address] [address] Yordan Murphy MD [address] [address] documented as of this encounter Visit Diagnoses Not on filedocumented in this encounter Care Teams Project Construction Manager Relationship Specialty Start Date End Date Yordan Murphy MD [address] [address] PCP - General 12/24/20 documented as of this encounter
--- OUTSIDE RECORDS SUMMARY | 2025-09-22 19:38 | XMS_ITS | Encounter Summary ---
Author Organization [facility] Address [address] [facility] Attn: [place] [address] Care Team Providers Care Sponge Diver Name Role Phone Yordan Murphy MD Primary Care Provider [phone] [phone] Encounter Details Date Type Department Care Team (Latest Contact Info) Description 07/24/2000 Emergency S[facility] Ed, Physician NO ADDRESS ON FILE Social History Tobacco Use Types Packs/Day Years Used Date Smoking Tobacco: Never Assessed Sex and Gender Information Value Date Recorded Sex Assigned at Not on file Legal Sex Male 5:07 AM POST MANAGER Gender Identity Not on file Sexual Orientation Not on file documented as of this encounter Plan of Treatment Not on file documented as of this encounter Visit Diagnoses Not on filedocumented in this encounter Care Teams Sponge Diver Relationship Specialty Start Date End Date Yordan Murphy MD [address] [facility] [address] [place] [address] PCP - General Family Practice 05/11/20 documented as of this encounter
--- NOTE | 2025-09-22 19:55 | CTR_ITS ---
PROCEDURE INFORMATION: Exam: CT Pelvis Without Contrast, Skeleton Exam date and time: 09/22/2025 8:17 PM Age: 75 years old Clinical indication: Injury or trauma; Blunt trauma (contusions or hematomas); Prior surgery; Surgery date: 6+ months; Surgery type: Ivc filter. Appy. Left hip. EMS arrival for ground level fall. C/O low back and left hip pain. History of RT iliac aneurysm. ; Additional info: Fall, lower back, L hip pain TECHNIQUE: Imaging protocol: Computed tomography of the pelvis without contrast. Exam focused on the skeleton. Radiation optimization: All CT scans at this facility use at least one of these dose optimization techniques: automated exposure control; mA and/or kV adjustment per patient size (includes targeted exams where dose is matched to clinical indication); or iterative reconstruction. COMPARISON: CR XR hip LT 2-3V wo/w pel* [id number] 06/30/2025 3:19 PM RADIATION DOSE METRICS: Total DLP (mGy-cm): 796.88 FINDINGS: Stomach: Large stool burden in rectum. Clinical correlate for fecal impaction. Vasculature: Incidental note is made of IVC filter . Large right common iliac artery aneurysm. Measuring 5.8 x 6 cm. Bones/joints: Left hip screw in place. No evidence for hardware failure. No acute fracture identified. Mild arthritis involving the hip joints bilaterally. Soft tissues: Unremarkable. CT/CT pelvis wo con [id number] IMPRESSION: No acute fracture identified. Large right common iliac artery aneurysm. COMMENTS: For patients with an IVC filter, recommend assessment for a management plan for the patient's IVC filter. If there is no established management plan, recommend referral to an interventional clinician on a nonemergent basis for evaluation.
--- NOTE | 2025-09-22 19:55 | CTR_ITS ---
PROCEDURE INFORMATION: Exam: CT Lumbar Spine Without Contrast Exam date and time: 09/22/2025 8:14 PM Age: 75 years old Clinical indication: Injury or trauma; Blunt trauma (contusions or hematomas); Prior surgery; Surgery date: 6+ months; Surgery type: Ivc filter; EMS arrival for ground level fall. C/O low back and left hip pain. History of RT iliac aneurysm. ; Additional info: Trauma, prev back FX TECHNIQUE: Imaging protocol: Computed tomography of the lumbar spine without contrast. Radiation optimization: All CT scans at this facility use at least one of these dose optimization techniques: automated exposure control; mA and/or kV adjustment per patient size (includes targeted exams where dose is matched to clinical indication); or iterative reconstruction. COMPARISON: CR XR lumbar spine 2-3V* [id number] 01/21/2025 12:07 PM RADIATION DOSE METRICS: Total DLP (mGy-cm): 1128.26 FINDINGS: Bones/joints: Mild chronic compression deformity involving superior endplate of L4 (also seen on 03/13/2024 x-ray). Otherwise there is no evidence of acute fracture. L4-L5 and L5-S1 facet arthritis. Small disc protrusion seen at L4-L5. Lungs: Reticular opacities in the upper lobes suggestive of atelectasis. Chest x-ray can be obtained pneumonia is suspected. Emphysematous changes seen. Vasculature: IVC filter noted. Atherosclerotic calcification of the abdominal aorta and the iliac arteries. A large saccular aneurysm is seen arising from the right common iliac artery measuring 5.6 x 6.0 cm. This is partially imaged and has been reported on previous CT of 04/25/2023.. Soft tissues: Gallstones noted. CT/CT lumbar spine wo con* [id number] IMPRESSION: 1. No acute fracture identified. 2. Mild chronic compression deformity along the superior endplate of L4. 3. Large partially imaged aneurysm along the right common iliac artery also reported on previous CT of 04/25/2023.
--- NOTE | 2025-09-22 19:55 | W.ED.FALL ---
HPI - Fall General: Chief Complaint: Fall Stated Complaint: fall, back pain, skin tear Time Seen by Provider: 09/22/25 19:42 History of Present Illness: Patient is a 75-year-old male with a prior right stroke and left-sided residual hemiplegia, hypertension, COPD on room air, A-fib not currently on anticoagulation who presents to the ED after a fall. Patient states he has chronic left-sided weakness and has issues ambulating, today he was attempting to go to the bathroom and had a misstep and fell onto his butt, did not hit his head, did not lose consciousness, he does not Eliquis anymore. He takes hydrocodone daily for previous left hip hardware. He states the pain that originates in his left hip shoots down his leg, he reports no actual motor or sensory changes, he has been able to urinate here since, he has had no fecal incontinence, side numbness. He also has some skin abrasions to his bilateral elbows and forearms but does not report any pain here. Last tetanus shot within the last 5 years. Associated symptoms-after fall: Denies abdominal pain, chest pain or headache(s) Related Data Home Medications ?Medication ?Instructions ?Recorded ?Confirmed hydrocodone 7.5 mg-acetaminophen 1 tab PO Q8H PRN Pain 04/20/20 06/30/25 325 mg tablet Previous Rx's ?Medication ?Instructions ?Recorded lidocaine 5 % topical patch 1 patch topical DAILY #30 ea 01/21/25 (Lidoderm) apixaban 5 mg tablet (Eliquis) 5 mg PO BID #60 tabs 05/07/25 tizanidine 4 mg tablet 4 mg PO Q8H PRN muscle spasticity 09/22/25 #20 tabs Allergies Allergy/AdvReac Type Severity Reaction Status Date / Time No Known Allergies Allergy Verified 09/23/25 11:05 Review of Systems General: Reports: 10 or more systems reviewed and unremarkable except in HPI and below Const: Denies: fever(s) or chills Eyes: Denies: change in vision or eye discharge Card: Denies: chest pain, palpitations or swelling of feet/ankles Resp: Denies: dyspnea or productive cough GI: Denies: abdominal pain or diarrhea : Denies: difficulty urinating Musc: Reports: back pain Skin/Breast: Denies: rash or jaundice Neuro: Denies: headache(s), numbness in extremities or weakness in extremities Cachorro/Lymph: Denies: easy bruising or easy bleeding PFSH ED PFSH: Medical History (Updated 09/23/25 @ 12:38 by Jeanine Roy MD) Acute right arterial ischemic stroke, middle cerebral artery (MCA) CVA (cerebral vascular accident) Cerebrovascular accident Thyroid nodule [place] Hypertension Traumatic brain injury Smoker History of cardioversion COPD (chronic obstructive pulmonary disease) BPH (benign prostatic hyperplasia) Afib Surgical History S/P IVC filter History of knee replacement History of hip replacement History of laparoscopic appendectomy Hx of tonsillectomy Family History Other CAD (coronary artery disease) Cancer Diabetes Hypertension Lung disease Stroke Denies family history of Clotting disorder Dementia Hyperlipidemia Psychiatric illness Chronic kidney disease (CKD) Suicide Anesthesia complication Bleeding disorder Family history of premature coronary artery disease Social History Smoking and tobacco/nicotine status: current every day tobacco/nicotine user cigarettes Years cigarettes smoked: 56 Quit status (tobacco/nicotine): considering quitting Second hand smoke exposure: No Alcohol intake: never Substance/Drug Use: never Adopted: No Caregiver/support person: Yes Lives independently: Yes Housing: Apartment Marital status: Single Number of children: 0 Highest education level completed: Bachelor's Degree service: Yes Current occupational status: retired Pets and animals: No Sexually active: No Do you think of yourself as: Straight/Heterosexual Current gender identity: Male Special reece needs: No Agree to transfusion: Yes Physical Exam Narrative: EXAM NARRATIVE: Thin but overall well-appearing, afebrile, vital stable on arrival. GCS 15, moving all 4 extremities symmetrically and spontaneously, PERRL, no nystagmus, able to answer questions and follow commands correctly. Bilateral elbows and forearms with superficial skin tears with dried blood, no tenderness to his bilateral upper and lower arms, elbow joints with full range of motion. Other extremities with no knee or ankle tenderness and full range of motion. Tenderness diffusely to left hip and left lower paravertebral muscles as well as lumbar midline tenderness, no step-offs or deformities, no overlying bruising or erythema. No midline cervical or thoracic tenderness. Breath sounds diminished and coarse throughout but nothing adventitious, breathing comfortably on room air, saturating in low 90s, speaking in full sentences without getting short of breath. Normal sinus rhythm, no murmurs, no leg swelling, good cap refill, 2+ pulses throughout. Abdomen soft, nontender, nondistended, no chest wall tenderness. Course Vital Signs: Vital signs: Vital Signs Temperature 98.2 F 09/22/25 19:30 Pulse Rate 97 09/22/25 19:30 Respiratory Rate 18 09/22/25 19:30 Blood Pressure 95/78 09/22/25 19:30 Pulse Oximetry 93 09/22/25 19:30 MDM - Fall Medical Decision Making -ddx: Hip fracture, vertebral fracture, mechanical fall, soft tissue injury, MSK strain - Patient with mild mechanism of injury, did not hit his head, did not lose consciousness, no longer on blood thinners as has an IVC filter. Has some residual left hip radicular pain and lower lumbar tenderness, has had prior surgical hardware to his pelvis, will evaluate with CT pelvis and lumbar spine, provide symptom control with tizanidine and oxycodone and reassess. - CT scans with seen chronic lumbar fracture and intact previous left pelvis surgical hardware but no defects in that and no new fractures, no concerns of cord edema or compression. Imaging of elbows or forearms not needed with just superficial skin abrasions with controlled bleeding and no tenderness and full range of motion over there. GCS 15, 5 out of 5 motor and sensation to his bilateral lower extremities. He felt moderately improved with the above medications, was able to ambulate without issue, vital stay normal, no signs of clinical deterioration and so patient was able to be discharged with supportive care recommendations and muscle relaxants as needed, encouraged to rest and to follow-up with PCP in a few days for reevaluation, strict return precautions given. Lab Data Radiology Impressions Lumbar Spine CT 09/22/25 19:55 IMPRESSION: 1. No acute fracture identified. 2. Mild chronic compression deformity along the superior endplate of L4. 3. Large partially imaged aneurysm along the right common iliac artery also reported on previous CT of 04/25/2023. Pelvis CT 09/22/25 19:55 IMPRESSION: No acute fracture identified. Large right common iliac artery aneurysm. COMMENTS: For patients with an IVC filter, recommend assessment for a management plan for the patient's IVC filter. If there is no established management plan, recommend referral to an interventional clinician on a nonemergent basis for evaluation. All radiology interpretation(s) finalized by discharge Discharge Plan Discharge Patient Disposition: Home Clinical Impression: Fall, Left hip pain Condition: Stable Prescriptions: New tizanidine 4 mg tablet 4 mg PO Q8H PRN (Reason: muscle spasticity) Qty: 20 0RF No Action hydrocodone-acetaminophen 7.5-325 mg tablet 1 tab PO Q8H PRN (Reason: Pain) lidocaine [Lidoderm] 5 % adhesive patch,medicated 1 patch topical DAILY Qty: 30 0RF Rx Instructions: leave on most painful area for up to 12 hrs Eliquis 5 mg tablet 5 mg PO BID Qty: 60 0RF Discharge Orders: Discharge ED (Routine); Ordered 09/22/25 Ordered By: Fahad Orr Referrals: Yordan Murphy [Primary Care Provider, Family Practice] Discharge Diet: Usual diet Discharge Activity: Increase activity as tolerated Patient Instructions: Opioid Safety, Pain Management, Patient Portal & Patrick Instructions Activity Restrictions/Additional Instructions: You were seen after your fall, you were evaluated with CT scans which showed no problems with your previous surgical hardware and there was no new fractures or dislocations today. You most likely have a bone bruise and mild muscle sprain but no further action needs to be taken other than rest, alternating heating pads and ice packs 20 minutes at a time every few hours. For the pain, continue to take your hydrocodone every 8 hours as needed, use this along with the prescribed muscle relaxant, tizanidine, 4 mg every 8 hours as needed for spasms and cramps. Make sure you keep doing stretches of your left lower leg and back so the muscles do not get stiff. Return to the ED with severe worsening of the pain, inability to move or feel your left leg, fevers, any other emergent concerns. Print Language: Norwegian Coding Level of Care Code ED Digital Watch Assembler for Daina Hoskins
[2025-09-22] MEDS: oxyCODONE 5 mg IR Tab/Cap 10 MG PO (20:08)
== END 2025-09-22 23:04 | disposition home or self-care (01) ==
PROVIDERS: Emergency Provider Student in an Organized Health Care Education/Training Program; PCP Family Medicine
DX: S50.312A Abrasion of left elbow, initial encounter (principal); S50.311A Abrasion of right elbow, initial encounter; S50.812A Abrasion of left forearm, initial encounter; S50.811A Abrasion of right forearm, initial encounter; M25.552 Pain in left hip; Z79.01 Long term (current) use of anticoagulants; F17.210 Nicotine dependence, cigarettes, uncomplicated; Z86.73 Personal history of transient ischemic attack (TIA), and cerebral infarction without residual deficits; I10 Essential (primary) hypertension; J44.9 Chronic obstructive pulmonary disease, unspecified; W19.XXXA Unspecified fall, initial encounter
CPT/HCPCS: 72131; 72192; 99284; J9999

== ENCOUNTER 2025-09-23 10:58 | Emergency (ER) | payer MEDICARE, MEDICAID, SELFPAY ==
[2025-09-23 11:00] VITALS: BP 103/74; PULSE 87; RESP 18; TEMP 36.8; O2SAT 97; BMI 25.7
--- OUTSIDE RECORDS SUMMARY | 2025-09-23 11:01 | XMS_ITS | Clinical Summary ---
Author Organization [facility] Address [address] [place] [address] Care Team Providers Care Lens Grinder Apprentice Name Role Phone Yordan Murphy MD Primary Care Provider [phone] Allergies No known active allergies Medications loratadine (CLARITIN) 10 mg Oral tablet Take 10 mg by mouth daily. Active aspirin (ECOTRIN EC) 81 mg Tablet, Delayed Release (E.C.) Take 81 mg by mouth daily. Active naloxone (NARCAN) 4 mg/spray [place], Non-Aerosol Administer 1 [place] (4 mg) in alternate nostril each dose [...] 07/10/2020 PSVT (paroxysmal supraventricular tachycardia) 0 06/30/2020 correction prescription opiate use 06/08/2020 Toxic multinodular goiter [...] often do you attend chur ch or amish services? More than 4 times per year [...] Master's degree (e.g., MA, MS, Meghan, MEd, COUNTY ASSESSOR, ADRIANA) 07/10/2020 Sex and Gender Information Value Date Recorded Sex Assigned at Not on file Legal Sex Male 5:07 AM COUNTERSINKER Gender Identity Not on file Sexual Orientation [...] Q 1 year 01/11/2022 01/11/2021 Medicare [place] ([place]) Prev entative Visit/Annual Wellness Visit 10/05/2024 07/10/2020 [...] STOOL Negative Negative 01/14/2021 9:21 AM CDT [facility] Stool STOOL SPECIMEN / Unknown Collection / Unknown 01/11/2021 10:31 AM CDT 01/11/2021 7:49 PM CDT Yordan Murphy MD BODY FLUIDS AND STOOLS Fi nal Result [facility] CLIA# [id number] [address] [place] [address] from Last 3 Months or Most Recently Relevant to Health Maintenance Insurance [place]ID [place] Member Subscriber Plan / Payer (Ef fective 2008-Present) Name:Cornelio Puckett Relation to Subscriber:Self Name:Cornelio Puckett Payer ID:[id number] Group ID:Not on file Type:Medicaid Address: [address] Care Teams Lens Grinder Apprentice Relationship Specialty Start Date End Date Yordan Murphy MD [address] [phone] PCP - General Family Practice 05/11/20
--- OUTSIDE RECORDS SUMMARY | 2025-09-23 11:01 | XMS_ITS | Encounter Summary ---
Author Organization [facility] Address [address] [place] [address] Care Team Providers Care Boiler Service Technician Name Role Phone Yordan Murphy MD Primary Care Provider [phone] Encounter Details Date Type Department Care Team (Latest Contact Info) Description 10/23/2006 Outpatient Historical [facility] [address] [place] [address] Deshaun Sewell MD [address] [address] Other Follow-Up Examination (Primary Dx) Social History Tobacco Use Types Packs/Day Years Used Date Smoking Tobacco: Never Assessed Sex and Gender Information Value Date Recorded Sex Assigned at Not on file Legal Sex Male 5:07 AM CASING OPERATOR Gender Identity Not on file Sexual Orientation Not on file documented as of this encounter Plan of Treatment Not on file documented as of this encounter Visit Diagnoses Diagnosis Other follow-up examination(V67.59)- Primary Other follow-up examination documented in this encounter Care Teams Boiler Service Technician Relationship Specialty Start Date End Date Yordan Murphy MD [address] [facility] [address] [place] [phone] PCP - General Family Practice 05/11/20 documented as of this encounter
--- OUTSIDE RECORDS SUMMARY | 2025-09-23 11:01 | XMS_ITS | Encounter Summary ---
Author Organization [facility] Address [address] [place] [address] Care Team Providers Care Vamp Seamer Name Role Phone Yordan Murphy MD Primary Care Provider [phone] Encounter Details Date Type Department Care Team (Latest Contact Info) Description 12/28/1998 Outpatient Historical [facility] Kal Bailey Jr., MD [address] [place] [address] Pain in joint, pelvic region and thigh (Primary Dx); Pain in limb Social History Tobacco Use Types Packs/Day Years Used Date Smoking Tobacco: Never Assessed Sex and Gender Information Value Date Recorded Sex Assigned at Not on file Legal Sex Male 5:07 AM ALUM PLANT OPERATOR Gender Identity Not on file Sexual Orientation Not on file documented as of this encounter Plan of Treatment Not on file documented as of this encounter Visit Diagnoses Diagnosis Pain in joint, pelvic region and thigh- Primary Pain in limb Pain in soft tissues of limb documented in this encounter Care Teams Vamp Seamer Relationship Specialty Start Date End Date Yordan Murphy MD [address] [facility] [address] [place] [address] PCP - General Family Practice 05/11/20 documented as of this encounter
--- OUTSIDE RECORDS SUMMARY | 2025-09-23 11:01 | XMS_ITS | Encounter Summary ---
Author Organization [facility] Address [address] [place] [address] Care Team Providers Care Supervisor Coal Handling Name Role Phone Yordan Murphy MD Primary Care Provider [phone] Encounter Details Date Type Department Care Team (Late st Contact Info) Description 02/22/2008 Emergency [facility] Emergency Department [address] [place] [address] Ed, Physician NO ADDRESS ON FILE Lillie Campbell DO NO ADDRESS ON FILE Social History Tobacco Use Types Packs/Day Years Used Date Smoking Tobacco: Never Assessed Sex and Gender Information Value Date Recorded Sex Assigned at Not on file Legal Sex Male 5:07 AM OVEN PRESS TENDER Gender Identity Not on file Sexual Orientation [...] on filedocumented in this encounter Care Teams Supervisor Coal Handling Relationship Specialty Start Date End Date Yordan Murphy MD [address] [phone] PCP - General Family Practice 05/11/20 documented as of this encounter
--- OUTSIDE RECORDS SUMMARY | 2025-09-23 11:01 | XMS_ITS | Clinical Summary ---
Author [facility] Address [address] [place] [address] Care Team Providers Care Equipment Monitor Phototypesetting Name Role Phone Yordan Murphy MD Primary Care Provider [phone] Allergies No known active allergies Medications aspirin (ECOTRIN EC) 81 mg Tablet, Delayed Release (E.C.) Take 81 mg by mouth daily. 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 prescription opiate use 06/08/2020 Toxic multinodular goiter [...] Department Care Team Description 09/20/2025 Orders Only [facility] Health Information Management [place] [address] [place] [address] Provider, Abstract 09/19/[address] [address] Yordan Murphy MD Patient Communication 08/30/[address] [address] Yordan Murphy MD Primary osteoarthritis of left knee; Primary osteoarthritis of left hip 08/22/2025 External Device Data [facility] ABSTRACTION Provider, Abstract 08/07/[address] [address] Provider, Abstract 08/07/[address] [address] Provider, Abstract 08/01/[address] [address] Yordan Murphy MD Primary osteoarthritis of left knee; Primary osteoarthritis of left hip 07/24/[address] [place] [address] Yordan Murphy MD Needs Orders Written 07/10/[address] [address] Provider, Abstract 07/07/2025 8:40 AM CDT Office Visit [address] [place] [phone] Yordan Murphy MD 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 More than 4 times per year 07/10/2020 Do you belong to any clubs o r organizations such as restorationism groups, unions, fraternal or athletic groups, or [...] on file Legal Sex Male 6:01 AM BED SETTER Gender Identity Not on file Sexual Orientation [...] st Contact Info) Description 10/20/2025 8:20 AM BED SETTER Office Visit [facility] Medicine [place] [address] [address] Yordan Murphy MD [address] [address] Health Maintenance Due Date Last [...] , 06/14/2022, Additional history exists [place] ([place]) Preventative Visit/Annual Wellness Visit Completed 07/07/2025, 06/16/2024, 03/20/2022, Additional history exists Procedures Procedure Name Priority Date/Time Associated Diagnosis Comments COMPREHENSIVE METABOLIC PANEL Routine 09/20/2025 1:09 PM BED SETTER OCCULT BLOOD IMMUNOASSAY, COLORECTAL SCREEN Routine 01/11/2021 10:31 AM CDT from Last 3 Months or Most Recently Relevant to Health Maintenance Results * COMPREHENSIVE METABOLIC PANEL (09/20/2025 1:09 PM BED SETTER) Blood Abstract Provider CHEMISTRY ORDERABLES Final Res ult * OCCULT BLOOD IMMUNOASSAY, COLORECTAL SCREEN (01/11/2021 10:31 AM CDT) OCCULT BLOOD, STOOL Negative Negative 01/14/2021 9:21 AM CDT [facility] Stool STOOL SPECIMEN / Unknown Collection / Unknown 01/11/2021 10:31 AM CDT 01/11/2021 7:49 PM CDT Yordan Murphy MD BODY FLUIDS AND STOOLS Fi nal Result [facility]# [id number] [address] [place] [address] from Last 3 Months or Most Recently Relevant to Health Maintenance Insurance [id number] [address] MEDICAID [place] [facility] [id number] Care Teams Equipment Monitor Phototypesetting Relationship Specialty Start Date End Date Yordan Murphy MD [address] [phone] PCP - General 12/24/20
--- OUTSIDE RECORDS SUMMARY | 2025-09-23 11:01 | XMS_ITS | Encounter Summary ---
Author Organization [facility] Address [address] [place] [address] Care Team Providers Care Locksmith Apprentice Name Role Phone Yordan Murphy MD Primary Care Provider [phone] Encounter Details Date Type Department Care Team (Late st Contact Info) Description 10/12/2006 Inpatient Historical [facility] Jorge L Schofield, DO [address], [place] [address] Closed Skull Base Fx-Coma (CMS/HCC) (Primary Dx) Social History Tobacco Use Types Packs/Day Years Used Date Smoking Tobacco: Never Assessed Sex and Gender Information Value Date Recorded Sex Assigned at Not on file Legal Sex Male 5:07 AM ASSISTANT BRAND MANAGER Gender Identity Not on file Sexual Orientation Not on file documented as of this encounter Plan of Treatment Not on file documented as of this encounter Procedures Procedure Name Priority Date/Time Associated Diagnosis Comments CBC WITH DIFFERENTIAL Routine 10/13/2006 4:20 AM ASSISTANT BRAND MANAGER BASIC METABOLIC PANEL Routine 10/13/2006 4:20 AM ASSISTANT BRAND MANAGER CBC WITH DIFFERENTIAL Routine 10/12/2006 10:57 PM ASSISTANT BRAND MANAGER PROTIME-INR Routine 10/12/2006 10:57 PM ASSISTANT BRAND MANAGER ETHANOL LEVEL Routine 10/12/2006 10:57 PM ASSISTANT BRAND MANAGER BASIC METABOLIC PANEL Routine 10/12/2006 10:57 [address] BRAND MANAGER CT HEAD WO CONTRAST Routine 10/12/2006 1 0:15 PM ASSISTANT BRAND MANAGER XR PELVIS 1 OR 2 VW Routine 10/12/2006 1 0:15 PM ASSISTANT BRAND MANAGER XR CHEST PA OR AP 1 VW Routine 10/12/2006 10:15 PM ASSISTANT BRAND MANAGER XR CHEST PA OR AP 1 VW Routine 10/12/2006 10:15 PM ASSISTANT BRAND MANAGER documented in this encounter Results * (ABNORMAL) BASIC METABOLIC PANEL (10/13/2006 4:20 AM ASSISTANT BRAND MANAGER) [facility] GLUCOSE 122(H) 70 - 110 mg/dL [...] 10.5 mg/dL INTERFACE SYSTEM 10/13/2006 4:20 AM ASSISTANT BRAND MANAGER Jorge L Schofield DO CHEMISTRY ORDERABLES Edited INTERFACE SYSTEM Refer to clinic/hospital department * (ABNORMAL) CBC WITH DIFFERENTIAL (10/13/2006 4:20 AM ASSISTANT BRAND MANAGER) [facility] PERIPHERAL BLOOD SMEAR REVIEW Automated Diff [...] 0.2 K/ul INTERFACE SYSTEM 10/13/2006 4:20 AM ASSISTANT BRAND MANAGER Jorge L Schofield DO HEMATOLOGY ORDERABLES Edited Performing Organization Address City/[facility] Co de Phone Number INTERFACE SYSTEM Refer to clinic/hospital department * PROTIME-INR (10/12/2006 10:57 PM ASSISTANT BRAND MANAGER) PROTIME 14.3 13.0 - 15.7 Secs INTERFACE [...] pharmacy Jose Segundo. 10/12/2006 10:5 7 PM ASSISTANT BRAND MANAGER Cortez Martines MD HEMATOLOGY ORDERABLES Edited Performing Organization Address City/[facility] Co de Phone Number INTERFACE SYSTEM Refer to clinic/hospital department * (ABNORMAL) CBC WITH DIFFERENTIAL (10/12/2006 10:57 PM ASSISTANT BRAND MANAGER) WBC 15.7(H) 4.8 - 10.8 K/ul INTERFACE [...] K/ul INTERFACE SYSTEM 10/12/2006 10:5 7 PM ASSISTANT BRAND MANAGER us Cortez Martines MD HEMATOLOGY ORDERABLES Edited Performing Organization Address City/[facility] Co de Phone Number INTERFACE SYSTEM Refer to clinic/hospital department * ETHANOL (10/12/2006 10:57 PM ASSISTANT BRAND MANAGER) ETHANOL <10 <=10 mg/dL INTERFACE SYSTEM 10/12/2006 10:5 7 PM ASSISTANT BRAND MANAGER us Cortez Martines MD CHEMISTRY ORDERABLES Edited Performing Organization Address City/[facility] Co de Phone Number INTERFACE SYSTEM Refer to clinic/hospital department * (ABNORMAL) BASIC METABOLIC PANEL (10/12/2006 10:57 PM ASSISTANT BRAND MANAGER) GLUCOSE 124(H) 70 - 110 mg/dL INTERFACE [...] mg/dL INTERFACE SYSTEM 10/12/2006 10:5 7 PM ASSISTANT BRAND MANAGER Cortez Martines MD CHEMISTRY ORDERABLES Edited INTERFACE SYSTEM Refer to clinic/hospital department * XR CHEST PA OR AP (10/12/2006 10:15 PM ASSISTANT BRAND MANAGER) Anatomical Region Laterality Modality Chest Other 10/12/2006 10:1 5 PM ASSISTANT BRAND MANAGER Narrative 10/12/2006 10:15 PM ASSISTANT BRAND MANAGER PORTABLE AP SUPINE CHEST 10/13/2006 AT 0624: [...] 1 OR 2 VW (10/12/2006 10:15 PM ASSISTANT BRAND MANAGER) Anatomical Region Laterality Modality Pelvis Other 10/12/2006 10:1 5 PM ASSISTANT BRAND MANAGER Narrative 10/12/2006 10:15 PM ASSISTANT BRAND MANAGER INDICATION: Trauma. FINDINGS: Dynamic hip screw is [...] CHEST PA OR AP (10/12/2006 10:15 PM ASSISTANT BRAND MANAGER) Anatomical Region Laterality Modality Chest Other 10/12/2006 10:1 5 PM ASSISTANT BRAND MANAGER Narrative 10/12/2006 10:15 PM ASSISTANT BRAND MANAGER INDICATION: Trauma. FINDINGS: The study is limited. [...] CT HEAD WO CONTRAST (10/12/2006 10:15 PM ASSISTANT BRAND MANAGER) Anatomical Region Laterality Modality Head Other 10/12/2006 10:1 5 PM ASSISTANT BRAND MANAGER Narrative 10/12/2006 10:15 [address]ANT BRAND MANAGER CT scan head without IV contrast. CT [...] Primary documented in this encounter Care Teams Locksmith Apprentice Relationship Specialty Start Date End Date Yordan Murphy MD [address] [address] PCP - General Family Practice 05/11/20 documented as of this encounter
--- OUTSIDE RECORDS SUMMARY | 2025-09-23 11:01 | XMS_ITS | Encounter Summary ---
Author Organization [facility] Address [address] [facility] Attn: [place] [address] Care Team Providers Care Sap Architect Name Role Phone Yordan Murphy MD Primary Care Provider [phone] [phone] Encounter Details Date Type Department Care Team (Latest Contact Info) Description 04/30/1986 Emergency Conversion, History NO ADDRESS ON FILE Social History Tobacco Use Types Packs/Day Years Used Date Smoking Tobacco: Never Assessed Sex and Gender Information Value Date Recorded Sex Assigned at Not on file Legal Sex Male 5:07 AM SMALL PACKAGE AND BUNDLE SORTER CLERK Gender Identity Not on file Sexual Orientation Not on file documented as of this encounter Plan of Treatment Not on file documented as of this encounter Visit Diagnoses Not on filedocumented in this encounter Care Teams Sap Architect Relationship Specialty Start Date End Date Yordan Murphy MD [address] [facility] [address] [place] [address] PCP - General Family Practice 05/11/20 documented as of this encounter
--- OUTSIDE RECORDS SUMMARY | 2025-09-23 11:01 | XMS_ITS | Encounter Summary ---
Author Organization [facility] Address [address] [place] [address] Care Team Providers Care Accountant Machine Processing Name Role Phone Yordan Murphy MD Primary Care Provider [phone] [phone] Encounter Details Date Type Department Care Team (Late st Contact Info) Description 03/12/2005 Outpatient Historical [facility] Services-[facility]ory Britton [place] [address] [place] [address] Juan Garnica, CUSTOMER ENGINEERING SPECIALIST [address] [address] BACKACHE NOS (Primary Dx); JOINT PAIN-PELVIS Social History Tobacco Use Types Packs/Day Years Used Date Smoking Tobacco: Never Assessed Sex and Gender Information Value Date Recorded Sex Assigned at Not on file Legal Sex Male 5:07 AM GAS PUMP ATTENDANT Gender Identity Not on file Sexual Orientation Not on file documented as of this encounter Plan of Treatment Not on file documented as of this encounter Visit Diagnoses Diagnosis Backache, unspecified- Primary Pain in joint, pelvic region and thigh documented in this encounter Care Teams Accountant Machine Processing Relationship Specialty Start Date End Date Yordan Murphy MD [address] [facility] [address] [place] [phone] PCP - General Family Practice 05/11/20 documented as of this encounter
--- OUTSIDE RECORDS SUMMARY | 2025-09-23 11:01 | XMS_ITS | Encounter Summary ---
Author Organization [facility] Address [address] [facility] Attn: [place] [address] Care Team Providers Care Securities Underwriter Name Role Phone Yordan Murphy MD Primary Care Provider [phone] [phone] Encounter Details Date Type Department Care Team (Latest Contact Info) Description 07/24/2000 Emergency Sj Ed, Physician NO ADDRESS ON FILE Social History Tobacco Use Types Packs/Day Years Used Date Smoking Tobacco: Never Assessed Sex and Gender Information Value Date Recorded Sex Assigned at Not on file Legal Sex Male 5:07 AM VIDEO EFFECTS EDITOR Gender Identity Not on file Sexual Orientation Not on file documented as of this encounter Plan of Treatment Not on file documented as of this encounter Visit Diagnoses Not on filedocumented in this encounter Care Teams Securities Underwriter Relationship Specialty Start Date End Date Yordan Murphy MD [address] [facility] [address] [place] [address] PCP - General Family Practice 05/11/20 documented as of this encounter
--- OUTSIDE RECORDS SUMMARY | 2025-09-23 11:01 | XMS_ITS | Encounter Summary ---
Author Organization [facility] Address [address] [facility] Attn: [place] [address] Care Team Providers Care Medical Screener Name Role Phone Yordan Murphy MD Primary Care Provider [phone] [phone] Encounter Details Date Type Department Care Team (Late st Contact Info) Description 05/03/1986 Inpatient Historical Conversion, History NO ADDRESS ON FILE Social History Tobacco Use Types Packs/Day Years Used Date Smoking Tobacco: Never Assessed Sex and Gender Information Value Date Recorded Sex Assigned at Not on file Legal Sex Male 5:07 AM GEOGRAPHY TEACHER Gender Identity Not on file Sexual Orientation Not on file documented as of this encounter Plan of Treatment Not on file documented as of this encounter Visit Diagnoses Not on filedocumented in this encounter Care Teams Medical Screener Relationship Specialty Start Date End Date Yordan Murphy MD [address] [facility] [address] [place] [address] PCP - General Family Practice 05/11/20 documented as of this encounter
--- OUTSIDE RECORDS SUMMARY | 2025-09-23 11:01 | XMS_ITS | Encounter Summary ---
Author Organization [facility] Address [address] [place] [address] Care Team Providers Care Machine Feeder Raw Stock Name Role Phone Yordan Murphy MD Primary Care Provider [phone] [phone] Encounter Details Date Type Department Care Team (Late st Contact Info) Description 04/24/2007 Outpatient Historical [facility] [address] [place] [address] AMBULANCE, [facility] Social History Tobacco Use Types Packs/Day Years Used Date Smoking Tobacco: Never Assessed Sex and Gender Information Value Date Recorded Sex Assigned at Not on file Legal Sex Male 5:07 AM CLUTCH INSPECTOR Gender Identity Not on file Sexual Orientation Not on file documented as of this encounter Plan of Treatment Not on file documented as of this encounter Visit Diagnoses Not on filedocumented in this encounter Care Teams Machine Feeder Raw Stock Relationship Specialty Start Date End Date Yordan Murphy MD [address] [place] [address] PCP - General Family Practice 05/11/20 documented as of this encounter
--- OUTSIDE RECORDS SUMMARY | 2025-09-23 11:01 | XMS_ITS | Encounter Summary ---
Author Organization [facility] Address [address] [facility] Attn: [place] [address] Care Team Providers Care Senior Executive Assistant Name Role Phone Yordan Murphy MD Primary Care Provider [phone] [phone] Encounter Details Date Type Department Care Team (Latest Contact Info) Description 09/10/1986 Emergency Conversion, History NO ADDRESS ON FILE Social History Tobacco Use Types Packs/Day Years Used Date Smoking Tobacco: Never Assessed Sex and Gender Information Value Date Recorded Sex Assigned at Not on file Legal Sex Male 5:07 AM LABORER/GRADE CHECK Gender Identity Not on file Sexual Orientation Not on file documented as of this encounter Plan of Treatment Not on file documented as of this encounter Visit Diagnoses Not on filedocumented in this encounter Care Teams Senior Executive Assistant Relationship Specialty Start Date End Date Yordan Murphy MD [address] [facility] [address] [place] [address] PCP - General Family Practice 05/11/20 documented as of this encounter
--- OUTSIDE RECORDS SUMMARY | 2025-09-23 11:01 | XMS_ITS | Encounter Summary ---
Author Organization [facility] Address [address] [place] [address] Care Team Providers Care Animal Laboratory Technician Name Role Phone Yordan Murphy MD Primary Care Provider [phone] [phone] Encounter Details Date Type Department Care Team (Late st Contact Info) Description 09/20/2025 Orders Only [facility] [place] [address] [place] [address] Provider, Abstract NO ADDRESS ON [...] any clubs o r organizations such as voodoo groups, unions, fraternal or athletic groups, or [...] on file Legal Sex Male 6:01 AM SOLAR FIELD SERVICE TECHNICIAN Gender Identity Not on file Sexual Orientation Not on file documented as of this encounter Plan of Treatment Upcoming Encounters Date Type Department Care Team (Late st Contact Info) Description 10/20/2025 8:20 AM SOLAR FIELD SERVICE TECHNICIAN Office Visit [facility] [address] [address] Yordan Murphy MD [address] [address] documented as of this encounter Procedures Procedure Name Priority Date/Time Associated Diagnosis Comments COMPREHENSIVE METABOLIC PANEL Routine 09/20/2025 1:09 PM SOLAR FIELD SERVICE TECHNICIAN documented in this encounter Results * COMPREHENSIVE METABOLIC PANEL (09/20/2025 1:09 PM SOLAR FIELD SERVICE TECHNICIAN) Blood us Abstract Provider CHEMISTRY ORDERABLES Final Res ult documented in this encounter Visit Diagnoses Not on filedocumented in this encounter Care Teams Animal Laboratory Technician Relationship Specialty Start Date End Date Yordan Murphy MD [address] [address] PCP - General 12/24/20 documented as of this encounter
--- OUTSIDE RECORDS SUMMARY | 2025-09-23 11:01 | XMS_ITS | Encounter Summary ---
Author Organization [facility] Address [address] [place] [address] Care Team Providers Care Plastic Panel Installer Name Role Phone Yordan Murphy MD Primary Care Provider [phone] [phone] Reason for Visit * Reason Comments Patient Communication Encounter Details Date Type Department Care Team (Late st Contact Info) Description 09/19/2025 Telephone [facility] Medicine [place] [address] [address] Yordan Murphy MD [address] [address] Patient Communication Social History Tobacco [...] often do you attend chur ch or holiness services? More than 4 times per year 07/10/2020 Do you belong to any clubs o r organizations such as moravian groups, unions, fraternal or athletic groups, or [...] on file Legal Sex Male 6:01 AM LAUNDRY FOLDER Gender Identity Not on file Sexual Orientation Not on file documented as of this encounter Miscellaneous Notes * Telephone Encounter - Marysol Carroll - 09/19/2025 10:32 AM CST Copied from [facility] #[id number]. Topic: CPA Information Request >> Sep 19, [...] been done for him. No callback needed. DRY FOLDER documented in this encounter Plan of Treatment Upcoming Encounters Date Type Department Care Team (Late st Contact Info) Description 10/20/2025 8:20 AM LAUNDRY FOLDER Office Visit [facility] Medicine [place] [address] [address] Yordan Murphy MD [address] [address] documented as of this encounter Visit Diagnoses Not on filedocumented in this encounter Care Teams Plastic Panel Installer Relationship Specialty Start Date End Date Yordan Murphy MD [address] [address] PCP - General 12/24/20 documented as of this encounter
--- OUTSIDE RECORDS SUMMARY | 2025-09-23 11:01 | XMS_ITS | Encounter Summary ---
Author Organization [facility] Address [address] [place] [address] Care Team Providers Care Brinell Tester Name Role Phone Yordan Murphy MD Primary Care Provider [phone] [phone] Encounter Details Date Type Department Care Team (Latest Contact Info) Description 10/23/2006 Outpatient Historical [facility] [address] [place] [address] [place] [address] Deshaun Sewell MD [address] [place] [address] Subdural Hemorrhage (CMS/HCC) (Primary Dx) Social History Tobacco Use Types Packs/Day Years Used Date Smoking Tobacco: Never Assessed Sex and Gender Information Value Date Recorded Sex Assigned at Not on file 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
--- OUTSIDE RECORDS SUMMARY | 2025-09-23 11:02 | XMS_ITS | Encounter Summary ---
Author Organization [facility] Address [address] [place] [address] Care Team Providers Care Professor Of Public Administration Name Role Phone Yordan Murphy MD Primary Care Provider [phone] [phone] Encounter Details Date Type Department Care Team (Late st Contact Info) Description 03/12/2005 Outpatient Historical [facility] Care- [place]on [place] [address] [place] [address] Juan Garnica, CALENDERER [address] [address] JOINT PAIN-PELVIS (Primary Dx); CONTUSION OF HIP Social History Tobacco Use Types Packs/Day Years Used Date Smoking Tobacco: Never Assessed Sex and Gender Information Value Date Recorded Sex Assigned at Not on file 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
--- OUTSIDE RECORDS SUMMARY | 2025-09-23 11:02 | XMS_ITS | Encounter Summary ---
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
--- NOTE | 2025-09-23 11:05 | XRR_ITS ---
PROCEDURE INFORMATION: Exam: XR Left Hip Exam date and time: 09/23/2025 11:16 AM Age: 75 years old Clinical indication: Injury or trauma; Fall; Blunt trauma (contusions or hematomas); Left; Prior surgery; Surgery date: 6+ months; Surgery type: Lt hip; Additional info: Fall, hip pain TECHNIQUE: Imaging protocol: Radiologic exam of the left hip. Views: 2 or 3 views hip with pelvis when performed. COMPARISON: CT pelvis wo con [id number] 09/22/2025 8:17 PM FINDINGS: Bones/joints: Trochanteric screw and plate are seen stabilizing what is likely a remote left trochanteric fracture. No loosening is identified. No acute fractures identified. Degenerative changes are present within the hips, [id number]. Soft tissues: Unremarkable. XR/XR hip LT 2-3V wo/w pel* [id number] IMPRESSION: 1. No acute plain film findings. 2. Left hip osteoarthritis.
--- NOTE | 2025-09-23 11:13 | W.ED.FALL ---
HPI - Fall General: Chief Complaint: Fall Stated Complaint: hip and back pain s/p fall Time Seen by Provider: 09/23/25 11:00 History of Present Illness: 75-year-old man with a history of stroke, hypertension, TBI, COPD, A-fib and chronic anticoagulation on Eliquis who presents emergency room for the third time this week with falls. He had an extensive workup the other day that did not reveal any underlying problems to cause weakness. He says he fell again and is having some left hip pain today. He has chronic pain in that hip as well. No head injury. No altered mental status. Related Data Home Medications ?Medication ?Instructions ?Recorded ?Confirmed hydrocodone 7.5 mg-acetaminophen 1 tab PO Q8H PRN Pain 04/20/20 06/30/25 325 mg tablet Previous Rx's ?Medication ?Instructions ?Recorded lidocaine 5 % topical patch 1 patch topical DAILY #30 ea 01/21/25 (Lidoderm) apixaban 5 mg tablet (Eliquis) 5 mg PO BID #60 tabs 05/07/25 tizanidine 4 mg tablet 4 mg PO Q8H PRN muscle spasticity 09/22/25 #20 tabs Allergies Allergy/AdvReac Type Severity Reaction Status Date / Time No Known Allergies Allergy Verified 09/23/25 11:05 Review of Systems Narrative: Constitutional symptoms: Negative except as documented in HPI. Skin symptoms: Negative except as documented in HPI. Eye symptoms: Negative except as documented in HPI. ENMT symptoms: Negative except as documented in HPI. Respiratory symptoms: Negative except as documented in HPI. Cardiovascular symptoms: Negative except as documented in HPI. Gastrointestinal symptoms: Negative except as documented in HPI. Genitourinary symptoms: Negative except as documented in HPI. Musculoskeletal symptoms: Negative except as documented in HPI. Neurologic symptoms: Negative except as documented in HPI. Psychiatric symptoms: Negative except as documented in HPI. Endocrine symptoms: Negative except as documented in HPI. [facility] ED PFSH: Medical History (Updated 09/23/25 @ 12:38 by Jeanine Roy MD) Acute right arterial ischemic stroke, middle cerebral artery (MCA) CVA (cerebral vascular accident) Cerebrovascular accident Thyroid nodule [place] Hypertension Traumatic brain injury Smoker History of cardioversion COPD (chronic obstructive pulmonary disease) BPH (benign prostatic hyperplasia) Afib Surgical History S/P IVC filter History of knee replacement History of hip replacement History of laparoscopic appendectomy Hx of tonsillectomy Family History Other CAD (coronary artery disease) Cancer Diabetes Hypertension Lung disease Stroke Denies family history of Clotting disorder Dementia Hyperlipidemia Psychiatric illness Chronic kidney disease (CKD) Suicide Anesthesia complication Bleeding disorder Family history of premature coronary artery disease Social History Smoking and tobacco/nicotine status: current every day tobacco/nicotine user cigarettes Years cigarettes smoked: 56 Quit status (tobacco/nicotine): considering quitting Second hand smoke exposure: No Alcohol intake: never Substance/Drug Use: never Adopted: No Caregiver/support person: Yes Lives independently: Yes Housing: Apartment Marital status: Single Number of children: 0 Highest education level completed: Bachelor's Degree service: Yes Current occupational status: retired Pets and animals: No Sexually active: No Do you think of yourself as: Straight/Heterosexual Current gender identity: Male Special reece needs: No Agree to transfusion: Yes Physical Exam Narrative: EXAM NARRATIVE: General: Alert, no acute distress. Skin: Warm, dry. Head: Normocephalic, atraumatic. Neck: Supple, trachea midline. Eye: Extraocular movements are intact. Ears, nose, mouth and throat: mucosa moist. Cardiovascular: Regular, Normal peripheral perfusion. Respiratory: Lungs are clear to auscultation, respirations are non-labored, breath sounds are equal, Symmetrical chest wall expansion. Gastrointestinal: Soft, Nontender, Non distended Musculoskeletal: Normal ROM, no deformity. No shortening or rotation Neurological: Alert and oriented, No focal neurological deficit observed. Psychiatric: Cooperative, appropriate mood & affect. Course Vital Signs: Vital signs: Vital Signs Temperature 98.2 F 09/23/25 11:00 Pulse Rate 87 09/23/25 11:00 Respiratory Rate 18 09/23/25 11:00 Blood Pressure 144/76 09/23/25 11:45 Pulse Oximetry 96 09/23/25 11:45 Oxygen Delivery Me thod Room Air 09/23/25 11:00 MDM - Fall Medical Decision Making Medical decision making Patient's reason for coming to the emergency room: Fall with hip pain Social determinants: Retired, lives at home I reviewed the patient's medical record. Patient had evaluation yesterday in the emergency room and 2 days prior to that the emergency room for falls. He had extensive workup for underlying conditions yesterday. I reviewed the patient's current home meds Patient is on Eliquis Alternate historians: None Differential diagnosis including but not limited to and based on the above HPI, review of systems and physical exam: In this patient with a musculoskeletal extremity traumatic injury an x-ray is being ordered to rule out fractures and dislocations. Orders placed to evaluate differential diagnosis based on the above differential, HPI and physical exam X-ray of the left hip and pelvis: No acute findings. Osteoporosis. This was reviewed and interpreted by myself the emergency room physician. I also reviewed the radiology report. Reexamination: Patient remained stable. No increased work of breathing. No altered mental status. No focal motor deficits. Assessment and plan: Fall Hip injury - Discharged home - Discussed plan with patient. Answered any questions. - Evaluation and treatment of this problem were appropriate in the emergency setting. Lab Data Radiology Impressions Hip/Pelvis X-Ray 09/23/25 11:05 IMPRESSION: 1. No acute plain film findings. 2. Left hip osteoarthritis. All radiology interpretation(s) finalized by discharge Discharge Plan Discharge Patient Disposition: Home Clinical Impression: Multiple falls, Hip injury Condition: Stable Prescriptions: No Action hydrocodone-acetaminophen 7.5-325 mg tablet 1 tab PO Q8H PRN (Reason: Pain) lidocaine [Lidoderm] 5 % adhesive patch,medicated 1 patch topical DAILY Qty: 30 0RF Rx Instructions: leave on most painful area for up to 12 hrs Eliquis 5 mg tablet 5 mg PO BID Qty: 60 0RF tizanidine 4 mg tablet 4 mg PO Q8H PRN (Reason: muscle spasticity) Qty: 20 0RF Discharge Orders: Discharge ED (Routine); Ordered 09/23/25 Ordered By: Jeanine Roy Referrals: Yordan Murphy [Primary Care Provider, Family Practice] Patient Instructions: Fall Prevention for Older Adults (ED), Opioid Safety, Pain Management, Patient Portal & Patrick Instructions Activity Restrictions/Additional Instructions: Thank you for choosing [facility] for your healthcare needs today. You have been screened and evaluated and felt safe for discharge. Health conditions do change or evolve sometimes and as such it is important that you follow up with your Primary Doctor to be re checked, 3-5 days is a general good time frame for follow up. You are always welcome to return to the ED for re assessment if your symptoms are worsening or you have new concerns. (Please note that included in your discharge packet is information concerning opioid safety and pain management. This information is given to all patients who are discharged from the ER regardless of their discharge diagnosis or the medicines they usually take or are prescribed.) Print Language: Kyrgyz Coding Level of Care Code ED Felt Washing Machine Tender for Daina Hoskins
[2025-09-23 11:42] VITALS: O2SAT 96
[2025-09-23 11:45] VITALS: BP 144/76; O2SAT 96
[2025-09-23 12:00] VITALS: BP 134/72; O2SAT 98
[2025-09-23 12:15] VITALS: BP 123/79
[2025-09-23 12:32] VITALS: BP 111/70; O2SAT 73
== END 2025-09-23 12:54 | disposition home or self-care (01) ==
PROVIDERS: Emergency Provider Emergency Medicine; PCP Family Medicine
DX: S79.912A Unspecified injury of left hip, initial encounter (principal); W19.XXXA Unspecified fall, initial encounter; R29.6 Repeated falls; Z79.01 Long term (current) use of anticoagulants; F17.210 Nicotine dependence, cigarettes, uncomplicated; J44.9 Chronic obstructive pulmonary disease, unspecified; I10 Essential (primary) hypertension; Z86.73 Personal history of transient ischemic attack (TIA), and cerebral infarction without residual deficits
CPT/HCPCS: 73502; 99283

== ENCOUNTER 2025-09-27 10:30 | Emergency (ER) | payer MEDICARE, MEDICAID, SELFPAY ==
--- NOTE | 2025-09-27 10:24 | ECG_ITS ---
[facility] Test Date: 2025-09-27 Pat Name: Cornelio Puckett Department: Room: Gender: Male Harbor Master: : 1950 Requested By: Jeanine Perea Order Number: [id number] Feliberto MD: CHARISSE BAXTER Measurements Intervals [place] Rate: 90 P: 88 TX: 155 QRS: -90 QRSD: 85 T: 88 QT: 332 QTc: 408 Interpretive Statements SINUS RHYTHM WITH OCCASIONAL SUPRAVENTRICULAR PREMATURE COMPLEXES POSSIBLE RIGHT ATRIAL ENLARGEMENT [0.25mV P-WAVE] LEFT AXIS DEVIATION [QRS AXIS < -30] Compared to ECG 09/20/2025 09:08:57 Left-axis deviation now present Sinus arrhythmia no longer present Left anterior fascicular block no longer present ST (T wave) deviation no longer present Electronically Signed On 09-27-2025 20:15:23 MASTER OCEAN YACHT by CHARISSE BAXTER [email or web address]
--- NOTE | 2025-09-27 10:24 | XR_ITS ---
WS: [id number] Portable AP upright chest, 09/27/2025 Clinical Data: chest pain Comparison: Portable chest, 05/07/2025 Findings: No nodules, masses or effusions are seen. The heart is normal. The pulmonary vascularity is not increased. No pneumonia or pneumothorax is seen. The diaphragms are flattened. The aortic arch shows mild tortuosity as does the descending thoracic aorta. There are old bilateral rib fractures. There is a monitor lead on the chest wall. There is a vena caval filter. XR/XR chest 1V portable [id number] Impression: Hyperinflation and atherosclerosis.
[2025-09-27 10:32] VITALS: BP 100/68; PULSE 91; RESP 17; TEMP 36.8; O2SAT 97; BMI 25.7
--- NOTE | 2025-09-27 10:37 | W.ED.CHESTPA ---
HPI - Chest Pain General: Chief Complaint: Chest Pain Stated Complaint: Chest Pain Time Seen by Provider: 09/27/25 10:34 History of Present Illness: 75-year-old man with a history of CVA, multiple falls, hypertension, COPD, BPH, A-fib, chronic anticoagulation on Eliquis, and he reports he had a heart attack in the past but this is not in the chart who presents the emergency room by ambulance with chest pain. He says this started overnight. No report of coronary disease in the chart. No cough. No fevers. He tells me he is going into a shelter later this afternoon. He is also very hungry he says Related Data Home Medications ?Medication ?Instructions ?Recorded ?Confirmed hydrocodone 7.5 mg-acetaminophen 1 tab PO Q8H PRN Pain 04/20/20 06/30/25 325 mg tablet Previous Rx's ?Medication ?Instructions ?Recorded lidocaine 5 % topical patch 1 patch topical DAILY #30 ea 01/21/25 (Lidoderm) apixaban 5 mg tablet (Eliquis) 5 mg PO BID #60 tabs 05/07/25 tizanidine 4 mg tablet 4 mg PO Q8H PRN muscle spasticity 09/22/25 #20 tabs Allergies Allergy/AdvReac Type Severity Reaction Status Date / Time No Known Allergies Allergy Verified 09/23/25 11:05 Review of Systems Narrative: Constitutional symptoms: Negative except as documented in HPI. Skin symptoms: Negative except as documented in HPI. Eye symptoms: Negative except as documented in HPI. ENMT symptoms: Negative except as documented in HPI. Respiratory symptoms: Negative except as documented in HPI. Cardiovascular symptoms: Negative except as documented in HPI. Gastrointestinal symptoms: Negative except as documented in HPI. Genitourinary symptoms: Negative except as documented in HPI. Musculoskeletal symptoms: Negative except as documented in HPI. Neurologic symptoms: Negative except as documented in HPI. Psychiatric symptoms: Negative except as documented in HPI. Endocrine symptoms: Negative except as documented in HPI. [facility] ED PFSH: Medical History (Updated 09/27/25 @ 12:40 by Jeanine Roy MD) Acute right arterial ischemic stroke, middle cerebral artery (MCA) CVA (cerebral vascular accident) Cerebrovascular accident Thyroid nodule [place] Hypertension Traumatic brain injury Smoker History of cardioversion COPD (chronic obstructive pulmonary disease) BPH (benign prostatic hyperplasia) Afib Surgical History S/P IVC filter History of knee replacement History of hip replacement History of laparoscopic appendectomy Hx of tonsillectomy Family History Other CAD (coronary artery disease) Cancer Diabetes Hypertension Lung disease Stroke Denies family history of Clotting disorder Dementia Hyperlipidemia Psychiatric illness Chronic kidney disease (CKD) Suicide Anesthesia complication Bleeding disorder Family history of premature coronary artery disease Social History Smoking and tobacco/nicotine status: current every day tobacco/nicotine user cigarettes Years cigarettes smoked: 56 Quit status (tobacco/nicotine): considering quitting Second hand smoke exposure: No Alcohol intake: never Substance/Drug Use: never Adopted: No Caregiver/support person: Yes Lives independently: Yes Housing: Apartment Marital status: Single Number of children: 0 Highest education level completed: Bachelor's Degree service: Yes Current occupational status: retired Pets and animals: No Sexually active: No Do you think of yourself as: Straight/Heterosexual Current gender identity: Male Special reece needs: No Agree to transfusion: Yes Physical Exam Narrative: EXAM NARRATIVE: General: Alert, no acute distress. Skin: Warm, dry. Head: Normocephalic, atraumatic. Neck: Supple, trachea midline. Eye: Extraocular movements are intact. Ears, nose, mouth and throat: mucosa moist. Cardiovascular: Regular, Normal peripheral perfusion. Respiratory: Lungs are clear to auscultation, respirations are non-labored, breath sounds are equal, Symmetrical chest wall expansion. Gastrointestinal: Soft, Nontender, Non distended Musculoskeletal: Normal ROM, no deformity. Neurological: Alert and oriented, No focal neurological deficit observed. Psychiatric: Cooperative, appropriate mood & affect. Course Vital Signs: Vital signs: Vital Signs Temperature 98.2 F 09/27/25 10:32 Pulse Rate 80 09/27/25 12:07 Respiratory Rate 17 09/27/25 10:32 Blood Pressure 107/79 09/27/25 12:07 Pulse Oximetry 91 09/27/25 12:07 Oxygen Delivery Me thod Room Air 09/27/25 10:32 MDM - Chest Pain Medical Decision Making Medical decision making Patient's reason for coming to the emergency room: Chest pain Social determinants: Retired, lives at home I reviewed the patient's medical record. 75-year-old man with a history of CVA, traumatic brain injury, multiple falls, hypertension, COPD, BPH, A-fib, chronic anticoagulation on Eliquis, and he reports he had a heart attack in the past but this is not in the chart. I saw the patient in the emergency room 4 days ago with complaint of falls. He was complaining of hip pain. He has been seen here multiple times recently with falls and hip pain. He appears to have some dementia. I reviewed the patient's current home meds Patient anticoagulated on Eliquis Alternate historians: None Differential diagnosis for patient with chest pain includes but is not limited to and based on the above HPI, review of systems and physical exam: Pneumonia. unstable angina. angina. Acute coronary syndrome / NE. Pulmonary embolism. Costochondritis / musculoskeletal. Pleurisy. Pericarditis. Esophageal spasm. Pancreatitis. Cholecystitis. Orders placed to evaluate differential diagnosis based on the above differential, HPI and physical exam EKG: Time 10:33 AM. Rate 90. Normal sinus rhythm, No ST-T changes, PVCs, normal OR & QRS intervals, This was reviewed and interpreted by myself the ER physician at 10:38 AM. Repeat EKG: Time 11:38 AM. Rate 80. Normal sinus rhythm, No ST-T changes, PVCs, normal OR & QRS intervals, This was reviewed and interpreted by myself the ER physician at 11:45 AM. Chest x-ray: No acute process. No infiltrate. No pneumothorax. This was reviewed and interpreted by myself the emergency room physician. I also reviewed the radiology report. Lab Review: Laboratory results were reviewed and interpreted by myself the emergency room physician. No leukocytosis. No renal failure. No anemia. Serial cardiac markers are 17 and unchanged. This is baseline. Reexamination: Patient is now wanting to leave. No further chest pain. No altered mental status. No focal motor deficits. No increased work of breathing Clinical decision support: Patient has a heart score of 5. However this is because he reports coronary disease. Unclear if this is true or not. His initial troponin was 17 but is unchanged in his baseline. So this heart score is not really applicable to this patient. Assessment and plan: Chest pain - Discharged home - Discussed plan with patient. Answered any questions. - Evaluation and treatment of this problem were appropriate in the emergency setting. Lab Data 09/27/25 10:55 09/27/25 10:55 Radiology Impressions Chest X-Ray 09/27/25 10:24 Impression: Hyperinflation and atherosclerosis. Laboratory Results WBC 12.40 10^3/uL (3.29-11.43) H 09/27/25 10:55 RBC 5.09 10^6/uL (3.85-5.65) 09/27/25 10:55 Hgb 15.50 g/dL (11.27-16.99) 09/27/25 10:55 Hct 47.9 % (37-53) 09/27/25 10:55 MCV 94.1 fl (82-101) 09/27/25 10:55 MCH 30.5 pg (27-33) 09/27/25 10:55 MCHC 32.4 g/dL (30-55) 09/27/25 10:55 RDW 13.2 % (12.1-15.1) 09/27/25 10:55 Plt Count 231 10^3/cmm (157-399) 09/27/25 10:55 MPV 10.0 fL (7.4-10.4) 09/27/25 10:55 Neut % (Auto) 83.2 % 09/27/25 10:55 Lymph % (Auto) 6.9 % 09/27/25 10:55 [place] % (Auto) 9.0 % 09/27/25 10:55 Eos % (Auto) 0.3 % 09/27/25 10:55 Baso % (Auto) 0.2 % 09/27/25 10:55 Neut # (Auto) 10.33 10^3/uL (1.8-7.7) H 09/27/25 10:55 Lymph # (Auto) 0.9 10^3/uL (0.8-4.8) 09/27/25 10:55 [place] # (Auto) 1.1 10^3/uL (0.2-0.9) H 09/27/25 10:55 Eos # (Auto) 0.0 10^3/uL (0.0-0.8) 09/27/25 10:55 Baso # (Auto) 0.0 10^3/uL (0.0-0.1) 09/27/25 10:55 Nucleated RBC % (auto) 0 % 09/27/25 10:55 Nucleated RBCs # 0.0 /100WBC 09/27/25 10:55 PT 13.10 SECONDS (12.1-14.9) 09/27/25 10:55 INR 0.93 (0.8-1.2) 09/27/25 10:55 APTT 27.4 SECONDS (23.9-36.7) 09/27/25 10:55 Sodium 137 mmol/L (136-145) 09/27/25 10:55 Potassium 3.9 mmol/L (3.5-5.1) 09/27/25 10:55 Chloride 101 mmol/L (98-107) 09/27/25 10:55 Carbon Dioxide 24 mmol/L (22-29) 09/27/25 10:55 Anion Gap 15.9 (5-19) 09/27/25 10:55 BUN 26 mg/dL (8-23) H 09/27/25 10:55 Creatinine 1.0 mg/dL (0.7-1.2) 09/27/25 10:55 GFR Calculation Not Reportable 09/27/25 10:55 Glucose 104 mg/dL (65-115) 09/27/25 10:55 Calculated Osmolality 289 mOsm/kg (285-295) 09/27/25 10:55 Calcium 8.4 mg/dL (8.5-10.5) L 09/27/25 10:55 Total Bilirubin 0.7 mg/dL (0.15-1.2) 09/27/25 10:55 AST 51 U/L (0-40) H 09/27/25 10:55 ALT 53 U/L (0-41) H 09/27/25 10:55 Alkaline Phosphatase 173 U/L (40-130) H 09/27/25 10:55 Troponin T Baseline 16 ng/L (0-15) H 09/27/25 10:55 Troponin T 60 Minute 17.17 ng/L (0-15) H 09/27/25 12:04 Delta Troponin T 1.17 ABS# (0-10) 09/27/25 12:04 NT-Pro-B Natriuret Pep 475 pg/mL (0-125) H 09/27/25 10:55 Total Protein 6.0 g/dL (6.6-8.7) L 09/27/25 10:55 Albumin 2.8 g/dL (3.5-5.2) L 09/27/25 10:55 Globulin 3.2 g/dL (1.3-4.6) 09/27/25 10:55 Lipase 52 U/L (13-60) 09/27/25 10:55 All radiology interpretation(s) finalized by discharge Clincial Decision Support The following clinical decision support tools were used to aid in care of the patient HEART Score -> History: Slightly Suspicous, EKG: Normal, Age: 65 or more yrs, Risk Factors: >/=3 Risk Factors, Troponin: Baseline Trop 16-45 ng/L. Resulting HEART Score: 5. Discharge Plan Discharge Patient Disposition: Home Clinical Impression: Chest pain Condition: Stable Prescriptions: No Action hydrocodone-acetaminophen 7.5-325 mg tablet 1 tab PO Q8H PRN (Reason: Pain) lidocaine [Lidoderm] 5 % adhesive patch,medicated 1 patch topical DAILY Qty: 30 0RF Rx Instructions: leave on most painful area for up to 12 hrs Eliquis 5 mg tablet 5 mg PO BID Qty: 60 0RF tizanidine 4 mg tablet 4 mg PO Q8H PRN (Reason: muscle spasticity) Qty: 20 0RF Discharge Orders: Discharge ED (Routine); Ordered 09/27/25 Ordered By: Jeanine Roy Referrals: Yordan Murphy [Primary Care Provider, Family Practice] Discharge Diet: Usual diet Discharge Activity: Increase activity as tolerated Patient Instructions: Chest Pain (ED), Opioid Safety, Pain Management, Patient Portal & Patrick Instructions Activity Restrictions/Additional Instructions: Constitutional symptoms: Negative except as documented in HPI. Skin symptoms: Negative except as documented in HPI. Eye symptoms: Negative except as documented in HPI. ENMT symptoms: Negative except as documented in HPI. Respiratory symptoms: Negative except as documented in HPI. Cardiovascular symptoms: Negative except as documented in HPI. Gastrointestinal symptoms: Negative except as documented in HPI. Genitourinary symptoms: Negative except as documented in HPI. Musculoskeletal symptoms: Negative except as documented in HPI. Neurologic symptoms: Negative except as documented in HPI. Psychiatric symptoms: Negative except as documented in HPI. Endocrine symptoms: Negative except as documented in HPI. Print Language: Hebrew Coding Level of Care Code ED Firer Retort for Chg Fwd Heart Score HEART Score Components History: Slightly Suspicous EKG: Normal Age: 65 or more yrs Risk Factors: >/=3 Risk Factors Troponin: Baseline Trop 16-45 ng/L HEART Score RESULT HEART Score: 5
--- OUTSIDE RECORDS SUMMARY | 2025-09-27 10:37 | XMS_ITS | Encounter Summary ---
Author Organization [facility] Address [address] [place] [address] Care Team Providers Care General I Farmworker Name Role Phone Yordan Murphy MD Primary Care Provider +1 [phone] Encounter Details Date Type Department Care Team (Late st Contact Info) Description 02/22/[address] 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
--- OUTSIDE RECORDS SUMMARY | 2025-09-27 10:37 | XMS_ITS | Encounter Summary ---
Author Organization [facility] Address [address] [place] [address] Care Team Providers Care Insole Department Worker Name Role Phone Yordan Murphy MD Primary Care Provider +1 [phone] Encounter Details Date Type Department Care Team (Latest Contact Info) Description 10/23/2006 Outpatient Historical [facility] [address] [place] [address] [place] [address] Deshaun Sewell MD [address] [place] [address] [place] [address] Subdural Hemorrhage (CMS/HCC) (Primary Dx) Social History Tobacco Use Types Packs/Day Years Used Date Smoking Tobacco: Never Assessed Sex and Gender Information Value Date Recorded Sex Assigned at Not on file 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
--- OUTSIDE RECORDS SUMMARY | 2025-09-27 10:37 | XMS_ITS | Encounter Summary ---
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
--- OUTSIDE RECORDS SUMMARY | 2025-09-27 10:37 | XMS_ITS | Encounter Summary ---
Author Organization [facility] Address [address] [place] [address] Care Team Providers Care Compensation And Benefits Manager Name Role Phone Yordan Murphy MD Primary Care Provider +1 -[phone] Encounter Details Date Type Department Care Team (Late st Contact Info) Description 09/20/2025 Orders Only [facility] Health Information Management [place] [address] [place] [address] Provider, Abstract NO ADDRESS ON [...] often do you attend chur ch or orthodox services? 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 Gender Identity Not on file Sexual Orientation Not on file documented as of this encounter Plan of Treatment Upcoming Encounters Date Type Department Care Team (Late st Contact Info) Description 10/20/2025 8:20 AM HIGH SCHOOL MATH TEACHER Office Visit [facility] [address] [address] Yordan Murphy MD [address] [address] documented as of this encounter Procedures Procedure Name Priority Date/Time Associated Diagnosis Comments COMPREHENSIVE METABOLIC PANEL Routine 09/20/2025 1:09 PM HIGH SCHOOL MATH TEACHER documented in this encounter Results * COMPREHENSIVE METABOLIC PANEL (09/20/2025 1:09 PM HIGH SCHOOL MATH TEACHER) Blood us Abstract Provider CHEMISTRY ORDERABLES Final Res ult documented in this encounter Visit Diagnoses Not on filedocumented in this encounter Care Teams Compensation And Benefits Manager Relationship Specialty Start Date End Date Yordan Murphy MD [address] [address] PCP - General 12/24/20 documented as of this encounter
--- OUTSIDE RECORDS SUMMARY | 2025-09-27 10:37 | XMS_ITS | Encounter Summary ---
Author Organization [facility] Address [address] [place] [address] Care Team Providers Care Health Worker Name Role Phone Yordan Murphy MD Primary Care Provider +1 -[phone] Encounter Details Date Type Department Care Team (Latest Contact Info) Description 10/23/2006 Outpatient Historical [facility] [address] 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
--- OUTSIDE RECORDS SUMMARY | 2025-09-27 10:37 | XMS_ITS | Clinical Summary ---
Author Organization [facility] Address [address] [place] [address] Care Team Providers Care Lease Out Worker Name Role Phone Yordan Murphy MD Primary Care Provider +1 [phone] Allergies No known active allergies Medications aspirin (ECOTRIN EC) 81 mg Tablet, Delayed Release (E.C.) Take 81 mg by mouth daily. 05/11/20 20 Active naloxone (NARCAN) 4 mg/spray [place], Non-Aerosol Administer 1 [place] (4 mg) in alternate nostril each dose [...] supraventricular tachycardia) 0 06/30/2020 Multiple falls 06/08/2020 long term acute care registered nurse prescription opiate use 06/08/2020 Toxic multinodular goiter [...] Encounters Date Type Department Care Team Description 09/27/[address] [place] [address] Yordan Murphy MD Information 09/20/2025 Orders Only [facility] Health Information Management [place] [address] [place] [address] Provider, Abstract 09/19/[address] [address] Yordan Murphy MD Patient Communication 08/30/[address] [address] Yordan Murphy MD Primary osteoarthritis of left knee; Primary osteoarthritis of left hip 08/22/2025 External Device Data [facility] ABSTRACTION Provider, Abstract 08/07/[address] [address] Provider, Abstract 08/07/[address] [place] [address] Provider, Abstract 08/01/[address] [place] [address] Yordan Murphy MD Primary osteoarthritis of left knee; Primary osteoarthritis of left hip 07/24/[address] [address] Yordan Murphy MD Needs Orders Written 07/10/[address] [place] [address] Provider, Abstract 07/07/2025 8:40 AM CDT Office Visit [facility] [address] [phone] Yordan Murphy MD Hemiparesis of left nondominant 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 More than 4 times per year 07/10/2020 Do you belong to any clubs o r organizations such as latter-day groups, unions, fraternal or athletic groups, or [...] on file Legal Sex Male 6:01 AM FUND DEVELOPMENT MANAGER Gender Identity Not on file Sexual [...] st Contact Info) Description 10/20/2025 8:20 AM FUND DEVELOPMENT MANAGER Office Visit [facility] [place] [address] [address] Yordan Murphy MD [address] [address] Health Maintenance Due Date Last [...] , 06/14/2022, Additional history exists [place] ([place]) Preventative Visit/Annual Wellness Visit Completed 07/07/2025, 06/16/2024, 03/20/2022, Additional history exists Procedures Procedure Name Priority Date/Time Associated Diagnosis Comments COMPREHENSIVE METABOLIC PANEL Routine 09/20/2025 1:09 PM FUND DEVELOPMENT MANAGER OCCULT BLOOD IMMUNOASSAY, COLORECTAL SCREEN Routine 01/11/2021 10:31 AM CDT from Last 3 Months or Most Recently Relevant to Health Maintenance Results * COMPREHENSIVE METABOLIC PANEL (09/20/2025 1:09 PM FUND DEVELOPMENT MANAGER) Blood us Abstract Provider CHEMISTRY ORDERABLES Final Res ult * OCCULT BLOOD IMMUNOASSAY, COLORECTAL SCREEN (01/11/2021 10:31 AM CDT) OCCULT BLOOD, STOOL Negative Negative 01/14/2021 9:21 AM CDT [facility] Stool STOOL SPECIMEN / Unknown Collection / Unknown 01/11/2021 10:31 AM CDT 01/11/2021 7:49 PM CDT Yordan Murphy MD BODY FLUIDS AND STOOLS Fi nal Result [facility]# [id number] [address] [place] [address] from Last 3 Months or Most Recently Relevant to Health Maintenance Insurance [address] [place] [id number] MEDICAID [facility] [place] [id number] Care Teams Lease Out Worker Relationship Specialty Start Date End Date Yordan Murphy MD [address] [address] PCP - General 12/24/20
--- OUTSIDE RECORDS SUMMARY | 2025-09-27 10:37 | XMS_ITS | Encounter Summary ---
Author Organization [facility] Address [address] [place] [address] Care Team Providers Care Coin Machine Assembler Name Role Phone Yordan Murphy MD Primary Care Provider +1 -[phone] Encounter Details Date Type Department Care Team (Late st Contact Info) Description 03/12/2005 Outpatient Historical [facility] [place] [address] [place] [address] Juan Garnica, STRAIGHT LINE PRESS SETTER [address] [address] BACKACHE NOS (Primary Dx); JOINT PAIN-PELVIS Social History Tobacco Use Types Packs/Day Years Used Date Smoking Tobacco: Never Assessed Sex and Gender Information Value Date Recorded Sex Assigned at Not on file 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
--- OUTSIDE RECORDS SUMMARY | 2025-09-27 10:37 | XMS_ITS | Encounter Summary ---
Author Organization [facility] Address [address] [place] [address] Care Team Providers Care Mammalogy Teacher Name Role Phone Yordan Murphy MD Primary Care Provider +1 [phone] Encounter Details Date Type Department Care Team (Late st Contact Info) Description 04/24/2007 Outpatient Historical [facility] [address] 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
--- OUTSIDE RECORDS SUMMARY | 2025-09-27 10:37 | XMS_ITS | Encounter Summary ---
Author Organization [facility] Address [address] [place] [address] Care Team Providers Care Ply Splicer Name Role Phone Yordan Murphy MD Primary Care Provider +1 -[phone] Encounter Details Date Type Department Care Team (Late st Contact Info) Description 03/12/2005 Outpatient [address] 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
--- OUTSIDE RECORDS SUMMARY | 2025-09-27 10:37 | XMS_ITS | Encounter Summary ---
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
--- OUTSIDE RECORDS SUMMARY | 2025-09-27 10:37 | XMS_ITS | Encounter Summary ---
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
--- OUTSIDE RECORDS SUMMARY | 2025-09-27 10:37 | XMS_ITS | Clinical Summary ---
Author Organization [facility] Address [address] [place] [address] Care Team Providers Care Cpc Name Role Phone Yordan Murphy MD Primary Care Provider +1 -[phone] Allergies No known active allergies Medications loratadine (CLARITIN) 10 mg Oral tablet Take 10 mg by mouth daily. Active aspirin (ECOTRIN EC) 81 mg Tablet, Delayed Release (E.C.) Take 81 mg by mouth daily. Active naloxone (NARCAN) 4 mg/spray [place], Non-Aerosol Administer 1 [place] (4 mg) in alternate nostril each dose [...] 07/10/2020 PSVT (paroxysmal supraventricular tachycardia) 0 06/30/2020 [facility] prescription opiate use 06/08/2020 Toxic multinodular goiter [...] often do you attend chur ch or presybeterian services? 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 Gender Identity Not on file [...] Q 1 year 01/11/2022 01/11/2021 Medicare [place]age ([place]) Prev entative Visit/Annual Wellness Visit 10/05/2024 07/10/2020 [...] [facility] CLIA# [id number] [address] [place] [address] from Last 3 Months or Most Recently Relevant to Health Maintenance Insurance MEDICAID [place] Member Subscriber Plan / Payer (Ef fective 2008-Present) Name:Cornelio Puckett Relation to Subscriber:Self Name:Cornelio Puckett Payer ID:[id number] Group ID:Not on file Type:Medicaid Address: [address] Care Teams Cpc Relationship Specialty Start Date End Date Yordan Murphy MD [address] [phone] PCP - General Family Practice 05/11/20
--- OUTSIDE RECORDS SUMMARY | 2025-09-27 10:37 | XMS_ITS | Encounter Summary ---
Author Organization [facility] Address [address] [place] [address] Care Team Providers Care Mid Level Java Developer Name Role Phone Yordan Murphy MD Primary Care Provider +1 -[phone] Encounter Details Date Type Department Care Team (Latest Contact Info) Description 12/28/1998 Outpatient Historical [facility] Kal Bailey Jr., MD [address] [place] [address] Pain in joint, pelvic region and thigh (Primary Dx); Pain in limb Social History Tobacco Use Types Packs/Day Years Used Date Smoking Tobacco: Never Assessed Sex and Gender Information Value Date Recorded Sex Assigned at Not on file 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
--- OUTSIDE RECORDS SUMMARY | 2025-09-27 10:37 | XMS_ITS | Encounter Summary ---
Author Organization [facility] Address [address] [place] [address] Care Team Providers Care Blending Coordinator Name Role Phone Yordna Murphy MD Primary Care Provider +1 -[phone] Reason for Visit * Reason Comments Information Encounter Details Date Type Department Care Team (Late st Contact Info) Description 09/27/2025 Telephone [facility] [place] [address] [address] Yordan Murphy MD [address] [address] Information Social History Tobacco Use Types Packs/Day Years [...] often do you attend chur ch or jain services? More than 4 times per year 07/10/2020 Do you belong to any clubs o r organizations such as catholic groups, unions, fraternal or athletic groups, or [...] on file Legal Sex Male 6:01 AM TECHNICAL SALES SUPPORT MANAGER Gender Identity Not on file Sexual Orientation Not on file documented as of this encounter Miscellaneous Notes * Telephone Encounter - Ruthie Blanchard LPN - 09/27/2025 9:55 AM TECHNICAL SALES SUPPORT MANAGER This caller is not on patient's PHI. No name of nursing facility included. Signee spoke with patient and he confirms that he is moving to [facility] today. Signee will fax information at this time. Ruthie Blanchard LPN, 09/27/2025 9:57 AM NICAL SALES SUPPORT MANAGER * Telephone Encounter - Mary Viera - 09/27/2025 9:33 AM TECHNICAL SALES SUPPORT MANAGER Copied from [facility] #[id number]. Topic: Patient or Caregiver Communication Request >> Sep 27, 2025 9:32 AM Mary Burkett wrote: Caller Name: mahi Callback Number: [phone] Call Notes: Is the patient reporting any new or worsening symptoms? No Patient needs to report wanting to go to the [facility]. Needing medical records to sent to them. Fax number [phone] teresa ramirez NICAL SALES SUPPORT MANAGER documented in this encounter Plan of Treatment Upcoming Encounters Date Type Department Care Team (Bernadette Contact Info) Description 10/20/2025 8:20 AM TECHNICAL SALES SUPPORT MANAGER Office Visit [facility] [address] [address] Yordan Murphy MD [address] [address] documented as of this encounter Visit Diagnoses Not on filedocumented in this encounter Care Teams Blending Coordinator Relationship Specialty Start Date End Date Yordan Murphy MD [address] [address] PCP - General 12/24/20 documented as of this encounter
--- OUTSIDE RECORDS SUMMARY | 2025-09-27 10:37 | XMS_ITS | Encounter Summary ---
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
--- OUTSIDE RECORDS SUMMARY | 2025-09-27 10:37 | XMS_ITS | Encounter Summary ---
Author Organization [facility] Address [address] [place] [address] Care Team Providers Care Coordinating Producer Name Role Phone Yordan Murphy MD Primary Care Provider [phone] Encounter Details Date Type Department Care Team (Late st Contact Info) Description 10/12/2006 Inpatient Historical HIS IN BED Jorge L Schofield, DO [address], [place] [address] Closed Skull Base Fx-Coma (CMS/HCC) (Primary Dx) Social History Tobacco Use Types Packs/Day Years Used Date Smoking Tobacco: Never Assessed Sex and Gender Information Value Date Recorded Sex Assigned at Not on file 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 Gender Identity Not on file Sexual Orientation Not on file documented as of this encounter Plan of Treatment Not on file documented as of this encounter Procedures Procedure Name Priority Date/Time Associated Diagnosis Comments CBC WITH DIFFERENTIAL Routine 10/13/2006 4:20 AM MARINE DIVER BASIC METABOLIC PANEL Routine 10/13/2006 4:20 AM MARINE DIVER CBC WITH DIFFERENTIAL Routine 10/12/2006 10:57 PM MARINE DIVER PROTIME-INR Routine 10/12/2006 10:57 PM MARINE DIVER ETHANOL LEVEL Routine 10/12/2006 10:57 PM MARINE DIVER BASIC METABOLIC PANEL Routine 10/12/2006 10:[address] HEAD WO CONTRAST Routine 10/12/2006 1 0:15 PM MARINE DIVER XR PELVIS 1 OR 2 VW Routine 10/12/2006 1 0:15 PM MARINE DIVER XR CHEST PA OR AP 1 VW Routine 10/12/2006 10:15 PM MARINE DIVER XR CHEST PA OR AP 1 VW Routine 10/12/2006 10:15 PM MARINE DIVER documented in this encounter Results * (ABNORMAL) BASIC METABOLIC PANEL (10/13/2006 4:20 AM MARINE DIVER) [facility] GLUCOSE 122(H) 70 - 110 mg/dL INTERFACE [...] 10.5 mg/dL INTERFACE SYSTEM 10/13/2006 4:20 AM MARINE DIVER Jorge L Schofield DO CHEMISTRY ORDERABLES Edited INTERFACE SYSTEM Refer to clinic/hospital department * (ABNORMAL) CBC WITH DIFFERENTIAL (10/13/2006 4:20 AM MARINE DIVER) [facility] PERIPHERAL BLOOD SMEAR REVIEW Automated Diff Automated [...] 0.2 K/ul INTERFACE SYSTEM 10/13/2006 4:20 AM MARINE DIVER Jorge L Schofield DO HEMATOLOGY ORDERABLES Edited Performing Organization Address City/[facility] Co de Phone Number INTERFACE SYSTEM Refer to clinic/hospital department * PROTIME-INR (10/12/2006 10:57 PM MARINE DIVER) PROTIME 14.3 13.0 - 15.7 Secs INTERFACE SYSTEM Comment: As of 06 note change in normal range. INR 1.0 INTERFACE SYSTEM Comment: Expected Values for INR: DVT/PE Goal INR 2.5; range 2.0 - 3.0 Valve Replacement Tissue Goal INR 2.5; range 2.0 - 3.0 Mechanical Goal INR 3.0; range 2.5 - 3.5 POST-MA Goal INR 2.5; range 2.0 - 3.0 or Goal 3.0; range 2.5 - 3.5 Atrial Fibrillation Goal INR 2.5; range 2.0 - 3.0 Ischemic Stroke Goal INR 2.5; range 2.0 - 3.0 For additional information see Guidelines for Anticoagulation available from the pharmacy [facility]. 10/12/2006 10:5 7 PM MARINE DIVER Cortez Martines MD HEMATOLOGY ORDERABLES Edited Performing Organization Address City/[facility] Co de Phone Number INTERFACE SYSTEM Refer to clinic/hospital department * (ABNORMAL) CBC WITH DIFFERENTIAL (10/12/2006 10:57 PM MARINE DIVER) WBC 15.7(H) 4.8 - 10.8 K/ul INTERFACE [...] K/ul INTERFACE SYSTEM 10/12/2006 10:5 7 PM MARINE DIVER us Cortez Martines MD HEMATOLOGY ORDERABLES Edited Performing Organization Address City/[facility] Co de Phone Number INTERFACE SYSTEM Refer to clinic/hospital department * ETHANOL (10/12/2006 10:57 PM MARINE DIVER) ETHANOL <10 <=10 mg/dL INTERFACE SYSTEM 10/12/2006 10:5 7 PM MARINE DIVER us Coretz Martines MD CHEMISTRY ORDERABLES Edited Performing Organization Address City/[facility] Co de Phone Number INTERFACE SYSTEM Refer to clinic/hospital department * (ABNORMAL) BASIC METABOLIC PANEL (10/12/2006 10:57 PM MARINE DIVER) GLUCOSE 124(H) 70 - 110 mg/dL INTERFACE [...] mg/dL INTERFACE SYSTEM 10/12/2006 10:5 7 PM MARINE DIVER Cortez Martines MD CHEMISTRY ORDERABLES Edited INTERFACE SYSTEM Refer to clinic/hospital department * XR CHEST PA OR AP (10/12/2006 10:15 PM MARINE DIVER) Anatomical Region Laterality Modality Chest Other 10/12/2006 10:1 5 PM MARINE DIVER Narrative 10/12/2006 10:15 PM MARINE DIVER PORTABLE AP SUPINE CHEST 10/13/2006 AT 0624: [...] 1 OR 2 VW (10/12/2006 10:15 PM MARINE DIVER) Anatomical Region Laterality Modality Pelvis Other 10/12/2006 10:1 5 PM MARINE DIVER Narrative 10/12/2006 10:15 PM MARINE DIVER INDICATION: Trauma. FINDINGS: Dynamic hip screw is [...] CHEST PA OR AP (10/12/2006 10:15 PM MARINE DIVER) Anatomical Region Laterality Modality Chest Other 10/12/2006 10:1 5 PM MARINE DIVER Narrative 10/12/2006 10:15 PM MARINE DIVER INDICATION: Trauma. FINDINGS: The study is limited. [...] CT HEAD WO CONTRAST (10/12/2006 10:15 PM MARINE DIVER) Anatomical Region Laterality Modality Head Other 10/12/2006 10:1 5 PM MARINE DIVER Narrative 10/12/2006 10:[address] scan head without IV contrast. CT [...] Primary documented in this encounter Care Teams Coordinating Producer Relationship Specialty Start Date End Date Yordan Murphy MD [address] [address] PCP - General Family Practice 05/11/20 documented as of this encounter
--- OUTSIDE RECORDS SUMMARY | 2025-09-27 10:37 | XMS_ITS | Encounter Summary ---
Author Organization 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
[2025-09-27 11:02] LABS: Hematocrit 47.9 % (37-53); Hemoglobin 15.50 g/dL (11.27-16.99); Mean Corpuscular HGB Conc 32.4 g/dL (30-55); Mean Corpuscular Hemoglobin 30.5 pg (27-33); Mean Corpuscular Volume 94.1 fl (82-101); Nucleated Red Blood Cells % 0 %; Platelet Count 231 10^3/cmm (157-399); Red Blood Count 5.09 10^6/uL (3.85-5.65); White Blood Count 12.40 10^3/uL (3.29-11.43)
[2025-09-27 11:18] LABS: INR 0.93 (0.8-1.2); Prothrombin Time 13.10 SECONDS (12.1-14.9)
[2025-09-27 11:19] LABS: Partial Thromboplastin Time 27.4 SECONDS (23.9-36.7)
[2025-09-27 11:22] LABS: Troponin(5th) Baseline 16 ng/L (0-15)
--- NOTE | 2025-09-27 11:24 | ECG_ITS ---
[employer] Test Date: 2025-09-27 Pat Name: Cornelio Puckett Department: Room: Gender: Male Resident Caregiver: : 1950 Requested By: Jeanine Perea Order Number: [id number] Reading MD: CHARISSE BAXTER Measurements Intervals [place] Rate: 80 P: 90 AR: 154 QRS: 259 QRSD: 80 T: 90 QT: 356 QTc: 413 Interpretive Statements SINUS RHYTHM WITH OCCASIONAL SUPRAVENTRICULAR PREMATURE COMPLEXES POSSIBLE RIGHT ATRIAL ENLARGEMENT [0.25mV P-WAVE] INDETERMINATE AXIS Compared to ECG 09/27/2025 10:33:35 Indeterminate axis now present Left-axis deviation no longer present Electronically Signed On 09-27-2025 20:34:34 COMMERCIAL CREDIT SPECIALIST by CHARISSE BAXTER [email or web address]
[2025-09-27 12:07] VITALS: BP 107/79; PULSE 80; O2SAT 91
[2025-09-27 12:31] LABS: Alanine Aminotransferase 53 U/L (0-41); Albumin Level 2.8 g/dL (3.5-5.2); Alkaline Phosphatase 173 U/L (40-130); Anion Gap 15.9 (5-19); Aspartate Amino Transferase 51 U/L (0-40); Blood Urea Nitrogen 26 mg/dL (8-23); Calcium 8.4 mg/dL (8.5-10.5); Carbon Dioxide 24 mmol/L (22-29); Chloride 101 mmol/L (98-107); Globulin 3.2 g/dL (1.3-4.6); Glucose 104 mg/dL (65-115); Lipase 52 U/L (13-60); NT Pro B Type Natriuretic Pept 475 pg/mL (0-125); Osmolality Calculated 289 mOsm/kg (285-295); Potassium 3.9 mmol/L (3.5-5.1); Sodium 137 mmol/L (136-145); Total Protein 6.0 g/dL (6.6-8.7)
[2025-09-27 13:05] VITALS: BP 98/68; PULSE 79; O2SAT 98
== END 2025-09-27 13:07 | disposition home or self-care (01) ==
PROVIDERS: Emergency Provider Emergency Medicine; PCP Family Medicine
DX: R07.9 Chest pain, unspecified (principal); Z79.01 Long term (current) use of anticoagulants; F17.210 Nicotine dependence, cigarettes, uncomplicated; J44.9 Chronic obstructive pulmonary disease, unspecified; Z86.73 Personal history of transient ischemic attack (TIA), and cerebral infarction without residual deficits; I10 Essential (primary) hypertension
CPT/HCPCS: 36415; 71045; 80053; 83690; 83880; 84484; 85025; 85610; 85730; 93005; 99285; J9999

== ENCOUNTER 2025-10-01 10:21 | Emergency (ER) | payer MEDICARE, MEDICAID, SELFPAY ==
--- NOTE | 2025-10-01 10:20 | XRR_ITS ---
PROCEDURE INFORMATION: Exam: XR Left Hip Exam date and time: 10/01/2025 12:15 PM Age: 75 years old Clinical indication: Hip pain; Left hip; Prior Surgery; Surgery Date: 6+ months; Surgery Type: LT HIP ORIF; Additional Info: fall TECHNIQUE: Imaging protocol: Radiologic exam of the left hip. Views: 2 or 3 views hip with pelvis when performed. COMPARISON: 1. CR (PELVIS, ) 09/23/2025 11:[address] pelvis wo con [id number] 09/22/2025 8:17 PM FINDINGS: Limitations: Pelvis is rotated to the left. Bones/joints: Left hip fixation hardware is present status post old femoral neck fracture. There is a new nondisplaced avulsion fracture of the greater trochanter. Exuberant heterotopic bone along the lesser trochanter. Bony pelvis and sacrum appear intact. Soft tissues: Unremarkable. Vasculature: An inferior vena cava filter lies in appropriate position. XR/XR hip LT 2-3V wo/w pel* [id number] IMPRESSION: There is a new nondisplaced avulsion fracture of the greater trochanter.
--- OUTSIDE RECORDS SUMMARY | 2025-10-01 10:25 | XMS_ITS | Encounter Summary ---
Author Organization [facility] Address [address] [place] [address] Care Team Providers Care Flight Superintendent Name Role Phone Yordan Murphy MD Primary Care Provider [phone] Encounter Details Date Type Department Care Team (Late st Contact Info) Description 09/29/2025 Abstract [facility] Medicine [place] [address] [address] Yordan Murphy MD [address] [address] Social History Tobacco Use Types Packs/Day Years [...] often do you attend chur ch or voodoo services? More than 4 times per year [...] on file Legal Sex Male 6:01 AM TOWER CLIMBER Gender Identity Not on file Sexual Orientation Not on file documented as of this encounter Plan of Treatment Upcoming Encounters Date Type Department Care Team (Late st Contact Info) Description 10/20/2025 8:20 AM TOWER CLIMBER Office Visit [facility] [address] [address] Yordan Murphy MD [address] [address] documented as of this encounter Procedures Procedure Name Priority Date/Time Associated Diagnosis Comments PROTIME-INR Routine 09/27/2025 documented in this encounter Results * PROTIME-INR (09/27/2025) ABSTRACTED PROTIME 13.1 ABSTRACTED INR 0.93 Blood 09/27/2025 us Abstract Provider HEMATOLOGY ORDERABLES Final Re sult documented in this encounter Visit Diagnoses Not on filedocumented in this encounter Care Teams Flight Superintendent Relationship Specialty Start Date End Date Yordan Murphy MD [address] [address] PCP - General 12/24/20 documented as of this encounter
--- OUTSIDE RECORDS SUMMARY | 2025-10-01 10:25 | XMS_ITS | Encounter Summary ---
Author Organization [facility] Address [address] [place] [address] Care Team Providers Care Warehouse Administrator Name Role Phone oYrdan Murphy MD Primary Care Provider +1 -[phone] Encounter Details Date Type Department Care Team (Late st Contact Info) Description 09/29/2025 Orders Only [facility] Health Information Management [place] [address] [place] [address] Provider, Abstract NO ADDRESS ON [...] often do you attend chur ch or sabianism services? More than 4 times per year 07/10/2020 Do you belong to any clubs o r organizations such as islam groups, unions, fraternal or athletic groups, or [...] on file Legal Sex Male 6:01 AM FOUNDER AND PRESIDENT Gender Identity Not on file Sexual Orientation Not on file documented as of this encounter Plan of Treatment Upcoming Encounters Date Type Department Care Team (Late st Contact Info) Description 10/20/2025 8:20 AM FOUNDER AND PRESIDENT Office Visit [facility] [address] [address] Yordan Murphy MD [address] [address] documented as of this encounter Procedures Procedure Name Priority Date/Time Associated Diagnosis Comments COMPREHENSIVE METABOLIC PANEL Routine 09/27/2025 9:37 AM FOUNDER AND PRESIDENT documented in this encounter Results * COMPREHENSIVE METABOLIC PANEL (09/27/2025 9:37 AM FOUNDER AND PRESIDENT) Blood us Abstract Provider CHEMISTRY ORDERABLES Final Res ult documented in this encounter Visit Diagnoses Not on filedocumented in this encounter Care Teams Warehouse Administrator Relationship Specialty Start Date End Date Yordan Murphy MD [address] [address] PCP - General 12/24/20 documented as of this encounter
--- OUTSIDE RECORDS SUMMARY | 2025-10-01 10:25 | XMS_ITS | Clinical Summary ---
Author Organization [facility] Address [address] [place] [address] Care Team Providers Care Whiteprinting Machine Operator Name Role Phone Yordan Murphy MD Primary Care Provider +1 [phone] Allergies No known active allergies Medications aspirin (ECOTRIN EC) 81 mg Tablet, Delayed Release (E.C.) Take 81 mg by mouth daily. 05/11/20 20 Active naloxone (NARCAN) 4 mg/spray [place], Non-Aerosol Administer 1 [place] (4 mg) in alternate nostril each dose one time as needed for Other (See Comment) (Emergency use one). Emergency use only for oversedation 1 Each 0 09/25/20 20 Active Additional Information Patient not taking.Reported on 07/07/2025 oxygen home deliveryIndication s:Chronic respiratory failure with hypoxia (CMS/HCC) Home Oxygen Concentrator yes at 0 L/M Rest, 2 L/M Activity, 0 L/M Sleep, Delivery Device: Nasal CannulaPortabili ty: yes, 0 L/M Rest, 2 L/M Activity, [...] needed for Pain, Moderate. 90 Tablet 08/30/20 Active Active Problems Problem Noted Date Diagnosed Date Aneurysm of ascending aorta without rupture 01/2024 Iliac artery aneurysm 12/07/2023 Muscle weakness (generalized) 10/08/2023 Hemiparesis of left nondomin ant 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 07/02/2022 History of CVA in adulthood 07/02/2022 Chronic respiratory failure with hypoxia 021 Polycythemia secondary to smoking 07/10/2020 PSVT (paroxysmal supraventricular tachycardia) 0 06/30/2020 Multiple falls 06/08/2020 group home prescription opiate use 06/08/2020 Toxic multinodular [...] Encounters Date Type Department Care Team Description 09/29/2025 Orders Only [facility] Information [facility] [address] [facility] [place] [address] Provider, Abstract 09/29/[address] [place] [address] Yordan Murphy MD 09/27/[address] [place] [address] Yordan Murphy MD Information; Patient Communication 09/20/2025 Orders Only [facility] Information [facility] [address] [place] [address] Provider, Abstract 09/19/[address] [place] [address] Yordan Murphy MD Patient Communication 08/30/[address] [place] [address] Yordan Murphy MD Primary osteoarthritis of left knee; Primary osteoarthritis of left hip 08/22/2025 External Device Data [facility] ABSTRACTION Provider, Abstract 08/07/[address] [address] Provider, Abstract 08/07/[address] [place] [address] Provider, Abstract 08/01/[address] [place] [address] Yordan Murphy MD Primary osteoarthritis of left knee; Primary osteoarthritis of left hip 07/24/[address] [place] [address] Yordan Murphy MD Needs Orders Written 07/10/[address] [facility] ([place], [place]) [address] [address] Provider, Abstract 07/07/2025 8:40 AM CDT Office Visit [facility] ([place], [place]) [address] [address] Yordan Murphy MD Hemiparesis of left nondominant 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 (CMS/HCC) (Primary Dx); Primary osteoarthritis of left knee; Primary osteoarthritis of left hip; History of falling; Panlobular emphysema (CMS/HCC); Multiple falls; History of CVA in adulthood; Muscle weakness (generalized) from Last 3 Months Immunizations Immunization Administration Dates Next Due ([employer])(12 YR UP) COVID-19 VACCINE - EMERGENCY USE AUTHORIZATION, MRNA, [id number](PF) 30 MCG/0.3 ML IM SUSP 09/04/2021 (PNEUMOVAX [...] How often do you attend chur or denominational services? More than 4 times per year 07/10/2020 Do you belong to any clubs o r organizations such as episcopalian groups, unions, fraternal or athletic groups, or [...] on file Legal Sex Male 6:01 AM OVERHAULER Gender Identity Not on file Sexual Orientation [...] st Contact Info) Description 10/20/2025 8:20 AM OVERHAULER Office Visit [address] [address] Yordan Murphy MD [address] [phone] Health Maintenance Due Date Last Done Comments [...] , 06/14/2022, Additional history exists [place] ([place]) Preventative Visit/Annual Wellness Visit Completed 07/07/2025, 06/16/2024, 03/20/2022, Additional history exists Procedures Procedure Name Priority Date/Time Associated Diagnosis Comments COMPREHENSIVE METABOLIC PANEL Routine 09/27/2025 9:37 AM OVERHAULER PROTIME-INR Routine 09/27/2025 COMPREHENSIVE METABOLIC PANEL Routine 09/20/2025 1:09 PM OVERHAULER OCCULT BLOOD IMMUNOASSAY, COLORECTAL SCREEN Routine 01/11/2021 10:31 AM CDT from Last 3 Months or Most Recently Relevant to Health Maintenance Results * COMPREHENSIVE METABOLIC PANEL (09/27/2025 9:37 AM OVERHAULER) Only the most recent of2 resultswithin the time period is included. Blood us Abstract Provider CHEMISTRY ORDERABLES Final Res ult * PROTIME-INR (09/27/2025) ABSTRACTED PROTIME 13.1 ABSTRACTED INR 0.93 Blood 09/27/2025 us Abstract Provider HEMATOLOGY ORDERABLES Final Re sult * OCCULT BLOOD IMMUNOASSAY, COLORECTAL SCREEN (01/11/2021 10:31 AM CDT) OCCULT BLOOD, STOOL Negative Negative 01/14/2021 9:21 AM CDT [facility] Stool STOOL SPECIMEN / Unknown Collection / Unknown 01/11/2021 10:31 AM CDT 01/11/2021 7:49 PM CDT Yordan Murphy MD BODY FLUIDS AND STOOLS Fi nal Result Performing Organization Address City/State/[facility] Co de Phone Number [facility] CLIA# [id number] [address] [place] [address] from Last 3 Months or Most Recently Relevant to Health Maintenance Insurance [id number] [place] [address] [place] Care Teams Whiteprinting Machine Operator Relationship Specialty Start Date End Date Yordan Murphy MD [address] [phone] PCP - General 12/24/20
--- OUTSIDE RECORDS SUMMARY | 2025-10-01 10:26 | XMS_ITS | Encounter Summary ---
Author Organization [facility] Address [address] [place] [address] Care Team Providers Care Electrical Estimator Name Role Phone Yordan Murphy MD Primary Care Provider +1 [phone] Encounter Details Date Type Department Care Team (Latest Contact Info) Description 10/23/2006 Outpatient Historical [facility] [address] [place] [address] Deshaun Sewell MD [address] [place] [address] Subdural Hemorrhage (CMS/HCC) (Primary Dx) Social History Tobacco Use Types Packs/Day Years Used Date Smoking Tobacco: Never Assessed Sex and Gender Information Value Date Recorded Sex Assigned at Not on file Legal Sex Male 5:07 AM BILLET HEATER Gender Identity Not on file Sexual Orientation Not on file documented as of this encounter Plan of Treatment Not on file documented as of this encounter Visit Diagnoses Diagnosis Subdural hemorrhage (CMS/HCC)- Primary Subdural hemorrhage documented in this encounter Care Teams Electrical Estimator Relationship Specialty Start Date End Date Yordan Murphy MD [address] [phone] PCP - General Family Practice 05/11/20 documented as of this encounter
--- OUTSIDE RECORDS SUMMARY | 2025-10-01 10:26 | XMS_ITS | Encounter Summary ---
Author Organization [facility] Address [address] [place] [address] Care Team Providers Care Chief Strategy Officer Name Role Phone Yordan Murphy MD Primary Care Provider +1 -[phone] Encounter Details Date Type Department Care Team (Late st Contact Info) Description 03/12/2005 Outpatient Historical [facility] [place] [address] [place] [address] Juan Garnica, SHRIMP BOAT CAPTAIN [address] [address] JOINT PAIN-PELVIS (Primary Dx); CONTUSION OF HIP Social History Tobacco Use Types Packs/Day Years Used Date Smoking Tobacco: Never Assessed Sex and Gender Information Value Date Recorded Sex Assigned at Not on file 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
--- OUTSIDE RECORDS SUMMARY | 2025-10-01 10:26 | XMS_ITS | Clinical Summary ---
Author Organization [facility] Address [address] [place] [address] Care Team Providers Care Manager Urgent Care Name Role Phone Yordan Murphy MD Primary Care Provider +1 -[phone] Allergies No known active allergies Medications loratadine (CLARITIN) 10 mg Oral tablet Take 10 mg by mouth daily. Active aspirin (ECOTRIN EC) 81 mg Tablet, Delayed Release (E.C.) Take 81 mg by mouth daily. Active naloxone (NARCAN) 4 mg/spray [place], Non-Aerosol Administer 1 [place] (4 mg) in alternate nostril each dose [...] 07/10/2020 PSVT (paroxysmal supraventricular tachycardia) 0 06/30/2020 [facility] prescription opiate use 06/08/2020 Toxic multinodular goiter [...] often do you attend chur ch or protestant services? 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 Gender Identity Not on file Sexual Orientation [...] Q 1 year 01/11/2022 01/11/2021 Medicare Advantage ([place]) Prev entative Visit/Annual Wellness Visit 10/05/2024 07/10/2020 [...] STOOL Negative Negative 01/14/2021 9:21 AM CDT [facility] Stool STOOL SPECIMEN / Unknown Collection / Unknown 01/11/2021 10:31 AM CDT 01/11/2021 7:49 PM CDT Yordan Murphy MD BODY FLUIDS AND STOOLS Fi nal Result [facility] CLIA# [id number] [address] [place] [address] from Last 3 Months or Most Recently Relevant to Health Maintenance Insurance [place] Member Subscriber Plan / Payer (Ef fective 2008-Present) Name:Cornelio Puckett Relation to Subscriber:Self Name:Cornelio Puckett Payer ID:[id number] Group ID:Not on file Type:Medicaid Address: [address] Care Teams Manager Urgent Care Relationship Specialty Start Date End Date Yordan Murphy MD [address] [phone] PCP - General Family Practice 05/11/20
--- OUTSIDE RECORDS SUMMARY | 2025-10-01 10:26 | XMS_ITS | Encounter Summary ---
Author Organization [facility] Address [address] [place] [address] Care Team Providers Care Reimbursement Spec Name Role Phone Yordan Murphy MD Primary Care Provider +1 -[phone] Reason for Visit * Reason Comments Information Patient Communication Encounter Details Date Type Department Care Team (Late st Contact Info) Description 09/27/2025 Telephone [facility] [address] [address] Yordan Murphy MD [address] [address] Information; Patient Communication Social History Tobacco Use Types [...] often do you attend chur ch or anglican services? More than 4 times per year 07/10/2020 Do you belong to any clubs o r organizations such as amish groups, unions, fraternal or athletic groups, or [...] on file Legal Sex Male 6:01 AM PLASTICS FABRICATOR Gender Identity Not on file Sexual Orientation Not on file documented as of this encounter Miscellaneous Notes * Telephone Encounter - Rosemary Jeter - 09/29/2025 3:57 PM CST Copied from [facility] #[id number]. Topic: CPA Information Request >> Sep 29, 2025 3:52 PM Rosemary Levy wrote: Caller is returning phone call from clinic. 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 No Call Notes: Patient/Caller requires a call back when this info is faxed to [facility]. Caller statesan order was faxed on 09/27/25 and [facility] didn't received it. [facility] in [place], fax number is [phone] Attn: Piper.They have a bed open and they are hoping to get this sent in today so pt can take this opening. They would like a call back to [phone] [employer] [facility] when it has been sent please. TICS FABRICATOR * Telephone Encounter - Ivory Lazo - 09/29/2025 1:56 PM CST Copied from [facility] #[id number]. Topic: CPA Information Request >> Sep 29, 2025 1:50 PM Ivory Kevin wrote: Caller is returning phone call from clinic. Caller NameMahi Calderon (NOT ON PHI) Got a verbal from the patient to discuss on that one phone call Patient/Caregiver Callback Number: [phone] Patient Has Additional Questions Are the credentials of the caregiver who talked to the patient sed middle school teacher? Yes Mahi Daughter (NOT ON PHI) Got a verbal from the patient to speak with her. She is calling because they are requesting Medical records to be sent to [facility] in [place]. Fax number:[phone]. Attn. Piper. Advised of 24-48 hours policy. Per note in chart on 09/27/2025 it states that signee faxed the information, but the facility is not receiving it. Please advise. I did advise the caller not on PHI after receiving a verbal to speak with her how she can be put on PHI, but each time she calls we will have to get a verbal from patient each time to speak with her until she is put on PHI due to HIPAA. Please reach out to the patient when this has been faxed. Call Notes: Patient/Caller requires a call back to discuss TICS FABRICATOR * Telephone Encounter - Collette Kaur - 09/29/2025 11:21 AM CST Copied from [facility] #[id number]. Topic: CPA Information Request >> Sep 29, 2025 11:14 AM Collette Kevin wrote: Caller is returning phone call from clinic. 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 Yes Call Notes: Patient/Caller requires a call back to discuss the status of the medical records being sent to [facility] in [place], fax number is [phone] Attn: Piper. Patient gave verbal for us to speak to abby Potts phone number [phone]. Katlyn said the snf has one bed open. Please send and call patient or Katlyn to discuss. TICS FABRICATOR * Telephone Encounter - Ruthie Blanchard LPN - 09/27/2025 9:55 AM PLASTICS FABRICATOR This caller is not on patient's PHI. No name of nursing facility included. Signee spoke with patient and he confirms that he is moving to [facility] today. Signee will fax information at this time. Ruthie Blanchard LPN, 09/27/2025 9:57 AM TICS FABRICATOR * Telephone Encounter - Mary Viera - 09/27/2025 9:33 AM PLASTICS FABRICATOR Copied from [facility] #[id number]. Topic: Patient or Caregiver Communication Request >> Sep 27, 2025 9:32 AM Mary Burkett wrote: Caller Name: mahi Callback Number: [phone] Call Notes: Is the patient reporting any new or worsening symptoms? No Patient needs to report wanting to go to the [facility]. Needing medical records to sent to them. Fax number [phone] teresa ramirez TICS FABRICATOR documented in this encounter Plan of Treatment Upcoming Encounters Date Type Department Care Team (Late st Contact Info) Description 10/20/2025 8:20 AM PLASTICS FABRICATOR Office Visit [facility] [address] [address] Yordan Murphy MD [address] [address] documented as of this encounter Visit Diagnoses Not on filedocumented in this encounter Care Teams Reimbursement Spec Relationship Specialty Start Date End Date Yordan Murphy MD [address] [address] PCP - General 12/24/20 documented as of this encounter
--- OUTSIDE RECORDS SUMMARY | 2025-10-01 10:26 | XMS_ITS | Encounter Summary ---
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
--- OUTSIDE RECORDS SUMMARY | 2025-10-01 10:26 | XMS_ITS | Encounter Summary ---
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
--- OUTSIDE RECORDS SUMMARY | 2025-10-01 10:26 | XMS_ITS | Encounter Summary ---
Author Organization [facility] Address [address] [place] [address] Care Team Providers Care Nanosystems Engineer Name Role Phone Yordan Murphy MD Primary Care Provider +1 [phone] Encounter Details Date Type Department Care Team (Late st Contact Info) Description 09/20/2025 Orders Only [facility] Health Information Management [place] [address] [place] [address] Provider, Abstract NO ADDRESS ON [...] often do you attend chur ch or congregational services? More than 4 times per year 07/10/2020 Do you belong to any clubs o r organizations such as presybeterian groups, unions, fraternal or athletic groups, or [...] on file Legal Sex Male 6:01 AM AUTO BATTERY BUILDER Gender Identity Not on file Sexual Orientation Not on file documented as of this encounter Plan of Treatment Upcoming Encounters Date Type Department Care Team (Late st Contact Info) Description 10/20/2025 8:20 AM AUTO BATTERY BUILDER Office Visit [facility] [address] [address] Yordan Murphy MD [address] [address] documented as of this encounter Procedures Procedure Name Priority Date/Time Associated Diagnosis Comments COMPREHENSIVE METABOLIC PANEL Routine 09/20/2025 1:09 PM AUTO BATTERY BUILDER documented in this encounter Results * COMPREHENSIVE METABOLIC PANEL (09/20/2025 1:09 PM AUTO BATTERY BUILDER) Blood us Abstract Provider CHEMISTRY ORDERABLES Final Res ult documented in this encounter Visit Diagnoses Not on filedocumented in this encounter Care Teams Nanosystems Engineer Relationship Specialty Start Date End Date Yordan Murphy MD [address] [address] PCP - General 12/24/20 documented as of this encounter
--- OUTSIDE RECORDS SUMMARY | 2025-10-01 10:26 | XMS_ITS | Encounter Summary ---
Author Organization [facility] Address [address] [place] [address] Care Team Providers Care Shell Coremaker Name Role Phone Yordan Murphy MD Primary Care Provider +1 -[phone] Encounter Details Date Type Department Care Team (Latest Contact Info) Description 12/28/1998 Outpatient Historical [facility] Kal Bailey Jr., MD [address] [place] [address] Pain in joint, pelvic region and thigh (Primary Dx); Pain in limb Social History Tobacco Use Types Packs/Day Years Used Date Smoking Tobacco: Never Assessed Sex and Gender Information Value Date Recorded Sex Assigned at Not on file 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
--- OUTSIDE RECORDS SUMMARY | 2025-10-01 10:26 | XMS_ITS | Encounter Summary ---
Author Organization [facility] Address [address] [place] [address] Care Team Providers Care Summer Child Caregiver Name Role Phone Yordan Murphy MD Primary Care Provider [phone] [phone] Encounter Details Date Type Department Care Team (Latest Contact Info) Description 10/23/2006 Outpatient Historical [facility] [address] 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
--- OUTSIDE RECORDS SUMMARY | 2025-10-01 10:26 | XMS_ITS | Encounter Summary ---
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
--- OUTSIDE RECORDS SUMMARY | 2025-10-01 10:26 | XMS_ITS | Encounter Summary ---
Author Organization [facility] Address [address] [place] [address] Care Team Providers Care Sifter And Miller Name Role Phone Yordan Murphy MD Primary Care Provider [phone] [phone] Encounter Details Date Type Department Care Team (Late st Contact Info) Description 04/24/2007 Outpatient Historical [facility] [address] 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
--- OUTSIDE RECORDS SUMMARY | 2025-10-01 10:26 | XMS_ITS | Encounter Summary ---
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
--- OUTSIDE RECORDS SUMMARY | 2025-10-01 10:26 | XMS_ITS | Encounter Summary ---
Author Organization [facility] Address [address] [place] [address] Care Team Providers Care Hr Business Partner Consultant Name Role Phone Yordan Murphy MD Primary Care Provider [phone] [phone] Encounter Details Date Type Department Care Team (Late st Contact Info) Description 10/12/2006 Inpatient Historical [facility] Jorge L Schofield, DO [address] [place], [place] [id number] Closed Skull Base Fx-Coma (CMS/HCC) (Primary Dx) Social History Tobacco Use Types Packs/Day Years Used Date Smoking Tobacco: Never Assessed Sex and Gender Information Value Date Recorded Sex Assigned at Not on file Legal Sex Male 5:07 AM ADULT FAMILY HOME PROGRAM MANAGER Gender Identity Not on file Sexual Orientation Not on file documented as of this encounter Plan of Treatment Not on file documented as of this encounter Procedures Procedure Name Priority Date/Time Associated Diagnosis Comments CBC WITH DIFFERENTIAL Routine 10/13/2006 4:20 AM ADULT FAMILY HOME PROGRAM MANAGER BASIC METABOLIC PANEL Routine 10/13/2006 4:20 AM ADULT FAMILY HOME PROGRAM MANAGER CBC WITH DIFFERENTIAL Routine 10/12/2006 10:57 PM ADULT FAMILY HOME PROGRAM MANAGER PROTIME-INR Routine 10/12/2006 10:57 PM ADULT FAMILY HOME PROGRAM MANAGER ETHANOL LEVEL Routine 10/12/2006 10:57 PM ADULT FAMILY HOME PROGRAM MANAGER BASIC METABOLIC PANEL Routine 10/12/2006 10:57 PM ADULT FAMILY HOME PROGRAM MANAGER CT HEAD WO CONTRAST Routine 10/12/2006 1 0:15 PM ADULT FAMILY HOME PROGRAM MANAGER XR PELVIS 1 OR 2 VW Routine 10/12/2006 1 0:15 PM ADULT FAMILY HOME PROGRAM MANAGER XR CHEST PA OR AP 1 VW Routine 10/12/2006 10:15 PM ADULT FAMILY HOME PROGRAM MANAGER XR CHEST PA OR AP 1 VW Routine 10/12/2006 10:15 PM ADULT FAMILY HOME PROGRAM MANAGER documented in this encounter Results * (ABNORMAL) BASIC METABOLIC PANEL (10/13/2006 4:20 AM ADULT FAMILY HOME PROGRAM MANAGER) [facility] GLUCOSE 122(H) 70 - 110 [...] 10.5 mg/dL INTERFACE SYSTEM 10/13/2006 4:20 AM ADULT FAMILY HOME PROGRAM MANAGER Jorge L Schofield DO CHEMISTRY ORDERABLES Edited INTERFACE SYSTEM Refer to clinic/hospital department * (ABNORMAL) CBC WITH DIFFERENTIAL (10/13/2006 4:20 AM ADULT FAMILY HOME PROGRAM MANAGER) [facility] PERIPHERAL BLOOD SMEAR REVIEW Automated [...] 0.2 K/ul INTERFACE SYSTEM 10/13/2006 4:20 AM ADULT FAMILY HOME PROGRAM MANAGER Jorge L Schofield DO HEMATOLOGY ORDERABLES Edited Performing Organization Address City/[facility] Co de Phone Number INTERFACE SYSTEM Refer to clinic/hospital department * PROTIME-INR (10/12/2006 10:57 PM ADULT FAMILY HOME PROGRAM MANAGER) PROTIME 14.3 13.0 - 15.7 Secs INTERFACE SYSTEM Comment: As of 06 note change in normal range. INR 1.0 INTERFACE SYSTEM Comment: Expected Values for INR: DVT/PE Goal INR 2.5; range 2.0 - 3.0 Valve Replacement Tissue Goal INR 2.5; range 2.0 - 3.0 Mechanical Goal INR 3.0; range 2.5 - 3.5 POST-ND Goal INR 2.5; range 2.0 - 3.0 or Goal 3.0; range 2.5 - 3.5 Atrial Fibrillation Goal INR 2.5; range 2.0 - 3.0 Ischemic Stroke Goal INR 2.5; range 2.0 - 3.0 For additional information see Guidelines for Anticoagulation available from the pharmacy Jose [facility]. 10/12/2006 10:5 7 PM ADULT FAMILY HOME PROGRAM MANAGER Cortez Martines MD HEMATOLOGY ORDERABLES Edited Performing Organization Address City/[facility] Co de Phone Number INTERFACE SYSTEM Refer to clinic/hospital department * (ABNORMAL) CBC WITH DIFFERENTIAL (10/12/2006 10:57 PM ADULT FAMILY HOME PROGRAM MANAGER) WBC 15.7(H) 4.8 - 10.8 K/ul [...] K/ul INTERFACE SYSTEM 10/12/2006 10:5 7 PM ADULT FAMILY HOME PROGRAM MANAGER us Cortez Martines MD HEMATOLOGY ORDERABLES Edited Performing Organization Address City/[facility] Co de Phone Number INTERFACE SYSTEM Refer to clinic/hospital department * ETHANOL (10/12/2006 10:57 PM ADULT FAMILY HOME PROGRAM MANAGER) ETHANOL <10 <=10 mg/dL INTERFACE SYSTEM 10/12/2006 10:5 7 PM ADULT FAMILY HOME PROGRAM MANAGER us Cortez Martines MD CHEMISTRY ORDERABLES Edited Performing Organization Address City/[facility] Co de Phone Number INTERFACE SYSTEM Refer to clinic/hospital department * (ABNORMAL) BASIC METABOLIC PANEL (10/12/2006 10:57 PM ADULT FAMILY HOME PROGRAM MANAGER) GLUCOSE 124(H) 70 - 110 mg/dL [...] mg/dL INTERFACE SYSTEM 10/12/2006 10:5 7 PM ADULT FAMILY HOME PROGRAM MANAGER Cortez Martines MD CHEMISTRY ORDERABLES Edited INTERFACE SYSTEM Refer to clinic/hospital department * XR CHEST PA OR AP (10/12/2006 10:15 PM ADULT FAMILY HOME PROGRAM MANAGER) Anatomical Region Laterality Modality Chest Other 10/12/2006 10:1 5 PM ADULT FAMILY HOME PROGRAM MANAGER Narrative 10/12/2006 10:15 PM ADULT FAMILY HOME PROGRAM MANAGER PORTABLE AP SUPINE CHEST 10/13/2006 AT [...] 1 OR 2 VW (10/12/2006 10:15 PM ADULT FAMILY HOME PROGRAM MANAGER) Anatomical Region Laterality Modality Pelvis Other 10/12/2006 10:1 5 PM ADULT FAMILY HOME PROGRAM MANAGER Narrative 10/12/2006 10:15 PM ADULT FAMILY HOME PROGRAM MANAGER INDICATION: Trauma. FINDINGS: Dynamic hip screw [...] CHEST PA OR AP (10/12/2006 10:15 PM ADULT FAMILY HOME PROGRAM MANAGER) Anatomical Region Laterality Modality Chest Other 10/12/2006 10:1 5 PM ADULT FAMILY HOME PROGRAM MANAGER Narrative 10/12/2006 10:15 PM ADULT FAMILY HOME PROGRAM MANAGER INDICATION: Trauma. FINDINGS: The study is [...] CT HEAD WO CONTRAST (10/12/2006 10:15 PM ADULT FAMILY HOME PROGRAM MANAGER) Anatomical Region Laterality Modality Head Other 10/12/2006 10:1 5 PM ADULT FAMILY HOME PROGRAM MANAGER Narrative 10/12/2006 10:15 PM ADULT FAMILY HOME PROGRAM MANAGER CT scan head without IV contrast. [...] Primary documented in this encounter Care Teams Hr Business Partner Consultant Relationship Specialty Start Date End Date Yordan Murphy MD [address] [address] PCP - General Family Practice 05/11/20 documented as of this encounter
--- OUTSIDE RECORDS SUMMARY | 2025-10-01 10:26 | XMS_ITS | Encounter Summary ---
Author Organization [facility] Address [address] [place] [address] Care Team Providers Care Principal Military Analyst Name Role Phone Yordan Murphy MD Primary Care Provider [phone] [phone] Encounter Details Date Type Department Care Team (Late st Contact Info) Description 02/22/2008 Emergency 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
--- OUTSIDE RECORDS SUMMARY | 2025-10-01 10:26 | XMS_ITS | Encounter Summary ---
Author Organization 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
--- OUTSIDE RECORDS SUMMARY | 2025-10-01 10:26 | XMS_ITS | Encounter Summary ---
Author Organization [facility] Address [address] [place] [address] Care Team Providers Care Metal Fabricating Inspector Name Role Phone Yordan Murphy MD Primary Care Provider [phone] [phone] Encounter Details Date Type Department Care Team (Late st Contact Info) Description 03/12/2005 Outpatient Historical [facility]-Cory Britton William [address] [place] [address] Juan Garnica, BUS DRIVER SUPERVISOR [address] [address] BACKACHE NOS (Primary Dx); JOINT PAIN-PELVIS Social History Tobacco Use Types Packs/Day Years Used Date Smoking Tobacco: Never Assessed Sex and Gender Information Value Date Recorded Sex Assigned at Not on file 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
[2025-10-01 10:28] VITALS: BP 107/63; PULSE 91; TEMP 36.4; O2SAT 98
--- NOTE | 2025-10-01 13:29 | W.ED.EXTPRO ---
HPI - Extremity Problem General: Chief complaint: Extremity Injury, Lower Stated complaint: left hip pain s/p fall Time Seen by Provider: 10/01/25 13:22 Source: patient and EMS Mode of arrival: EMS Limitations: no limitations History of Present Illness: 75-year-old male states that he fell out of his wheelchair yesterday when trying to transfer but having recent multiple falls. He is supposed to be placed in [facility] tomorrow. States been having some left hip pain since a fall as had that left hip surgically repaired rates the pain a 4 out of 10 he is able to bear weight currently denies hitting his head denies any other injuries Related Data Home Medications ?Medication ?Instructions ?Recorded ?Confirmed hydrocodone 7.5 mg-acetaminophen 1 tab PO Q8H PRN Pain 04/20/20 06/30/25 325 mg tablet Previous Rx's ?Medication ?Instructions ?Recorded lidocaine 5 % topical patch 1 patch topical DAILY #30 ea 01/21/25 (Lidoderm) apixaban 5 mg tablet (Eliquis) 5 mg PO BID #60 tabs 05/07/25 tizanidine 4 mg tablet 4 mg PO Q8H PRN muscle spasticity 09/22/25 #20 tabs Allergies Allergy/AdvReac Type Severity Reaction Status Date / Time No Known Allergies Allergy Verified 10/01/25 10:34 Review of Systems Musc: Reports: extremity pain COUNTS INCLUDE 234 BEDS AT THE [facility] ED PFSH: Medical History (Updated 10/01/25 @ 13:30 by Rl Arcos MD) Acute right arterial ischemic stroke, middle cerebral artery (MCA) CVA (cerebral vascular accident) Cerebrovascular accident Thyroid nodule [place] Hypertension Traumatic brain injury Smoker History of cardioversion COPD (chronic obstructive pulmonary disease) BPH (benign prostatic hyperplasia) Afib Surgical History S/P IVC filter History of knee replacement History of hip replacement History of laparoscopic appendectomy Hx of tonsillectomy Family History Other CAD (coronary artery disease) Cancer Diabetes Hypertension Lung disease Stroke Denies family history of Clotting disorder Dementia Hyperlipidemia Psychiatric illness Chronic kidney disease (CKD) Suicide Anesthesia complication Bleeding disorder Family history of premature coronary artery disease Social History Smoking and tobacco/nicotine status: current every day tobacco/nicotine user cigarettes Years cigarettes smoked: 56 Quit status (tobacco/nicotine): considering quitting Second hand smoke exposure: No Alcohol intake: never Substance/Drug Use: never Adopted: No Caregiver/support person: Yes Lives independently: Yes Housing: Apartment Marital status: Single Number of children: 0 Highest education level completed: Bachelor's Degree service: Yes Current occupational status: retired Pets and animals: No Sexually active: No Do you think of yourself as: Straight/Heterosexual Current gender identity: Male Special reece needs: No Agree to transfusion: Yes Physical Exam Const: COMMON NORMALS: no acute distress, patient oriented x3 and healthy appearing HENMT: COMMON NORMALS: normocephalic and atraumatic HEAD & SCALP: normocephalic and atraumatic Neck/C-Spine: COMMON NORMALS: full ROM and supple Chest: COMMONS NORMALS: normal inspection of the chest Resp: COMMON NORMALS: normal respiratory effort Cardio: COMMON NORMALS: regular rate RATE: regular rate Extremity: COMMON NORMALS: normal to inspection and full ROM Neuro: COMMON NORMALS: patient oriented x3, moves all extremities and no focal motor deficits Psych: COMMON NORMALS: mental status grossly normal, Normal thought process present and cooperative THOUGHT PROCESS: Normal thought process present Skin: COMMON NORMALS: no rashes or lesions noted and no wounds GENERAL SKIN EXAM: no rashes or lesions noted Course Vital Signs: Vital signs: Vital Signs Temperature 97.5 F L 10/01/25 10:28 Pulse Rate 91 10/01/25 10:28 Blood Pressure 107/63 10/01/25 10:28 Pulse Oximetry 98 10/01/25 10:28 Oxygen Delivery Me thod Room Air 10/01/25 10:28 MDM - Extremity (Nontraumatic) Medical Decision Making Patient presents with left hip pain after a fall differential includes contusion, fracture, dislocation. Did review the hip x-ray myself that showed no acute abnormality no signs of fracture patient is otherwise well-appearing here he is stable for discharge at this time patient supposed be placed in alf tomorrow he is return if worsening patient and family understand agree to plan Lab Data Radiology Impressions Hip/Pelvis X-Ray 10/01/25 10:20 IMPRESSION: There is a new nondisplaced avulsion fracture of the greater trochanter. All radiology interpretation(s) finalized by discharge Discharge Plan Discharge Patient Disposition: Home Clinical Impression: Contusion of left hip, Fall Condition: Stable Prescriptions: No Action hydrocodone-acetaminophen 7.5-325 mg tablet 1 tab PO Q8H PRN (Reason: Pain) lidocaine [Lidoderm] 5 % adhesive patch,medicated 1 patch topical DAILY Qty: 30 0RF Rx Instructions: leave on most painful area for up to 12 hrs Eliquis 5 mg tablet 5 mg PO BID Qty: 60 0RF tizanidine 4 mg tablet 4 mg PO Q8H PRN (Reason: muscle spasticity) Qty: 20 0RF Discharge Orders: Discharge ED (Routine); Ordered 10/01/25 Ordered By: Rl Arcos Referrals: Yordan Murphy [Primary Care Provider, Family Practice] - 4-7 days Discharge Diet: Advance as tolerated Discharge Activity: Resume usual activity Patient Instructions: Hip Contusion (ED) Print Language: Frisian Coding Level of Care Code ED Accounting Auditor for Daina Hoskins
[2025-10-01 13:48] VITALS: BP 101/64; PULSE 84; RESP 18; O2SAT 95
== END 2025-10-01 14:01 | disposition home or self-care (01) ==
PROVIDERS: Emergency Provider Emergency Medicine; PCP Family Medicine
DX: S70.02XA Contusion of left hip, initial encounter (principal); Z79.01 Long term (current) use of anticoagulants; F17.210 Nicotine dependence, cigarettes, uncomplicated; J44.9 Chronic obstructive pulmonary disease, unspecified; Z86.73 Personal history of transient ischemic attack (TIA), and cerebral infarction without residual deficits; I10 Essential (primary) hypertension; W19.XXXA Unspecified fall, initial encounter
CPT/HCPCS: 73502; 99283